=== PATIENT | female | born 1975 | race Caucasian/White ===

== ENCOUNTER 2017-08-13 16:27 | Emergency (ER) | payer MEDICAID ==
[~2017-08-13] VITALS: Ht 144.8 cm; Wt 111.1 kg
[2017-08-13] MEDS ORDERED: PANTOPRAZOLE 40 MG/10 ML VIAL IV STA (16:53)
[2017-08-13] MEDS ORDERED: SODIUM CHLORIDE 0.9% 500 ML IVB ONE (16:53)
[2017-08-13] MEDS ORDERED: ONDANSETRON HCL 4 MG/2 ML VIAL IV ONE (17:00)
[2017-08-13] MEDS ORDERED: HYDROmorphone HCL 2 MG/ML VL IV ONE (17:00)
[2017-08-13 17:21] LABS: Basophils # (auto) 0.1 uL; Basophils % (auto) 1.4 % (0.0-2.0); Eosinophils # (auto) 0.1 uL; Eosinophils % (auto) 1.2 % (0.0-7.0); Hematocrit 40.2 % (36.0-46.0); Hemoglobin 13.4 g/dL (12.2-16.2); Lymphocytes # (auto) 2.9 uL; Lymphocytes % (auto) 32.3 % (10.0-50.0); Mean Corpuscular Hemoglobin 29.7 pg (28.0-32.0); Mean Corpuscular Hgb Conc. 33.3 g/dL (32.0-36.0); Mean Corpuscular Volume 89.3 fL (80.0-100.0); Mean Platelet Volume 7.9 fL (6.9-10.8); Monocytes # (auto) 0.5 uL; Monocytes % (auto) 5.2 % (0.0-12.0); Neutrophils # (auto) 5.4 uL; Neutrophils % (auto) 59.9 % (37.0-80.0); Nucleated Red Blood Cells % 0.1 %; Platelet Count (auto) 242 10^3/uL (140-450); Red Cell Distribution Width 13.8 % (11.8-14.3); White Blood Cell 9.1 10^3/uL (4.4-10.8)
[2017-08-13 17:32] LABS: Urine Bilirubin Negative (Negative); Urine Blood Negative /uL (Negative); Urine Color Yellow (Yellow); Urine Glucose Normal (Normal); Urine Ketone Negative (Negative); Urine Nitrite Negative (Negative); Urine RBC <1 /hpf (0 - 4); Urine Squamous Epithelial Cell MOD /hpf (<5); Urine Urobilinogen Normal (Negative)
[2017-08-13 17:41] LABS: Albumin 3.5 g/dL (3.4-5.0); BUN/Creatinine Ratio 13.5; Calcium 10.7 mg/dL (8.5-10.1); Potassium 4.3 mmol/L (3.5-5.1)
[2017-08-13 17:43] LABS: Bilirubin, Total 0.4 mg/dL (0.2-1.0); Total Protein 7.6 g/dL (6.4-8.2)
[2017-08-13 17:50] VITALS: BP 102/71
== END 2017-08-13 19:18 | disposition home or self-care (01) ==
LOC: ER 16:36
DX: K29.70 Gastritis, unspecified, without bleeding (principal); J44.9 Chronic obstructive pulmonary disease, unspecified; E11.9 Type 2 diabetes mellitus without complications; K21.9 Gastro-esophageal reflux disease without esophagitis; E78.5 Hyperlipidemia, unspecified; I10 Essential (primary) hypertension; G89.29 Other chronic pain; M54.5 Low back pain; Z90.710 Acquired absence of both cervix and uterus; Z90.89 Acquired absence of other organs; F12.10 Cannabis abuse, uncomplicated; Z87.891 Personal history of nicotine dependence
CPT/HCPCS: 36415; 76705; 80053; 81001; 82150; 83690; 85025; 94761; 96361; 96374; 96375; 99285; C9113; J1170; J2405; J7040

== ENCOUNTER 2018-06-02 06:56 | Day surgery (SDC) | payer MEDICAID ==
[2018-06-01 13:53] LABS: Urine WBC None Seen /hpf (0 - 5)
[2018-06-01 14:01] LABS: Urine Bacteria FEW /hpf (None Seen); Urine Blood Negative /uL (Negative); Urine Specific Gravity 1.011 (1.001-1.035)
[2018-06-01 14:08] LABS: Basophils # (auto) 0.1 uL; Eosinophils # (auto) 0.1 uL; Eosinophils % (auto) 1.6 % (0.0-7.0); Hematocrit 43.9 % (36.0-46.0); Hemoglobin 14.7 g/dL (12.2-16.2); Lymphocytes # (auto) 2.8 uL; Lymphocytes % (auto) 36.3 % (10.0-50.0); Mean Corpuscular Hemoglobin 29.7 pg (28.0-32.0); Mean Corpuscular Hgb Conc. 33.6 g/dL (32.0-36.0); Mean Corpuscular Volume 88.3 fL (80.0-100.0); Monocytes # (auto) 0.4 uL; Monocytes % (auto) 4.9 % (0.0-12.0); Neutrophils # (auto) 4.3 uL; Neutrophils % (auto) 56.2 % (37.0-80.0); Nucleated Red Blood Cells % 0.1 %; Platelet Count (auto) 237 10^3/uL (140-450); Red Blood Cells 4.97 10^6/uL (4.0-5.20); Red Cell Distribution Width 13.7 % (11.8-14.3); White Blood Cell 7.6 10^3/uL (4.4-10.8)
[2018-06-01 14:15] LABS: INR 0.93 (0.9-1.15); Partial Thromboplastin Time 25.9 sec (23.78-33.04)
[2018-06-01 14:19] LABS: Albumin 3.8 g/dL (3.4-5.0); BUN/Creatinine Ratio 14.4; Bilirubin, Total 0.6 mg/dL (0.2-1.0); Calcium 11.4 mg/dL (8.5-10.1); Potassium 4.5 mmol/L (3.5-5.1); Total Protein 7.9 g/dL (6.4-8.2)
[~2018-06-02] VITALS: Ht 144.8 cm; Wt 116.1 kg
[~2018-06-02 06:56] MED LIST: ALBUAER3 IN; ARIP15TA6 PO; CHOL500023 PO; LOSA-49 PO; LOVA40TA72 PO; METF-372 PO; METO25TA62 PO; PANT40TA2 PO; ZOLP10TA PO
[2018-06-02] MEDS ORDERED: ceFAZolin 1GM/50ML 50 ML IV ONE (08:46)
[2018-06-02] MEDS ORDERED: MIDAZOLAM HCL 1MG/1ML-2 ML VIAL ONE (10:27)
[2018-06-02] MEDS ORDERED: fentaNYL CITRATE 100 MCG/2 ML VL ONE (10:27)
[2018-06-02] MEDS ORDERED: DEXAMETHASONE SOD PHOS 10MG/1ML VIAL INJ ONE (10:31)
[2018-06-02] MEDS ORDERED: HYDROmorphone HCL 2 MG/ML VL IV PRN (10:45)
[2018-06-02] MEDS ORDERED: KETOROLAC TROMETH 30 MG/ML 1ML VIAL IV ONE (10:45)
[2018-06-02] MEDS ORDERED: MORPHINE SULFATE 4 MG/ML SYR/VIAL IV PRN (10:45)
[2018-06-02] MEDS ORDERED: LABETALOL HCL 5 MG/ML 4ML SYRINGE IV PRN (10:45)
[2018-06-02] MEDS ORDERED: ONDANSETRON HCL 4 MG/2 ML VIAL IV ONE (10:45)
[2018-06-02] MEDS ORDERED: ePHEDrine SULFATE 50 MG/ML AMP IV PRN (10:45)
[2018-06-02] MEDS ORDERED: MIDAZOLAM HCL 1MG/1ML-2 ML VIAL IV PRN (10:45)
[2018-06-02] MEDS ORDERED: PROPOFOL 10 MG/ML 20 ML IV ONE (11:11)
[2018-06-02 11:22] VITALS: BP 132/83
[2018-06-02] MEDS ORDERED: MORPHINE SULFATE 4 MG/ML SYR/VIAL IV ONE (12:00)
== END 2018-06-02 11:30 | disposition home or self-care (01) ==
LOC: SUR 06:56
PROVIDERS: ATTEND Podiatrist Foot & Ankle Surgery
DX: G57.81 Other specified mononeuropathies of right lower limb (principal); I10 Essential (primary) hypertension; J45.909 Unspecified asthma, uncomplicated; E11.9 Type 2 diabetes mellitus without complications; E66.01 Morbid (severe) obesity due to excess calories; K21.9 Gastro-esophageal reflux disease without esophagitis; G47.30 Sleep apnea, unspecified; Z90.5 Acquired absence of kidney; Z90.710 Acquired absence of both cervix and uterus; Z98.890 Other specified postprocedural states; Z68.33 Body mass index [BMI] 33.0-33.9, adult
CPT/HCPCS: 64704; J3010; J7030; 36415; 80053; 81001; 82962; 84702; 85025; 85610; 85730; J0690; J1100; J2250; J2704

== ENCOUNTER 2018-12-19 15:50 | Emergency (ER) | payer MEDICAID ==
[~2018-12-19] VITALS: Ht 144.8 cm; Wt 114.8 kg
[2018-12-19 17:08] LABS: Urine Bacteria NONE SEEN /hpf (None Seen); Urine Blood Negative /uL (Negative); Urine Specific Gravity 1.009 (1.001-1.035); Urine WBC 2 /hpf (0 - 5)
[2018-12-19 17:12] LABS: Albumin 3.5 g/dL (3.4-5.0); BUN/Creatinine Ratio 11.2; Calcium 11.4 mg/dL (8.5-10.1); Potassium 4.2 mmol/L (3.5-5.1)
[2018-12-19 17:14] LABS: Bilirubin, Total 0.6 mg/dL (0.2-1.0); Total Protein 7.3 g/dL (6.4-8.2)
[2018-12-19 17:41] LABS: Hematocrit 37.1 % (36.0-46.0); Hemoglobin 12.4 g/dL (12.2-16.2); Mean Corpuscular Hemoglobin 29.7 pg (28.0-32.0); Mean Corpuscular Hgb Conc. 33.4 g/dL (32.0-36.0); Mean Corpuscular Volume 88.8 fL (80.0-100.0); Platelet Count (auto) 193 10^3/uL (140-450); Red Blood Cells 4.18 10^6/uL (4.0-5.20); Red Cell Distribution Width 15.6 % (11.8-14.3); White Blood Cell 6.4 10^3/uL (4.4-10.8)
[2018-12-19 17:44] LABS: Band Neutrophils % (manual) 0; Basophils % (manual) 0 (0.0-2.0); Metamyelocytes % 0; Myelocytes % 0; Promyelocytes % 0
[2018-12-19 18:58] LABS: Blast Cells 4; Eosinophils % (manual) 1 (0-7); Lymphocytes % (manual) 50 (10.0-50.0); Monocytes % (manual) 7 (0-12); Reactive Lymphocytes 3
[2018-12-19] MEDS ORDERED: KETOROLAC TROMETH 60MG/2ML VIAL IM ONE ×2 (20:18→21:00)
[2018-12-19 22:00] VITALS: BP 116/85
== END 2018-12-19 22:45 | disposition home or self-care (01) ==
LOC: ER 15:50
DX: N20.0 Calculus of kidney (principal); K76.0 Fatty (change of) liver, not elsewhere classified; E11.9 Type 2 diabetes mellitus without complications; I10 Essential (primary) hypertension; E78.5 Hyperlipidemia, unspecified; Z90.89 Acquired absence of other organs; Z90.710 Acquired absence of both cervix and uterus; Z79.899 Other long term (current) drug therapy
CPT/HCPCS: 36415; 74176; 80053; 81001; 82150; 83690; 85007; 85027; 96372; 99284; J1885

== ENCOUNTER 2019-11-29 18:54 | Emergency (ER) | payer MEDICAID ==
[~2019-11-29] VITALS: Ht 144.8 cm; Wt 113.4 kg
[~2019-11-29 18:54] MED LIST changes: +LOSA-39 PO; -LOSA-49 PO; -METO25TA62 PO; +METO25TA93 PO
[2019-11-29 20:06] VITALS: BP 154/69
[2019-11-29 20:13] LABS: Basophils # (auto) 0.1 10 ^3/uL (0-0.2); Basophils % (auto) 0.9 % (0.0-2.0); Eosinophils # (auto) 0.2 10 ^3/uL (0-0.8); Eosinophils % (auto) 2.1 % (0.0-7.0); Hematocrit 40.4 % (36.0-46.0); Hemoglobin 13.7 g/dL (12.2-16.2); Mean Corpuscular Hemoglobin 30.6 pg (28.0-32.0); Mean Corpuscular Hgb Conc. 33.9 g/dL (32.0-36.0); Mean Corpuscular Volume 90.3 fL (80.0-100.0); Monocytes # (auto) 0.5 10 ^3/uL (0-1.3); Platelet Count (auto) 202 10^3/uL (140-450); Red Blood Cells 4.47 10^6/uL (4.0-5.20); Red Cell Distribution Width 13.8 % (11.8-14.3); White Blood Cell 7.7 10^3/uL (4.4-10.8)
[2019-11-29 20:30] LABS: Alanine Aminotransferase 32 U/L (13-56); Albumin 3.5 g/dL (3.4-5.0); Anion Gap 2 (5-15); Aspartate Aminotransferase 21 U/L (15-37); BUN/Creatinine Ratio 17.3; Blood Urea Nitrogen 14 mg/dL (7-18); Calcium 12.1 mg/dL (8.5-10.1); Carbon Dioxide 25 mmol/L (21-32); Chloride 110 mmol/L (98-107); GFR African American 98 mL/min; GFR Non-African American 81 mL/min; Glucose 130 mg/dL (74-106); Magnesium 1.2 mg/dL (1.6-2.6); Potassium 4.5 mmol/L (3.5-5.1); Sodium 137 mmol/L (136-145)
[2019-11-29] MEDS ORDERED: traMADol HCL 50 MG TAB PO ONE (20:30)
[2019-11-29 20:35] LABS: Alkaline Phosphatase 105 U/L (45-117); Bilirubin, Total 0.4 mg/dL (0.2-1.0); Total Protein 7.2 g/dL (6.4-8.2)
== END 2019-11-29 21:13 | disposition home or self-care (01) ==
LOC: ER 18:54
DX: M25.511 Pain in right shoulder (principal); J44.9 Chronic obstructive pulmonary disease, unspecified; E11.9 Type 2 diabetes mellitus without complications; E78.5 Hyperlipidemia, unspecified; I10 Essential (primary) hypertension; Z79.899 Other long term (current) drug therapy; Z90.710 Acquired absence of both cervix and uterus
CPT/HCPCS: 36415; 71045; 73030; 80053; 82962; 83735; 84484; 85025; 93005

== ENCOUNTER 2021-07-12 15:53 | Inpatient (IN) | payer MEDICAID ==
[~2021-07-12] VITALS: Ht 144.8 cm; Wt 114.0 kg
[2021-07-12] MEDS ORDERED: cefTRIAXone 1GM/50ML D5W 50 ML IV ONE ×2 (17:30→21:15)
[2021-07-12] MEDS ORDERED: ONDANSETRON HCL 4 MG/2 ML VIAL IV ONE (17:30)
[2021-07-12] MEDS ORDERED: TAMSULOSIN HYDROCHLORIDE 0.4 MG CAP PO ONE (17:30)
[2021-07-12] MEDS ORDERED: MORPHINE SULFATE 4 MG/ML SYR/VIAL IV ONE (17:30)
[2021-07-12 18:31] LABS: Basophils # (auto) 0.1 10 ^3/uL (0-0.2); Eosinophils # (auto) 0.2 10 ^3/uL (0-0.8); Eosinophils % (auto) 2.9 % (0.0-7.0); Hematocrit 36.9 % (36.0-46.0); Hemoglobin 12.3 g/dL (12.2-16.2); Lymphocytes # (auto) 2.2 10 ^3/uL (0.4-5.4); Lymphocytes % (auto) 33.8 % (10.0-50.0); Mean Corpuscular Hgb Conc. 33.4 g/dL (32.0-36.0); Mean Corpuscular Volume 89.9 fL (80.0-100.0); Monocytes # (auto) 0.2 10 ^3/uL (0-1.3); Monocytes % (auto) 3.9 % (0.0-12.0); Neutrophils # (auto) 3.7 10 ^3/uL (1.6-8.6); Neutrophils % (auto) 58.4 % (37.0-80.0); Nucleated Red Blood Cells % 0.3 %; Red Cell Distribution Width 13.7 % (11.8-14.3); White Blood Cell 6.4 10^3/uL (4.4-10.8)
[2021-07-12 18:39] LABS: Albumin 3.4 g/dL (3.4-5.0); Anion Gap 2 (5-15); Blood Urea Nitrogen 18 mg/dL (7-18); Calcium 11.7 mg/dL (8.5-10.1); Carbon Dioxide 25 mmol/L (21-32); Chloride 110 mmol/L (98-107); Glucose 249 mg/dL (74-106); Potassium 5.5 mmol/L (3.5-5.1); Sodium 137 mmol/L (136-145)
[2021-07-12 18:48] LABS: Alanine Aminotransferase 40 U/L (13-56); Alkaline Phosphatase 105 U/L (45-117); Aspartate Aminotransferase 32 U/L (15-37); BUN/Creatinine Ratio 14.2; Bilirubin, Total 0.4 mg/dL (0.2-1.0); GFR African American 58 mL/min; GFR Non-African American 48 mL/min; Total Protein 7.3 g/dL (6.4-8.2)
[2021-07-12 19:43] LABS: Urine Bacteria NONE SEEN /hpf (None Seen); Urine Blood Negative /uL (Negative); Urine Specific Gravity 1.011 (1.001-1.035); Urine WBC 1 /hpf (0 - 5)
[2021-07-12] MEDS ORDERED: SODIUM CHLORIDE 0.9% 1,000 ML IV ONE ×2 (20:15)
[2021-07-12] MEDS ORDERED: CALCIUM GLUC 1,000mg/50ml-NS 50 ML IV ONE (20:15)
[2021-07-12] MEDS ORDERED: SODIUM ZIRCONIUM CYCL 10 GM PAK PO ONE (20:15)
[2021-07-12] MEDS ORDERED: MORPHINE SULFATE INJECTION 2 MG/ML SYRG IV PRN (20:45)
[2021-07-12] MEDS ORDERED: ACETAMINOPHEN 325 MG TAB PO PRN (20:45)
[2021-07-12] MEDS ORDERED: NITROGLYCERIN 0.4 MG SL TAB SL PRN (20:45)
[2021-07-12] MEDS ORDERED: DEXTROSE (50%) 50ML SYRG IV PRN (20:45)
[2021-07-12] MEDS ORDERED: ONDANSETRON HCL 4 MG/2 ML VIAL IV PRN (20:45)
[2021-07-12 23:56] LABS: BUN/Creatinine Ratio 13.2; Calcium 12.3 mg/dL (8.5-10.1); Potassium 5.3 mmol/L (3.5-5.1)
[2021-07-13 05:00] VITALS: BP 156/118
[2021-07-13] MEDS: HYDROcodone-ACET 5/325MG TAB PO PRN ×2 (05:20→16:41)
[2021-07-13 05:42] VITALS: BP 156/118
[2021-07-13] MEDS: SODIUM CHLORIDE 0.9% 1,000 ML IV SCH ×3 (06:13→13:25)
[2021-07-13] MEDS: ACCU-CHEK COMFORT CURVE STRIP VI SCH ×4 (06:13→16:32)
[2021-07-13] MEDS: InsuLIN REG 1unit/0.01ml Soln (100units/ml) SC SCH ×4 (06:20→16:40)
[2021-07-13] MEDS: MORPHINE SULFATE 4 MG/ML SYR/VIAL IV PRN ×2 (06:56→11:04)
[2021-07-13 09:00] VITALS: BP 102/52
[2021-07-13] MEDS ORDERED: cefTRIAXone 1GM/50ML D5W 50 ML IV SCH (09:00)
[2021-07-13 12:00] LABS: Basophils # (auto) 0 10 ^3/uL (0-0.2); Basophils % (auto) 0.7 % (0.0-2.0); Eosinophils # (auto) 0.1 10 ^3/uL (0-0.8); Eosinophils % (auto) 2.8 % (0.0-7.0); Hematocrit 34.4 % (36.0-46.0); Hemoglobin 11.6 g/dL (12.2-16.2); Lymphocytes % (auto) 37.1 % (10.0-50.0); Mean Corpuscular Hemoglobin 30.9 pg (28.0-32.0); Mean Corpuscular Hgb Conc. 33.8 g/dL (32.0-36.0); Mean Corpuscular Volume 91.6 fL (80.0-100.0); Monocytes # (auto) 0.3 10 ^3/uL (0-1.3); Monocytes % (auto) 5.4 % (0.0-12.0); Neutrophils # (auto) 2.9 10 ^3/uL (1.6-8.6); Nucleated Red Blood Cells % 0.3 %; Red Blood Cells 3.76 10^6/uL (4.0-5.20); Red Cell Distribution Width 13.8 % (11.8-14.3); White Blood Cell 5.3 10^3/uL (4.4-10.8)
[2021-07-13 12:02] LABS: Potassium 5.4 mmol/L (3.5-5.1)
[2021-07-13 12:10] LABS: Albumin 3.2 g/dL (3.4-5.0); BUN/Creatinine Ratio 16.7; Bilirubin, Total 0.4 mg/dL (0.2-1.0); Calcium 12.1 mg/dL (8.5-10.1)
[2021-07-13 13:00] VITALS: BP 115/70
[2021-07-13] MEDS ORDERED: SODIUM ZIRCONIUM CYCL 10 GM PAK PO ONE (16:00)
== END 2021-07-13 19:21 | disposition home health service (06) | DRG 465 ==
LOC: EDBD 15:53 → ER 15:53 → OVERFLOW 20:42 → EAST 07-13 04:33
PROVIDERS: ADMIT Internal Medicine; ATTEND Internal Medicine
DX: N13.2 Hydronephrosis with renal and ureteral calculous obstruction (principal); Z68.43 Body mass index [BMI] 50.0-59.9, adult; E11.22 Type 2 diabetes mellitus with diabetic chronic kidney disease; E78.5 Hyperlipidemia, unspecified; E87.5 Hyperkalemia; Z20.822 Contact with and (suspected) exposure to COVID-19; I12.9 Hypertensive chronic kidney disease with stage 1 through stage 4 chronic kidney disease, or unspecified chronic kidney disease; F31.9 Bipolar disorder, unspecified; N18.30 Chronic kidney disease, stage 3 unspecified; G47.00 Insomnia, unspecified; E66.01 Morbid (severe) obesity due to excess calories; J44.9 Chronic obstructive pulmonary disease, unspecified; Z79.84 Long term (current) use of oral hypoglycemic drugs; Z88.8 Allergy status to other drugs, medicaments and biological substances; Z80.1 Family history of malignant neoplasm of trachea, bronchus and lung; Z82.49 Family history of ischemic heart disease and other diseases of the circulatory system; Z90.5 Acquired absence of kidney; Z90.710 Acquired absence of both cervix and uterus
CPT/HCPCS: 36415; 71045; 74176; 80048; 80053; 81001; 82962; 84484; 85025; 87081; 87426; 93005; 96365; 96372; 96375; G0378; J0696; J1815

== ENCOUNTER 2021-08-05 14:07 | Emergency (ER) | payer MEDICAID ==
[~2021-08-05] VITALS: Ht 144.8 cm; Wt 116.1 kg
[~2021-08-05 14:07] MED LIST changes: -LOSA-39 PO
[2021-08-05] MEDS ORDERED: KETOROLAC TROMETH 30 MG/ML 1ML VIAL IV ONE (14:15)
[2021-08-05] MEDS ORDERED: SODIUM CHLORIDE 0.9% 1,000 ML IVB ONE (14:15)
[2021-08-05] MEDS ORDERED: MORPHINE SULFATE 4 MG/ML SYR/VIAL IV ONE (14:15)
[2021-08-05] MEDS ORDERED: ONDANSETRON HCL 4 MG/2 ML VIAL IV ONE (14:15)
[2021-08-05 14:54] LABS: Basophils # (auto) 0 10 ^3/uL (0-0.2); Basophils % (auto) 0.7 % (0.0-2.0); Eosinophils # (auto) 0.2 10 ^3/uL (0-0.8); Eosinophils % (auto) 2.5 % (0.0-7.0); Hematocrit 39.1 % (36.0-46.0); Hemoglobin 13.2 g/dL (12.2-16.2); Lymphocytes # (auto) 1.9 10 ^3/uL (0.4-5.4); Mean Corpuscular Hemoglobin 30.4 pg (28.0-32.0); Mean Corpuscular Hgb Conc. 33.8 g/dL (32.0-36.0); Monocytes # (auto) 0.3 10 ^3/uL (0-1.3); Monocytes % (auto) 5.3 % (0.0-12.0); Neutrophils # (auto) 3.9 10 ^3/uL (1.6-8.6); Neutrophils % (auto) 61.5 % (37.0-80.0); Nucleated Red Blood Cells % 0.1 %; Red Blood Cells 4.35 10^6/uL (4.0-5.20); Red Cell Distribution Width 14.1 % (11.8-14.3); White Blood Cell 6.3 10^3/uL (4.4-10.8)
[2021-08-05 15:09] LABS: Albumin 3.3 g/dL (3.4-5.0); Calcium 12.7 mg/dL (8.5-10.1); Potassium 5.3 mmol/L (3.5-5.1)
[2021-08-05 15:12] LABS: BUN/Creatinine Ratio 19.5
[2021-08-05 15:14] LABS: Bilirubin, Total 0.6 mg/dL (0.2-1.0); Total Protein 7.3 g/dL (6.4-8.2)
[2021-08-05] MEDS ORDERED: SODIUM BICARBONATE 8.4 % INJ 50ML VIAL IV ONE (17:00)
[2021-08-05] MEDS ORDERED: CALCIUM GLUC 1,000mg/50ml-NS 50 ML IV ONE (17:00)
[2021-08-05 17:12] LABS: Urine Bacteria FEW /hpf (None Seen); Urine Blood Negative /uL (Negative); Urine Specific Gravity 1.016 (1.001-1.035); Urine WBC 2 /hpf (0 - 5)
[2021-08-05 20:45] VITALS: BP 142/89
== END 2021-08-06 14:09 | disposition home or self-care (01) ==
LOC: EDBD 14:07 → ER 14:07
DX: R10.9 Unspecified abdominal pain (principal); E87.5 Hyperkalemia; J44.9 Chronic obstructive pulmonary disease, unspecified; E11.9 Type 2 diabetes mellitus without complications; E78.5 Hyperlipidemia, unspecified; I10 Essential (primary) hypertension; Z90.710 Acquired absence of both cervix and uterus; Z87.442 Personal history of urinary calculi
CPT/HCPCS: 36415; 74176; 80053; 81001; 83690; 85025; 93005; 96365; 96375; 99285; J0610; J1885; J2270; J2405; J7030

== ENCOUNTER 2021-08-09 14:08 | Emergency (ER) | payer MEDICAID ==
[~2021-08-09] VITALS: Ht 144.8 cm; Wt 116.1 kg
[2021-08-09 15:09] LABS: Urine Bacteria FEW /hpf (None Seen); Urine Blood Negative /uL (Negative); Urine Specific Gravity 1.016 (1.001-1.035); Urine WBC 1 /hpf (0 - 5)
[2021-08-09 15:35] LABS: Basophils # (auto) 0.1 10 ^3/uL (0-0.2); Eosinophils # (auto) 0.1 10 ^3/uL (0-0.8); Eosinophils % (auto) 2.1 % (0.0-7.0); Hematocrit 37.2 % (36.0-46.0); Hemoglobin 12.4 g/dL (12.2-16.2); Lymphocytes # (auto) 2.1 10 ^3/uL (0.4-5.4); Lymphocytes % (auto) 33.2 % (10.0-50.0); Mean Corpuscular Hemoglobin 30.1 pg (28.0-32.0); Mean Corpuscular Hgb Conc. 33.4 g/dL (32.0-36.0); Mean Corpuscular Volume 90.1 fL (80.0-100.0); Monocytes # (auto) 0.3 10 ^3/uL (0-1.3); Monocytes % (auto) 5.4 % (0.0-12.0); Neutrophils # (auto) 3.7 10 ^3/uL (1.6-8.6); Neutrophils % (auto) 58.3 % (37.0-80.0); Nucleated Red Blood Cells % 0.1 %; Red Blood Cells 4.13 10^6/uL (4.0-5.20); Red Cell Distribution Width 13.8 % (11.8-14.3); White Blood Cell 6.3 10^3/uL (4.4-10.8)
[2021-08-09 15:54] LABS: Albumin 3.6 g/dL (3.4-5.0); Calcium 12.3 mg/dL (8.5-10.1)
[2021-08-09 15:58] LABS: BUN/Creatinine Ratio 17.7; Bilirubin, Total 0.6 mg/dL (0.2-1.0)
[2021-08-09 16:20] LABS: Potassium 5.7 mmol/L (3.5-5.1)
[2021-08-09] MEDS ORDERED: SODIUM ZIRCONIUM CYCL 10 GM PAK PO ONE (16:45)
[2021-08-09] MEDS ORDERED: SODIUM BICARBONATE 8.4% INJ 50ML SYRINGE IV ONE (16:45)
[2021-08-09] MEDS ORDERED: DEXTROSE (50%) 50ML SYRG IV ONE (16:45)
[2021-08-09] MEDS ORDERED: ALBUTEROL SULF 2.5 MG/0.5ML(0.5%) NEB SOLN NEB ONE (16:45)
[2021-08-09] MEDS ORDERED: InsuLIN REG 1unit/0.01ml Soln (100units/ml) IV ONE (16:45)
[2021-08-09] MEDS ORDERED: FUROSEMIDE 20 MG/2 ML VIAL IV ONE (16:45)
[2021-08-09] MEDS ORDERED: CALCIUM GLUC 1,000mg/50ml-NS 50 ML IV ONE (16:45)
[2021-08-09] MEDS ORDERED: ONDANSETRON HCL 4 MG/2 ML VIAL IV ONE (20:30)
[2021-08-09] MEDS ORDERED: fentaNYL CITRATE 100 MCG/2 ML VL IV ONE (20:30)
[2021-08-09 21:15] VITALS: BP 127/74
[2021-08-09 22:23] LABS: BUN/Creatinine Ratio 17.1; Calcium 12.5 mg/dL (8.5-10.1); Potassium 4.7 mmol/L (3.5-5.1)
== END 2021-08-09 23:45 | disposition still patient (30) ==
LOC: ER 14:08
DX: N20.0 Calculus of kidney (principal); E87.5 Hyperkalemia; J44.9 Chronic obstructive pulmonary disease, unspecified; E11.9 Type 2 diabetes mellitus without complications; E78.5 Hyperlipidemia, unspecified; I10 Essential (primary) hypertension; Z90.710 Acquired absence of both cervix and uterus; Z90.89 Acquired absence of other organs; Z87.891 Personal history of nicotine dependence; Z79.899 Other long term (current) drug therapy; Z91.048 Other nonmedicinal substance allergy status; Z20.822 Contact with and (suspected) exposure to COVID-19
CPT/HCPCS: 36415; 74176; 80048; 80053; 81001; 84132; 85025; 87426; 93005; 94640; 96365; 96375; 99285; J1815; J1940; J2405; J3010; J7042

== ENCOUNTER 2021-09-23 17:29 | Inpatient (IN) | payer MEDICAID ==
[~2021-09-23] VITALS: Ht 154.9 cm; Wt 117.0 kg
[2021-09-23 20:08] LABS: Basophils # (auto) 0.1 10 ^3/uL (0-0.2); Basophils % (auto) 0.8 % (0.0-2.0); Eosinophils # (auto) 0.1 10 ^3/uL (0-0.8); Eosinophils % (auto) 0.9 % (0.0-7.0); Hematocrit 39.8 % (36.0-46.0); Hemoglobin 13.6 g/dL (12.2-16.2); Lymphocytes # (auto) 1.9 10 ^3/uL (0.4-5.4); Mean Corpuscular Hemoglobin 29.8 pg (28.0-32.0); Mean Corpuscular Hgb Conc. 34.3 g/dL (32.0-36.0); Mean Corpuscular Volume 86.9 fL (80.0-100.0); Monocytes # (auto) 0.4 10 ^3/uL (0-1.3); Monocytes % (auto) 4.4 % (0.0-12.0); Neutrophils # (auto) 6.2 10 ^3/uL (1.6-8.6); Neutrophils % (auto) 71.9 % (37.0-80.0); Red Blood Cells 4.58 10^6/uL (4.0-5.20); Red Cell Distribution Width 13.1 % (11.8-14.3); White Blood Cell 8.6 10^3/uL (4.4-10.8)
[2021-09-23 20:38] LABS: Albumin 3.8 g/dL (3.4-5.0); Potassium 4.7 mmol/L (3.5-5.1)
[2021-09-23 20:44] LABS: BUN/Creatinine Ratio 17.9; Bilirubin, Total 0.6 mg/dL (0.2-1.0); Total Protein 8.2 g/dL (6.4-8.2)
[2021-09-23 20:49] LABS: Calcium 13.4 mg/dL (8.5-10.1)
[2021-09-23] MEDS ORDERED: IPRATROPIUM BROM 0.5 MG/2.5ML INH SOL NEB ONE (21:15)
[2021-09-23] MEDS ORDERED: ALBUTEROL SULF 2.5 MG/0.5ML(0.5%) NEB SOLN NEB ONE (21:15)
[2021-09-23] MEDS ORDERED: DexAMETHasone SOD PHOS 10MG/1ML VIAL INJ IV ONE (21:15)
[2021-09-23] MEDS ORDERED: SODIUM CHLORIDE 0.9% 1,000 ML IV ONE (23:00)
[2021-09-24] MEDS ORDERED: KETOROLAC TROMETH 30 MG/ML 1ML VIAL IV ONE (00:15)
[2021-09-24] MEDS ORDERED: MORPHINE SULFATE INJECTION 2 MG/ML SYRG IV PRN (01:00)
[2021-09-24] MEDS ORDERED: NITROGLYCERIN 0.4 MG SL TAB SL PRN (01:00)
[2021-09-24] MEDS ORDERED: ONDANSETRON HCL 4 MG/2 ML VIAL IV PRN (01:00)
[2021-09-24] MEDS ORDERED: DOCUSATE SOD 100 MG CAP PO PRN (01:00)
[2021-09-24] MEDS ORDERED: DEXTROSE (50%) 50ML SYRG IV PRN (01:15)
[2021-09-24] MEDS ORDERED: SODIUM CHLORIDE 0.9% 1,000 ML IV SCH (01:15)
[2021-09-24] MEDS: ALBUTEROL SULF 2.5 MG/0.5ML(0.5%) NEB SOLN NEB SCH ×6 (02:00→23:12)
[2021-09-24] MEDS ORDERED: methylPREDNISolone SOD SUCC 125 MG/2 ML VL IV SCH (06:00)
[2021-09-24] MEDS: HEPARIN SODIUM (PORCINE) 5000 UNITS/ML 1ML VIAL SC SCH ×3 (06:30→21:19)
[2021-09-24 07:04] LABS: Basophils # (auto) 0 10 ^3/uL (0-0.2); Basophils % (auto) 0.8 % (0.0-2.0); Eosinophils # (auto) 0 10 ^3/uL (0-0.8); Eosinophils % (auto) 0.2 % (0.0-7.0); Hemoglobin 12.4 g/dL (12.2-16.2); Lymphocytes # (auto) 0.7 10 ^3/uL (0.4-5.4); Lymphocytes % (auto) 12.4 % (10.0-50.0); Mean Corpuscular Hgb Conc. 33.6 g/dL (32.0-36.0); Mean Corpuscular Volume 89.2 fL (80.0-100.0); Monocytes # (auto) 0.1 10 ^3/uL (0-1.3); Monocytes % (auto) 2.1 % (0.0-12.0); Neutrophils # (auto) 5.1 10 ^3/uL (1.6-8.6); Neutrophils % (auto) 84.5 % (37.0-80.0); Nucleated Red Blood Cells % 0.2 %; Red Blood Cells 4.15 10^6/uL (4.0-5.20); Red Cell Distribution Width 12.9 % (11.8-14.3)
[2021-09-24 07:21] LABS: BUN/Creatinine Ratio 17.9; Calcium 12.3 mg/dL (8.5-10.1); Potassium 5.5 mmol/L (3.5-5.1)
[2021-09-24] MEDS: InsuLIN REG 1unit/0.01ml Soln (100units/ml) SC SCH ×4 (08:02→21:42)
[2021-09-24] MEDS: ACCU-CHEK COMFORT CURVE STRIP VI SCH ×4 (08:03→21:20)
[2021-09-24] MEDS ORDERED: ENOXAPARIN SOD 40 MG/0.4 ML SYRINGE SC SCH (10:00)
[2021-09-24] MEDS ORDERED: levoFLOXacin 500MG 100 ML IV SCH (10:00)
[2021-09-24] MEDS: ASCORBIC ACID 500 MG TAB PO SCH ×2 (10:22→21:19)
[2021-09-24] MEDS: ZINC SULFATE 220mg CAP or TAB PO SCH (10:23)
[2021-09-24] MEDS: SODIUM BICARBONATE 50ML VIAL 50 ML in SOD CHL 0.45% 1,000 ML IV SCH ×2 (11:16→17:25)
[2021-09-24 11:47] LABS: Protein, Urine 184.1 mg/dL (0.0-11.9)
[2021-09-24] MEDS ORDERED: HYDR50CA2 PO (19:48)
[2021-09-24] MEDS ORDERED: AZIT250T8 PO (19:48)
[2021-09-24] MEDS ORDERED: CHOL20007 OR (19:48)
[2021-09-24] MEDS: methylPREDNISolone SOD SUCC 40 MG/ML VL IV SCH (21:19)
[2021-09-24 22:00] VITALS: BP 166/96
[2021-09-24] MEDS ORDERED: INSULIN LANTUS (GLARGINE) 1 /0.01ml (100units/ml) SC SCH (22:00)
[2021-09-25] MEDS ORDERED: ZOLPIDEM TARTRATE 5 MG TAB PO PRN (01:45)
[2021-09-25] MEDS: ALBUTEROL SULF 2.5 MG/0.5ML(0.5%) NEB SOLN NEB SCH ×6 (02:35→22:00)
[2021-09-25 05:00] VITALS: BP 166/102
[2021-09-25] MEDS: HEPARIN SODIUM (PORCINE) 5000 UNITS/ML 1ML VIAL SC SCH ×3 (05:58→21:54)
[2021-09-25] MEDS: SODIUM BICARBONATE 50ML VIAL 50 ML in SOD CHL 0.45% 1,000 ML IV SCH ×4 (06:00→21:15)
[2021-09-25] MEDS: ACCU-CHEK COMFORT CURVE STRIP VI SCH ×4 (06:10→22:00)
[2021-09-25] MEDS: InsuLIN REG 1unit/0.01ml Soln (100units/ml) SC SCH ×5 (06:12→22:12)
[2021-09-25] MEDS: ACETAMINOPHEN 325 MG TAB PO PRN ×2 (06:18→17:27)
[2021-09-25 06:20] LABS: Potassium 4.9 mmol/L (3.5-5.1)
[2021-09-25 06:23] LABS: BUN/Creatinine Ratio 24.4
[2021-09-25 06:29] LABS: Calcium 13.1 mg/dL (8.5-10.1)
[2021-09-25 08:43] LABS: Urine Bacteria NONE SEEN /hpf (None Seen); Urine Blood Negative /uL (Negative); Urine Specific Gravity 1.019 (1.001-1.035); Urine WBC <1 /hpf (0 - 5)
[2021-09-25 09:00] VITALS: BP 147/94
[2021-09-25] MEDS: ZINC SULFATE 220mg CAP or TAB PO SCH (10:13)
[2021-09-25] MEDS: methylPREDNISolone SOD SUCC 40 MG/ML VL IV SCH ×2 (10:13→21:47)
[2021-09-25] MEDS: ASCORBIC ACID 500 MG TAB PO SCH ×2 (10:13→21:47)
[2021-09-25 12:12] VITALS: BP 152/103
[2021-09-25 16:53] VITALS: BP 165/97
[2021-09-25] MEDS ORDERED: INSU100I4 SC (19:03)
[2021-09-25] MEDS ORDERED: INSU1INJ19 SC (19:03)
[2021-09-25] MEDS ORDERED: INSU-1224 XX (19:03)
[2021-09-25] MEDS ORDERED: BLOOKIT79 XX (19:03)
[2021-09-25 22:00] VITALS: BP 163/93
[2021-09-25] MEDS ORDERED: METOPROLOL SUCCINATE XL 50 MG TAB PO SCH ×2 (22:00→22:45)
[2021-09-25] MEDS ORDERED: INSULIN LANTUS (GLARGINE) 1 /0.01ml (100units/ml) SC SCH (22:00)
== END 2021-09-25 22:50 | disposition home or self-care (01) | DRG 140 ==
LOC: EDBD 17:29 → ER 17:29 → TELE 09-24 00:48 → TELE-CENTR 09-24 18:42
PROVIDERS: ADMIT Hospitalist; ATTEND Hospitalist
DX: J44.1 Chronic obstructive pulmonary disease with (acute) exacerbation (principal); J96.21 Acute and chronic respiratory failure with hypoxia; N17.0 Acute kidney failure with tubular necrosis; E66.01 Morbid (severe) obesity due to excess calories; N18.9 Chronic kidney disease, unspecified; E11.22 Type 2 diabetes mellitus with diabetic chronic kidney disease; E11.65 Type 2 diabetes mellitus with hyperglycemia; E21.0 Primary hyperparathyroidism; E78.00 Pure hypercholesterolemia, unspecified; Z20.822 Contact with and (suspected) exposure to COVID-19; I12.9 Hypertensive chronic kidney disease with stage 1 through stage 4 chronic kidney disease, or unspecified chronic kidney disease; E78.5 Hyperlipidemia, unspecified; K21.9 Gastro-esophageal reflux disease without esophagitis; Z79.84 Long term (current) use of oral hypoglycemic drugs; Z80.1 Family history of malignant neoplasm of trachea, bronchus and lung; Z82.49 Family history of ischemic heart disease and other diseases of the circulatory system; Z87.442 Personal history of urinary calculi; Z87.891 Personal history of nicotine dependence; Z90.710 Acquired absence of both cervix and uterus; Z99.81 Dependence on supplemental oxygen; Z68.42 Body mass index [BMI] 45.0-49.9, adult
CPT/HCPCS: 36415; 71045; 76775; 80048; 80053; 81001; 82306; 82570; 82962; 83036; 83880; 83935; 83970; 84100; 84156; 84300; 84484; 85025; 87426; 93005; 94640; 94644; 96361; 96374; 96375; 97163; G0378; J1100; J1815; J1885

== ENCOUNTER 2021-12-31 00:55 | Inpatient (IN) | payer MEDICAID ==
[~2021-12-31] VITALS: Ht 144.8 cm; Wt 116.1 kg
[~2021-12-31 00:55] MED LIST changes: +BLOOKIT79 XX; +CHOL20007 OR; +HYDR50CA2 PO; +INSU-1224 XX; +INSU100I4 SC; +INSU1INJ19 SC
[2021-12-31 01:47] LABS: Albumin 3.5 g/dL (3.4-5.0); Calcium 10.6 mg/dL (8.5-10.1)
[2021-12-31 01:50] LABS: BUN/Creatinine Ratio 13.5; Bilirubin, Total 0.5 mg/dL (0.2-1.0); Total Protein 7.3 g/dL (6.4-8.2)
[2021-12-31 01:54] LABS: Basophils # (auto) 0.1 10 ^3/uL (0-0.2); Basophils % (auto) 1.3 % (0.0-2.0); Eosinophils # (auto) 0.1 10 ^3/uL (0-0.8); Eosinophils % (auto) 1.9 % (0.0-7.0); Hematocrit 38.9 % (36.0-46.0); Hemoglobin 13.2 g/dL (12.2-16.2); Lymphocytes # (auto) 2.9 10 ^3/uL (0.4-5.4); Lymphocytes % (auto) 45.8 % (10.0-50.0); Mean Corpuscular Volume 85.3 fL (80.0-100.0); Monocytes # (auto) 0.3 10 ^3/uL (0-1.3); Neutrophils # (auto) 2.9 10 ^3/uL (1.6-8.6); Nucleated Red Blood Cells % 0.4 %; Red Blood Cells 4.56 10^6/uL (4.0-5.20); Red Cell Distribution Width 13.9 % (11.8-14.3); White Blood Cell 6.3 10^3/uL (4.4-10.8)
[2021-12-31 05:28] LABS: Urine Bacteria FEW /hpf (None Seen); Urine Blood Negative /uL (Negative); Urine Specific Gravity 1.013 (1.001-1.035); Urine WBC 5 /hpf (0 - 5)
[2021-12-31] MEDS ORDERED: SODIUM CHLORIDE 0.9% 1,000 ML IV ONE (07:30)
[2021-12-31] MEDS ORDERED: metroNIDAZOLE 500MG/100ML 100 ML IV ONE (07:30)
[2021-12-31] MEDS ORDERED: cefTRIAXone 1GM/50ML D5W 50 ML IV ONE (07:30)
[2021-12-31] MEDS ORDERED: ONDANSETRON HCL 4 MG/2 ML VIAL IV ONE (08:45)
[2021-12-31] MEDS ORDERED: SODIUM CHLORIDE 0.9% 2,000 ML IV ONE (09:45)
[2021-12-31] MEDS ORDERED: MORPHINE SULFATE INJECTION 2 MG/ML SYRG IV PRN (09:45)
[2021-12-31] MEDS ORDERED: levoFLOXacin 500MG 100 ML IV ONE (09:45)
[2021-12-31] MEDS ORDERED: SODIUM CHLORIDE 0.9% 1,000 ML IV SCH (09:45)
[2021-12-31] MEDS ORDERED: DEXTROSE (50%) 50ML SYRG IV PRN (09:45)
[2021-12-31] MEDS ORDERED: ONDANSETRON HCL 4 MG/2 ML VIAL IV PRN (09:45)
[2021-12-31] MEDS: InsuLIN REG 1unit/0.01ml Soln (100units/ml) SC SCH ×3 (12:53→21:32)
[2021-12-31] MEDS: ACCU-CHEK COMFORT CURVE STRIP VI SCH ×3 (12:55→21:31)
[2021-12-31 13:01] VITALS: BP 99/60
[2021-12-31] MEDS: PANTOPRAZOLE 40 MG/10 ML VIAL INJ IV SCH (13:48)
[2021-12-31] MEDS: SODIUM CHLORIDE 0.9% 1,000 ML IV SCH ×2 (13:48→20:50)
[2021-12-31 16:53] VITALS: BP 149/95
[2021-12-31 20:00] VITALS: BP 138/85
[2021-12-31 21:44] VITALS: BP 138/85
[2022-01-01 05:00] VITALS: BP 124/68
[2022-01-01] MEDS: ACCU-CHEK COMFORT CURVE STRIP VI SCH ×3 (06:03→17:00)
[2022-01-01] MEDS: InsuLIN REG 1unit/0.01ml Soln (100units/ml) SC SCH ×3 (06:04→17:22)
[2022-01-01] MEDS: SODIUM CHLORIDE 0.9% 1,000 ML IV SCH ×2 (06:38→13:30)
[2022-01-01 06:47] LABS: Basophils # (auto) 0 10 ^3/uL (0-0.2); Basophils % (auto) 0.9 % (0.0-2.0); Eosinophils # (auto) 0.1 10 ^3/uL (0-0.8); Eosinophils % (auto) 2.4 % (0.0-7.0); Hematocrit 34.8 % (36.0-46.0); Hemoglobin 11.9 g/dL (12.2-16.2); Lymphocytes # (auto) 1.4 10 ^3/uL (0.4-5.4); Lymphocytes % (auto) 39.8 % (10.0-50.0); Mean Corpuscular Hemoglobin 29.4 pg (28.0-32.0); Mean Corpuscular Hgb Conc. 34.1 g/dL (32.0-36.0); Mean Corpuscular Volume 86.1 fL (80.0-100.0); Monocytes # (auto) 0.2 10 ^3/uL (0-1.3); Neutrophils # (auto) 1.8 10 ^3/uL (1.6-8.6); Neutrophils % (auto) 51.9 % (37.0-80.0); Nucleated Red Blood Cells % 0.1 %; Red Blood Cells 4.05 10^6/uL (4.0-5.20); Red Cell Distribution Width 13.9 % (11.8-14.3); White Blood Cell 3.5 10^3/uL (4.4-10.8)
[2022-01-01 07:08] LABS: Calcium 9.3 mg/dL (8.5-10.1); Potassium 5.4 mmol/L (3.5-5.1)
[2022-01-01] MEDS ORDERED: levoFLOXacin 250MG 50 ML IV SCH (10:00)
[2022-01-01] MEDS: PANTOPRAZOLE 40 MG/10 ML VIAL INJ IV SCH (10:05)
[2022-01-01 12:47] VITALS: BP 150/92
[2022-01-01] MEDS ORDERED: diphenhdrAMINE HCL 25 MG CAP PO PRN (15:00)
[2022-01-01] MEDS ORDERED: ALPRAZolam 0.5 MG TAB PO PRN (15:00)
[2022-01-01 16:39] VITALS: BP 110/79
[2022-01-01 20:33] VITALS: BP 110/79
== END 2022-01-01 21:50 | disposition home or self-care (01) | DRG 282 ==
LOC: ER 00:55 → EDBD 00:55 → TELE 09:32 → TELE-CENTR 12:00
PROVIDERS: ADMIT Internal Medicine; ATTEND Internal Medicine
DX: K85.20 Alcohol induced acute pancreatitis without necrosis or infection (principal); N17.9 Acute kidney failure, unspecified; Z20.822 Contact with and (suspected) exposure to COVID-19; Z68.43 Body mass index [BMI] 50.0-59.9, adult; E11.65 Type 2 diabetes mellitus with hyperglycemia; E66.9 Obesity, unspecified; E78.5 Hyperlipidemia, unspecified; F31.9 Bipolar disorder, unspecified; I10 Essential (primary) hypertension; E83.52 Hypercalcemia; K21.9 Gastro-esophageal reflux disease without esophagitis; I49.8 Other specified cardiac arrhythmias; J44.9 Chronic obstructive pulmonary disease, unspecified; Z87.442 Personal history of urinary calculi; Z90.710 Acquired absence of both cervix and uterus; Z88.8 Allergy status to other drugs, medicaments and biological substances; Z80.1 Family history of malignant neoplasm of trachea, bronchus and lung
CPT/HCPCS: 36415; 71045; 74176; 80048; 80053; 81001; 82962; 83605; 83690; 84484; 85025; 87040; 87086; 93005; 93306; 96365; 96367; 96368; 96375; C9113; G0378; J0696; J1815; J1956; J2405; J3490

== ENCOUNTER → 2023-04-08 | Outpatient (CLI) | payer MEDICAID | END | disposition home or self-care (01) | LOC: Rad HDHVI 12:56 | PROVIDERS: ATTEND Internal Medicine Cardiovascular Disease | DX: I11.0 Hypertensive heart disease with heart failure (principal) | CPT/HCPCS: 93306 ==

== ENCOUNTER → 2023-04-22 | Outpatient (CLI) | payer MEDICAID ==
[~2023-04-22] VITALS: Ht 144.8 cm; Wt 117.0 kg
[~2023-04-22] MED LIST changes: +ADENOSINE 90 MG/30 ML INJ IV ONE; +ADENOSINE 98 MG in GIVE UN-DILUTED 0 ML IV ONE
== END | disposition home or self-care (01) ==
LOC: Rad HDHVI 09:21
PROVIDERS: ATTEND Internal Medicine Cardiovascular Disease
DX: I11.0 Hypertensive heart disease with heart failure (principal); I50.33 Acute on chronic diastolic (congestive) heart failure; E11.9 Type 2 diabetes mellitus without complications; R60.1 Generalized edema; R06.02 Shortness of breath; E78.5 Hyperlipidemia, unspecified; Z82.49 Family history of ischemic heart disease and other diseases of the circulatory system
CPT/HCPCS: 78452; 93005; 96374; 96375; A9500; J0153

== ENCOUNTER 2023-06-05 16:42 | Emergency (ER) | payer MEDICAID ==
[~2023-06-05] VITALS: Ht 144.8 cm; Wt 119.0 kg
[~2023-06-05 16:42] MED LIST changes: -ADENOSINE 90 MG/30 ML INJ IV ONE; -ADENOSINE 98 MG in GIVE UN-DILUTED 0 ML IV ONE
[2023-06-05 17:54] LABS: Urine Bacteria NONE SEEN /hpf (None Seen); Urine Blood Negative /uL (Negative); Urine Clarity HAZY (Clear); Urine Color Colorless (Yellow); Urine Protein, UAD 3+ (Negative); Urine Specific Gravity 1.015 (1.001-1.035); Urine Urobilinogen Normal (Negative); Urine WBC 3 /hpf (0 - 5); Urine pH 6.5 (5.0-8.0)
[2023-06-05 18:50] VITALS: BP 154/79; PULSE 72; RESP 20; TEMP 98.3; O2SAT 96
[2023-06-05] MEDS ORDERED: KETOROLAC TROMETH 30 MG/ML 1ML VIAL IM ONE (19:15)
== END 2023-06-05 19:20 | disposition home or self-care (01) ==
LOC: ER 16:42
DX: M25.552 Pain in left hip (principal); I11.0 Hypertensive heart disease with heart failure; I50.9 Heart failure, unspecified; J44.9 Chronic obstructive pulmonary disease, unspecified; E11.9 Type 2 diabetes mellitus without complications; E78.5 Hyperlipidemia, unspecified; Z90.710 Acquired absence of both cervix and uterus; Z87.891 Personal history of nicotine dependence; Z88.6 Allergy status to analgesic agent
CPT/HCPCS: 73502; 81001; 96372; 99284; J1885

== ENCOUNTER 2023-06-14 06:06 | Emergency (ER) | payer MEDICAID ==
[~2023-06-14] VITALS: Ht 144.8 cm; Wt 121.5 kg
[2023-06-14] MEDS ORDERED: SODIUM CHLORIDE 0.9% 1,000 ML IV ONE (07:00)
[2023-06-14] MEDS ORDERED: InsuLIN REG 1unit/0.01ml Soln (100units/ml) IV ONE (07:00)
[2023-06-14 08:29] LABS: Basophils # (auto) 0.1 10 ^3/uL (0-0.2); Eosinophils # (auto) 0.1 10 ^3/uL (0-0.8); Eosinophils % (auto) 2.1 % (0.0-7.0); Hematocrit 36.2 % (36.0-46.0); Hemoglobin 12.2 g/dL (12.2-16.2); Lymphocytes # (auto) 2.6 10 ^3/uL (0.4-5.4); Lymphocytes % (auto) 44.4 % (10.0-50.0); Mean Corpuscular Hgb Conc. 33.8 g/dL (32.0-36.0); Mean Corpuscular Volume 85.9 fL (80.0-100.0); Monocytes # (auto) 0.4 10 ^3/uL (0-1.3); Monocytes % (auto) 6.9 % (0.0-12.0); Neutrophils # (auto) 2.7 10 ^3/uL (1.6-8.6); Neutrophils % (auto) 45.6 % (37.0-80.0); Nucleated Red Blood Cells % 0.1 %; Red Blood Cells 4.22 10^6/uL (4.0-5.20); Red Cell Distribution Width 14.9 % (11.8-14.3)
[2023-06-14 08:33] VITALS: BP 105/72; PULSE 69; RESP 18; TEMP 97.8; O2SAT 98
[2023-06-14 08:46] LABS: Alanine Aminotransferase 18 U/L (7-40); Albumin 3.8 g/dL (3.2-4.8); Alkaline Phosphatase 110 U/L (46-116); Aspartate Aminotransferase 10 U/L (13-40); BUN/Creatinine Ratio 16.3 (10.0-20.0); Bilirubin, Total 0.3 mg/dL (0.2-1.0); Blood Urea Nitrogen 22 mg/dL (9-23); Calcium 9.3 mg/dL (8.5-10.1); Glucose 181 mg/dL (74-106); Total Protein 6.5 g/dL (5.7-8.2)
[2023-06-14 08:55] LABS: Chloride 105 mmol/L (98-107); Potassium 4.2 mmol/L (3.5-5.1); Sodium 137 mmol/L (136-145)
[2023-06-14 08:56] LABS: Anion Gap 5 (5-15); Carbon Dioxide 27 mmol/L (20-30)
[2023-06-14 09:20] LABS: Urine Bacteria NONE SEEN /hpf (None Seen); Urine Blood Negative /uL (Negative); Urine Clarity Clear (Clear); Urine Color Colorless (Yellow); Urine Mucus FEW (None Seen); Urine Protein, UAD 1+ (Negative); Urine Specific Gravity 1.004 (1.001-1.035); Urine Urobilinogen Normal (Negative); Urine WBC <1 /hpf (0 - 5)
== END 2023-06-14 10:07 | disposition home or self-care (01) ==
LOC: ER 06:06 → EDBD 06:06 → ER 10:05
DX: E11.65 Type 2 diabetes mellitus with hyperglycemia (principal); I11.0 Hypertensive heart disease with heart failure; I50.9 Heart failure, unspecified; J44.9 Chronic obstructive pulmonary disease, unspecified; E78.5 Hyperlipidemia, unspecified; Z90.710 Acquired absence of both cervix and uterus; Z87.891 Personal history of nicotine dependence; Z88.6 Allergy status to analgesic agent
CPT/HCPCS: 36415; 80053; 81001; 85025; 96361; 96374; 99283; J1815; J7030

== ENCOUNTER 2024-08-12 21:52 | Emergency (ER) | payer MEDICAID ==
[~2024-08-12] VITALS: Ht 162.6 cm; Wt 113.6 kg
[2024-08-12 21:57] VITALS: BP 145/86; PULSE 88; RESP 12; O2SAT 96
== END 2024-08-12 22:52 | disposition left against medical advice (07) ==
LOC: EDSEX 21:52 → EDBD 21:52 → ER 21:55
DX: M25.561 Pain in right knee (principal); Z53.21 Procedure and treatment not carried out due to patient leaving prior to being seen by health care provider

== ENCOUNTER 2024-11-15 12:52 | Inpatient (IN) | payer MEDICAID ==
[~2024-11-15] VITALS: Ht 144.8 cm; Wt 123.4 kg
--- NOTE | 2024-11-15 13:24 | ED.PDOC ---
SOB-HPI HPI Comments 49 year old female brought in by EMS presents to the ED with a chief complaint of shortness of breath onset 1 week. Patient states she in on home O2 as needed, usually uses it at night but for the past week has been using it all day, has also used inhaler with no improvement of symptoms. Patient went to see pain management doctor today, O2 sat 85% and EMS was called. Patient was given breathing treatment in route, states symptoms have improved. PMHx COPD, CHF, HTN, HLD, DM. Denies dizziness, headache, nausea, vomiting, diarrhea, abdominal pain, blurry vision. No other symptoms or modifying factors present at this time. Chief Complaint: Shortness of Breath Time Seen by MD: 13:18 Primary Care Provider: Sukhdev DAVIS Reviewed notes: Medications, Allergies Information Source: Patient, Emergency Med Personnel Mode of Arrival: EMS Severity: Moderate Timing: Weeks Duration: Since onset Context: At Rest PE Risk Factors: None History of: COPD, CHF Prehospital treatment: Breathing Tx Modifying Factors: Nothing Associated Signs and Symptoms: None Radiation: No Radiation Past Medical History PAST MEDICAL HISTORY: CHF, COPD, DM, High Lipids, HTN Surgical History: , Hysterectomy, Tonsillectomy SE[employer]OV[employer] TRIMMER History: No Pertinent SE[employer] C[employer] TRIMMER History Family History Family History: Reviewed,noncontributory to illness, Family hx of heart candelario Social History Smoker: Non-Smoker, Quit Greater Than 1 Year Alcohol: Denies ETOH Use Drugs: Denies Drug Use Lives In: Home Constitutional: denies: chills, diaphoresis, fatigue, fever, malaise, sweats, weakness, others EENTM: denies: blurred vision, double vision, ear bleeding, ear discharge, ear drainage, ear pain, ear ringing, eye pain, eye redness, hearing loss, mouth pain, mouth swelling, nasal discharge, nose bleeding, nose congestion, nose pain, photophobia, tearing, throat pain, throat swelling, voice changes, others Respiratory: reports: shortness of breath; denies: cough, hemoptysis, orthopnea, SOB at rest, SOB with excertion, stridor, wheezing, others Cardiovascular: denies: chest pain, dizzy spells, diaphoresis, Dyspnea on exertion, edema, irregular heart beat, left arm pain, lightheadedness, palpitations, PND, syncope, others Gastrointestinal: denies: abdomen distended, abdominal pain, blood streaked bowels, constipated, diarrhea, dysphagia, difficulty swallowing, hematemesis, melena, nausea, poor appetite, poor fluid intake, rectal bleeding, rectal pain, vomiting, others Genitourinary: denies: abnormal vagina bleeding, burning, dyspareunia, dysuria, flank pain, frequency, hematuria, incontinence, pain, , vagina discharge, urgency, others Neurological: denies: dizziness, fainting, headache, left sided numbness, left sided weakness, numbness, paresthesia, pre-existing deficit, right sided numbness, right sided weakness, seizure, speech problems, tingling, tremors, weakness, others Musculoskeletal: denies: back pain, gout, joint pain, joint swelling, muscle pain, muscle stiffness, neck pain, others Integumetry: denies: bruises, change in color, change in hair/nails, dryness, laceration, lesions, lumps, rash, wounds, others Allergic/Immunocompromised: denies: Difficulty Healing, Frequent Infections, Hives, Itching, others Hematologic/Lymphatic: denies: anemia, blood clots, easy bleeding, easy bruising, swollen glands, others Endocrine: denies: excessive hunger, excessive sweating, excessive thirst, excessive urination, flushing, intolerance to cold, intolerance to heat, unexplained weight gain, unexplained weight loss, others Psychiatric: denies: anxiety, bipolar disorder, depression, hopeless, panic disorder, schizophrenia, sleepless, suicidal, others All Other Systems: Reviewed and Negative Physical Exam General Appearance: Moderate Distress, Obese (morbid obese) HEENT: Normal ENT Inspection, Pharynx Normal, TMs Normal Neck: Full Range of Motion, Non-Tender, Normal, Normal Inspection Respiratory: Chest Non-Tender, Lungs Clear, Wheezing Cardiovascular: No Edema, No JVD, No Murmur, No Gallop, Normal Peripheral Pulses, Regular Rate/Rhythm Breast Exam: Deferred Gastrointestinal: No Organomegaly, Non Tender, No Pulsatile Mass, Normal Bowel Sounds, Soft Genitalia: Deferred Pelvic: Deferred Rectal: Deferred Extremities: No calf tenderness, Normal capillary refill, Normal inspection, Normal range of motion, Non-tender, No pedal edema Musculoskeletal : Apperance: Normal 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 Was a procedure done?: No Differential Dx Differential Diagnosis: CHF, COPD, Pneumonia, URI X-Ray, Labs, Meds, VS Vital Signs Date Time Temp Pulse Resp B/P (MAP) Pulse Ox O2 Delivery O2 Flow Rate FiO2 11/15/24 13:15 98.7 100 20 165/77 (106) 94 11/15/24 13:09 100 Lab Test 11/15/24 16:56 Range/Units White Blood Count 5.9 4.4-10.8 10^3/uL Red Blood Count 4.25 4.0-5.20 10^6/uL Hemoglobin 11.6 L 12.2-16.2 g/dL Hematocrit 35.7 L 36.0-46.0 % Mean Corpuscular Volume 84.1 80.0-100.0 fL Mean Corpuscular Hemoglobin 27.4 L 28.0-32.0 pg Mean Corpuscular Hemoglobin Concent 32.5 32.0-36.0 g/dL Red Cell Distribution Width 15.5 H 11.8-14.3 % Platelet Count 227 140-450 10^3/uL Mean Platelet Volume 6.3 L 6.9-10.8 fL Neutrophils (%) (Auto) 78.8 37.0-80.0 % Lymphocytes (%) (Auto) 12.9 10.0-50.0 % Monocytes (%) (Auto) 4.9 0.0-12.0 % Eosinophils (%) (Auto) 2.0 0.0-7.0 % Basophils (%) (Auto) 1.4 0.0-2.0 % Neutrophils # (Auto) 4.7 1.6-8.6 10 ^3/uL Lymphocytes # (Auto) 0.8 0.4-5.4 10 ^3/uL Monocytes # (Auto) 0.3 0-1.3 10 ^3/uL Eosinophils # (Auto) 0.1 0-0.8 10 ^3/uL Basophils # (Auto) 0.1 0-0.2 10 ^3/uL Nucleated Red Blood Cells 0.2 % Sodium Level Pending Potassium Level Pending Chloride Level Pending Carbon Dioxide Level Pending Anion Gap Pending Blood Urea Nitrogen Pending Creatinine Pending Glomerular Filtration Rate Calc Pending BUN/Creatinine Ratio Pending Serum Glucose Pending Calcium Level Pending Troponin I High Sensitivity Pending B-Type Natriuretic Peptide Pending Current Medications Medications (Trade) Dose Ordered Sig/Luke Route Start Time Stop Time Status Last Admin Albuterol (Ventolin Medneb) 5 mg ONCE ONCE NEB 11/15/24 13:30 11/15/24 13:31 DC 11/15/24 13:47 Ipratropium [place] (Atrovent Medneb) 0.5 mg ONCE ONCE NEB 11/15/24 13:30 11/15/24 13:31 DC 11/15/24 13:47 Methylprednisolone Sodium Succinate (Solu Medrol) 62.5 mg ONCE ONCE IV 11/15/24 13:30 11/15/24 13:31 DC 11/15/24 15:52 Azithromycin (Zithromax Tablet) 500 mg ONCE ONCE PO 11/15/24 13:30 11/15/24 13:31 DC 11/15/24 15:52 [place] [id number] Ph: [phone] DIAGNOSTIC IMAGING Diagnostic Imaging Report : [id number] Signed PATIENT: GREGORY LANIER ACCT: [id number] UNIT: [id number] : 1975 LOC: ER ROOM / BED: / AGE / SEX: 49 / F ADM STATUS: REG ER SERVICE 1319 ORDERING PHYSICIAN: FRANKLIN ESPINOZA MD PROCEDURE(s): CXRP - CHEST PORTABLE REASON: sob ORDER NUMBER(s): [id number], ACCESSION NUMBER(s): [id number] CHEST RADIOGRAPH Indication: sob Technique: Single frontal view of the chest was obtained Comparison: CHEST PORTABLE on DOS: 12/31/21, CXRP on DOS: 12/31/21, CHEST PORTABLE on DOS: 09/23/21 FINDINGS: Lines and Tubes: None Lungs: No focal consolidation. Pleura: No effusion. No pneumothorax. Cardiomediastinal contours: Cardiomeagly with CHF Bones: No acute osseous abnormality. IMPRESSION: Cardiomeagly with CHF ATED BY: LUIS ALBERTO THOMPSON MD DICTATED DATE/TIME: 11/15/241419 SIGNED BY: LUIS ALBERTO THOMPSON MD SIGNED DATE/TIME: 11/15/241419 CC: Time of 1ST Reevaluation: 13:48 Reevaluation 1ST: Unchanged Patient Education/Counseling: Diagnosis, Treatment, Prognosis Family Education/Counseling: No Family Present Additional Information The following tests were ordered, and results were reviewed by me: BNP, BMP, CBC, TROP -x3, XY CHEST, EKG Additional Information was gathered from interviewing the following independent historians: EMS I reviewed and agreed with the following test results read by other providers: XY CHEST I discussed treatment and results with medical personnel and: patient Departure 1 Departure Time of Disposition: 17:31 (Patient presented with acute shortness of breath concerning for acute on chronic COPD Exacerbation, Pneumonia, ACS, CHF, Pneum othorax. Less likely PE, Dissection. Data: 1. I ordered and reviewed the result of at least 3 labs including a CBC, BMP, and Troponin. 2. I independently interpreted the following tests: Chest X-ray shows vascular congestion .Risk:This patient has a high risk of morbidity due to further diagnostic testing or treatment and may suffer from respiratory or cardiac etiology . Workup reveals a likely COPD Exacerbation and patient should be admitted for further workup. and possible expert consultation.) Impression: Primary Impression: Acute and chronic respiratory failure Additional Impressions: Acute on chronic heart failure with reduced ejection fraction (HFrEF, <= 40%) and combined systolic and diastolic dysfunction Shortness of breath Disposition: 09 ADMITTED INPATIENT Admit to: Med Surg Condition: Serious Critical Care Note Critical Care Time?: Yes Critical care comment: Shortness of breath Authorized and Performed by: Franklin Espinoza MD Total critical care time: Approximately 36 minutes Due to a high probability of clinically significant, life threatening d eterioration, the patient required my highest level of preparedness to intervene emergently and I personally spent this critical care time directly and personally managing the patient. This critical care time included obtaining a history; examining the patient; pulse oximetry; ordering and review of studies; arranging urgent treatment with development of a management plan; evaluation of patient's response to treatment; frequent reassessment; and, discussions with other providers. This critical care time was performed to assess and manage the high probability of imminent, life-threatening deterioration that could result in multi-organ failure. It was exclusive of separately billable procedures and treating other patients and teaching time. Please see my other sections and the rest of the note for further information on patient assessment and treatment. Stability Stability form required: No Heart Score Heart Score: Heart Score Response (Comments) Value History Slightly Suspicious 0 EKG Repolarization Disturb 1 Age 45-64 1 Risk Factors >3 or Hx ASHD 2 Troponin 1-2 x's Normal limit 1 Total 5 I personally scribed for FRANKLIN ESPINOZA MD ([email or web address]) on 11/15/24 at 13:24. Electronically submitted by Rand Thomas ([email or web address]). I personally scribed for FRANKLIN ESPINOZA MD ([email or web address]) on 11/15/24 at 14:20. Electronically submitted by Rand Thomas ([email or web address]). I personally scribed for FRANKLIN ESPINOZA MD ([email or web address]) on 11/15/24 at 14:42. Electronically submitted by Rand Thomas ([email or web address]). FRANKLIN ESPINOZA MD Nov 15, 2024 13:24
[2024-11-15] MEDS: ALBUTEROL SULF 2.5 MG/0.5ML(0.5%) NEB SOLN NEB ONE (13:47)
[2024-11-15] MEDS: IPRATROPIUM BROM 0.5 MG/2.5ML INH SOL NEB ONE (13:47)
--- NOTE | 2024-11-15 14:23 | DVH ---
CHEST RADIOGRAPH Indication: sob Technique: Single frontal view of the chest was obtained Comparison: CHEST PORTABLE on DOS: 12/31/21, CXRP on DOS: 12/31/21, CHEST PORTABLE on DOS: 09/23/21 FINDINGS: Lines and Tubes: None Lungs: No focal consolidation. Pleura: No effusion. No pneumothorax. Cardiomediastinal contours: Cardiomeagly with CHF Bones: No acute osseous abnormality. IMPRESSION: Cardiomeagly with CHF
[2024-11-15] MEDS: methylPREDNISolone SOD SUCC 125 MG/2 ML VL IV ONE (15:52)
[2024-11-15] MEDS: AZITHROMYCIN 250 MG TAB PO ONE (15:52)
[2024-11-15 17:26] LABS: Basophils # (auto) 0.1 10 ^3/uL (0-0.2); Basophils % (auto) 1.4 % (0.0-2.0); Eosinophils # (auto) 0.1 10 ^3/uL (0-0.8); Hematocrit 35.7 % (36.0-46.0); Hemoglobin 11.6 g/dL (12.2-16.2); Lymphocytes # (auto) 0.8 10 ^3/uL (0.4-5.4); Lymphocytes % (auto) 12.9 % (10.0-50.0); Mean Corpuscular Hemoglobin 27.4 pg (28.0-32.0); Mean Corpuscular Hgb Conc. 32.5 g/dL (32.0-36.0); Mean Corpuscular Volume 84.1 fL (80.0-100.0); Monocytes # (auto) 0.3 10 ^3/uL (0-1.3); Monocytes % (auto) 4.9 % (0.0-12.0); Neutrophils # (auto) 4.7 10 ^3/uL (1.6-8.6); Neutrophils % (auto) 78.8 % (37.0-80.0); Nucleated Red Blood Cells % 0.2 %; Platelet Count (auto) 227 10^3/uL (140-450); Red Blood Cells 4.25 10^6/uL (4.0-5.20); Red Cell Distribution Width 15.5 % (11.8-14.3); White Blood Cell 5.9 10^3/uL (4.4-10.8)
[2024-11-15 17:36] LABS: Anion Gap 8 (5-15); Calcium 9.7 mg/dL (8.7-10.4); Carbon Dioxide 25 mmol/L (20-31)
[2024-11-15 17:41] LABS: BUN/Creatinine Ratio 8.7 (10.0-20.0); Blood Urea Nitrogen 18 mg/dL (9-23)
[2024-11-15 17:44] LABS: Chloride 93 mmol/L (98-107); Glucose 124 mg/dL (74-106); Potassium 5.2 mmol/L (3.5-5.1); Sodium 126 mmol/L (136-145)
--- NOTE | 2024-11-15 17:45 | ECG ---
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
[2024-11-15] MEDS ORDERED: ONDANSETRON HCL 4 MG/2 ML VIAL IV PRN (19:30)
[2024-11-15] MEDS ORDERED: ALBUTEROL SULF 2.5 MG/0.5ML(0.5%) NEB SOLN NEB PRN (19:30)
[2024-11-15] MEDS ORDERED: DEXTROSE (50%) 50ML SYRG IV PRN (19:30)
[2024-11-15 19:50] VITALS: BP 138/89; PULSE 99; RESP 18; TEMP 98.3; O2SAT 96
[2024-11-15 21:19] VITALS: RESP 16
[2024-11-15] MEDS: SODIUM ZIRCONIUM CYCL 10 GM PAK PO ONE (21:30)
[2024-11-15] MEDS: FUROSEMIDE 40 MG/4 ML VIAL IV ONE (21:30)
[2024-11-15 22:12] VITALS: PULSE 105; RESP 20
[2024-11-15 22:15] VITALS: BP 189/118; PULSE 107; RESP 20; TEMP 97.8; O2SAT 96
--- NOTE | 2024-11-15 22:23 | DVHHP2 ---
History of Present Illness Reason for Visit: Shortness of breath History of Present Illness 49-year-old female presents for evaluation of shortness for breath. She reports a one-week history of worsening shortness for breath with associated chest pressure and bilateral lower extremity edema. Patient denies abdominal pain, nausea or vomiting. No cough or fever. No other acute complaints reported. Past Medical History Diabetes mellitus, dyslipidemia, hypertension, COPD and CHF Past Surgical History Hysterectomy, tonsillectomy and Family History Heart disease Smoke: No ALCOHOL: none Drugs: None Lives: with Family Review of Systems Review of Systems Review of systems are currently negative otherwise addressed in HPI. Allergies: Coded Allergies: Acetaminophen (Verified Allergy, Unknown, 12/31/21) Hydrocodone (Verified Allergy, Unknown, 12/31/21) Uncoded Allergies: ADHESIVE TAPE (Allergy, Severe, 12/19/18) Medications Current Medications Medications Dose Ordered Sig/Luke Route Start Time Stop Time Status Last Admin Dose Admin Albuterol 2.5 mg Q6HPRN PRN NEB 11/15/24 19:30 Atorvastatin Calcium 40 mg HS PO 11/15/24 22:00 Metoprolol Succinate 25 mg DAILY PO 11/16/24 10:00 Apixaban 5 mg BID PO 11/15/24 22:00 Diagnostic Test (Pha) 1 strip ACHS 11/15/24 22:00 Insulin Human Regular ACHS SC 11/15/24 22:00 Dextrose 50 ml UD PRN IV 11/15/24 19:30 Ondansetron HCl 4 mg Q4HP PRN IV 11/15/24 19:30 Exam Vital Signs Vital Signs Date Time Temp Pulse Resp B/P (MAP) Pulse Ox O2 Delivery O2 Flow Rate FiO2 11/15/24 21:30 175/100 11/15/24 21:19 16 Nasal Cannula* 2 28 11/15/24 19:50 96 11/15/24 19:50 98.3 99 98.3 Exam Gen: 49-year-old female in mild distress, morbidly obese Skin: Warm, dry, normal color and texture, no rash. HEENT: Normocephalic atraumatic, mucous membranes moist and pink. Neck: Cervical and supraclavicular nodes normal without enlargement, trachea is midline, thyroid gland is normal without masses. Pulmonary: Clear to auscultation and percussion bilaterally. Cardiac: Regular rate and rhythm. No murmur Abdomen: Soft, nontender, nondistended, bowel sounds present all 4 quadrants, no guarding, no rigidity, no organomegaly. Extremities: No cyanosis, clubbing, bilateral lower extremity edema plus two Neuro: Cranial nerves II through XII grossly intact, normal affect and speech, no focal motor deficits. Labs/Xrays ORDERING PHYSICIAN: FRANKLIN ESPINOZA MD PROCEDURE(s): CXRP - CHEST PORTABLE REASON: sob ORDER NUMBER(s): [id number], ACCESSION NUMBER(s): [id number] CHEST RADIOGRAPH Indication: sob Technique: Single frontal view of the chest was obtained Comparison: CHEST PORTABLE on DOS: 12/31/21, CXRP on DOS: 12/31/21, CHEST PORTABLE on DOS: 09/23/21 FINDINGS: Lines and Tubes: None Lungs: No focal consolidation. Pleura: No effusion. No pneumothorax. Cardiomediastinal contours: Cardiomeagly with CHF Bones: No acute osseous abnormality. IMPRESSION: Cardiomeagly with CHF Labs Test 11/15/24 19:42 11/15/24 16:56 Range/Units Troponin I High Sensitivity 9 </=34 ng/L White Blood Count 5.9 4.4-10.8 10^3/uL Red Blood Count 4.25 4.0-5.20 10^6/uL Hemoglobin 11.6 L 12.2-16.2 g/dL Hematocrit 35.7 L 36.0-46.0 % Mean Corpuscular Volume 84.1 80.0-100.0 fL Mean Corpuscular Hemoglobin 27.4 L 28.0-32.0 pg Mean Corpuscular Hemoglobin Concent 32.5 32.0-36.0 g/dL Red Cell Distribution Width 15.5 H 11.8-14.3 % Platelet Count 227 140-450 10^3/uL Mean Platelet Volume 6.3 L 6.9-10.8 fL Neutrophils (%) (Auto) 78.8 37.0-80.0 % Lymphocytes (%) (Auto) 12.9 10.0-50.0 % Monocytes (%) (Auto) 4.9 0.0-12.0 % Eosinophils (%) (Auto) 2.0 0.0-7.0 % Basophils (%) (Auto) 1.4 0.0-2.0 % Neutrophils # (Auto) 4.7 1.6-8.6 10 ^3/uL Lymphocytes # (Auto) 0.8 0.4-5.4 10 ^3/uL Monocytes # (Auto) 0.3 0-1.3 10 ^3/uL Eosinophils # (Auto) 0.1 0-0.8 10 ^3/uL Basophils # (Auto) 0.1 0-0.2 10 ^3/uL Nucleated Red Blood Cells 0.2 % Sodium Level 126 L 136-145 mmol/L Potassium Level 5.2 H 3.5-5.1 mmol/L Chloride Level 93 L 98-107 mmol/L Carbon Dioxide Level 25 20-31 mmol/L Anion Gap 8 5-15 Blood Urea Nitrogen 18 9-23 mg/dL Creatinine 2.06 H 0.550-1.02 mg/dL Glomerular Filtration Rate Calc 29 >90 mL/min BUN/Creatinine Ratio 8.7 L 10.0-20.0 Serum Glucose 124 H 74-106 mg/dL Calcium Level 9.7 8.7-10.4 mg/dL B-Type Natriuretic Peptide 13.25 0-100 pg/mL Assessment/Plan Assessment/Plan Assessment Acute on chronic congestive heart failure Acute on chronic renal failure Diabetes mellitus Hypertension COPD Secondary coagulopathy Morbid obesity Plan Admit the patient to Med [facility] to the hospitalist Nephrology consultation IV Lasix Resume home medications Continue treatment per orders. Plan discussed with: Patient My Orders Orders - WAGNER DAVIS AGACNP Procedure Category Date Status Time Albuterol Medneb PHA 11/15/24 In Process (Ventolin Medneb) 19:30 Atorvastatin (Lipitor) PHA 11/15/24 In Process 22:00 Metoprolol Xl PHA 11/16/24 In Process Succinate (Toprol Xl) 10:00 Apixaban (Eliquis) PHA 11/15/24 In Process 22:00 *[facility] CONS 11/15/24 Transmitted -[place] 19:20 Basic Metabolic Panel LAB 11/16/24 Verified 04:00 Glucose Blood PHA 11/15/24 In Process (Accu-Chek Comfort 22:00 Insulin R (Human) PHA 2/25/25 In Process (Insulin R) 22:00 Dextrose 50% Syringe PHA 11/15/24 In Process 19:30 Admit ADMIT 11/15/24 Transmitted 19:20 Ondansetron Hcl PHA 11/15/24 In Process (Zofran) 19:30 Complete Blood Count LAB 11/16/24 Verified 04:00 Cardiac DIET 11/16/24 Transmitted Diet-2gna,Lofat,Lochol Breakfast Echo 2d Mode Cardiac US 11/15/24 Logged DOP 19:20 Condition: Stable MARIUM 11/15/24 In Process 19:20 Bedrest With Bathroom MARIUM 11/15/24 In Process Privileg 19:20 Date of Service: Nov 15, 2024 Billing Provider: WAGNER DAVIS Common Visit Codes: [id number] INP/OBS CARE (HIGH) WAGNER DAVIS Nov 15, 2024 22:23
[2024-11-15] MEDS: APIXABAN 5 MG TAB PO SCH (23:28)
[2024-11-15] MEDS: ATORVASTATIN 20 MG TAB PO SCH (23:28)
[2024-11-15] MEDS: ACCU-CHEK COMFORT CURVE STRIP VI SCH (23:38)
[2024-11-15] MEDS: LABETALOL HCL 20 MG/4 ML VL IV ONE (23:38)
[2024-11-16] VITALS (14 sets, daily range): BP systolic 121–162; BP diastolic 70–98; PULSE 77–95; RESP 18–20; TEMP 97.6–98.1; O2SAT 92–99
[2024-11-16] MEDS: ALBUTEROL SULF 2.5 MG/0.5ML(0.5%) NEB SOLN NEB PRN
[2024-11-16] MEDS: OXYCODONE W/ ACETAMINOPHEN 5/325MG TABLET PO PRN (00:01)
[2024-11-16] MEDS: InsuLIN REG 1unit/0.01ml Soln (100units/ml) SC SCH (00:16)
[2024-11-16 07:54] LABS: Anion Gap 8 (5-15); Calcium 9.5 mg/dL (8.7-10.4); Carbon Dioxide 26 mmol/L (20-31)
[2024-11-16 08:00] LABS: Blood Urea Nitrogen 20 mg/dL (9-23)
[2024-11-16 08:03] LABS: Basophils # (auto) 0 10 ^3/uL (0-0.2); Eosinophils # (auto) 0 10 ^3/uL (0-0.8); Lymphocytes # (auto) 0.4 10 ^3/uL (0.4-5.4); Monocytes # (auto) 0.2 10 ^3/uL (0-1.3)
[2024-11-16 08:05] LABS: Basophils % (auto) 0.5 % (0.0-2.0); Eosinophils % (auto) 0.2 % (0.0-7.0); Hematocrit 33.6 % (36.0-46.0); Hemoglobin 10.7 g/dL (12.2-16.2); Mean Corpuscular Hemoglobin 26.6 pg (28.0-32.0); Mean Corpuscular Hgb Conc. 31.9 g/dL (32.0-36.0); Mean Corpuscular Volume 83.4 fL (80.0-100.0); Monocytes % (auto) 3.7 % (0.0-12.0); Neutrophils # (auto) 4.3 10 ^3/uL (1.6-8.6); Neutrophils % (auto) 86.6 % (37.0-80.0); Nucleated Red Blood Cells % 0.4 %; Platelet Count (auto) 214 10^3/uL (140-450); Red Blood Cells 4.03 10^6/uL (4.0-5.20); Red Cell Distribution Width 15.5 % (11.8-14.3); White Blood Cell 4.9 10^3/uL (4.4-10.8)
[2024-11-16 08:06] LABS: Glucose 144 mg/dL (74-106)
[2024-11-16 08:07] LABS: BUN/Creatinine Ratio 10.4 (10.0-20.0); Chloride 94 mmol/L (98-107); Sodium 128 mmol/L (136-145)
[2024-11-16] MEDS: METOPROLOL SUCCINATE XL 50 MG TAB PO SCH (09:39)
--- NOTE | 2024-11-16 14:00 | DVHINCON2 ---
Date of service: Nov 16, 2024 Reason for Consultation Acute kidney injury History of Present Illness 49-year-old morbidly obese female past medical history of right solitary kidney status post left total nephrectomy, hypertension, diabetes, morbid obesity, history of DVT on anticoagulation. Patient's sees Dr. Brennan in renal clinic for chronic kidney disease stage 3. Patient presents to the hospital complaining of progressive shortness of breath and leg swelling. Nephrology consulted to elevated creatinine level. Patient reports that she was been on Lasix 20 mg p.o.. She has not been following any salt or water restrictions. In the office she was noted to have uncontrolled blood pressure. Losartan was recently started for blood pressure control Past Medical History As above Past Surgical History Nephrectomy Allergies: Coded Allergies: Acetaminophen (Verified Allergy, Unknown, 12/31/21) Hydrocodone (Verified Allergy, Unknown, 12/31/21) Uncoded Allergies: ADHESIVE TAPE (Allergy, Severe, 12/19/18) Home Meds Active Scripts Blood Glucose Monitoring Suppl (Blood Glucose System Gaurav) System Kit, PKG XX 5XD, #1 Administer a 30-day supply of lancets, alcohol prep pads and test strips and glucometer per insurance coverage. Prov:AKASH EVANS MD 09/25/21 Insulin Pen Needle (Bd Pen Needle/Leta 2Nd Ge 32G X 4 mm) 1 Mis Mis, MIS XX 5XD, #150 Prov:AKASH EVANS MD 09/25/21 Insulin Lispro (Humalog Kwikpen) 100 Unit/Ml Inj, 1 DOSE SC UD, #5 SYR Administer up to 40 units of insulin per provided sliding scale divided 3 times daily before meals and at bedtime. Prov:AKASH EVANS MD 09/25/21 Insulin Glargine (Basaglar Kwikpen) 100 Unit/Ml Inj, 20 UNIT SC DAILY@DINNER, #5 SYRN Prov:AKASH EVANS MD 09/25/21 Reported Medications Hydroxyzine Pamoate (Hydroxyzine Pamoate) 50 Mg Cap, 25 MG PO, CAP 09/24/21 Cholecalciferol (VITAMIN D3) 2,000 Unit Tab, 5000 UNIT OR, TAB 09/24/21 Albuterol Sulfate (VENTOLIN MDI) 90 Mcg Ih, 90 MCG IN Q6HP PRN for SHORTNESS OF BREATH for 30 Days, MCG 06/01/18 Metformin Hydrochloride (Metformin Hcl) 1,000 Mg Tab, 1 TAB PO HS, #60 TAB 5 Refills 06/01/18 Metoprolol Succinate (Metoprolol Succinate Er) 25 Mg Tab, 25 MG PO DAILY for 30 Days, MG 06/01/18 Cholecalciferol (VITAMIN D3) 5,000 Unit Tab, 5000 UNIT PO HS, TAB 06/01/18 Pantoprazole Sodium Sesquihydr (Protonix) 40 Mg Tab, 40 MG PO HS, #30 TAB 06/01/18 Lovastatin (Lovastatin) 40 Mg Tab, 40 MG PO HS, TAB 06/01/18 Aripiprazole (Abilify) 15 Mg Tab, 15 MG PO HS, TAB 06/01/18 Zolpidem Tartrate (Ambien) 10 Mg Tab, 1 TAB PO QPM, #30 TAB 5 Refills 06/01/18 Current Medications Current Medications Medications (Trade) Dose Ordered Sig/Luke Route PRN Reason Start Time Stop Time Status Last Admin Albuterol (Ventolin Medneb) 2.5 mg Q6HPRN PRN NEB SHORTNESS OF BREATH 11/15/24 19:30 11/16/24 10:09 Albuterol (Ventolin Medneb) 2.5 mg Q6HPRN PRN NEB SHORTNESS OF BREATH 11/15/24 19:30 11/15/24 19:36 DC Atorvastatin Calcium (Lipitor) 40 mg HS PO 11/15/24 22:00 11/15/24 23:28 Metoprolol Succinate (Toprol Xl) 25 mg DAILY PO 11/16/24 10:00 11/16/24 09:39 Apixaban (Eliquis) 5 mg BID PO 11/15/24 22:00 11/16/24 09:39 Diagnostic Test (Pha) (Accu-Chek Comfort Curve T) 1 strip ACHS 11/15/24 22:00 11/16/24 13:06 Insulin Human Regular (InsuLIN R) ACHS SC 11/15/24 22:00 11/16/24 06:53 Dextrose 50 ml UD PRN IV Blood Sugar LESS THAN 60 11/15/24 19:30 Ondansetron HCl (Zofran) 4 mg Q4HP PRN IV NAUSEA / VOMITING 11/15/24 19:30 Oxycodone/ Acetaminophen (Percocet 5/ 325MG Tablet) 1 tab Q6HP PRN PO MILD PAIN (1-3 PAIN SCALE) 11/15/24 23:15 11/16/24 09:40 Furosemide (Lasix Injection) 40 mg BIDD IV 11/16/24 18:00 UNV Family History: Depression G8 MOTHER FH: heart attack G8 FATHER FH: lung cancer G8 MOTHER Heart cancer G8 MOTHER No Family History of: Hypercholesterolemia Review of Systems Leg swelling H&P Exam Vital Signs/I&O Vital Sign Date Time Temp Pulse Resp B/P (MAP) Pulse Ox O2 Delivery O2 Flow Rate FiO2 11/16/24 13:00 97.8 90 18 150/86 (107) 95 97.8 11/16/24 10:09 Nasal Cannula* 2 28 Intake and Output 11/15/24 11/16/24 19:00 07:00 Intake Total 1200 ml Balance 1200 ml Intake Oral 1200 ml # Voids 2 Physical Exam Morbidly obese white female Nonacute distress Abdomen is soft Bilateral two to 3+ pitting edema Regular rate and rhythm Lungs clear to auscultation Labs/Diagnostic Data Labs/Diagnostic Data Laboratory Tests Test 11/16/24 12:09 11/16/24 06:45 11/16/24 05:41 11/15/24 23:27 Range/Units POC Glucose 119 H 152 H 241 H 70-106 mg/dl White Blood Count 4.9 4.4-10.8 10^3/uL Red Blood Count 4.03 4.0-5.20 10^6/uL Hemoglobin 10.7 L 12.2-16.2 g/dL Hematocrit 33.6 L 36.0-46.0 % Mean Corpuscular Volume 83.4 80.0-100.0 fL Mean Corpuscular Hemoglobin 26.6 L 28.0-32.0 pg Mean Corpuscular Hemoglobin Concent 31.9 L 32.0-36.0 g/dL Red Cell Distribution Width 15.5 H 11.8-14.3 % Platelet Count 214 140-450 10^3/uL Mean Platelet Volume 6.8 L 6.9-10.8 fL Neutrophils (%) (Auto) 86.6 H 37.0-80.0 % Lymphocytes (%) (Auto) 9.0 L 10.0-50.0 % Monocytes (%) (Auto) 3.7 0.0-12.0 % Eosinophils (%) (Auto) 0.2 0.0-7.0 % Basophils (%) (Auto) 0.5 0.0-2.0 % Neutrophils # (Auto) 4.3 1.6-8.6 10 ^3/uL Lymphocytes # (Auto) 0.4 0.4-5.4 10 ^3/uL Monocytes # (Auto) 0.2 0-1.3 10 ^3/uL Eosinophils # (Auto) 0 0-0.8 10 ^3/uL Basophils # (Auto) 0 0-0.2 10 ^3/uL Nucleated Red Blood Cells 0.4 % Sodium Level 128 L 136-145 mmol/L Potassium Level 5.0 3.5-5.1 mmol/L Chloride Level 94 L 98-107 mmol/L Carbon Dioxide Level 26 20-31 mmol/L Anion Gap 8 5-15 Blood Urea Nitrogen 20 9-23 mg/dL Creatinine 1.92 H 0.550-1.02 mg/dL Glomerular Filtration Rate Calc 31 >90 mL/min BUN/Creatinine Ratio 10.4 10.0-20.0 Serum Glucose 144 H 74-106 mg/dL Calcium Level 9.5 8.7-10.4 mg/dL Test 11/15/24 19:42 11/15/24 17:43 11/15/24 16:56 Range/Units Troponin I High Sensitivity 9 9 9 </=34 ng/L White Blood Count 5.9 4.4-10.8 10^3/uL Red Blood Count 4.25 4.0-5.20 10^6/uL Hemoglobin 11.6 L 12.2-16.2 g/dL Hematocrit 35.7 L 36.0-46.0 % Mean Corpuscular Volume 84.1 80.0-100.0 fL Mean Corpuscular Hemoglobin 27.4 L 28.0-32.0 pg Mean Corpuscular Hemoglobin Concent 32.5 32.0-36.0 g/dL Red Cell Distribution Width 15.5 H 11.8-14.3 % Platelet Count 227 140-450 10^3/uL Mean Platelet Volume 6.3 L 6.9-10.8 fL Neutrophils (%) (Auto) 78.8 37.0-80.0 % Lymphocytes (%) (Auto) 12.9 10.0-50.0 % Monocytes (%) (Auto) 4.9 0.0-12.0 % Eosinophils (%) (Auto) 2.0 0.0-7.0 % Basophils (%) (Auto) 1.4 0.0-2.0 % Neutrophils # (Auto) 4.7 1.6-8.6 10 ^3/uL Lymphocytes # (Auto) 0.8 0.4-5.4 10 ^3/uL Monocytes # (Auto) 0.3 0-1.3 10 ^3/uL Eosinophils # (Auto) 0.1 0-0.8 10 ^3/uL Basophils # (Auto) 0.1 0-0.2 10 ^3/uL Nucleated Red Blood Cells 0.2 % Sodium Level 126 L 136-145 mmol/L Potassium Level 5.2 H 3.5-5.1 mmol/L Chloride Level 93 L 98-107 mmol/L Carbon Dioxide Level 25 20-31 mmol/L Anion Gap 8 5-15 Blood Urea Nitrogen 18 9-23 mg/dL Creatinine 2.06 H 0.550-1.02 mg/dL Glomerular Filtration Rate Calc 29 >90 mL/min BUN/Creatinine Ratio 8.7 L 10.0-20.0 Serum Glucose 124 H 74-106 mg/dL Calcium Level 9.7 8.7-10.4 mg/dL B-Type Natriuretic Peptide 13.25 0-100 pg/mL Assessment Acute kidney injury likely in the setting of fluid overload Solitary right kidney Chronic kidney disease stage 3 a ( Dr. Brennan) Hypertension poorly controlled Hypervolemia in the setting of medical noncompliance Diabetes History DVT Start fluid restriction patient 1 L per day. Start twice daily diuretic dosing. I have explained to patient that likely she will require 40 mg p.o. b.i.d. once discharged in the interim we will do IV in the hospital to remove fluid Patient requires daily input and output recording to achieve minimum 1-2 L negative fluid balance over the next 24 hours Losartan will be on hold for today but resumed tomorrow renal function is stable Resume home medications Cardiac diabetic diet is recommended Obtain ultrasound to ensure no evidence of obstruction of solitary kidney. Plan discussed with: Patient JIGNA JANG MD Nov 16, 2024 14:00
--- NOTE | 2024-11-16 14:57 | DVH ---
INDICATION: solitary right kidney r/o obstruction TECHNIQUE: Multiple real-time sonographic images of the kidneys and bladder were obtained. COMPARISON: KIDNEY on DOS: 09/24/21 FINDINGS: The right kidney measures 11 cm in length, which is normal in size. There is normal echogenicity of t he right kidney. No hydronephrosis. Left kidney removed. 2cm right renal cyst. No large intraluminal masses are seen in the bladder. IMPRESSION: 1. Normal sonographic appearance of the kidneys. No hydronephrosis.
[2024-11-16] MEDS: FUROSEMIDE 40 MG/4 ML VIAL IV SCH (18:11)
--- NOTE | 2024-11-16 18:29 | DVHPN2 ---
Subjective in bed resting Changes from previous H/P or p: No Changes Objective Vitals Vital Signs Date Time Temp Pulse Resp B/P (MAP) Pulse Ox O2 Delivery O2 Flow Rate FiO2 11/16/24 18:11 125/71 11/16/24 17:00 97.7 86 18 98 97.7 11/16/24 10:09 Nasal Cannula* 2 28 Intake/Output Intake and Output 11/16/24 07:00 Intake Total 1200 ml Balance 1200 ml Intake Oral 1200 ml # Voids 2 General Appearance: Oriented X3 Lungs: Clear to auscultation Cardiovascular: Regular rate, Normal S1, Normal S2 Medications Current Medications Medications Dose Ordered Sig/Luke Route Start Time Stop Time Status Last Admin Dose Admin Albuterol 2.5 mg Q6HPRN PRN NEB 11/15/24 19:30 11/16/24 10:09 2.5 MG Atorvastatin Calcium 40 mg HS PO 11/15/24 22:00 11/15/24 23:28 40 MG Metoprolol Succinate 25 mg DAILY PO 11/16/24 10:00 11/16/24 09:39 25 MG Apixaban 5 mg BID PO 11/15/24 22:00 11/16/24 09:39 5 MG Diagnostic Test (Pha) 1 strip ACHS 11/15/24 22:00 11/16/24 17:10 1 STRIP Insulin Human Regular ACHS SC 11/15/24 22:00 11/16/24 06:53 2 UNITS Dextrose 50 ml UD PRN IV 11/15/24 19:30 Ondansetron HCl 4 mg Q4HP PRN IV 11/15/24 19:30 Oxycodone/ Acetaminophen 1 tab Q6HP PRN PO 11/15/24 23:15 11/16/24 17:09 1 TAB Furosemide 40 mg BIDD IV 11/16/24 18:00 11/16/24 18:11 40 MG Laboratory Results Laboratory Tests 11/16/24 05:41 Chemistry Test 11/16/24 05:41 Calcium Level 9.5 mg/dL (8.7-10.4) Assessment/Plan Assessment/Plan Acute on chronic congestive heart failure Acute on chronic renal failure Diabetes mellitus Hypertension COPD Secondary coagulopathy Morbid obesity Consult nephrology IV lasix BID Monitor kidney function Plan discussed with: Patient My Orders Orders - RESHMA GARCIA MD Procedure Category Date Status Time Cleanse Wound With MARIUM 2/26/25 In Process Mild Soap A 11:43 Date of Service: Nov 16, 2024 Billing Provider: RESHMA GARCIA MD Common Visit Codes: [id number] INP/OBS CARE(HIGH) RESHMA GARCIA MD Nov 16, 2024 18:29
[2024-11-17] VITALS (12 sets, daily range): BP systolic 123–154; BP diastolic 63–87; PULSE 66–81; RESP 12–20; TEMP 97.2–97.7; O2SAT 92–96
[2024-11-17 06:39] LABS: Anion Gap 7 (5-15); Carbon Dioxide 29 mmol/L (20-31); Potassium 4.7 mmol/L (3.5-5.1)
[2024-11-17 06:40] LABS: Calcium 9.6 mg/dL (8.7-10.4)
[2024-11-17 06:42] LABS: Chloride 95 mmol/L (98-107); Sodium 131 mmol/L (136-145)
[2024-11-17 06:45] LABS: BUN/Creatinine Ratio 14.3 (10.0-20.0); Blood Urea Nitrogen 30 mg/dL (9-23); Glucose 108 mg/dL (74-106)
[2024-11-17 08:16] LABS: Urine Bacteria None Seen /hpf (None Seen)
[2024-11-17 08:39] LABS: Urine Blood Negative /uL (Negative); Urine Clarity Clear (Clear); Urine Color Colorless (Yellow); Urine Protein, UAD Negative (Negative); Urine Specific Gravity 1.005 (1.001-1.035); Urine Squamous Epithelial Cell FEW /hpf (<5); Urine Urobilinogen Normal (Negative); Urine WBC < 1 /HPF (0-5); Urine pH 5.5 (5.0-9.0)
[2024-11-17 08:47] LABS: Protein, Urine 12.3 mg/dL (1-14)
[2024-11-17 08:50] LABS: Creatinine, Urine 17.58 mg/dL (30.0-125.0); Urine Protein/Creatinine Ratio 0.7
--- NOTE | 2024-11-17 09:10 | CONS ---
Pharmacy Clinical Information: From Heart Failure Fallout Report on CQM Application, Alicia Suggs is a 49 year old female with PMH of DM, HTN, COPD, HF, CKD stage 3, hx of DVT on anticoag, and right solitary kidney s/p left total nephrectomy. Her home medications for heart failure include metoprolol tartrate, and losartan. Her inpatient medications include metoprolol succinate, and furosemide. MRA not recommended since eGFR < [address] Andres note, resume losartan tomorrow If appropriate, consider addition of SGLT2i once patient's renal function stabilizes MARI CORCORAN PHARMACIST Nov 17, 2024 09:10
[2024-11-17 11:08] LABS: Hepatitis B Surface Antigen Negative (Negative)
[2024-11-17 11:10] LABS: Hepatitis C Antibody Negative (Negative)
--- NOTE | 2024-11-17 13:47 | DVHPN2 ---
Progress Note Date Seen: Nov 17, 2024 Medical Necessity Reason Pt with a Central, PICC or Fol: No Subjective Patient reports: Feels better Objective vital signs Vital Sign Date Time Temp Pulse Resp B/P (MAP) Pulse Ox O2 Delivery O2 Flow Rate FiO2 11/17/24 10:00 94 Nasal Cannula* 2 28 11/17/24 09:00 97.7 73 19 154/81 (105) 97.7 Total Intake and Output 11/16/24 11/16/24 11/17/24 15:00 23:00 07:00 Intake Total 460 ml 1620 ml 0 ml Output Total 600 ml 900 ml Balance 460 ml 1020 ml -900 ml medications Current Medications Medications Dose Ordered Sig/Luke Route Start Time Stop Time Status Last Admin Dose Admin Albuterol 2.5 mg Q6HPRN PRN NEB 11/15/24 19:30 11/17/24 07:58 2.5 MG Atorvastatin Calcium 40 mg HS PO 11/15/24 22:00 11/16/24 22:23 40 MG Metoprolol Succinate 25 mg DAILY PO 11/16/24 10:00 11/16/24 09:39 25 MG Apixaban 5 mg BID PO 11/15/24 22:00 11/17/24 11:08 5 MG Diagnostic Test (Pha) 1 strip ACHS 11/15/24 22:00 11/17/24 11:50 1 STRIP Insulin Human Regular ACHS SC 11/15/24 22:00 11/16/24 22:40 2 UNITS Dextrose 50 ml UD PRN IV 11/15/24 19:30 Ondansetron HCl 4 mg Q4HP PRN IV 11/15/24 19:30 Oxycodone/ Acetaminophen 1 tab Q6HP PRN PO 11/15/24 23:15 11/17/24 12:56 1 TAB Furosemide 40 mg BIDD IV 11/16/24 18:00 11/17/24 06:43 40 MG Examination: GENERAL:Abnormal, CVS:Normal, ABDOMEN:Normal, SKIN:Abnormal laboratory and microbiology Laboratory Tests 11/17/24 05:38 11/16/24 05:41 Test 11/17/24 05:38 Range/Units Serum Glucose 108 H 74-106 mg/dL Problem List/Assessment/Plan Problem List/Assessment/Plan Acute kidney injury likely in the setting of fluid overload Solitary right kidney Chronic kidney disease stage 3 a ( Dr. Brennan) Hypertension poorly controlled Hypervolemia in the setting of medical noncompliance Diabetes History DVT fluid restriction patient 1 L per day. lasix IV BID unclear b/c output wasnt strict but appears was in positive fluid balance last 24hrs. rec extra dose lasix today Patient requires daily input and output recording to achieve minimum 1-2 L negative fluid balance over the next 24 hours Losartan will be on hold for today but resume when renal function is stable Cardiac diabetic diet is recommended ultrasound shows no evidence of obstruction of solitary kidney. echo report still pending Plan discussed with: Patient My Orders My Orders Orders - JIGNA JANG MD Procedure Category Date Status Time Maintain Fluid MARIUM 11/16/24 In Process Restrictions 13:50 Furosemide Injection PHA 11/16/24 In Process (Lasix Injection) 18:00 Kidney US 11/16/24 Resulted 13:53 Communication Order ORDERS 11/17/24 Transmitted 07:41 JIGNA JANG MD Nov 17, 2024 13:47
[2024-11-17] MEDS: metOLazone 5 MG TAB PO ONE (15:32)
--- NOTE | 2024-11-17 17:15 | DVHPN2 ---
Subjective in bed resting Changes from previous H/P or p: No Changes Objective Vitals Vital Signs Date Time Temp Pulse Resp B/P (MAP) Pulse Ox O2 Delivery O2 Flow Rate FiO2 11/17/24 16:56 97.5 81 20 132/87 (102) 95 97.5 11/17/24 10:00 Nasal Cannula* 2 28 Intake/Output Intake and Output 11/17/24 07:00 Intake Total 2080 ml Output Total 1500 ml Balance 580 ml Intake Oral 2080 ml Output Urine Total 1500 ml # Voids 3 # Bowel Movements 1 General Appearance: Oriented X3 Lungs: Clear to auscultation Cardiovascular: Regular rate, Normal S1, Normal S2 Medications Current Medications Medications Dose Ordered Sig/Luke Route Start Time Stop Time Status Last Admin Dose Admin Albuterol 2.5 mg Q6HPRN PRN NEB 11/15/24 19:30 11/17/24 07:58 2.5 MG Atorvastatin Calcium 40 mg HS PO 11/15/24 22:00 11/16/24 22:23 40 MG Metoprolol Succinate 25 mg DAILY PO 11/16/24 10:00 11/17/24 15:31 25 MG Apixaban 5 mg BID PO 11/15/24 22:00 11/17/24 11:08 5 MG Diagnostic Test (Pha) 1 strip ACHS 11/15/24 22:00 11/17/24 11:50 1 STRIP Insulin Human Regular ACHS SC 11/15/24 22:00 11/16/24 22:40 2 UNITS Dextrose 50 ml UD PRN IV 11/15/24 19:30 Ondansetron HCl 4 mg Q4HP PRN IV 11/15/24 19:30 Oxycodone/ Acetaminophen 1 tab Q6HP PRN PO 11/15/24 23:15 11/17/24 12:56 1 TAB Furosemide 40 mg BIDD IV 11/16/24 18:00 11/17/24 06:43 40 MG Laboratory Results Laboratory Tests 11/16/24 05:41 11/17/24 05:38 Chemistry Test 11/17/24 05:38 Calcium Level 9.6 mg/dL (8.7-10.4) HgA1c, TSH Test 11/17/24 05:38 Hemoglobin A1c 6.5 % A1C (<5.7) H Urinalysis Test 11/17/24 08:00 Urine Color Colorless (Yellow) Urine Clarity Clear (Clear) Urine pH 5.5 (5.0-9.0) Urine Specific [place] 1.005 (1.001-1.035) Urine Protein Negative (Negative) Urine Ketones Negative (Negative) Urine Blood Negative /uL (Negative) Urine Nitrite Negative (Negative) Urine Bilirubin Negative (Negative) Urine Urobilinogen Normal mg/dL (Negative) Urine Leukocyte Esterase Negative /uL (Negative) Urine RBC <1 /hpf (0 - 4) Urine Microscopic WBC < 1 /HPF (0-5) Urine Squamous Epithelial Cells Few /hpf (<5) Urine Bacteria None seen /hpf (None Seen) Urine Creatinine 17.58 mg/dL (30.0-125.0) L Urine Protein/Creatinine Ratio 0.70 Urine Sodium 100 mmol/L (40-220) Urine Glucose Normal mg/dL (Normal) Urine Total Protein 12.3 mg/dL (1-14) Assessment/Plan Assessment/Plan Acute on chronic congestive heart failure Acute on chronic renal failure Diabetes mellitus Hypertension COPD Secondary coagulopathy Morbid obesity Consult nephrology IV lasix BID with metolazone Monitor kidney function Plan discussed with: Patient Date of Service: Nov 17, 2024 Billing Provider: FLY GRAFF Common Visit Codes: [id number] INP/OBS CARE(HIGH) RESHMA GARCIA MD Nov 17, 2024 17:15
--- NOTE | 2024-11-17 19:56 | DVHSR ---
APPROVED REPORT EXAM: Two-dimensional and M-mode echocardiogram with Doppler and color Doppler. Blood Pressure: 126/82 mmHg INDICATION EF RISK FACTORS Height: 59, Weight: 277 DIMENSIONS LVDd4.9 (3.8-5.7cm)LA (2D)5.0 (1.9-4.0cm)Aortic Root3.5 (2.0-3.7cm) LVDs3.5 (2.5-4.0cm)LA (MM) (1.9-4.0cm)Aortic Cusp Exc (1.5-2.0cm) EF (%) 55.0 (55-70%)Rt. Atrium4.4 (1.9-4.0cm)Asc. Aorta cm IVSd1.1 (0.7-1.1cm)RV (D) (1.8-2.4cm) PWd1.2 (0.7-1.1cm) Mitral Valve MitralMitral Stenosis E wave1.51m/sMV Mean GR.mmHg A wave1.16m/sMV Peak GR.93mmHg E/A ratio1.32D MVAcm2 DECEL [id number] 1/2 [place] Aortic Valve Aortic ValveAortic Stenosis V11.22m/Santos Mean GR.14mmHg V22.54m/Santos Peak GR.26mmHg LVOT Diameter2.2 (1.8-2.4cm)Doppler AVA1.82cm2 Pulmonic Valve V21.61m/s Tricuspid Valve TR Velocity3.22m/s [id number] Other Information Technically limited study due to body habitus. Conclusion Technically good study. Sinus rhythm. Concentric LVH with biatrial enlargement. RV enlargement with hypertrophy Mild mitral annular calcification. Mild aortic root dilatation. Left ventricular function is preserved at 60% with normal RV function. Moderate tricuspid regurgitation with pulmonary hypertension. Right ventricular pressures near 60 mm Hg. No pericardial effusion masses or vegetations.
[2024-11-17] MEDS ORDERED: TIZA4TAB9 PO (22:39)
[2024-11-18] VITALS (12 sets, daily range): BP systolic 121–188; BP diastolic 61–95; PULSE 64–105; RESP 16–20; TEMP 97.4–98.5; O2SAT 90–98
[2024-11-18 05:52] LABS: Anion Gap 6 (5-15); Potassium 4.9 mmol/L (3.5-5.1)
[2024-11-18 05:58] LABS: BUN/Creatinine Ratio 17.2 (10.0-20.0)
[2024-11-18 06:29] LABS: Blood Urea Nitrogen 37 mg/dL (9-23); Calcium 10.9 mg/dL (8.7-10.4); Carbon Dioxide 33 mmol/L (20-31); Chloride 92 mmol/L (98-107); Glucose 124 mg/dL (74-106); Sodium 131 mmol/L (136-145)
[2024-11-18] MEDS ORDERED: metOLazone 5 MG TAB PO SCH (08:00)
--- NOTE | 2024-11-18 13:19 | DVHPN2 ---
Reviewed: Care Plan, H&P, Labs, Medications, Previous Orders, Radiology Changes from previous H/P or p: No Changes Objective Vitals Vital Signs Date Time Temp Pulse Resp B/P (MAP) Pulse Ox O2 Delivery O2 Flow Rate FiO2 11/18/24 13:00 97.5 64 16 168/89 (115) 94 97.5 11/18/24 10:00 Nasal Cannula* 2 28 Intake/Output Intake and Output 11/18/24 07:00 Intake Total 1000 ml Output Total 3450 ml Balance -2450 ml Intake Oral 1000 ml Output Urine Total 3450 ml # Bowel Movements 2 General Appearance: Oriented X3 Lungs: Clear to auscultation Cardiovascular: Regular rate, Normal S1, Normal S2 Medications Current Medications Medications Dose Ordered Sig/Luke Route Start Time Stop Time Status Last Admin Dose Admin Albuterol 2.5 mg Q6HPRN PRN NEB 11/15/24 19:30 11/17/24 07:58 2.5 MG Atorvastatin Calcium 40 mg HS PO 11/15/24 22:00 11/17/24 21:07 40 MG Metoprolol Succinate 25 mg DAILY PO 11/16/24 10:00 11/18/24 09:45 25 MG Apixaban 5 mg BID PO 11/15/24 22:00 11/18/24 09:45 5 MG Diagnostic Test (Pha) 1 strip ACHS 11/15/24 22:00 11/18/24 11:32 1 STRIP Insulin Human Regular ACHS SC 11/15/24 22:00 11/16/24 22:40 2 UNITS Dextrose 50 ml UD PRN IV 11/15/24 19:30 Ondansetron HCl 4 mg Q4HP PRN IV 11/15/24 19:30 Oxycodone/ Acetaminophen 1 tab Q6HP PRN PO 11/15/24 23:15 11/18/24 09:52 1 TAB Furosemide 40 mg BIDD IV 11/16/24 18:00 11/17/24 18:17 40 MG Patient Own Medication 1 Q8HP PRN PO 11/18/24 13:00 Laboratory Results Laboratory Tests 11/16/24 05:41 11/18/24 05:08 Chemistry Test 11/18/24 05:08 Calcium Level 10.9 mg/dL (8.7-10.4) H Urinalysis Test 11/17/24 08:00 Urine Color Colorless (Yellow) Urine Clarity Clear (Clear) Urine pH 5.5 (5.0-9.0) Urine Specific [place] 1.005 (1.001-1.035) Urine Protein Negative (Negative) Urine Ketones Negative (Negative) Urine Blood Negative /uL (Negative) Urine Nitrite Negative (Negative) Urine Bilirubin Negative (Negative) Urine Urobilinogen Normal mg/dL (Negative) Urine Leukocyte Esterase Negative /uL (Negative) Urine RBC <1 /hpf (0 - 4) Urine Microscopic WBC < 1 /HPF (0-5) Urine Squamous Epithelial Cells Few /hpf (<5) Urine Bacteria None seen /hpf (None Seen) Urine Creatinine 17.58 mg/dL (30.0-125.0) L Urine Protein/Creatinine Ratio 0.70 Urine Sodium 100 mmol/L (40-220) Urine Glucose Normal mg/dL (Normal) Urine Total Protein 12.3 mg/dL (1-14) Labs and/or images reviewed: Labs reviewed by me, Image(s) reviewed by me Assessment/Plan Assessment/Plan Covering for Dr. Allen Acute kidney injury likely in the setting of fluid overload Solitary right kidney Chronic kidney disease stage 3 a ( Dr. Brennan) Hypertension poorly controlled Acute on chronic congestive heart failure Hypervolemia in the setting of medical noncompliance Diabetes History DVT COPD Morbid obesity Plan discussed with: Patient Date of Service: Nov 18, 2024 Billing Provider: KEYON MARTINEZ MD Common Visit Codes: [id number] INP/OBS CARE(HIGH) KEYON MARTINEZ MD Nov 18, 2024 13:19
[2024-11-18] MEDS ORDERED: FENO54TA4 PO (15:50)
[2024-11-18] MEDS ORDERED: AMIT150T4 PO (15:50)
[2024-11-18] MEDS ORDERED: APIX5TAB PO (15:50)
[2024-11-18] MEDS ORDERED: BUPR8SUB18 SL (15:50)
[2024-11-18] MEDS ORDERED: LAMO25TA2 PO (15:50)
[2024-11-18] MEDS ORDERED: FURO20TA3 PO (15:50)
[2024-11-18] MEDS ORDERED: FLUO40CA2 PO (15:50)
[2024-11-18] MEDS ORDERED: NITR100C6 PO (15:50)
[2024-11-18] MEDS ORDERED: METO25TA5 PO (15:50)
[2024-11-18] MEDS ORDERED: DEUT12TA PO (15:50)
[2024-11-18] MEDS ORDERED: BREX1TAB6 PO (15:58)
[2024-11-18] MEDS ORDERED: LOSA-533 PO (15:58)
[2024-11-18] MEDS ORDERED: HYDR50TA69 PO (15:58)
[2024-11-18] MEDS ORDERED: PANT40TA57 PO (15:58)
[2024-11-18] MEDS ORDERED: DOCU-94 PO (15:58)
[2024-11-18] MEDS ORDERED: DEUT6TAB PO (15:58)
[2024-11-18] MEDS ORDERED: DIPH-751 PO (15:58)
[2024-11-18] MEDS ORDERED: MELO15TA29 PO (15:58)
[2024-11-18] MEDS ORDERED: MECL12.586 PO (16:01)
[2024-11-18] MEDS ORDERED: TIZA4CAP PO (16:01)
--- NOTE | 2024-11-18 16:02 | DVHPN2 ---
Progress Note Date Seen: Nov 18, 2024 Medical Necessity Reason Pt with a Central, PICC or Fol: No Subjective Patient reports: Feels better Objective vital signs Vital Sign Date Time Temp Pulse Resp B/P (MAP) Pulse Ox O2 Delivery O2 Flow Rate FiO2 11/18/24 13:00 97.5 64 16 168/89 (115) 94 97.5 11/18/24 10:00 Nasal Cannula* 2 28 Total Intake and Output 11/17/24 11/17/24 11/18/24 15:00 23:00 07:00 Intake Total 700 ml 300 ml Output Total 2250 ml 1200 ml Balance -1550 ml -900 ml medications Current Medications Medications Dose Ordered Sig/Luke Route Start Time Stop Time Status Last Admin Dose Admin Albuterol 2.5 mg Q6HPRN PRN NEB 11/15/24 19:30 11/17/24 07:58 2.5 MG Atorvastatin Calcium 40 mg HS PO 11/15/24 22:00 11/17/24 21:07 40 MG Metoprolol Succinate 25 mg DAILY PO 11/16/24 10:00 11/18/24 09:45 25 MG Apixaban 5 mg BID PO 11/15/24 22:00 11/18/24 09:45 5 MG Diagnostic Test (Pha) 1 strip ACHS 11/15/24 22:00 11/18/24 11:32 1 STRIP Insulin Human Regular ACHS SC 11/15/24 22:00 11/16/24 22:40 2 UNITS Dextrose 50 ml UD PRN IV 11/15/24 19:30 Ondansetron HCl 4 mg Q4HP PRN IV 11/15/24 19:30 Oxycodone/ Acetaminophen 1 tab Q6HP PRN PO 11/15/24 23:15 11/18/24 09:52 1 TAB Furosemide 40 mg BIDD PO 11/18/24 18:00 Fluoxetine HCl 80 mg DAILY PO 11/19/24 10:00 Lamotrigine 25 mg DAILY PO 11/19/24 10:00 Patient Own Medication 1 DAILY PO 11/18/24 16:00 UNV Patient Own Medication 1 TID PO 11/18/24 22:00 UNV Patient Own Medication 1 TID PO 11/18/24 22:00 UNV Examination: GENERAL:Abnormal, CVS:Normal, SKIN:Abnormal laboratory and microbiology Laboratory Tests 11/18/24 05:08 11/16/24 05:41 Test 11/18/24 05:08 Range/Units Serum Glucose 124 H 74-106 mg/dL Problem List/Assessment/Plan Problem List/Assessment/Plan Acute kidney injury likely in the setting of fluid overload Solitary right kidney Chronic kidney disease stage 3 a ( Dr. Brennan) Hypertension poorly controlled Hypervolemia in the setting of medical noncompliance -> echo shows LVH and pulmonary hypertension Diabetes History DVT Patient refused IV now on p.o. Lasix Urine output improved significantly with higher dose yesterday We will give metolazone p.o. with Lasix 40 p.o. today. Anticipated discharge tomorrow on 40 mg p.o. twice a day lasix Losartan will be on hold for today but resume when renal function is stable patient Cardiac diabetic diet is recommended ultrasound shows no evidence of obstruction of solitary kidney. Plan discussed with: Patient Dietary Evaluation Review Comments: CCHO-60, Renal with protein 50g restriction, Expected Outcomes/Goals: gradual wt loss, contolled blood sugar for improved healing. JIGNA JANG MD Nov 18, 2024 16:02
[2024-11-18] MEDS: lamoTRIgine 25 MG TAB PO ONE (16:16)
[2024-11-18] MEDS: FLUoxetine HCL 20 MG CAP PO ONE (16:17)
[2024-11-18] MEDS: metOLazone 5 MG TAB PO ONE (16:17)
[2024-11-18] MEDS: FUROSEMIDE 40 MG TAB PO SCH (18:35)
[2024-11-18] MEDS: BUPRENORPHINE 8 MG SCH (18:37)
[2024-11-19 01:10] VITALS: BP 121/61; PULSE 67; RESP 19; TEMP 97.5; O2SAT 98
[2024-11-19 05:22] VITALS: BP 111/63; PULSE 70; RESP 17; TEMP 98.5; O2SAT 93
--- NOTE | 2024-11-19 07:53 | DVHPN2 ---
Reviewed: Care Plan, H&P, Labs, Medications, Previous Orders, Radiology Changes from previous H/P or p: No Changes Objective Vitals Vital Signs Date Time Temp Pulse Resp B/P (MAP) Pulse Ox O2 Delivery O2 Flow Rate FiO2 11/19/24 06:15 111/63 11/19/24 05:22 98.5 70 17 93 98.5 11/18/24 20:00 Nasal Cannula* 2 28 Intake/Output Intake and Output 11/19/24 07:00 Intake Total 1400 ml Output Total 4450 ml Balance -3050 ml Intake Oral 1400 ml Output Urine Total 4450 ml # Bowel Movements 2 General Appearance: Oriented X3 Lungs: Clear to auscultation Cardiovascular: Regular rate, Normal S1, Normal S2 Medications Current Medications Medications Dose Ordered Sig/Luke Route Start Time Stop Time Status Last Admin Dose Admin Albuterol 2.5 mg Q6HPRN PRN NEB 11/15/24 19:30 11/17/24 07:58 2.5 MG Atorvastatin Calcium 40 mg HS PO 11/15/24 22:00 11/18/24 21:40 40 MG Metoprolol Succinate 25 mg DAILY PO 11/16/24 10:00 11/18/24 09:45 25 MG Apixaban 5 mg BID PO 11/15/24 22:00 11/18/24 21:40 5 MG Diagnostic Test (Pha) 1 strip ACHS 11/15/24 22:00 11/19/24 06:16 1 STRIP Insulin Human Regular ACHS SC 11/15/24 22:00 11/16/24 22:40 2 UNITS Dextrose 50 ml UD PRN IV 11/15/24 19:30 Ondansetron HCl 4 mg Q4HP PRN IV 11/15/24 19:30 Oxycodone/ Acetaminophen 1 tab Q6HP PRN PO 11/15/24 23:15 11/19/24 06:22 1 TAB Furosemide 40 mg BIDD PO 11/18/24 18:00 11/19/24 06:15 40 MG Fluoxetine HCl 80 mg DAILY PO 11/19/24 10:00 Lamotrigine 25 mg DAILY PO 11/19/24 10:00 Patient Own Medication 1 QID SL 11/18/24 18:00 11/19/24 06:16 1 Patient Own Medication 1 TID PO 11/18/24 22:00 11/18/24 19:31 1 Patient Own Medication 1 TID PO 11/18/24 22:00 11/18/24 19:31 1 Laboratory Results Laboratory Tests 11/16/24 05:41 11/18/24 05:08 Urinalysis Test 11/17/24 08:00 Urine Color Colorless (Yellow) Urine Clarity Clear (Clear) Urine pH 5.5 (5.0-9.0) Urine Specific [place] 1.005 (1.001-1.035) Urine Protein Negative (Negative) Urine Ketones Negative (Negative) Urine Blood Negative /uL (Negative) Urine Nitrite Negative (Negative) Urine Bilirubin Negative (Negative) Urine Urobilinogen Normal mg/dL (Negative) Urine Leukocyte Esterase Negative /uL (Negative) Urine RBC <1 /hpf (0 - 4) Urine Microscopic WBC < 1 /HPF (0-5) Urine Squamous Epithelial Cells Few /hpf (<5) Urine Bacteria None seen /hpf (None Seen) Urine Creatinine 17.58 mg/dL (30.0-125.0) L Urine Protein/Creatinine Ratio 0.70 Urine Sodium 100 mmol/L (40-220) Urine Glucose Normal mg/dL (Normal) Urine Total Protein 12.3 mg/dL (1-14) Labs and/or images reviewed: Labs reviewed by me, Image(s) reviewed by me Assessment/Plan Assessment/Plan Covering for Dr. Allen Acute kidney injury likely in the setting of fluid overload, now improved Solitary right kidney Chronic kidney disease stage 3 a ( Dr. Brennan) Hypertension poorly controlled Acute on chronic congestive heart failure Hypervolemia in the setting of medical noncompliance Diabetes History DVT COPD Morbid obesity Patient is requesting to be discharged home today Plan discussed with: Patient My Orders Orders - KEYON MARTINEZ MD Procedure Category Date Status Time Furosemide Tablet PHA 11/18/24 In Process (Lasix Tablet) 18:00 Fluoxetine Capsule PHA 11/19/24 In Process (Prozac Capsule) 10:00 Lamotrigine Tablet PHA 11/19/24 In Process (Lamictal Tablet) 10:00 Patients Own PHA 11/18/24 In Process Medication 18:00 Patients Own PHA 11/18/24 In Process Medication 22:00 Patients Own PHA 11/18/24 In Process Medication 22:00 Basic Metabolic Panel LAB 11/19/24 Logged 07:50 Date of Service: Nov 19, 2024 Billing Provider: KEYON MARTINEZ MD Common Visit Codes: [id number] INP/OBS CARE(HIGH) KEYON MARTINEZ MD Nov 19, 2024 07:53
[2024-11-19 08:00] VITALS: RESP 17; O2SAT 93
[2024-11-19 09:00] VITALS: BP 122/76; PULSE 69; RESP 14; TEMP 97.7; O2SAT 93
[2024-11-19 09:29] LABS: Potassium 4.1 mmol/L (3.5-5.1)
[2024-11-19 09:31] LABS: Anion Gap 8 (5-15); Calcium 10.1 mg/dL (8.7-10.4)
[2024-11-19 09:36] LABS: BUN/Creatinine Ratio 17.4 (10.0-20.0)
[2024-11-19 09:45] LABS: Blood Urea Nitrogen 38 mg/dL (9-23); Carbon Dioxide 34 mmol/L (20-31); Chloride 92 mmol/L (98-107); Glucose 208 mg/dL (74-106); Sodium 134 mmol/L (136-145)
[2024-11-19] MEDS ORDERED: FURO1TAB31 PO (09:45)
[2024-11-19] MEDS ORDERED: PERCOT PO (09:45)
--- NOTE | 2024-11-19 09:47 | DVHPN2 ---
Reviewed: Care Plan, H&P, Labs, Medications, Previous Orders, Radiology Changes from previous H/P or p: No Changes Objective Vitals Vital Signs Date Time Temp Pulse Resp B/P (MAP) Pulse Ox O2 Delivery O2 Flow Rate FiO2 11/19/24 06:15 111/63 11/19/24 05:22 98.5 70 17 93 98.5 11/18/24 20:00 Nasal Cannula* 2 28 Intake/Output Intake and Output 11/19/24 07:00 Intake Total 1400 ml Output Total 4450 ml Balance -3050 ml Intake Oral 1400 ml Output Urine Total 4450 ml # Bowel Movements 2 General Appearance: Oriented X3 Lungs: Clear to auscultation Cardiovascular: Regular rate, Normal S1, Normal S2 Medications Current Medications Medications Dose Ordered Sig/Luke Route Start Time Stop Time Status Last Admin Dose Admin Albuterol 2.5 mg Q6HPRN PRN NEB 11/15/24 19:30 11/17/24 07:58 2.5 MG Atorvastatin Calcium 40 mg HS PO 11/15/24 22:00 11/18/24 21:40 40 MG Metoprolol Succinate 25 mg DAILY PO 11/16/24 10:00 11/18/24 09:45 25 MG Apixaban 5 mg BID PO 11/15/24 22:00 11/18/24 21:40 5 MG Diagnostic Test (Pha) 1 strip ACHS 11/15/24 22:00 11/19/24 06:16 1 STRIP Insulin Human Regular ACHS SC 11/15/24 22:00 11/16/24 22:40 2 UNITS Dextrose 50 ml UD PRN IV 11/15/24 19:30 Ondansetron HCl 4 mg Q4HP PRN IV 11/15/24 19:30 Oxycodone/ Acetaminophen 1 tab Q6HP PRN PO 11/15/24 23:15 11/19/24 06:22 1 TAB Furosemide 40 mg BIDD PO 11/18/24 18:00 11/19/24 06:15 40 MG Fluoxetine HCl 80 mg DAILY PO 11/19/24 10:00 Lamotrigine 25 mg DAILY PO 11/19/24 10:00 Patient Own Medication 1 QID SL 11/18/24 18:00 11/19/24 06:16 1 Patient Own Medication 1 TID PO 11/18/24 22:00 11/18/24 19:31 1 Patient Own Medication 1 TID PO 11/18/24 22:00 11/18/24 19:31 1 Laboratory Results Laboratory Tests 11/16/24 05:41 Chemistry Test 11/19/24 08:58 Calcium Level Pending Urinalysis Test 11/17/24 08:00 Urine Color Colorless (Yellow) Urine Clarity Clear (Clear) Urine pH 5.5 (5.0-9.0) Urine Specific [place] 1.005 (1.001-1.035) Urine Protein Negative (Negative) Urine Ketones Negative (Negative) Urine Blood Negative /uL (Negative) Urine Nitrite Negative (Negative) Urine Bilirubin Negative (Negative) Urine Urobilinogen Normal mg/dL (Negative) Urine Leukocyte Esterase Negative /uL (Negative) Urine RBC <1 /hpf (0 - 4) Urine Microscopic WBC < 1 /HPF (0-5) Urine Squamous Epithelial Cells Few /hpf (<5) Urine Bacteria None seen /hpf (None Seen) Urine Creatinine 17.58 mg/dL (30.0-125.0) L Urine Protein/Creatinine Ratio 0.70 Urine Sodium 100 mmol/L (40-220) Urine Glucose Normal mg/dL (Normal) Urine Total Protein 12.3 mg/dL (1-14) Labs and/or images reviewed: Labs reviewed by me, Image(s) reviewed by me Assessment/Plan Assessment/Plan Covering for Dr. Allen Acute kidney injury likely in the setting of fluid overload, now improved Solitary right kidney Chronic kidney disease stage 3 a ( Dr. Brennan) Dr Andres recommended Lasix 40 mg p.o. b.i.d. Hypertension poorly controlled Acute on chronic congestive heart failure Hypervolemia in the setting of medical noncompliance Diabetes History DVT COPD Morbid obesity Patient is requesting to be discharged home today Plan discussed with: Patient My Orders Orders - KEYON MARTINEZ MD Procedure Category Date Status Time Furosemide Tablet PHA 11/18/24 In Process (Lasix Tablet) 18:00 Fluoxetine Capsule PHA 11/19/24 In Process (Prozac Capsule) 10:00 Lamotrigine Tablet PHA 11/19/24 In Process (Lamictal Tablet) 10:00 Patients Own PHA 11/18/24 In Process Medication 18:00 Patients Own PHA 11/18/24 In Process Medication 22:00 Patients Own PHA 11/18/24 In Process Medication 22:00 Basic Metabolic Panel LAB 11/19/24 In Process 07:50 Date of Service: Nov 19, 2024 Billing Provider: KEYON MARTINEZ MD Common Visit Codes: [id number] INP/OBS CARE(HIGH) KEYON MARTINEZ MD Nov 19, 2024 09:47
[2024-11-19] MEDS: lamoTRIgine 25 MG TAB PO SCH (09:50)
--- NOTE | 2024-11-19 09:51 | DVHDS2 ---
Discharge Summary Date of Admission Nov 15, 2024 at 19:20 Date of Discharge: Nov 19, 2024 Admitting Diagnosis Generalized weakness and shortness of breath Wounds: None Labs/Diagnostic Data: Laboratory Results Test 11/19/24 08:58 11/19/24 06:04 11/17/24 08:00 11/17/24 05:38 Sodium Level 134 mmol/L (136-145) Potassium Level 4.1 mmol/L (3.5-5.1) Chloride Level 92 mmol/L (98-107) Carbon Dioxide Level 34 mmol/L (20-31) Anion Gap 8 (5-15) Blood Urea Nitrogen 38 mg/dL (9-23) Creatinine 2.19 mg/dL (0.550-1.02) Glomerular Filtration Rate Calc 27 mL/min (>90) BUN/Creatinine Ratio 17.4 (10.0-20.0) Serum Glucose 208 mg/dL (74-106) Calcium Level 10.1 mg/dL (8.7-10.4) POC Glucose 119 mg/dl (70-106) Urine Color Colorless (Yellow) Urine Clarity Clear (Clear) Urine pH 5.5 (5.0-9.0) Urine Specific [place] 1.005 (1.001-1.035) Urine Protein Negative (Negative) Urine Ketones Negative (Negative) Urine Blood Negative /uL (Negative) Urine Nitrite Negative (Negative) Urine Bilirubin Negative (Negative) Urine Urobilinogen Normal mg/dL (Negative) Urine Leukocyte Esterase Negative /uL (Negative) Urine RBC <1 /hpf (0 - 4) Urine Microscopic WBC < 1 /HPF (0-5) Urine Squamous Epithelial Cells Few /hpf (<5) Urine Bacteria None seen /hpf (None Seen) Urine Creatinine 17.58 mg/dL (30.0-125.0) Urine Protein/Creatinine Ratio 0.70 Urine Sodium 100 mmol/L (40-220) Urine Glucose Normal mg/dL (Normal) Urine Total Protein 12.3 mg/dL (1-14) Hemoglobin A1c 6.5 % A1C (<5.7) Test 11/16/24 05:41 11/15/24 19:42 11/15/24 16:56 White Blood Count 4.9 10^3/uL (4.4-10.8) Red Blood Count 4.03 10^6/uL (4.0-5.20) Hemoglobin 10.7 g/dL (12.2-16.2) Hematocrit 33.6 % (36.0-46.0) Mean Corpuscular Volume 83.4 fL (80.0-100.0) Mean Corpuscular Hemoglobin 26.6 pg (28.0-32.0) Mean Corpuscular Hemoglobin Concent 31.9 g/dL (32.0-36.0) Red Cell Distribution Width 15.5 % (11.8-14.3) Platelet Count 214 10^3/uL (140-450) Mean Platelet Volume 6.8 fL (6.9-10.8) Neutrophils (%) (Auto) 86.6 % (37.0-80.0) Lymphocytes (%) (Auto) 9.0 % (10.0-50.0) Monocytes (%) (Auto) 3.7 % (0.0-12.0) Eosinophils (%) (Auto) 0.2 % (0.0-7.0) Basophils (%) (Auto) 0.5 % (0.0-2.0) Neutrophils # (Auto) 4.3 10 ^3/uL (1.6-8.6) Lymphocytes # (Auto) 0.4 10 ^3/uL (0.4-5.4) Monocytes # (Auto) 0.2 10 ^3/uL (0-1.3) Eosinophils # (Auto) 0 10 ^3/uL (0-0.8) Basophils # (Auto) 0 10 ^3/uL (0-0.2) Nucleated Red Blood Cells 0.4 % Hepatitis B Surface Antigen Negative (Negative) Hepatitis C Antibody Negative (Negative) Troponin I High Sensitivity 9 ng/L (</=34) B-Type Natriuretic Peptide 13.25 pg/mL (0-100) Other Laboratory Tests 11/19/24 08:58 11/16/24 05:41 Brief Hx & Hospital Course: 5-year-old female with a history of hypertension congestive heart failure diabetes COPD morbidly obese history of DVT came in complaining of shortness of breaths and generalized weakness found to have fluid overload and CKD three seen by Dr. Leon ideally placed on Lasix patient has improved and patient wants to go home . being discharged home on Lasix 40 mg p.o. b.i.d. she we will follow up with the primary Dr and beef skinner. Patient requesting to be discharged home today Consults/Reason for consult Nephrology Dr Andres Operations or Procedures None Condition at Discharge: Fair Final Diagnosis/Problems List Acute kidney injury likely in the setting of fluid overload, now improved Solitary right kidney Chronic kidney disease stage 3 a ( Dr. Brennan) Dr Andres recommended Lasix 40 mg p.o. b.i.d. Hypertension poorly controlled Acute on chronic congestive heart failure Hypervolemia in the setting of medical noncompliance Diabetes History DVT COPD Morbid obesity Discharge Disposition: Home Discharge Instruct/Medications Diet: Renal Activity: Light activity Follow Up/Referral: Follow up with your Primary Dr. In one week Resume all previous home medications Follow up with the Nephrology Dr. Andres in one week Medications: Lasix Percocet Transmitted to A pharmacy 35 (Time taken for discharge summary 35 minutes) Discharge Statement: "Patient was advised to return to the ER or call 911 if any headaches, dizziness, shortness of breath, chest pain, abdominal pain, bleeding, fevers, or worsening of medical condition. Patient was counseled about treatment plan, medications, possible side effects, patientverbalized understanding. All questions were answered to the best of my ability. This discharge took greater then 30 minutes in planning, reviewing documentation, counseling the patient, and discussing with other team members." ASSESSMENT ASSESSMENT Hospital Course Improved Assessment Acute kidney injury likely in the setting of fluid overload, now improved Solitary right kidney Chronic kidney disease stage 3 a ( Dr. Brennan) Dr Andres recommended Lasix 40 mg p.o. b.i.d. Hypertension poorly controlled Acute on chronic congestive heart failure Hypervolemia in the setting of medical noncompliance Diabetes History DVT COPD Morbid obesity Date of Service: Nov 19, 2024 Billing Provider: KEYON MARTINEZ MD Common Visit Codes: [id number] DISCH DAY >30min KEYON MARTINEZ MD Nov 19, 2024 09:51
[2024-11-19] MEDS: FLUoxetine HCL 20 MG CAP PO SCH (09:52)
[2024-11-19 10:05] VITALS: O2SAT 93
[2024-11-19 10:21] VITALS: BP 122/76; PULSE 69; RESP 14; TEMP 97.7; O2SAT 93
== END 2024-11-19 11:55 | disposition home or self-care (01) | DRG 133 ==
LOC: EDBD 12:52 → ER 12:52 → EDUNIT# 12:52 → OVERFLOW 19:20 → EAST 19:24
PROVIDERS: ADMIT Family Medicine; ATTEND Family Medicine
DX: J96.20 Acute and chronic respiratory failure, unspecified whether with hypoxia or hypercapnia (principal); I50.33 Acute on chronic diastolic (congestive) heart failure; N17.9 Acute kidney failure, unspecified; D68.9 Coagulation defect, unspecified; Z68.43 Body mass index [BMI] 50.0-59.9, adult; I13.0 Hypertensive heart and chronic kidney disease with heart failure and stage 1 through stage 4 chronic kidney disease, or unspecified chronic kidney disease; E11.22 Type 2 diabetes mellitus with diabetic chronic kidney disease; E66.01 Morbid (severe) obesity due to excess calories; J44.9 Chronic obstructive pulmonary disease, unspecified; N18.31 Chronic kidney disease, stage 3a; E78.5 Hyperlipidemia, unspecified; Z88.6 Allergy status to analgesic agent; Z79.01 Long term (current) use of anticoagulants; Z91.199 Patient's noncompliance with other medical treatment and regimen due to unspecified reason; Z91.048 Other nonmedicinal substance allergy status; Z90.710 Acquired absence of both cervix and uterus; Z90.5 Acquired absence of kidney; Z88.5 Allergy status to narcotic agent; Z79.899 Other long term (current) drug therapy; Z86.718 Personal history of other venous thrombosis and embolism; Z82.49 Family history of ischemic heart disease and other diseases of the circulatory system; Z81.8 Family history of other mental and behavioral disorders; Z80.1 Family history of malignant neoplasm of trachea, bronchus and lung
CPT/HCPCS: 36415; 71045; 76775; 80048; 81001; 82570; 82962; 83036; 83880; 84156; 84300; 84484; 85025; 86803; 87340; 93005; 93306; 94640; 96374; 99291; G0378; J1815

== ENCOUNTER 2025-01-03 13:38 | Inpatient (IN) | payer MEDICAID ==
[~2025-01-03] VITALS: Ht 167.6 cm; Wt 115.8 kg
[~2025-01-03 13:38] MED LIST changes: -ALBUAER3 IN; +AMIT150T4 PO; +APIX5TAB PO; -ARIP15TA6 PO; +BREX1TAB6 PO; +BUPR8SUB18 SL; -CHOL20007 OR; -CHOL500023 PO; +DEUT12TA PO; +DEUT6TAB PO; +DIPH-751 PO; +DOCU-94 PO; +FENO54TA4 PO; +FLUO40CA2 PO; +FURO1TAB31 PO; +FURO20TA3 PO; -HYDR50CA2 PO; +HYDR50TA69 PO; +LAMO25TA2 PO; +LOSA-533 PO; -LOVA40TA72 PO; +MECL12.586 PO; +MELO15TA29 PO; -METF-372 PO; +METO25TA5 PO; -METO25TA93 PO; +NITR100C6 PO; -PANT40TA2 PO; +PANT40TA57 PO; +PERCOT PO; +TIZA4TAB9 PO
[2025-01-03 14:00] LABS: Basophils # (auto) 0 10 ^3/uL (0-0.2); Eosinophils # (auto) 0.1 10 ^3/uL (0-0.8); Lymphocytes # (auto) 1.3 10 ^3/uL (0.4-5.4); Monocytes # (auto) 0.3 10 ^3/uL (0-1.3); Neutrophils # (auto) 3.1 10 ^3/uL (1.6-8.6); White Blood Cell 4.8 10^3/uL (4.4-10.8)
[2025-01-03 14:01] LABS: Basophils % (auto) 0.2 % (0.0-2.0); Eosinophils % (auto) 2.3 % (0.0-7.0); Hematocrit 36.9 % (36.0-46.0); Lymphocytes % (auto) 26.6 % (10.0-50.0); Mean Corpuscular Hemoglobin 26.7 pg (28.0-32.0); Mean Corpuscular Hgb Conc. 32.6 g/dL (32.0-36.0); Mean Corpuscular Volume 82.1 fL (80.0-100.0); Monocytes % (auto) 5.8 % (0.0-12.0); Neutrophils % (auto) 65.1 % (37.0-80.0); Nucleated Red Blood Cells % 0.2 %; Platelet Count (auto) 218 10^3/uL (140-450); Red Blood Cells 4.49 10^6/uL (4.0-5.20); Red Cell Distribution Width 15.6 % (11.8-14.3)
[2025-01-03 14:08] LABS: Anion Gap 7 (5-15); Carbon Dioxide 28 mmol/L (20-31)
[2025-01-03 14:09] LABS: Calcium 9.7 mg/dL (8.7-10.4)
[2025-01-03 14:17] LABS: Blood Urea Nitrogen 48 mg/dL (9-23); Chloride 91 mmol/L (98-107); Glucose 197 mg/dL (74-106); Potassium 5.1 mmol/L (3.5-5.1); Sodium 126 mmol/L (136-145)
--- NOTE | 2025-01-03 14:31 | ED.PDOC ---
History of Present Illness HPI Comments 49 y/o morbidly obese F, with a history of CHF, COPD, DVT, DM, HLD, HTN, thyroid disease, and polysubstance abuse, is BIBA for abnormal lab findings, today. Patient reports on receiving a call and being advised to go the the ED after most recent lab blood work showed her sodium and kidney function levels being low. She only reports c/o back pain at this time. She denies any weakness, fever, chills, abdominal pain, nausea, vomiting, shortness of breath, urinary symptoms, or other associated symptoms or modifiers at this time. Chief Complaint: Abnormal LAB's Time Seen by MD: 13:40 Primary Care Provider: Sukhdev DAVIS Reviewed Notes: Nurses Notes, Historic Sites Supervisor Notes, Medications, Allergies Allergies: Coded Allergies: Acetaminophen (Verified Allergy, Unknown, 12/31/21) Hydrocodone (Verified Allergy, Unknown, 12/31/21) Uncoded Allergies: ADHESIVE TAPE (Allergy, Severe, 12/19/18) Home Meds Active Scripts Oxycodone W/ Acetaminophen (Percocet 5/325MG) 1 Tab Tb, 1 TAB PO QID PRN, #30 TAB Prov:KEYON MARTINEZ MD 11/19/24 Furosemide (Lasix) 40 Mg Tab, 40 MG PO BID, #60 TAB Prov:KEYON MARTINEZ MD 11/19/24 Blood Glucose Monitoring Suppl (Blood Glucose System Gaurav) System Kit, PKG XX 5XD, #1 Administer a 30-day supply of lancets, alcohol prep pads and test strips and glucometer per insurance coverage. Prov:AKASH EVANS MD 09/25/21 Insulin Pen Needle (Bd Pen Needle/Leta 2Nd Ge 32G X 4 mm) 1 Mis Mis, MIS XX 5XD, #150 Prov:AKASH EVANS MD 09/25/21 Insulin Lispro (Humalog Kwikpen) 100 Unit/Ml Inj, 1 DOSE SC UD, #5 SYR Administer up to 40 units of insulin per provided sliding scale divided 3 times daily before meals and at bedtime. Prov:AKASH EVANS MD 09/25/21 Insulin Glargine (Basaglar Kwikpen) 100 Unit/Ml Inj, 20 UNIT SC DAILY@DINNER, #5 SYRN Prov:AKASH EVANS MD 09/25/21 Reported Medications Tizanidine Hydrochloride (Zanaflex) 4 Mg Tab, 2 MG PO TID, TAB 11/18/24 Meclizine Hcl (Meclizine Hcl) 12.5 Mg Tab, 25 MG PO TID, TAB 11/18/24 Diphenhydramine Hcl (Banophen) 25 Mg Cap, 25 MG PO Q6HP, CAP 11/18/24 Meloxicam (Meloxicam) 15 Mg Tab, 1 TAB PO DAILY, #30 TAB 2 Refills 11/18/24 Brexpiprazole (Rexulti) 4 Mg Tab, 4 MG PO HS, TAB 11/18/24 Pantoprazole Sodium Sesquihydr (Pantoprazole Sodium Dr) 40 Mg Tab, 20 MG PO BID, TAB 11/18/24 Deutetrabenazine (Austedo) 6 Mg Tab, 6 MG PO QPM, TAB 11/18/24 Hydroxyzine Hcl (Hydroxyzine Hcl) 50 Mg Tab, 50 MG PO HS, TAB 11/18/24 Docusate Sodium (Colace) 100 Mg Cap, 250 MG PO BID, CAP 11/18/24 Losartan Potassium (Losartan Potassium) 25 Mg Tab, 1 TAB PO DAILY, #90 TAB 1 Refill 11/18/24 Buprenorphine Hcl (Buprenorphine Hcl) 8 Mg Sub, 8 MG SL QID, INJ 11/18/24 Nitrofurantoin Monohyd Macro (Nitrofurantoin Monohydrat) 100 Mg Cap, 100 MG PO DAILY for 5 Days, CAP 11/18/24 Amitriptyline Hcl (Amitriptyline Hcl) 150 Mg Tab, 150 MG PO HS, TAB 11/18/24 Metoprolol Tartrate (Metoprolol Tartrate) 25 Mg Tab, 1 TAB PO DAILY, #180 TAB 1 Refill 11/18/24 Fenofibrate (Fenofibrate) 54 Mg Tab, 1 TAB PO DAILY, #30 TAB 5 Refills 11/18/24 Apixaban Base (ELIQUIS) 5 Mg Tab, 5 MG PO BID, TAB 11/18/24 Furosemide (Furosemide) 20 Mg Tab, 1 TAB PO DAILY, #90 TAB 1 Refill 11/18/24 Lamotrigine (Lamictal) 25 Mg Tab, 1 TAB PO DAILY, #60 TAB 1 Refill 11/18/24 Deutetrabenazine (Austedo) 12 Mg Tab, 12 MG PO DAILY, TAB 11/18/24 Fluoxetine HCl (Fluoxetine Hydrochloride) 40 Mg Cap, 80 MG PO DAILY, CAP 11/18/24 Tizanidine Hydrochloride (Zanaflex) 4 Mg Tab, 1 TAB PO TID, #90 TAB 11/17/24 Zolpidem Tartrate (Ambien) 10 Mg Tab, 1 TAB PO QPM, #30 TAB 5 Refills 06/01/18 Information Source: Patient, Emergency Med Personnel Mode of Arrival: EMS Severity: Moderate Timing: Hours Duration: Since onset Prehospital treatment: None Past Medical History PAST MEDICAL HISTORY: CHF, COPD, DM, High Lipids, HTN, Thyroid Past Medical History (Other): DVT morbid obesity Surgical History: , Hysterectomy, Tonsillectomy Surgical History (Other): left-nephrectomy PROCESS SAFETY SPECIALIST History: No Pertinent PROCESS SAFETY SPECIALIST History Family History Family History: Reviewed,noncontributory to illness, Family hx of heart candelario Social History Smoker: Non-Smoker, Quit Greater Than 1 Year (10 years ago ) Alcohol: Denies ETOH Use Drugs: Marijuana Lives In: Home Constitutional: denies: chills, diaphoresis, fatigue, fever, malaise, sweats, weakness, others EENTM: denies: blurred vision, double vision, ear bleeding, ear discharge, ear drainage, ear pain, ear ringing, eye pain, eye redness, hearing loss, mouth pain, mouth swelling, nasal discharge, nose bleeding, nose congestion, nose pain, photophobia, tearing, throat pain, throat swelling, voice changes, others Respiratory: denies: cough, hemoptysis, orthopnea, SOB at rest, shortness of breath, SOB with excertion, stridor, wheezing, others Cardiovascular: denies: chest pain, dizzy spells, diaphoresis, Dyspnea on exertion, edema, irregular heart beat, left arm pain, lightheadedness, palpit ations, PND, syncope, others Gastrointestinal: denies: abdomen distended, abdominal pain, blood streaked b owels, constipated, diarrhea, dysphagia, difficulty swallowing, hematemesis, melena, nausea, poor appetite, poor fluid intake, rectal bleeding, rectal pain, vomiting, others Genitourinary: denies: abnormal vagina bleeding, burning, dyspareunia, dysuria, flank pain, frequency, hematuria, incontinence, pain, , vagina discharge, urgency, others Neurological: denies: dizziness, fainting, headache, left sided numbness, left sided weakness, numbness, paresthesia, pre-existing deficit, right sided numbness, right sided weakness, seizure, speech problems, tingling, tremors, weakness, others Musculoskeletal: reports: back pain; denies: gout, joint pain, joint swelling, muscle pain, muscle stiffness, neck pain, others Integumetry: denies: bruises, change in color, change in hair/nails, dryness, laceration, lesions, lumps, rash, wounds, others Allergic/Immunocompromised: denies: Difficulty Healing, Frequent Infections, Hives, Itching, others Hematologic/Lymphatic: denies: anemia, blood clots, easy bleeding, easy bruising, swollen glands, others Endocrine: denies: excessive hunger, excessive sweating, excessive thirst, excessive urination, flushing, intolerance to cold, intolerance to heat, unexplained weight gain, unexplained weight loss, others Psychiatric: denies: anxiety, bipolar disorder, depression, hopeless, panic disorder, schizophrenia, sleepless, suicidal, others All Other Systems: Reviewed and Negative Physical Exam General Appearance: Moderate Distress HEENT: Pale Conjuntivae (L), Pale Conjuntivae (R), Pharynx Normal, TMs Normal Neck: Full Range of Motion, Non-Tender, Normal, Normal Inspection Respiratory: Chest Non-Tender, Lungs Clear, No Accessory Muscle Use, No Respiratory Distress, Normal Breath Sounds Cardiovascular: No Edema, No JVD, No Murmur, No Gallop, Normal Peripheral Pulses, Regular Rate/Rhythm Breast Exam: Deferred Gastrointestinal: No Organomegaly, Non Tender, No Pulsatile Mass, Normal Bowel Sounds, Soft Genitalia: Deferred Pelvic: Deferred Rectal: Deferred Extremities: No calf tenderness, Normal capillary refill, Normal inspection, Normal range of motion, Non-tender, No pedal edema Musculoskeletal : Apperance: Normal Neurologic: Alert, supervisor pipe manufacture II-XII nml as Tested, Motor Weakness, Normal Affect, Normal Mood, No Sensory Deficits Cerebellar Function: Normal Reflexes: Normal Skin: Dry, Pallor, Warm Lymphatic: No Adenopathy Was a procedure done? Was a procedure done?: No Differential Dx Considerations may include: hyponatremia, electrolyte imbalance, DURGA, chronic back pain, musculoskeletal pain, DDD, among others X-Ray, Labs, Meds, VS Vital Signs Date Time Temp Pulse Resp B/P (MAP) Pulse Ox O2 Delivery O2 Flow Rate FiO2 01/03/25 13:45 98.6 82 16 162/88 (112) 94 98.6 Lab Test 01/03/25 13:51 Range/Units White Blood Count 4.8 4.4-10.8 10^3/uL Red Blood Count 4.49 4.0-5.20 10^6/uL Hemoglobin 12.0 L 12.2-16.2 g/dL Hematocrit 36.9 36.0-46.0 % Mean Corpuscular Volume 82.1 80.0-100.0 fL Mean Corpuscular Hemoglobin 26.7 L 28.0-32.0 pg Mean Corpuscular Hemoglobin Concent 32.6 32.0-36.0 g/dL Red Cell Distribution Width 15.6 H 11.8-14.3 % Platelet Count 218 140-450 10^3/uL Mean Platelet Volume 6.7 L 6.9-10.8 fL Neutrophils (%) (Auto) 65.1 37.0-80.0 % Lymphocytes (%) (Auto) 26.6 10.0-50.0 % Monocytes (%) (Auto) 5.8 0.0-12.0 % Eosinophils (%) (Auto) 2.3 0.0-7.0 % Basophils (%) (Auto) 0.2 0.0-2.0 % Neutrophils # (Auto) 3.1 1.6-8.6 10 ^3/uL Lymphocytes # (Auto) 1.3 0.4-5.4 10 ^3/uL Monocytes # (Auto) 0.3 0-1.3 10 ^3/uL Eosinophils # (Auto) 0.1 0-0.8 10 ^3/uL Basophils # (Auto) 0 0-0.2 10 ^3/uL Nucleated Red Blood Cells 0.2 % Sodium Level 126 L 136-145 mmol/L Potassium Level 5.1 3.5-5.1 mmol/L Chloride Level 91 L 98-107 mmol/L Carbon Dioxide Level 28 20-31 mmol/L Anion Gap 7 5-15 Blood Urea Nitrogen 48 H 9-23 mg/dL Creatinine 2.53 H 0.550-1.02 mg/dL Glomerular Filtration Rate Calc 22 >90 mL/min BUN/Creatinine Ratio 19.0 10.0-20.0 Serum Glucose 197 H 74-106 mg/dL Calcium Level 9.7 8.7-10.4 mg/dL The CBC is within normal limits The chemistry panel shows hyponatremia at 126 The BUN and creatinine are elevated consistent with some renal failure At this time, the patient was being admitted to the hospitalist The patient understands and agrees with the management IV Hep-Lock has been established. The patient was being given normal saline as a bolus. Time of 1ST Reevaluation: 14:10 Reevaluation 1ST: Unchanged Patient Education/Counseling: Diagnosis, Treatment, Prognosis Family Education/Counseling: No Family Present Departure 1 Departure Time of Disposition: 14:36 Impression: Primary Impression: Hyponatremia Additional Impressions: Acute renal disease Generalized weakness Disposition: ADMITTED INPATIENT Admit to: Tele Condition: Fair Critical Care Note Critical Care Time?: No Stability Stability form required: Yes Unstable for transfer: Telemetry monitoring (Telemetry monitoring required), ED Physician Assesment (Clinical assesment) Heart Score Heart Score: Heart Score Response (Comments) Value History N/A 0 EKG N/A 0 Age N/A 0 Risk Factors N/A 0 Troponin N/A 0 Total 0 I personally scribed for ADRIANNE LYLES MD ([email or web address]) on 01/03/25 at 14:31. Electronically submitted by Heladio Polanco ([email or web address]). ADRIANNE LYLES MD Jan 03, 2025 14:31
[2025-01-03] MEDS ORDERED: DEXTROSE (50%) 50ML SYRG IV PRN (19:00)
[2025-01-03] MEDS ORDERED: ONDANSETRON HCL 4 MG/2 ML VIAL IV PRN (19:00)
[2025-01-03 20:30] VITALS: PULSE 64; RESP 16; O2SAT 92
[2025-01-03] MEDS: amLODIPine BESYLATE 5 MG TAB PO ONE (20:35)
--- NOTE | 2025-01-03 21:06 | DVHHP2 ---
History of Present Illness Reason for Visit: Abnormal lab results. History of Present Illness 49-year-old female presents for evaluation of abnormal lab results. Patient received the call from her primary care provider to present to the emergency department due to worsening kidney function with low sodium level. Patient denies dizziness, nausea or vomiting. No headache. No abdominal pain or flank pain. No other acute complaints. Past Medical History COPD, CHF, diabetes mellitus, dyslipidemia,, thyroid, diabetes Past Surgical History Hysterectomy, tonsillectomy, , left nephrectomy Family History Heart disease Smoke: Quit ALCOHOL: none Drugs: Marijuana Lives: with Family Review of Systems Review of Systems Review of systems are currently negative otherwise dressing HPI. Allergies: Coded Allergies: Acetaminophen (Verified Allergy, Unknown, 12/31/21) Hydrocodone (Verified Allergy, Unknown, 12/31/21) Uncoded Allergies: ADHESIVE TAPE (Allergy, Severe, 12/19/18) Medications Current Medications Medications Dose Ordered Sig/Luke Route Start Time Stop Time Status Last Admin Dose Admin Apixaban 5 mg BID PO 01/03/25 22:00 Furosemide 20 mg BIDD PO 01/04/25 06:00 Lamotrigine 25 mg DAILY PO 01/04/25 10:00 Amlodipine Besylate 5 mg DAILY PO 01/04/25 10:00 Metoprolol Succinate 25 mg DAILY PO 01/04/25 10:00 Ondansetron HCl 4 mg Q4HP PRN IV 01/03/25 19:00 Diagnostic Test (Pha) 1 strip ACHS 01/03/25 22:00 Insulin Human Regular ACHS SC 01/03/25 22:00 Dextrose 50 ml UD PRN IV 01/03/25 19:00 Exam Vital Signs Vital Signs Date Time Temp Pulse Resp B/P (MAP) Pulse Ox O2 Delivery O2 Flow Rate FiO2 01/03/25 20:35 155/99 01/03/25 20:30 64 16 92 Room Air* 0 21 01/03/25 20:30 98.0 98.0 Exam Gen: 49-year-old female mild distress. Skin: Warm, dry, normal color and texture, no rash. HEENT: Normocephalic atraumatic, mucous membranes moist and pink. Neck: Cervical and supraclavicular nodes normal without enlargement, trachea is midline, thyroid gland is normal without masses. Pulmonary: Clear to auscultation and percussion bilaterally. Cardiac: Regular rate and rhythm. No murmur Abdomen: Soft, nontender, nondistended, bowel sounds present all 4 quadrants, no guarding, no rigidity, no organomegaly. Extremities: No cyanosis, clubbing, no edema Neuro: Cranial nerves II through XII grossly intact, normal affect and speech, no focal motor deficits. Labs/Xrays ORDERING PHYSICIAN: JIGNA JANG MD PROCEDURE(s): KIDUS - KIDNEY REASON: solitary right kidney r/o obstruction ORDER NUMBER(s): [id number], ACCESSION NUMBER(s): [id number] INDICATION: solitary right kidney r/o obstruction TECHNIQUE: Multiple real-time sonographic images of the kidneys and bladder were obtained. COMPARISON: KIDNEY on DOS: 09/24/21 FINDINGS: The right kidney measures 11 cm in length, which is normal in size. There is normal echogenicity of the right kidney. No hydronephrosis. Left kidney removed. 2cm right renal cyst. No large intraluminal masses are seen in the bladder. IMPRESSION: 1. Normal sonographic appearance of the kidneys. No hydronephrosis. Labs Test 01/03/25 13:51 Range/Units White Blood Count 4.8 4.4-10.8 10^3/uL Red Blood Count 4.49 4.0-5.20 10^6/uL Hemoglobin 12.0 L 12.2-16.2 g/dL Hematocrit 36.9 36.0-46.0 % Mean Corpuscular Volume 82.1 80.0-100.0 fL Mean Corpuscular Hemoglobin 26.7 L 28.0-32.0 pg Mean Corpuscular Hemoglobin Concent 32.6 32.0-36.0 g/dL Red Cell Distribution Width 15.6 H 11.8-14.3 % Platelet Count 218 140-450 10^3/uL Mean Platelet Volume 6.7 L 6.9-10.8 fL Neutrophils (%) (Auto) 65.1 37.0-80.0 % Lymphocytes (%) (Auto) 26.6 10.0-50.0 % Monocytes (%) (Auto) 5.8 0.0-12.0 % Eosinophils (%) (Auto) 2.3 0.0-7.0 % Basophils (%) (Auto) 0.2 0.0-2.0 % Neutrophils # (Auto) 3.1 1.6-8.6 10 ^3/uL Lymphocytes # (Auto) 1.3 0.4-5.4 10 ^3/uL Monocytes # (Auto) 0.3 0-1.3 10 ^3/uL Eosinophils # (Auto) 0.1 0-0.8 10 ^3/uL Basophils # (Auto) 0 0-0.2 10 ^3/uL Nucleated Red Blood Cells 0.2 % Sodium Level 126 L 136-145 mmol/L Potassium Level 5.1 3.5-5.1 mmol/L Chloride Level 91 L 98-107 mmol/L Carbon Dioxide Level 28 20-31 mmol/L Anion Gap 7 5-15 Blood Urea Nitrogen 48 H 9-23 mg/dL Creatinine 2.53 H 0.550-1.02 mg/dL Glomerular Filtration Rate Calc 22 >90 mL/min BUN/Creatinine Ratio 19.0 10.0-20.0 Serum Glucose 197 H 74-106 mg/dL Calcium Level 9.7 8.7-10.4 mg/dL Assessment/Plan Assessment/Plan Assessment Acute on chronic renal failure Hyponatremia Diabetes mellitus Accelerated hypertension Plan Admit the patient to [facility] to the hospitalist Nephrology consultation Resume home medications Continue treatment per orders. Plan discussed with: Patient My Orders Orders - WAGNER DAVIS AGACNP Procedure Category Date Status Time Apixaban (Eliquis) PHA 01/03/25 In Process 22:00 Furosemide Tablet PHA 01/04/25 In Process (Lasix Tablet) 06:00 Lamotrigine Tablet PHA 01/04/25 In Process (Lamictal Tablet) 10:00 Amlodipine Tablet PHA 01/04/25 In Process (Norvasc Tablet) 10:00 Metoprolol Xl PHA 01/04/25 In Process Succinate (Toprol Xl) 10:00 *Dr. Brennan [facility] CONS 01/03/25 Transmitted -[place] 18:48 Basic Metabolic Panel LAB 01/04/25 Verified 04:00 Admit ADMIT 01/03/25 Transmitted 18:48 Renal DIET 01/04/25 Transmitted Standard(2gna,3gk,Lopho) Breakfast Ondansetron Hcl PHA 01/03/25 In Process (Zofran) 19:00 Condition: Stable MARIUM 01/03/25 In Process 18:48 Bedrest With Bathroom MARIUM 01/03/25 In Process Privileg 18:48 Glucose Blood PHA 01/03/25 In Process (Accu-Chek Comfort 22:00 Insulin R (Human) PHA 01/03/25 In Process (Insulin R) 22:00 Dextrose 50% Syringe PHA 01/03/25 In Process 19:00 Date of Service: Jan 03, 2025 Billing Provider: WAGNER DAVIS Common Visit Codes: [id number] INP/OBS CARE (HIGH) WAGNER DAVIS Jan 03, 2025 21:06
[2025-01-03 21:10] VITALS: BP 142/76; PULSE 76; RESP 17; TEMP 97.5; O2SAT 96
[2025-01-03] MEDS ORDERED: SODIUM CHLORIDE 0.9% 500 ML IV ONE (21:15)
[2025-01-03 21:22] VITALS: PULSE 78; RESP 18; O2SAT 95
[2025-01-03 21:31] VITALS: BP 143/76; PULSE 75; RESP 18; TEMP 97.5; O2SAT 96
[2025-01-03] MEDS ORDERED: BUPR8SUB SL (21:59)
[2025-01-03] MEDS ORDERED: PREG50CA80 PO (22:01)
[2025-01-03] MEDS ORDERED: FLUT110A8 INH (22:01)
[2025-01-03] MEDS ORDERED: GLIP10TA9 PO (22:01)
[2025-01-03] MEDS ORDERED: APIX2.5T PO (22:01)
[2025-01-03] MEDS ORDERED: FLUO40CA PO (22:01)
[2025-01-03] MEDS: InsuLIN REG 1unit/0.01ml Soln (100units/ml) SC SCH (22:21)
[2025-01-03] MEDS: APIXABAN 5 MG TAB PO SCH (22:23)
[2025-01-03] MEDS: ACCU-CHEK COMFORT CURVE STRIP VI SCH (22:23)
[2025-01-04] VITALS (8 sets, daily range): BP systolic 91–153; BP diastolic 51–90; PULSE 65–69; RESP 17–19; TEMP 97.3–98.4; O2SAT 91–96
[2025-01-04] MEDS: FUROSEMIDE 20 MG TAB PO SCH (05:39)
[2025-01-04 05:59] LABS: Potassium 4.9 mmol/L (3.5-5.1)
[2025-01-04 06:01] LABS: Anion Gap 6 (5-15); Calcium 10.1 mg/dL (8.7-10.4)
[2025-01-04 06:06] LABS: BUN/Creatinine Ratio 20.2 (10.0-20.0)
[2025-01-04 06:14] LABS: Blood Urea Nitrogen 50 mg/dL (9-23); Carbon Dioxide 31 mmol/L (20-31); Chloride 94 mmol/L (98-107); Glucose 126 mg/dL (74-106); Sodium 131 mmol/L (136-145)
[2025-01-04 10:28] LABS: Magnesium 1.9 mg/dL (1.6-2.6)
[2025-01-04 10:30] LABS: Phosphorus 4.5 mg/dL (2.4-5.1)
[2025-01-04] MEDS: lamoTRIgine 25 MG TAB PO SCH (10:49)
[2025-01-04] MEDS: amLODIPine BESYLATE 5 MG TAB PO SCH (10:53)
[2025-01-04] MEDS: METOPROLOL SUCCINATE XL 50 MG TAB PO SCH (10:54)
--- NOTE | 2025-01-04 13:20 | DVHPN2 ---
Reviewed: Care Plan, H&P, Medications, Previous Orders Changes from previous H/P or p: No Changes General: Per HPI Objective Vitals Vital Signs Date Time Temp Pulse Resp B/P (MAP) Pulse Ox O2 Delivery O2 Flow Rate FiO2 01/04/25 13:00 97.8 68 18 126/66 (86) 93 97.8 01/03/25 21:22 Room Air* 0 21 Intake/Output Intake and Output 01/04/25 07:00 Intake Total 100 ml Balance 100 ml Intake Oral 100 ml General Appearance: Alert, Oriented X3, Cooperative HEENT: Atraumatic Lungs: Clear to auscultation Cardiovascular: Regular rate, Normal S1, Normal S2 Abdomen: Normal bowel sounds, Soft Medications Current Medications Medications Dose Ordered Sig/Luke Route Start Time Stop Time Status Last Admin Dose Admin Apixaban 5 mg BID PO 01/03/25 22:00 01/04/25 10:48 5 MG Furosemide 20 mg BIDD PO 01/04/25 06:00 01/04/25 05:39 20 MG Lamotrigine 25 mg DAILY PO 01/04/25 10:00 01/04/25 10:49 25 MG Amlodipine Besylate 5 mg DAILY PO 01/04/25 10:00 01/04/25 10:53 5 MG Metoprolol Succinate 25 mg DAILY PO 01/04/25 10:00 01/04/25 10:54 25 MG Ondansetron HCl 4 mg Q4HP PRN IV 01/03/25 19:00 Diagnostic Test (Pha) 1 strip ACHS 01/03/25 22:00 01/04/25 11:30 1 STRIP Insulin Human Regular ACHS SC 01/03/25 22:00 01/04/25 11:45 4 UNITS Dextrose 50 ml UD PRN IV 01/03/25 19:00 Laboratory Results Laboratory Tests 01/03/25 13:51 01/04/25 05:23 Chemistry Test 01/03/25 13:51 01/04/25 05:23 Calcium Level 9.7 mg/dL (8.7-10.4) 10.1 mg/dL (8.7-10.4) Magnesium Level 1.9 mg/dL (1.6-2.6) Phosphorus Level 4.5 mg/dL (2.4-5.1) Labs and/or images reviewed: Labs reviewed by me, Image(s) reviewed by me Assessment/Plan Assessment/Plan Acute on chronic renal failure Hyponatremia Diabetes mellitus Accelerated hypertension Nephrology to evaluate pt Resume home medications Continue treatment per orders. Plan discussed with: Patient Date of Service: Jan 04, 2025 Billing Provider: JAKE MARIE DO Common Visit Codes: [id number] INP/OBS CARE(HIGH) JAKE MARIE DO Jan 04, 2025 13:20
--- NOTE | 2025-01-04 14:13 | DVHCONRES ---
Date Seen: Jan 04, 2025 Resident Creating Document: BRYN HILLIARD RESIDENT Referring Physician LY Calle Reason for Consultation Renal failure History of Present Illness 49-year-old female patient with past medical history of type 2 diabetes chronic kidney disease likely stage III, hypertension, COPD, bipolar disorder, fibromyalgia and chronic pain currently managed with Percocet and morphine who was sent to the hospital after a primary care physician noted severe hyponatremia with a sodium of 126 on routine labs. A presentation the patient was asymptomatic denying headache nausea confusion, weakness or seizures. She was started on 0.9% normal saline and her sodium has improved to 131. Patient is volume depleted from chronic diuretic use or prerenal azotemia superimposed on chronic kidney disease. She uses furosemide 40 mg b.i.d. daily. She takes several medications some which are implicated in volume depletion such as fluoxetine and amitriptyline, hydroxyzine, furosemide, losartan, buprenorphine . Patient has 3+ bilateral lower extremity edema which raises the possibility of hypervolemic hyponatremia in the context of CKD and COPD associated pulmonary hypertension although clinically she appears euvolemic. Her recent echocardiogram on October 2024 showed normal ejection fraction 60% but an RVSP of 60 mmHg suggestive of pulmonary hypertension likely hypoxemic related due to COPD. She has no current complaints and is clinically stable, but the etiology of her hyponatremia appears multifactorial. Family History: Depression G8 MOTHER FH: heart attack G8 FATHER FH: lung cancer G8 MOTHER Heart cancer G8 MOTHER No Family History of: Hypercholesterolemia Social History Smoking history (quit 10 years ago) Smokes marijuana 3 times a week Methamphetamine use (quit 23 years ago) Denies using alcohol. Allergies: Coded Allergies: Acetaminophen (Verified Allergy, Unknown, 12/31/21) Hydrocodone (Verified Allergy, Unknown, 12/31/21) Uncoded Allergies: ADHESIVE TAPE (Allergy, Severe, 12/19/18) Home Meds Active Scripts Oxycodone W/ Acetaminophen (Percocet 5/325MG) 1 Tab Tb, 1 TAB PO QID PRN, #30 TAB Prov:KEYON MARTINEZ MD 11/19/24 Furosemide (Lasix) 40 Mg Tab, 40 MG PO BID, #60 TAB Prov:KEYON MARTINEZ MD 11/19/24 Blood Glucose Monitoring Suppl (Blood Glucose System Gaurav) System Kit, PKG XX 5XD, #1 Administer a 30-day supply of lancets, alcohol prep pads and test strips and glucometer per insurance coverage. Prov:AKASH EVANS MD 09/25/21 Insulin Pen Needle (Bd Pen Needle/Leta 2Nd Ge 32G X 4 mm) 1 Mis Mis, MIS XX 5XD, #150 Prov:AKASH EVANS MD 09/25/21 Insulin Lispro (Humalog Kwikpen) 100 Unit/Ml Inj, 1 DOSE SC UD, #5 SYR Administer up to 40 units of insulin per provided sliding scale divided 3 times daily before meals and at bedtime. Prov:AKASH EVANS MD 09/25/21 Insulin Glargine (Basaglar Kwikpen) 100 Unit/Ml Inj, 20 UNIT SC DAILY@DINNER, #5 SYRN Prov:AKASH EVANS MD 09/25/21 Reported Medications Pregabalin (Pregabalin) 50 Mg Cap, 1 CAP PO TID 01/03/25 Fluoxetine Hcl (Fluoxetine Hcl) 40 Mg Cap, PO 01/03/25 Fluticasone Propionate (Fluticasone Propionate Hf) 110 Mcg/Act Aer, INH 01/03/25 Glipizide (Glipizide) 10 Mg Tab, 1 TAB PO DAILY 01/03/25 Apixaban Base (ELIQUIS) 2.5 Mg Tab, 1 TAB PO BID 01/03/25 Buprenorphine HCl (Buprenorphine Hydrochlori) 8 Mg Sub, 2 SL 01/03/25 Tizanidine Hydrochloride (Zanaflex) 4 Mg Tab, 2 MG PO TID, TAB 11/18/24 Meclizine Hcl (Meclizine Hcl) 12.5 Mg Tab, 25 MG PO TID, TAB 11/18/24 Diphenhydramine Hcl (Banophen) 25 Mg Cap, 25 MG PO Q6HP, CAP 11/18/24 Meloxicam (Meloxicam) 15 Mg Tab, 1 TAB PO DAILY, #30 TAB 2 Refills 11/18/24 Brexpiprazole (Rexulti) 4 Mg Tab, 4 MG PO HS, TAB 11/18/24 Pantoprazole Sodium Sesquihydr (Pantoprazole Sodium Dr) 40 Mg Tab, 20 MG PO BID, TAB 11/18/24 Deutetrabenazine (Austedo) 6 Mg Tab, 6 MG PO QPM, TAB 11/18/24 Hydroxyzine Hcl (Hydroxyzine Hcl) 50 Mg Tab, 50 MG PO HS, TAB 11/18/24 Docusate Sodium (Colace) 100 Mg Cap, 250 MG PO BID, CAP 11/18/24 Losartan Potassium (Losartan Potassium) 25 Mg Tab, 1 TAB PO DAILY, #90 TAB 1 Refill 11/18/24 Buprenorphine Hcl (Buprenorphine Hcl) 8 Mg Sub, 8 MG SL QID, INJ 11/18/24 Nitrofurantoin Monohyd Macro (Nitrofurantoin Monohydrat) 100 Mg Cap, 100 MG PO DAILY for 5 Days, CAP 11/18/24 Amitriptyline Hcl (Amitriptyline Hcl) 150 Mg Tab, 150 MG PO HS, TAB 11/18/24 Metoprolol Tartrate (Metoprolol Tartrate) 25 Mg Tab, 1 TAB PO DAILY, #180 TAB 1 Refill 11/18/24 Fenofibrate (Fenofibrate) 54 Mg Tab, 1 TAB PO DAILY, #30 TAB 5 Refills 11/18/24 Apixaban Base (ELIQUIS) 5 Mg Tab, 5 MG PO BID, TAB 11/18/24 Furosemide (Furosemide) 20 Mg Tab, 1 TAB PO DAILY, #90 TAB 1 Refill 11/18/24 Lamotrigine (Lamictal) 25 Mg Tab, 1 TAB PO DAILY, #60 TAB 1 Refill 11/18/24 Deutetrabenazine (Austedo) 12 Mg Tab, 12 MG PO DAILY, TAB 11/18/24 Fluoxetine HCl (Fluoxetine Hydrochloride) 40 Mg Cap, 80 MG PO DAILY, CAP 11/18/24 Tizanidine Hydrochloride (Zanaflex) 4 Mg Tab, 1 TAB PO TID, #90 TAB 11/17/24 Zolpidem Tartrate (Ambien) 10 Mg Tab, 1 TAB PO QPM, #30 TAB 5 Refills 06/01/18 Current Medications Current Medications Medications (Trade) Dose Ordered Sig/Luke Route PRN Reason Start Time Stop Time Status Last Admin Apixaban (Eliquis) 5 mg BID PO 01/03/25 22:00 01/04/25 10:48 Furosemide (Lasix Tablet) 20 mg BIDD PO 01/04/25 06:00 01/04/25 05:39 Lamotrigine (LaMICtal TABLET) 25 mg DAILY PO 01/04/25 10:00 01/04/25 10:49 Amlodipine Besylate (Norvasc Tablet) 5 mg DAILY PO 01/04/25 10:00 01/04/25 10:53 Metoprolol Succinate (Toprol Xl) 25 mg DAILY PO 01/04/25 10:00 01/04/25 10:54 Ondansetron HCl (Zofran) 4 mg Q4HP PRN IV NAUSEA / VOMITING 01/03/25 19:00 Diagnostic Test (Pha) (Accu-Chek Comfort Curve T) 1 strip ACHS 01/03/25 22:00 01/04/25 11:30 Insulin Human Regular (InsuLIN R) ACHS SC 01/03/25 22:00 01/04/25 11:45 Dextrose 50 ml UD PRN IV Blood Sugar LESS THAN 60 01/03/25 19:00 Insulin Glargine (Lantus) 10 units DAILY@1000 SC 01/05/25 10:00 UNV Ergocalciferol (Vitamin D 50,000 Unit) 50,000 unit Q7D PO 01/04/25 14:00 UNV Review of Systems Constitutional: No: Fever, Chills, Sweats, Weakness, Malaise, Other Eyes: No: Pain, Vision change, Conjunctivae inflammation, Eyelid inflammation, Other, Redness ENT: No: Ear pain, Ear discharge, Nose pain, Nose discharge, Nose congestion, Mouth pain, Mouth swelling, Throat pain, Throat swelling, Other Respiratory: No Wheezing, Hemoptysis, Pleuritic Pain, Sputum, Wheezing, Other Cardiovascular: No: Chest Pain, Palpitations, Orthopnea, Paroxysmal Noc. Dyspnea, Edema, Lt Headedness, Other Gastrointestinal: No: Nausea, Vomiting, Abdominal Pain, Diarrhea, Constipation, Melena, Hematochezia, Other Musculoskeletal: No: other, neck pain, shoulder pain, arm pain, back pain, hand pain, leg pain, foot pain Neurological:; No: Weakness, Numbness, Incoordination, Change in speech, Confusion, Seizures Vital Signs Vital Signs Date Time Temp Pulse Resp B/P (MAP) Pulse Ox O2 Delivery O2 Flow Rate FiO2 01/04/25 13:00 97.8 68 18 126/66 (86) 93 97.8 01/04/25 08:00 Room Air* 0 21 Physical Exam Examination General Appearance: Alert, Oriented X3, Cooperative, No acute distress HEENT: EOMI Respiratory: Clear to auscultation, Normal air movement Cardiovascular: Regular rate, Normal S1, Normal S2 Abdominal: Normal bowel sounds Extremities: Lower extremity edema 3+ , No cyanosis, Normal pulses, No tenderness/swelling Skin: No rashes, No breakdown Neuro: Normal gait, Normal speech, Strength at 5/5 X4 ext, Normal tone, Sensation intact, Cranial nerves 3-12 NL, Reflexes 2+ Psych/Mental Status: Mental status NL, Mood NL Labs/Diagnostic Data Labs Test 01/04/25 11:27 01/04/25 05:23 01/03/25 13:51 Range/Units POC Glucose 227 H 70-106 mg/dl Sodium Level 131 #L 136-145 mmol/L Potassium Level 4.9 3.5-5.1 mmol/L Chloride Level 94 L 98-107 mmol/L Carbon Dioxide Level 31 20-31 mmol/L Anion Gap 6 5-15 Blood Urea Nitrogen 50 H 9-23 mg/dL Creatinine 2.47 H 0.550-1.02 mg/dL Glomerular Filtration Rate Calc 23 >90 mL/min BUN/Creatinine Ratio 20.2 H 10.0-20.0 Serum Glucose 126 H 74-106 mg/dL Calcium Level 10.1 8.7-10.4 mg/dL Phosphorus Level 4.5 2.4-5.1 mg/dL Magnesium Level 1.9 1.6-2.6 mg/dL Vitamin D 25-Hydroxy 27.7 L 30.0-100 ng/mL Parathyroid Hormone (Intact) 96.7 H 18.4-80.1 pg/mL White Blood Count 4.8 4.4-10.8 10^3/uL Red Blood Count 4.49 4.0-5.20 10^6/uL Hemoglobin 12.0 L 12.2-16.2 g/dL Hematocrit 36.9 36.0-46.0 % Mean Corpuscular Volume 82.1 80.0-100.0 fL Mean Corpuscular Hemoglobin 26.7 L 28.0-32.0 pg Mean Corpuscular Hemoglobin Concent 32.6 32.0-36.0 g/dL Red Cell Distribution Width 15.6 H 11.8-14.3 % Platelet Count 218 140-450 10^3/uL Mean Platelet Volume 6.7 L 6.9-10.8 fL Neutrophils (%) (Auto) 65.1 37.0-80.0 % Lymphocytes (%) (Auto) 26.6 10.0-50.0 % Monocytes (%) (Auto) 5.8 0.0-12.0 % Eosinophils (%) (Auto) 2.3 0.0-7.0 % Basophils (%) (Auto) 0.2 0.0-2.0 % Neutrophils # (Auto) 3.1 1.6-8.6 10 ^3/uL Lymphocytes # (Auto) 1.3 0.4-5.4 10 ^3/uL Monocytes # (Auto) 0.3 0-1.3 10 ^3/uL Eosinophils # (Auto) 0.1 0-0.8 10 ^3/uL Basophils # (Auto) 0 0-0.2 10 ^3/uL Nucleated Red Blood Cells 0.2 % Assessment Acute kidney injury on chronic kidney disease Chronic kidney disease stage 3b/4 Dr. tarango Hypervolemic hyponatremia likely secondary due to pulmonary her presentation secondary to COPD Hyponatremia due to excessive free water intake Secondary hyperparathyroidism Low vitamin-D Polypharmacy Pulmonary hypertension (RVSP 60 on recent echo ) hypervolemia Plan: Admit to med surge Continues slow sodium correction target 4-6 mEq per day increased avoid over- correction Monitor serum sodium Review osmolality and urine sodium Vitamin-D replacement Hold/adjust nephrotoxic or SIADH inducing agents. Maintain fluid restriction Continue furosemide 40 mg b.i.d. IV Plan discussed with: Patient ADDENDUM ADDENDUM ADDENDUM Hypervolemic hyponatremia in the setting of fluid overload and excessive free water intake. Patient is currently drinking approximately 4 L or more of water per day BRYN HILLIARD RESIDENT Jan 04, 2025 14:13 JIGNA JANG MD Jan 05, 2025 13:24
--- NOTE | 2025-01-04 15:42 | DVH ---
INDICATION: chf TECHNIQUE: Frontal view of the chest. COMPARISON: XY CHEST PORTABLE on DOS: 11/15/24, CHEST PORTABLE on DOS: 12/31/21, CXRP on DOS: 12/31/21, CHEST PORTABLE on DOS: 09/23/21 FINDINGS: . The heart and mediastinal contours are grossly unremarkable. There is no evidence of pleural dise ase. The lungs are clear. The bony structures of the chest are intact without fracture. IMPRESSION: 1. No evidence of acute disease.
[2025-01-04] MEDS: ERGOCALCIFEROL 50,000 UNIT(1.25MG) CAP PO SCH (17:54)
[2025-01-04] MEDS: FUROSEMIDE 40 MG/4 ML VIAL IV SCH (18:36)
[2025-01-05] MEDS: traMADol HCL 50 MG TAB PO ONE
[2025-01-05 00:12] LABS: Urine Bacteria None Seen /hpf (None Seen)
[2025-01-05 01:00] VITALS: BP 113/69; PULSE 65; RESP 17; TEMP 97.4; O2SAT 92
[2025-01-05 01:10] LABS: Urine Blood Negative /uL (Negative); Urine Clarity Clear (Clear); Urine Color Colorless (Yellow); Urine Protein, UAD Negative (Negative); Urine Specific Gravity 1.006 (1.001-1.035); Urine Squamous Epithelial Cell FEW /hpf (<5); Urine Urobilinogen Normal (Negative); Urine WBC < 1 /HPF (0-5)
[2025-01-05 01:57] LABS: Protein, Urine 9.7 mg/dL (1-14)
[2025-01-05 02:00] LABS: Creatinine, Urine 22.54 mg/dL (30.0-125.0); Urine Protein/Creatinine Ratio 0.43
[2025-01-05 02:01] LABS: Cannabinoid Screen, Urine Pos (NEGATIVE)
[2025-01-05 02:05] LABS: Amphetamine Screen, Urine Neg (NEGATIVE); Barbiturate Scree,Urine Neg (NEGATIVE); Benzodiazephine Screen, Urine Neg (NEGATIVE); Cocaine Screen, Urine Neg (NEGATIVE); Opiate Scree,Urine Neg (NEGATIVE); Phencyclidine Screen, Urine Neg (NEGATIVE)
[2025-01-05 05:00] VITALS: BP 128/79; PULSE 69; RESP 17; TEMP 97.5; O2SAT 92
[2025-01-05 08:00] VITALS: RESP 16; O2SAT 96
[2025-01-05 08:47] VITALS: BP 136/81; PULSE 65; RESP 18; TEMP 98.2; O2SAT 91
[2025-01-05 09:26] LABS: Potassium 4.9 mmol/L (3.5-5.1)
[2025-01-05 09:27] LABS: Anion Gap 7 (5-15)
[2025-01-05 09:33] LABS: BUN/Creatinine Ratio 20.8 (10.0-20.0)
[2025-01-05 09:38] LABS: Blood Urea Nitrogen 49 mg/dL (9-23); Calcium 10.6 mg/dL (8.7-10.4); Carbon Dioxide 31 mmol/L (20-31); Chloride 93 mmol/L (98-107); Glucose 201 mg/dL (74-106); Sodium 131 mmol/L (136-145)
[2025-01-05] MEDS: INSULIN LANTUS (GLARGINE) 1 /0.01ml (100units/ml) SC SCH (10:30)
[2025-01-05 12:51] VITALS: BP 108/56; PULSE 66; RESP 15; TEMP 98.3; O2SAT 90
--- NOTE | 2025-01-05 13:27 | DVHPN2 ---
Progress Note Date Seen: Jan 05, 2025 Medical Necessity Reason Pt with a Central, PICC or Fol: No Subjective Patient reports: Feels better (swelling has improved) Objective vital signs Vital Sign Date Time Temp Pulse Resp B/P (MAP) Pulse Ox O2 Delivery O2 Flow Rate FiO2 01/05/25 12:51 98.3 66 15 108/56 (73) 90 98.3 01/05/25 08:00 Room Air* 0 N/A Nasal Cannula* Total Intake and Output 01/04/25 01/04/25 01/05/25 15:00 23:00 07:00 Intake Total 1500 ml 800 ml Balance 1500 ml 800 ml medications Current Medications Medications Dose Ordered Sig/Luke Route Start Time Stop Time Status Last Admin Dose Admin Apixaban 5 mg BID PO 01/03/25 22:00 01/05/25 09:16 5 MG Lamotrigine 25 mg DAILY PO 01/04/25 10:00 01/05/25 09:17 25 MG Amlodipine Besylate 5 mg DAILY PO 01/04/25 10:00 01/05/25 09:17 5 MG Metoprolol Succinate 25 mg DAILY PO 01/04/25 10:00 01/05/25 09:17 25 MG Ondansetron HCl 4 mg Q4HP PRN IV 01/03/25 19:00 Diagnostic Test (Pha) 1 strip ACHS 01/03/25 22:00 01/05/25 11:50 1 STRIP Insulin Human Regular ACHS SC 01/03/25 22:00 01/05/25 05:29 2 UNITS Dextrose 50 ml UD PRN IV 01/03/25 19:00 Insulin Glargine 10 units DAILY@1000 SC 01/05/25 10:00 01/05/25 10:30 10 UNITS Ergocalciferol 50,000 unit Q7D PO 01/04/25 14:00 01/04/25 17:54 50,000 UNIT Furosemide 40 mg BIDD IV 01/04/25 18:00 01/05/25 05:40 40 MG Examination: GENERAL:Abnormal (morbid obese), CVS:Normal, ABDOMEN:Normal, SKIN:Abnormal (2+ edema), NEURO:Normal laboratory and microbiology Laboratory Tests 01/05/25 08:48 01/03/25 13:51 Test 01/05/25 08:48 Range/Units Serum Glucose 201 H 74-106 mg/dL Problem List/Assessment/Plan Problem List/Assessment/Plan Acute kidney injury likely in the setting of fluid overload Solitary right kidney Chronic kidney disease stage 3/4 ( Dr. Brennan) Hypertension poorly controlled hyponatremia due to fluid overload Hypervolemia in the setting of medical noncompliance -> echo shows LVH and pulmonary hypertension Diabetes History DVT We discussed a fluid restriction of approximately 32-40 oz per day this is a significant reduction from her previous approximation of around 128 oz of water per day Recommend Lasix 40 mg p.o. b.i.d. to continue in the outpatient low sodium diet Serum sodium today is 131 from a nephrology standpoint patient can return to renal clinic No emergent indication for hemodialysis at this time but patient will require continued chronic kidney disease education Plan discussed with: Patient My Orders My Orders Orders - JIGNA JAGN MD Procedure Category Date Status Time Maintain Fluid MARIUM 01/04/25 In Process Restrictions 15:32 Furosemide Injection PHA 01/04/25 In Process (Lasix Injection) 18:00 JIGNA JANG MD Jan 05, 2025 13:27
[2025-01-05] MEDS ORDERED: AML5T PO (15:05)
--- NOTE | 2025-01-05 15:06 | DVHDS2 ---
Discharge Summary Date of Admission Jan 03, 2025 at 18:48 Date of Discharge: Jan 05, 2025 Labs/Diagnostic Data: Laboratory Results Test 01/05/25 11:47 01/05/25 08:48 01/04/25 23:00 01/04/25 15:36 POC Glucose 121 mg/dl (70-106) Sodium Level 131 mmol/L (136-145) Potassium Level 4.9 mmol/L (3.5-5.1) Chloride Level 93 mmol/L (98-107) Carbon Dioxide Level 31 mmol/L (20-31) Anion Gap 7 (5-15) Blood Urea Nitrogen 49 mg/dL (9-23) Creatinine 2.36 mg/dL (0.550-1.02) Glomerular Filtration Rate Calc 24 mL/min (>90) BUN/Creatinine Ratio 20.8 (10.0-20.0) Serum Glucose 201 mg/dL (74-106) Calcium Level 10.6 mg/dL (8.7-10.4) Urine Color Colorless (Yellow) Urine Clarity Clear (Clear) Urine pH 6.0 (5.0-9.0) Urine Specific [place] 1.006 (1.001-1.035) Urine Protein Negative (Negative) Urine Ketones Negative (Negative) Urine Blood Negative /uL (Negative) Urine Nitrite Negative (Negative) Urine Bilirubin Negative (Negative) Urine Urobilinogen Normal mg/dL (Negative) Urine Leukocyte Esterase Negative /uL (Negative) Urine RBC <1 /hpf (0 - 4) Urine Microscopic WBC < 1 /HPF (0-5) Urine Squamous Epithelial Cells Few /hpf (<5) Urine Bacteria None seen /hpf (None Seen) Urine Osmolality 231 mOsm/kg Urine Creatinine 22.54 mg/dL (30.0-125.0) Urine Protein/Creatinine Ratio 0.43 Urine Sodium 74 mmol/L (40-220) Urine Glucose Normal mg/dL (Normal) Urine Total Protein 9.7 mg/dL (1-14) Urine Opiates Screen Neg (NEGATIVE) Urine Fentanyl Screen Neg (NEGATIVE) Urine Barbiturates Screen Neg (NEGATIVE) Urine Phencyclidine Screen Neg (NEGATIVE) Urine Amphetamines Screen Neg (NEGATIVE) Urine Benzodiazepines Screen Neg (NEGATIVE) Urine Cocaine Screen Neg (NEGATIVE) Urine Cannabinoids Screen Pos (NEGATIVE) B-Type Natriuretic Peptide 53.76 pg/mL (0-100) Test 01/04/25 05:23 01/03/25 13:51 Phosphorus Level 4.5 mg/dL (2.4-5.1) Magnesium Level 1.9 mg/dL (1.6-2.6) Vitamin D 25-Hydroxy 27.7 ng/mL (30.0-100) Parathyroid Hormone (Intact) 96.7 pg/mL (18.4-80.1) White Blood Count 4.8 10^3/uL (4.4-10.8) Red Blood Count 4.49 10^6/uL (4.0-5.20) Hemoglobin 12.0 g/dL (12.2-16.2) Hematocrit 36.9 % (36.0-46.0) Mean Corpuscular Volume 82.1 fL (80.0-100.0) Mean Corpuscular Hemoglobin 26.7 pg (28.0-32.0) Mean Corpuscular Hemoglobin Concent 32.6 g/dL (32.0-36.0) Red Cell Distribution Width 15.6 % (11.8-14.3) Platelet Count 218 10^3/uL (140-450) Mean Platelet Volume 6.7 fL (6.9-10.8) Neutrophils (%) (Auto) 65.1 % (37.0-80.0) Lymphocytes (%) (Auto) 26.6 % (10.0-50.0) Monocytes (%) (Auto) 5.8 % (0.0-12.0) Eosinophils (%) (Auto) 2.3 % (0.0-7.0) Basophils (%) (Auto) 0.2 % (0.0-2.0) Neutrophils # (Auto) 3.1 10 ^3/uL (1.6-8.6) Lymphocytes # (Auto) 1.3 10 ^3/uL (0.4-5.4) Monocytes # (Auto) 0.3 10 ^3/uL (0-1.3) Eosinophils # (Auto) 0.1 10 ^3/uL (0-0.8) Basophils # (Auto) 0 10 ^3/uL (0-0.2) Nucleated Red Blood Cells 0.2 % Other Laboratory Tests 01/05/25 08:48 01/03/25 13:51 Brief Hx & Hospital Course: Acute on chronic renal failure Hyponatremia Diabetes mellitus Accelerated hypertension improved discharged to home Condition at Discharge: Fair Final Diagnosis/Problems List see above Discharge Disposition: Home Discharge Instruct/Medications Diet: Cardiac 2g Na,low cholest Activity: No Restrictions, As Tolerated Discharge Statement: "Patient was advised to return to the ER or call 911 if any headaches, dizziness, shortness of breath, chest pain, abdominal pain, bleeding, fevers, or worsening of medical condition. Patient was counseled about treatment plan, medications, possible side effects, patientverbalized understanding. All questions were answered to the best of my ability. This discharge took greater then 30 minutes in planning, reviewing documentation, counseling the patient, and discussing with other team members." ASSESSMENT ASSESSMENT Assessment Date of Service: Jan 05, 2025 Billing Provider: JAKE MARIE DO Common Visit Codes: 96899-XHP/OBS DISCH DAY >30min JAKE MARIE DO Jan 05, 2025 15:06
[2025-01-05 15:22] VITALS: BP 136/81; PULSE 65; TEMP 36.8
== END 2025-01-05 16:00 | disposition home or self-care (01) | DRG 426 ==
LOC: EDBD 13:38 → ER 13:38 → OVERFLOW 18:48 → EAST 21:15
PROVIDERS: ADMIT Internal Medicine; ATTEND Internal Medicine
DX: E87.1 Hypo-osmolality and hyponatremia (principal); N17.9 Acute kidney failure, unspecified; I13.0 Hypertensive heart and chronic kidney disease with heart failure and stage 1 through stage 4 chronic kidney disease, or unspecified chronic kidney disease; E11.22 Type 2 diabetes mellitus with diabetic chronic kidney disease; I50.9 Heart failure, unspecified; E87.70 Fluid overload, unspecified; E55.9 Vitamin D deficiency, unspecified; E21.1 Secondary hyperparathyroidism, not elsewhere classified; N18.32 Chronic kidney disease, stage 3b; E66.01 Morbid (severe) obesity due to excess calories; E78.5 Hyperlipidemia, unspecified; Z88.5 Allergy status to narcotic agent; J44.9 Chronic obstructive pulmonary disease, unspecified; Z88.6 Allergy status to analgesic agent; Z91.048 Other nonmedicinal substance allergy status; Z90.710 Acquired absence of both cervix and uterus; Z90.5 Acquired absence of kidney; Z79.4 Long term (current) use of insulin; Z79.84 Long term (current) use of oral hypoglycemic drugs; Z79.899 Other long term (current) drug therapy; Z88.8 Allergy status to other drugs, medicaments and biological substances; Z91.199 Patient's noncompliance with other medical treatment and regimen due to unspecified reason
CPT/HCPCS: 36415; 71045; 80048; 80307; 81001; 82306; 82570; 82962; 83735; 83880; 83935; 83970; 84100; 84156; 84300; 85025; G0378; J1815

== ENCOUNTER 2025-02-14 19:36 | Emergency (ER) | payer MEDICAID ==
[~2025-02-14] VITALS: Ht 165.1 cm; Wt 113.4 kg
[~2025-02-14 19:36] MED LIST changes: +AML5T PO; +APIX2.5T PO; +BUPR8SUB SL; +FLUO40CA PO; +FLUT110A8 INH; +GLIP10TA9 PO; +PREG50CA80 PO
[2025-02-14 19:47] VITALS: BP 174/108
[2025-02-14 20:16] VITALS: RESP 18; TEMP 98.6; O2SAT 93
[2025-02-14 20:43] VITALS: PULSE 97
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
[2025-02-14] MEDS: traMADol HCL 50 MG TAB PO ONE (20:44)
--- NOTE | 2025-02-14 20:55 | ECG ---
[facility] Test Date: 2025-02-14 Test Time: 20:11:05 Pat Name: GREGORY LANIER Department: ED Room: Gender: F Heel Molder: [place] : 1975 Requested By: ROBERT ORTEGA Order Number: [id number] Reading MD: Measurements Intervals [place] Rate: 97 P: 49 AR: 210 QRS: -27 QRSD: 102 T: 51 QT: 372 QTc: 473 Interpretive Statements Sinus rhythm Prolonged AR interval Probable left atrial enlargement Borderline left axis deviation Abnormal R-wave progression, late transition Please click the below link to view image of tracing.
--- NOTE | 2025-02-14 21:13 | DVH ---
Procedure: CT CHEST WITHOUT CONTRAST Reason for study/Clinical History: left sided rib cage pain post fall Comparison Study: None Exam Date: 02/14/2025 08:16 PM TECHNIQUE: Multidetector CT of the chest was performed from the lung apices to the upper abdomen with out the use of intravenous contract. Axial, coronal and sagittal multiplanar reformats were performed . Radiation Dose Information: CT Dose: CTDI volume is 27.81 mGy. Dose-length product is 1062.15 mGy*cm The dose indicators for CT are the volume Computed Tomography (CT) Dose Index (CTDIvol) and the Dose Length Product (DLP), and are measured in units of mGy and mGy-cm, respectively. These indicators are not patient dose, but values generated from the CT scanner acquisition factors. The report includes radiation exposure data for exposures received during this examination. FINDINGS: Lower neck: Unremarkable. Lungs: No pulmonary consolidation, pleural effusion or pneumothorax. Pleura: No pleural effusion or pneumothorax. Heart/Vascular Structures: Normal heart size. No pericardial effusion. Unremarkable thoracic aorta. Mediastinum / Lymph Nodes: Unremarkable. No lymphadenopathy. Musculoskeletal: Evidence of old / healing fractures of right anterior 5th to 7th ribs. No definite a cute fracture identified. Soft tissues: Unremarkable. IMPRESSION: No acute abnormality identified. Radiation optimization: All CT scans at this facility use at least one of these dose optimization nga hniques: automated exposure control mA and/or kV adjustment per patient size (includes targeted exam s where dose is matched to clinical indication) or iterative reconstruction.
== END 2025-02-14 21:47 | disposition home or self-care (01) ==
LOC: ER 19:36 → EDBD 19:36 → ER 21:47
DX: S20.212A Contusion of left front wall of thorax, initial encounter (principal); I11.0 Hypertensive heart disease with heart failure; I50.9 Heart failure, unspecified; J44.9 Chronic obstructive pulmonary disease, unspecified; E11.9 Type 2 diabetes mellitus without complications; Z90.710 Acquired absence of both cervix and uterus; Z79.899 Other long term (current) drug therapy; Z88.5 Allergy status to narcotic agent; W22.03XA Walked into furniture, initial encounter; Y93.89 Activity, other specified; Y92.89 Other specified places as the place of occurrence of the external cause; Y99.8 Other external cause status
CPT/HCPCS: 36415; 71250; 84484; 93005

== ENCOUNTER 2025-02-19 03:06 | Emergency (ER) | payer MEDICAID ==
[~2025-02-19] VITALS: Ht 152.4 cm; Wt 136.0 kg
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
--- NOTE | 2025-02-19 04:09 | DVH ---
Examination: CXR2 Clinical Indication: ;left rib pain s/p fall Comparison: None. Technique: Two views of the chest were obtained. Findings: Patient is in slight rotation in the frontal radiograph. Overlapping of chin over bilateral lung apices in the frontal radiograph. Streaky radiopacities in both lower lungs, likely atelectatic areas and / or scarring. No pleural effusion on either side in current study. There is no pneumothorax. The cardiomediastinal silhouette is within normal limits. No acute osseous abnormality is seen. Impression: 1. Atelectatic areas and / or scarring in both lower lungs. 2. Advised clinical correlation and further evaluation with CT chest without contrast if clinically indicated. Electronically Signed 02/19/2025 04:07 Raoul Groves
[2025-02-19 04:45] VITALS: BP 145/72; PULSE 72; RESP 22; TEMP 98; O2SAT 96
[2025-02-19] MEDS: KETOROLAC TROMETH 30 MG/ML 1ML VIAL IV ONE (04:52)
== END 2025-02-19 05:01 | disposition home or self-care (01) ==
LOC: ER 03:06 → EDBD 03:06 → ER 05:01
DX: S20.212A Contusion of left front wall of thorax, initial encounter (principal); I11.0 Hypertensive heart disease with heart failure; I50.9 Heart failure, unspecified; E11.9 Type 2 diabetes mellitus without complications; J44.9 Chronic obstructive pulmonary disease, unspecified; Z90.710 Acquired absence of both cervix and uterus; Z79.899 Other long term (current) drug therapy; Z88.5 Allergy status to narcotic agent; W19.XXXA Unspecified fall, initial encounter; Y93.89 Activity, other specified; Y92.89 Other specified places as the place of occurrence of the external cause; Y99.8 Other external cause status
CPT/HCPCS: 71046; 96374; 99283; J1885

== ENCOUNTER 2025-03-08 11:57 | Inpatient (IN) | payer MEDICAID ==
[~2025-03-08] VITALS: Ht 144.8 cm; Wt 119.8 kg
--- NOTE | 2025-03-08 12:37 | ED.PDOC ---
Musculoskeletal HPI Comments 49 y.o female with PMHx of COPD, CHF, HTN, HLD, and thyroid disease, presents to the ED for a chief complaint of lower extremity swelling associated with redness and SOB that started 5 days ago. Patient reports SPO2 reads 88% at night time, states she wears home oxygen due to COPD hx but has no relief. Patient denies any recent punctured wounds, injuries, numbness, tingling sensation, chest pain, fever, or chills. Chief Complaint: Extremity Swelling Time Seen by MD: 12:30 Primary Care Provider: DR DAVIS Reviewed Notes: Nurses Notes, Medications, Allergies Allergies: Coded Allergies: Acetaminophen (Verified Allergy, Unknown, 12/31/21) Hydrocodone (Verified Allergy, Unknown, 12/31/21) Uncoded Allergies: ADHESIVE TAPE (Allergy, Severe, 12/19/18) Home Meds Active Scripts Amlodipine Besylate (NORVASC TABLET) 5 Mg Tb, 5 MG PO DAILY for 30 Days, #30 TAB 3 Refills Prov:JAKE MARIE DO 01/05/25 Oxycodone W/ Acetaminophen (Percocet 5/325MG) 1 Tab Tb, 1 TAB PO QID PRN, #30 TAB Prov:KEYON MARTINEZ MD 11/19/24 Furosemide (Lasix) 40 Mg Tab, 40 MG PO BID, #60 TAB Prov:KEYON MARTINEZ MD 11/19/24 Blood Glucose Monitoring Suppl (Blood Glucose System Gaurav) System Kit, PKG XX 5XD, #1 Administer a 30-day supply of lancets, alcohol prep pads and test strips and glucometer per insurance coverage. Prov:AKASH EVANS MD 09/25/21 Insulin Pen Needle (Bd Pen Needle/Leta 2Nd Ge 32G X 4 mm) 1 Mis Mis, MIS XX 5XD, #150 Prov:AKASH EVANS MD 09/25/21 Insulin Lispro (Humalog Kwikpen) 100 Unit/Ml Inj, 1 DOSE SC UD, #5 SYR Administer up to 40 units of insulin per provided sliding scale divided 3 times daily before meals and at bedtime. Prov:AKASH EVANS MD 09/25/21 Insulin Glargine (Basaglar Kwikpen) 100 Unit/Ml Inj, 20 UNIT SC DAILY@DINNER, #5 SYRN Prov:AKASH EVANS MD 09/25/21 Reported Medications Pregabalin (Pregabalin) 50 Mg Cap, 1 CAP PO TID 01/03/25 Fluoxetine Hcl (Fluoxetine Hcl) 40 Mg Cap, PO 01/03/25 Fluticasone Propionate (Fluticasone Propionate Hf) 110 Mcg/Act Aer, INH 01/03/25 Glipizide (Glipizide) 10 Mg Tab, 1 TAB PO DAILY 01/03/25 Apixaban Base (ELIQUIS) 2.5 Mg Tab, 1 TAB PO BID 01/03/25 Buprenorphine HCl (Buprenorphine Hydrochlori) 8 Mg Sub, 2 SL 01/03/25 Tizanidine Hydrochloride (Zanaflex) 4 Mg Tab, 2 MG PO TID, TAB 11/18/24 Meclizine Hcl (Meclizine Hcl) 12.5 Mg Tab, 25 MG PO TID, TAB 11/18/24 Diphenhydramine Hcl (Banophen) 25 Mg Cap, 25 MG PO Q6HP, CAP 11/18/24 Meloxicam (Meloxicam) 15 Mg Tab, 1 TAB PO DAILY, #30 TAB 2 Refills 11/18/24 Brexpiprazole (Rexulti) 4 Mg Tab, 4 MG PO HS, TAB 11/18/24 Pantoprazole Sodium Sesquihydr (Pantoprazole Sodium Dr) 40 Mg Tab, 20 MG PO BID, TAB 11/18/24 Deutetrabenazine (Austedo) 6 Mg Tab, 6 MG PO QPM, TAB 11/18/24 Hydroxyzine Hcl (Hydroxyzine Hcl) 50 Mg Tab, 50 MG PO HS, TAB 11/18/24 Docusate Sodium (Colace) 100 Mg Cap, 250 MG PO BID, CAP 11/18/24 Losartan Potassium (Losartan Potassium) 25 Mg Tab, 1 TAB PO DAILY, #90 TAB 1 Refill 11/18/24 Buprenorphine Hcl (Buprenorphine Hcl) 8 Mg Sub, 8 MG SL QID, INJ 11/18/24 Nitrofurantoin Monohyd Macro (Nitrofurantoin Monohydrat) 100 Mg Cap, 100 MG PO DAILY for 5 Days, CAP 11/18/24 Amitriptyline Hcl (Amitriptyline Hcl) 150 Mg Tab, 150 MG PO HS, TAB 11/18/24 Metoprolol Tartrate (Metoprolol Tartrate) 25 Mg Tab, 1 TAB PO DAILY, #180 TAB 1 Refill 11/18/24 Fenofibrate (Fenofibrate) 54 Mg Tab, 1 TAB PO DAILY, #30 TAB 5 Refills 11/18/24 Apixaban Base (ELIQUIS) 5 Mg Tab, 5 MG PO BID, TAB 11/18/24 Furosemide (Furosemide) 20 Mg Tab, 1 TAB PO DAILY, #90 TAB 1 Refill 11/18/24 Lamotrigine (Lamictal) 25 Mg Tab, 1 TAB PO DAILY, #60 TAB 1 Refill 11/18/24 Deutetrabenazine (Austedo) 12 Mg Tab, 12 MG PO DAILY, TAB 11/18/24 Fluoxetine HCl (Fluoxetine Hydrochloride) 40 Mg Cap, 80 MG PO DAILY, CAP 11/18/24 Tizanidine Hydrochloride (Zanaflex) 4 Mg Tab, 1 TAB PO TID, #90 TAB 11/17/24 Zolpidem Tartrate (Ambien) 10 Mg Tab, 1 TAB PO QPM, #30 TAB 5 Refills 06/01/18 Information Source: Patient Mode of Arrival: Ambulatory Location: Bilateral Extremity Location: Leg Severity: Moderate Bear Weight: Fully Pain: Moderate Mechanism: None Circumstances: Spontaneous Onset of Symptoms: Spontaneous Symptoms: Swelling, Erythema DVT Risk Factors: NONE Associated signs and symptoms: Swelling Past Medical History PAST MEDICAL HISTORY: CHF, COPD, DM, High Lipids, HTN, Thyroid Surgical History: , Hysterectomy, Tonsillectomy SURVEYING OR SPATIAL SCIENCE TECHNICIAN History: No Pertinent SURVEYING OR SPATIAL SCIENCE TECHNICIAN History Family History Family History: Unknown, Family hx of heart candelario Social History Smoker: Non-Smoker, Quit Greater Than 1 Year Alcohol: Denies ETOH Use Drugs: Marijuana Lives In: Home Constitutional: denies: chills, diaphoresis, fatigue, fever, malaise, sweats, weakness, others EENTM: denies: blurred vision, double vision, ear bleeding, ear discharge, ear drainage, ear pain, ear ringing, eye pain, eye redness, hearing loss, mouth pain, mouth swelling, nasal discharge, nose bleeding, nose congestion, nose pain, photophobia, tearing, throat pain, throat swelling, voice changes, others Respiratory: reports: cough, SOB at rest; denies: hemoptysis, orthopnea, shortness of breath, SOB with excertion, stridor, wheezing, others Cardiovascular: denies: chest pain, dizzy spells, diaphoresis, Dyspnea on exertion, edema, irregular heart beat, left arm pain, lightheadedness, palpitations, PND, syncope, others Gastrointestinal: denies: abdomen distended, abdominal pain, blood streaked bowels, constipated, diarrhea, dysphagia, difficulty swallowing, hematemesis, melena, nausea, poor appetite, poor fluid intake, rectal bleeding, rectal pain, vomiting, others Genitourinary: denies: abnormal vagina bleeding, burning, dyspareunia, dysuria, flank pain, frequency, hematuria, incontinence, pain, , vagina dis charge, urgency, others Neurological: denies: dizziness, fainting, headache, left sided numbness, left sided weakness, numbness, paresthesia, pre-existing deficit, right sided numbness, right sided weakness, seizure, speech problems, tingling, tremors, weakness, others Musculoskeletal: reports: others (lower extremity swelling with redness ); denies: back pain, gout, joint pain, joint swelling, muscle pain, muscle stiffness, neck pain Integumetry: reports: others (lower extremity redness ); denies: bruises, change in color, change in hair/nails, dryness, laceration, lesions, lumps, rash, wounds Allergic/Immunocompromised: denies: Difficulty Healing, Frequent Infections, Hives, Itching, others Hematologic/Lymphatic: denies: anemia, blood clots, easy bleeding, easy bruising, swollen glands, others Endocrine: denies: excessive hunger, excessive sweating, excessive thirst, excessive urination, flushing, intolerance to cold, intolerance to heat, unexplained weight gain, unexplained weight loss, others Psychiatric: denies: anxiety, bipolar disorder, depression, hopeless, panic disorder, schizophrenia, sleepless, suicidal, others All Other Systems: Reviewed and Negative Physical Exam General Appearance: No Apparent Distress, Normal HEENT: Normal ENT Inspection, Pharynx Normal, TMs Normal Neck: Full Range of Motion, Non-Tender, Normal, Normal Inspection Respiratory: Chest Non-Tender, Lungs Clear, No Accessory Muscle Use, No Respiratory Distress, Normal Breath Sounds Cardiovascular: No Edema, No JVD, No Murmur, No Gallop, Normal Peripheral Pulses, Regular Rate/Rhythm Breast Exam: Deferred Gastrointestinal: No Organomegaly, Non Tender, No Pulsatile Mass, Normal Bowel Sounds, Soft Genitalia: Deferred Pelvic: Deferred Rectal: Deferred Extremities: No calf tenderness, Swelling (lower extremity edema ) Musculoskeletal : Apperance: Normal Neurologic: Alert, plane tableman II-XII nml as Tested, No Motor Deficits, Normal Affect, Normal Mood, No Sensory Deficits Cerebellar Function: Normal Reflexes: Normal Skin: Dry, Normal Color, Warm Lymphatic: No Adenopathy Was a procedure done? Was a procedure done?: No Differential Diagnosis EXT Differential Diagnosis: Cellulitis, CHF, Deep Vein Thrombosis, Gout, Contusion, Strain X-Ray, Labs, Meds, VS Vital Signs Date Time Temp Pulse Resp B/P (MAP) Pulse Ox O2 Delivery O2 Flow Rate FiO2 03/08/25 13:38 61 20 94 Nasal Cannula 2.0 03/08/25 13:38 98.4 61 20 117/57 (77) 94 98.4 03/08/25 13:11 20 99 Nasal Cannula* 2 28 03/08/25 12:17 60 03/08/25 12:11 98.7 70 20 150/120 (130) 88 98.7 Lab Test 03/08/25 13:00 Range/Units White Blood Count 6.1 4.4-10.8 10^3/uL Red Blood Count 4.44 4.0-5.20 10^6/uL Hemoglobin 12.4 12.2-16.2 g/dL Hematocrit 36.6 36.0-46.0 % Mean Corpuscular Volume 82.5 80.0-100.0 fL Mean Corpuscular Hemoglobin 27.8 L 28.0-32.0 pg Mean Corpuscular Hemoglobin Concent 33.7 32.0-36.0 g/dL Red Cell Distribution Width 15.3 H 11.8-14.3 % Platelet Count 213 140-450 10^3/uL Mean Platelet Volume 7.1 6.9-10.8 fL Neutrophils (%) (Auto) 63.8 37.0-80.0 % Lymphocytes (%) (Auto) 26.2 10.0-50.0 % Monocytes (%) (Auto) 6.0 0.0-12.0 % Eosinophils (%) (Auto) 3.0 0.0-7.0 % Basophils (%) (Auto) 1.0 0.0-2.0 % Neutrophils # (Auto) 3.9 1.6-8.6 10 ^3/uL Lymphocytes # (Auto) 1.6 0.4-5.4 10 ^3/uL Monocytes # (Auto) 0.4 0-1.3 10 ^3/uL Eosinophils # (Auto) 0.2 0-0.8 10 ^3/uL Basophils # (Auto) 0.1 0-0.2 10 ^3/uL Nucleated Red Blood Cells 0.1 % Sodium Level 134 L 136-145 mmol/L Potassium Level 4.9 3.5-5.1 mmol/L Chloride Level 100 98-107 mmol/L Carbon Dioxide Level 27 20-31 mmol/L Anion Gap 7 5-15 Blood Urea Nitrogen 55 H 9-23 mg/dL Creatinine 2.07 H 0.550-1.02 mg/dL Glomerular Filtration Rate Calc 28 >90 mL/min BUN/Creatinine Ratio 26.6 H 10.0-20.0 Serum Glucose 204 H 74-106 mg/dL Calcium Level 9.8 8.7-10.4 mg/dL Troponin I High Sensitivity 3 L </=34 ng/L B-Type Natriuretic Peptide 76.83 0-100 pg/mL Current Medications Medications (Trade) Dose Ordered Sig/Luke Route Start Time Stop Time Status Last Admin Albuterol (Ventolin Medneb) 5 mg ONCE ONCE NEB 03/08/25 12:30 03/08/25 12:31 DC 03/08/25 13:11 Ipratropium [place] (Atrovent Medneb) 0.5 mg ONCE ONCE NEB 03/08/25 12:30 03/08/25 12:31 DC 03/08/25 13:10 Time of 1ST Reevaluation: 14:00 Reevaluation 1ST: Unchanged Patient Education/Counseling: Diagnosis, Treatment, Prognosis Family Education/Counseling: No Family Present Departure 1 Departure Time of Disposition: 13:58 (Patient presented with shortness of breath that was concerning for possible STEMI, ACS, PE, Pneumonia, Muscle Strain, COPD, Dissection, Acute on Chronic systolic and Diastolic dysfunction. Data: 1. I ordered and reviewed the result of at least 3 labs including a CBC, BMP, and Troponin. 2. I independently interpreted the following tests: EKG which shows sinus arrhthmia and Chest X-ray which shows cardiomegaly.Risk:This patient has a high risk of morbidity due to further diagnostic testing or treatment and may suffer from an acute cardiac or respiratory disorder but is most consitent with an acute chf exacerbation. Patient should be admitted for further workup and possible expert consultation. ) Impression: Primary Impression: Acute on chronic heart failure with reduced ejection fraction (HFrEF, <= 40%) and combined systolic and diastolic dysfunction Additional Impression: Acute and chronic respiratory failure Disposition: ADMITTED INPATIENT Admit to: Med Surg Condition: Guarded Critical Care Note Critical Care Time?: Yes Critical care comment: Shortness of breath Authorized and Performed by: Franklin Butterfield MD Total critical care time: Approximately 39 minutes Due to a high probability of clinically significant, life threatening deterioration, the patient required my highest level of preparedness to intervene emergently and I personally spent this critical care time directly and personally managing the patient. This critical care time included obtaining a history; examining the patient; pulse oximetry; ordering and review of studies; arranging urgent treatment with development of a management plan; evaluation of patient's response to treatment; frequent reassessment; and, discussions with other providers. This critical care time was performed to assess and manage the high probability of imminent, life-threatening deterioration that could result in multi-organ failure. It was exclusive of separately billable procedures and treating other patients and teaching time. Please see my other sections and the rest of the note for further information on patient assessment and treatment. Stability Stability form required: No Heart Score Heart Score: Heart Score Response (Comments) Value History N/A 0 EKG N/A 0 Age N/A 0 Risk Factors N/A 0 Troponin N/A 0 Total 0 I personally scribed for FRANKLIN BUTTERFIELD MD ([email or web address]) on 03/08/25 at 12:37. Electronically submitted by Erin Yang ([facility]). FRANKLIN BUTTERFIELD MD Mar 08, 2025 12:37
--- NOTE | 2025-03-08 12:55 | DVH ---
AP portable chest CLINICAL INDICATION: sob Comparison: 02/19/2025 FINDINGS: Heart size is enlarged. Aorta tortuous. There areas of atelectasis in the right lower lung zone. Left lung is clear. IMPRESSION: 1. Atelectasis right lower lobe possibly the residua of prior infiltrate.
[2025-03-08 13:08] LABS: Basophils # (auto) 0.1 10 ^3/uL (0-0.2); Eosinophils # (auto) 0.2 10 ^3/uL (0-0.8); Hematocrit 36.6 % (36.0-46.0); Hemoglobin 12.4 g/dL (12.2-16.2); Lymphocytes # (auto) 1.6 10 ^3/uL (0.4-5.4); Lymphocytes % (auto) 26.2 % (10.0-50.0); Mean Corpuscular Hemoglobin 27.8 pg (28.0-32.0); Mean Corpuscular Hgb Conc. 33.7 g/dL (32.0-36.0); Mean Corpuscular Volume 82.5 fL (80.0-100.0); Monocytes # (auto) 0.4 10 ^3/uL (0-1.3); Neutrophils # (auto) 3.9 10 ^3/uL (1.6-8.6); Neutrophils % (auto) 63.8 % (37.0-80.0); Nucleated Red Blood Cells % 0.1 %; Platelet Count (auto) 213 10^3/uL (140-450); Red Blood Cells 4.44 10^6/uL (4.0-5.20); Red Cell Distribution Width 15.3 % (11.8-14.3); White Blood Cell 6.1 10^3/uL (4.4-10.8)
[2025-03-08] MEDS: IPRATROPIUM BROM 0.5 MG/2.5ML INH SOL NEB ONE (13:10)
[2025-03-08] MEDS: ALBUTEROL SULF 2.5 MG/0.5ML(0.5%) NEB SOLN NEB ONE (13:11)
[2025-03-08 13:18] LABS: Chloride 100 mmol/L (98-107); Potassium 4.9 mmol/L (3.5-5.1)
[2025-03-08 13:19] LABS: Anion Gap 7 (5-15); Carbon Dioxide 27 mmol/L (20-31)
[2025-03-08 13:20] LABS: Calcium 9.8 mg/dL (8.7-10.4)
[2025-03-08 13:21] LABS: Sodium 134 mmol/L (136-145)
[2025-03-08 13:25] LABS: BUN/Creatinine Ratio 26.6 (10.0-20.0); Blood Urea Nitrogen 55 mg/dL (9-23); Glucose 204 mg/dL (74-106)
[2025-03-08] MEDS: FUROSEMIDE 40 MG/4 ML VIAL IV ONE (15:54)
[2025-03-08] MEDS ORDERED: ONDANSETRON HCL 4 MG/2 ML VIAL IV PRN (18:15)
[2025-03-08] MEDS ORDERED: ACETAMINOPHEN 325 MG TAB PO PRN (18:15)
[2025-03-08] MEDS ORDERED: DOCUSATE SOD 100 MG CAP PO PRN (18:15)
[2025-03-08] MEDS ORDERED: ALBUTEROL SULF 2.5 MG/0.5ML(0.5%) NEB SOLN NEB ONE (18:15)
[2025-03-08] MEDS ORDERED: DEXTROSE (50%) 50ML SYRG IV PRN (18:15)
--- NOTE | 2025-03-08 18:17 | DVHHP2 ---
Admitting Diagnosis: Lower extremity edema History of Present Illness 49 y.o female with PMHx of COPD, CHF, HTN, HLD, and thyroid disease, presents to the ED for a chief complaint of lower extremity swelling associated with redness and SOB that started 5 days ago. Patient reports SPO2 reads 88% at night time, states she wears home oxygen due to COPD hx but has no relief. Patient denies any recent punctured wounds, injuries, numbness, tingling sensation, chest pain, fever, or chills. 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 Family History Family History: Unknown, Family hx of heart candealrio Social History Smoker: Non-Smoker, Quit Greater Than 1 Year Alcohol: Denies ETOH Use Drugs: Marijuana Lives In: Home Patient Family History: Depression G8 MOTHER FH: heart attack G8 FATHER FH: lung cancer G8 MOTHER Heart cancer G8 MOTHER No Family History of: Hypercholesterolemia Allergies: Coded Allergies: Acetaminophen (Verified Allergy, Unknown, 12/31/21) Hydrocodone (Verified Allergy, Unknown, 12/31/21) Uncoded Allergies: ADHESIVE TAPE (Allergy, Severe, 12/19/18) Home Meds Active Scripts Amlodipine Besylate (NORVASC TABLET) 5 Mg Tb, 5 MG PO DAILY for 30 Days, #30 TAB 3 Refills Prov:JAKE MARIE DO 01/05/25 Oxycodone W/ Acetaminophen (Percocet 5/325MG) 1 Tab Tb, 1 TAB PO QID PRN, #30 TAB Prov:KEYON MARTINEZ MD 11/19/24 Furosemide (Lasix) 40 Mg Tab, 40 MG PO BID, #60 TAB Prov:KEYON MARTINEZ MD 11/19/24 Blood Glucose Monitoring Suppl (Blood Glucose System Gaurav) System Kit, PKG XX 5XD, #1 Administer a 30-day supply of lancets, alcohol prep pads and test strips and glucometer per insurance coverage. Prov:AKASH EVANS MD 09/25/21 Insulin Pen Needle (Bd Pen Needle/Leta 2Nd Ge 32G X 4 mm) 1 Mis Mis, MIS XX 5XD, #150 Prov:AKASH EVANS MD 09/25/21 Insulin Lispro (Humalog Kwikpen) 100 Unit/Ml Inj, 1 DOSE SC UD, #5 SYR Administer up to 40 units of insulin per provided sliding scale divided 3 times daily before meals and at bedtime. Prov:AKASH EVANS MD 09/25/21 Insulin Glargine (Basaglar Kwikpen) 100 Unit/Ml Inj, 20 UNIT SC DAILY@DINNER, #5 SYRN Prov:AKASH EVANS MD 09/25/21 Reported Medications Pregabalin (Pregabalin) 50 Mg Cap, 1 CAP PO TID 01/03/25 Fluoxetine Hcl (Fluoxetine Hcl) 40 Mg Cap, PO 01/03/25 Fluticasone Propionate (Fluticasone Propionate Hf) 110 Mcg/Act Aer, INH 01/03/25 Glipizide (Glipizide) 10 Mg Tab, 1 TAB PO DAILY 01/03/25 Apixaban Base (ELIQUIS) 2.5 Mg Tab, 1 TAB PO BID 01/03/25 Buprenorphine HCl (Buprenorphine Hydrochlori) 8 Mg Sub, 2 SL 01/03/25 Tizanidine Hydrochloride (Zanaflex) 4 Mg Tab, 2 MG PO TID, TAB 11/18/24 Meclizine Hcl (Meclizine Hcl) 12.5 Mg Tab, 25 MG PO TID, TAB 11/18/24 Diphenhydramine Hcl (Banophen) 25 Mg Cap, 25 MG PO Q6HP, CAP 11/18/24 Meloxicam (Meloxicam) 15 Mg Tab, 1 TAB PO DAILY, #30 TAB 2 Refills 11/18/24 Brexpiprazole (Rexulti) 4 Mg Tab, 4 MG PO HS, TAB 11/18/24 Pantoprazole Sodium Sesquihydr (Pantoprazole Sodium Dr) 40 Mg Tab, 20 MG PO BID, TAB 11/18/24 Deutetrabenazine (Austedo) 6 Mg Tab, 6 MG PO QPM, TAB 11/18/24 Hydroxyzine Hcl (Hydroxyzine Hcl) 50 Mg Tab, 50 MG PO HS, TAB 11/18/24 Docusate Sodium (Colace) 100 Mg Cap, 250 MG PO BID, CAP 11/18/24 Losartan Potassium (Losartan Potassium) 25 Mg Tab, 1 TAB PO DAILY, #90 TAB 1 Refill 11/18/24 Buprenorphine Hcl (Buprenorphine Hcl) 8 Mg Sub, 8 MG SL QID, INJ 11/18/24 Nitrofurantoin Monohyd Macro (Nitrofurantoin Monohydrat) 100 Mg Cap, 100 MG PO DAILY for 5 Days, CAP 11/18/24 Amitriptyline Hcl (Amitriptyline Hcl) 150 Mg Tab, 150 MG PO HS, TAB 11/18/24 Metoprolol Tartrate (Metoprolol Tartrate) 25 Mg Tab, 1 TAB PO DAILY, #180 TAB 1 Refill 11/18/24 Fenofibrate (Fenofibrate) 54 Mg Tab, 1 TAB PO DAILY, #30 TAB 5 Refills 11/18/24 Apixaban Base (ELIQUIS) 5 Mg Tab, 5 MG PO BID, TAB 11/18/24 Furosemide (Furosemide) 20 Mg Tab, 1 TAB PO DAILY, #90 TAB 1 Refill 11/18/24 Lamotrigine (Lamictal) 25 Mg Tab, 1 TAB PO DAILY, #60 TAB 1 Refill 11/18/24 Deutetrabenazine (Austedo) 12 Mg Tab, 12 MG PO DAILY, TAB 11/18/24 Fluoxetine HCl (Fluoxetine Hydrochloride) 40 Mg Cap, 80 MG PO DAILY, CAP 11/18/24 Tizanidine Hydrochloride (Zanaflex) 4 Mg Tab, 1 TAB PO TID, #90 TAB 11/17/24 Zolpidem Tartrate (Ambien) 10 Mg Tab, 1 TAB PO QPM, #30 TAB 5 Refills 06/01/18 Vital Signs Vital Signs Date Time Temp Pulse Resp B/P (MAP) Pulse Ox O2 Delivery O2 Flow Rate FiO2 03/08/25 15:54 129/79 03/08/25 15:30 98.6 63 20 92 98.6 03/08/25 15:20 Nasal Cannula* 2 28 Physical Exam 49 year old woman, morbidly obese, sitting on chair on nasal cannula 2 L. No apparent distress HEENT-atraumatic, normocephalic Heart-regular rate and rhythm lungs decreased breath sounds bilaterally Abdomen soft nontender nondistended Musculoskeletal-plus two pitting edema no cyanosis Neuro-AO x3, no focal deficits Results Labs Test 03/08/25 13:58 03/08/25 13:00 Range/Units Troponin I High Sensitivity 4 </=34 ng/L White Blood Count 6.1 4.4-10.8 10^3/uL Red Blood Count 4.44 4.0-5.20 10^6/uL Hemoglobin 12.4 12.2-16.2 g/dL Hematocrit 36.6 36.0-46.0 % Mean Corpuscular Volume 82.5 80.0-100.0 fL Mean Corpuscular Hemoglobin 27.8 L 28.0-32.0 pg Mean Corpuscular Hemoglobin Concent 33.7 32.0-36.0 g/dL Red Cell Distribution Width 15.3 H 11.8-14.3 % Platelet Count 213 140-450 10^3/uL Mean Platelet Volume 7.1 6.9-10.8 fL Neutrophils (%) (Auto) 63.8 37.0-80.0 % Lymphocytes (%) (Auto) 26.2 10.0-50.0 % Monocytes (%) (Auto) 6.0 0.0-12.0 % Eosinophils (%) (Auto) 3.0 0.0-7.0 % Basophils (%) (Auto) 1.0 0.0-2.0 % Neutrophils # (Auto) 3.9 1.6-8.6 10 ^3/uL Lymphocytes # (Auto) 1.6 0.4-5.4 10 ^3/uL Monocytes # (Auto) 0.4 0-1.3 10 ^3/uL Eosinophils # (Auto) 0.2 0-0.8 10 ^3/uL Basophils # (Auto) 0.1 0-0.2 10 ^3/uL Nucleated Red Blood Cells 0.1 % Sodium Level 134 L 136-145 mmol/L Potassium Level 4.9 3.5-5.1 mmol/L Chloride Level 100 98-107 mmol/L Carbon Dioxide Level 27 20-31 mmol/L Anion Gap 7 5-15 Blood Urea Nitrogen 55 H 9-23 mg/dL Creatinine 2.07 H 0.550-1.02 mg/dL Glomerular Filtration Rate Calc 28 >90 mL/min BUN/Creatinine Ratio 26.6 H 10.0-20.0 Serum Glucose 204 H 74-106 mg/dL Calcium Level 9.8 8.7-10.4 mg/dL B-Type Natriuretic Peptide 76.83 0-100 pg/mL Primary Diagnosis Bilateral lower extremity edema likely due to acute kidney injuries on CKD rule out heart failure Plan Bilateral DVT study . History of DVT on Eliquis Continue on home oxygen for COPD IV Lasix b.i.d. Daily weights Strict in and out Check echo of the heart to assess for heart failure Ultrasound kidney to assess for DURGA on CKD Dr. Brennan consult for DURGA on CKD Lower back pain constant, resume home meds [place] 10 mg. PRN Resume home meds Insulin sliding scale moderate Lantus 20 units q.h.s. Full code Eliquis for DVT prophylaxis Renal diet No GI prophylaxis needed Plan discussed with: Patient Problems List: (1) Acute renal disease Status: Acute (2) COPD exacerbation Status: Acute Date of Service: Mar 08, 2025 Billing Provider: JAX TRENT MD Common Visit Codes: [id number] INP/OBS CARE (HIGH) JAX TRENT MD Mar 08, 2025 18:17
--- NOTE | 2025-03-08 19:07 | DVH ---
RENAL ULTRASOUND REASON FOR EXAM: DURGA on CKD. History of left nephrectomy. COMPARISON: US KIDNEY on DOS: 11/16/24, KIDNEY on DOS: 09/24/21 TECHNIQUE: Real-time sector scans in multiple planes were obtained over the kidneys, ureters and philipp dder. FINDINGS: The right kidney measures 10.8 cm. The left kidney has been removed. Right kidney echogen icity is not increased. No solid mass is identified. There is a 0.5 cm shadowing echogenic calculus i n the superior pole of the right kidney. There is a 1.5 x 1.3 x 1.3 cm anechoic simple cyst at the rogel perior pole of the right kidney. A few additional tiny anechoic cortical cysts are noted in the right kidney. There is no hydronephrosis. The urinary bladder is within normal limits. IMPRESSION: No abnormality identified in the left nephrectomy bed. Nonobstructive 0.5 cm right renal calculus. No hydronephrosis. Few simple right renal cysts, the largest measuring 1.5 cm at the superior pole.
[2025-03-08 19:19] VITALS: BP 129/79; PULSE 63; RESP 20; TEMP 98.6; O2SAT 92
[2025-03-08 21:00] VITALS: BP 134/68; PULSE 73; RESP 16; TEMP 98.1; O2SAT 93
[2025-03-08] MEDS: HYDROcodone-ACET 5/325MG TAB PO PRN (21:21)
[2025-03-08] MEDS: FUROSEMIDE 40 MG/4 ML VIAL IV SCH (21:21)
[2025-03-08] MEDS: INSULIN LANTUS (GLARGINE) 1 /0.01ml (100units/ml) SC SCH (22:00)
[2025-03-08] MEDS: ACCU-CHEK COMFORT CURVE STRIP VI SCH (22:00)
[2025-03-08] MEDS: InsuLIN REG 1unit/0.01ml Soln (100units/ml) SC SCH (22:00)
--- NOTE | 2025-03-08 22:10 | DVH ---
Bilateral lower extremity venous duplex Clinical History: Bilateral lower extremity edema with a history of DVT Comparison: None Technique: Duplex Doppler evaluation of the deep venous systems of both lower extremities from the common femora l veins to the popliteal veins including color Doppler and spectral/pulsed waveform analysis was perf ormed. Findings: RIGHT SIDE: The common femoral vein demonstrates appropriate compressibility and waveform variability. There is compressibility/patency of the great saphenous vein at the proximal thigh. The femoral vein demonstrates appropriate compressibility and waveform variability. The deep femoral vein demonstrates appropriate compressibility and waveform variability. The popliteal vein demonstrates appropriate compressibility and waveform variability. There is normal compressibility at the tibioperoneal trunk. LEFT SIDE: The common femoral vein demonstrates appropriate compressibility and waveform variability. There is compressibility/patency of the great saphenous vein at the proximal thigh. The femoral vein demonstrates appropriate compressibility and waveform variability. The deep femoral vein demonstrates appropriate compressibility and waveform variability. The popliteal vein demonstrates appropriate compressibility and waveform variability. There is normal compressibility at the tibioperoneal trunk. Impression: 1. No right or left femoropopliteal venous thrombosis. HS:Y
[2025-03-08] MEDS: PREGABALIN 25 MG CAP PO SCH (22:29)
[2025-03-08] MEDS: APIXABAN 5 MG TAB PO SCH (22:29)
[2025-03-08] MEDS: SODIUM CHLOR 0.9% PF (SALINE LOCK) 10ML VIAL/SYR IV SCH (22:29)
[2025-03-08 23:10] VITALS: BP 134/68; PULSE 73; RESP 16; TEMP 98.1; O2SAT 93
[2025-03-09] VITALS (8 sets, daily range): BP systolic 111–138; BP diastolic 65–82; PULSE 54–74; RESP 17–20; TEMP 96.8–98.1; O2SAT 88–97
[2025-03-09] MEDS: InsuLIN REG 1unit/0.01ml Soln (100units/ml) SC SCH (06:32)
[2025-03-09 06:39] LABS: Basophils # (auto) 0.1 10 ^3/uL (0-0.2); Basophils % (auto) 1.2 % (0.0-2.0); Eosinophils # (auto) 0.2 10 ^3/uL (0-0.8); Eosinophils % (auto) 3.6 % (0.0-7.0); Lymphocytes # (auto) 1.4 10 ^3/uL (0.4-5.4); Lymphocytes % (auto) 33.1 % (10.0-50.0); Mean Corpuscular Hemoglobin 28.1 pg (28.0-32.0); Mean Corpuscular Hgb Conc. 34.2 g/dL (32.0-36.0); Mean Corpuscular Volume 82.2 fL (80.0-100.0); Monocytes # (auto) 0.3 10 ^3/uL (0-1.3); Monocytes % (auto) 6.8 % (0.0-12.0); Neutrophils # (auto) 2.3 10 ^3/uL (1.6-8.6); Neutrophils % (auto) 55.3 % (37.0-80.0); Nucleated Red Blood Cells % 0.2 %; Platelet Count (auto) 203 10^3/uL (140-450); Red Blood Cells 4.26 10^6/uL (4.0-5.20); Red Cell Distribution Width 15.5 % (11.8-14.3); White Blood Cell 4.2 10^3/uL (4.4-10.8)
[2025-03-09 06:42] LABS: Alanine Aminotransferase 14 U/L (7-40); Alkaline Phosphatase 95 U/L (46-116); Anion Gap 8 (5-15); Aspartate Aminotransferase 13 U/L (<34); Chloride 100 mmol/L (98-107); Potassium 4.1 mmol/L (3.5-5.1); Sodium 139 mmol/L (136-145); Total Protein 6.4 g/dL (5.7-8.2)
[2025-03-09 06:43] LABS: Bilirubin, Total 0.4 mg/dL (0.2-1.0); Blood Urea Nitrogen 54 mg/dL (9-23); Carbon Dioxide 31 mmol/L (20-31); Glucose 161 mg/dL (74-106)
--- NOTE | 2025-03-09 09:36 | DVHINCON2 ---
Date of service: Mar 09, 2025 Referring Physician Reason for Consultation blanca History of Present Illness 49 y.o female with PMHx of COPD, CHF, HTN, HLD, and thyroid disease, presents to the ED for a chief complaint of lower extremity swelling associated with redness and SOB that started 5 days ago Past Medical History As above Allergies: Coded Allergies: Acetaminophen (Verified Adverse Reaction, Unknown, LITTLE ITCHY, DOES TAKE IT, 03/08/25) Hydrocodone (Verified Adverse Reaction, Unknown, LITTLE ITCHY, DOES TAKE IT, 03/08/25) Uncoded Allergies: ADHESIVE TAPE (Allergy, Severe, 12/19/18) Home Meds Active Scripts Amlodipine Besylate (NORVASC TABLET) 5 Mg Tb, 5 MG PO DAILY for 30 Days, #30 TAB 3 Refills Prov:JAKE MARIE DO 01/05/25 Oxycodone W/ Acetaminophen (Percocet 5/325MG) 1 Tab Tb, 1 TAB PO QID PRN, #30 TAB Prov:KEYON MARTINEZ MD 11/19/24 Furosemide (Lasix) 40 Mg Tab, 40 MG PO BID, #60 TAB Prov:KEYON MARTINEZ MD 11/19/24 Blood Glucose Monitoring Suppl (Blood Glucose System Gaurav) System Kit, PKG XX 5X D, #1 Administer a 30-day supply of lancets, alcohol prep pads and test strips and glucometer per insurance coverage. Prov:AKASH EVANS MD 09/25/21 Insulin Pen Needle (Bd Pen Needle/Leta 2Nd Ge 32G X 4 mm) 1 Mis Mis, MIS XX 5XD, #150 Prov:AKASH EVANS MD 09/25/21 Insulin Lispro (Humalog Kwikpen) 100 Unit/Ml Inj, 1 DOSE SC UD, #5 SYR Administer up to 40 units of insulin per provided sliding scale divided 3 times daily before meals and at bedtime. Prov:AKASH EVANS MD 09/25/21 Insulin Glargine (Basaglar Kwikpen) 100 Unit/Ml Inj, 20 UNIT SC DAILY@DINNER, #5 SYRN Prov:AKASH EVANS MD 09/25/21 Reported Medications Pregabalin (Pregabalin) 50 Mg Cap, 1 CAP PO TID 01/03/25 Fluoxetine Hcl (Fluoxetine Hcl) 40 Mg Cap, PO 01/03/25 Fluticasone Propionate (Fluticasone Propionate Hf) 110 Mcg/Act Aer, INH 01/03/25 Glipizide (Glipizide) 10 Mg Tab, 1 TAB PO DAILY 01/03/25 Apixaban Base (ELIQUIS) 2.5 Mg Tab, 1 TAB PO BID 01/03/25 Buprenorphine HCl (Buprenorphine Hydrochlori) 8 Mg Sub, 2 SL 01/03/25 Tizanidine Hydrochloride (Zanaflex) 4 Mg Tab, 2 MG PO TID, TAB 11/18/24 Meclizine Hcl (Meclizine Hcl) 12.5 Mg Tab, 25 MG PO TID, TAB 11/18/24 Diphenhydramine Hcl (Banophen) 25 Mg Cap, 25 MG PO Q6HP, CAP 11/18/24 Meloxicam (Meloxicam) 15 Mg Tab, 1 TAB PO DAILY, #30 TAB 2 Refills 11/18/24 Brexpiprazole (Rexulti) 4 Mg Tab, 4 MG PO HS, TAB 11/18/24 Pantoprazole Sodium Sesquihydr (Pantoprazole Sodium Dr) 40 Mg Tab, 20 MG PO BID, TAB 11/18/24 Deutetrabenazine (Austedo) 6 Mg Tab, 6 MG PO QPM, TAB 11/18/24 Hydroxyzine Hcl (Hydroxyzine Hcl) 50 Mg Tab, 50 MG PO HS, TAB 11/18/24 Docusate Sodium (Colace) 100 Mg Cap, 250 MG PO BID, CAP 11/18/24 Losartan Potassium (Losartan Potassium) 25 Mg Tab, 1 TAB PO DAILY, #90 TAB 1 Refill 11/18/24 Buprenorphine Hcl (Buprenorphine Hcl) 8 Mg Sub, 8 MG SL QID, INJ 11/18/24 Nitrofurantoin Monohyd Macro (Nitrofurantoin Monohydrat) 100 Mg Cap, 100 MG PO DAILY for 5 Days, CAP 11/18/24 Amitriptyline Hcl (Amitriptyline Hcl) 150 Mg Tab, 150 MG PO HS, TAB 11/18/24 Metoprolol Tartrate (Metoprolol Tartrate) 25 Mg Tab, 1 TAB PO DAILY, #180 TAB 1 Refill 11/18/24 Fenofibrate (Fenofibrate) 54 Mg Tab, 1 TAB PO DAILY, #30 TAB 5 Refills 11/18/24 Apixaban Base (ELIQUIS) 5 Mg Tab, 5 MG PO BID, TAB 11/18/24 Furosemide (Furosemide) 20 Mg Tab, 1 TAB PO DAILY, #90 TAB 1 Refill 11/18/24 Lamotrigine (Lamictal) 25 Mg Tab, 1 TAB PO DAILY, #60 TAB 1 Refill 11/18/24 Deutetrabenazine (Austedo) 12 Mg Tab, 12 MG PO DAILY, TAB 11/18/24 Fluoxetine HCl (Fluoxetine Hydrochloride) 40 Mg Cap, 80 MG PO DAILY, CAP 11/18/24 Tizanidine Hydrochloride (Zanaflex) 4 Mg Tab, 1 TAB PO TID, #90 TAB 11/17/24 Zolpidem Tartrate (Ambien) 10 Mg Tab, 1 TAB PO QPM, #30 TAB 5 Refills 06/01/18 Current Medications Current Medications Medications (Trade) Dose Ordered Sig/Luke Route PRN Reason Start Time Stop Time Status Last Admin Furosemide (Lasix Injection) 40 mg BIDD IV 03/08/25 20:00 03/09/25 09:50 DC 03/09/25 06:06 Amlodipine Besylate (Norvasc Tablet) 5 mg DAILY PO 03/09/25 10:00 03/09/25 09:43 Apixaban (Eliquis) 5 mg BID PO 03/08/25 22:00 03/09/25 09:43 Losartan Potassium (Cozaar Tablet) 25 mg DAILY PO 03/09/25 10:00 03/09/25 09:44 Metoprolol Tartrate (Lopressor Tablet) 25 mg DAILY PO 03/09/25 10:00 03/09/25 09:44 Patient Own Medication 150 mg HS PO 03/08/25 22:00 Patient Own Medication 4 mg HS PO 03/08/25 22:00 Patient Own Medication 8 mg QID SL 03/08/25 22:00 Patient Own Medication 12 mg DAILY PO 03/09/25 10:00 Fluoxetine HCl (PROzac CAPSULE) 80 mg DAILY PO 03/09/25 10:00 03/09/25 09:43 Pregabalin (Lyrica Capsule) 50 mg TID PO 03/08/25 22:00 03/09/25 14:08 Sodium Chloride (Saline Lock Ns) 10 ml Q8HR IV 03/08/25 22:00 03/09/25 14:08 Diagnostic Test (Pha) (Accu-Chek Comfort Curve T) 1 strip ACHS 03/08/25 22:00 03/09/25 16:49 Insulin Human Regular (InsuLIN R) HS SC 03/08/25 22:00 03/08/25 22:00 Insulin Human Regular (InsuLIN R) AC SC 03/09/25 07:00 03/09/25 17:00 Insulin Glargine (Lantus) 20 units HS SC 03/08/25 22:00 03/08/25 22:00 Albuterol (Ventolin Medneb) 2.5 mg Q6HPRN PRN NEB SHORTNESS OF BREATH 03/08/25 19:00 Bumetanide (Bumex Injection) 2 mg BIDD IV 03/09/25 18:00 03/09/25 17:16 Ceftriaxone Sodium 50 ml @ 100 mls/hr DAILY@09 IV 03/10/25 09:00 Family History: Depression G8 MOTHER FH: heart attack G8 FATHER FH: lung cancer G8 MOTHER Heart cancer G8 MOTHER No Family History of: Hypercholesterolemia Review of Systems HEENT-denies headache, denies vision changes, no hearing issue, denies neck complaints, denies throat issues Respiratory system-denies cough, positive shortness of breath Cardiovascular system-denies chest pain, denies palpitations Abdomen-denies abdominal pain, denies nausea, denies vomiting, denies constipation or diarrhea Musculoskeletal-positive swelling in the legs, denies pain in the extremities Genitourinary-denies urinary symptoms like dysuria, stream issues Neuro-denies dizziness, denies seizures Psychiatric-denies psychiatric history H&P Exam Vital Signs/I&O Vital Sign Date Time Temp Pulse Resp B/P (MAP) Pulse Ox O2 Delivery O2 Flow Rate FiO2 03/09/25 17:16 113/73 03/09/25 17:00 97.9 62 17 90 97.9 03/09/25 10:17 Nasal Cannula 2.0 03/09/25 10:17 28 Intake and Output 03/08/25 03/09/25 19:00 07:00 Intake Total 450 ml Output Total 1600 ml Balance -1150 ml Intake Oral 100 ml Other 350 ml Output Urine Total 1600 ml # Voids 2 Physical Exam General-not in any distress HEENT-normocephalic, no icterus, no pallor, neck supple Respiratory-fair air entry bilateral, no rhonchi, no wheeze [id number] heard, no murmurs appreciated Abdominal-soft, nontender, nondistended Musculoskeletal-++ pedal edema, no calf tenderness Genitourinary-deferred Neuro-awake alert oriented x3, Psychiatric-not agitated, cooperative, Labs/Diagnostic Data Labs/Diagnostic Data Laboratory Tests Test 03/09/25 16:41 03/09/25 11:26 03/09/25 05:41 03/09/25 05:26 Range/Units POC Glucose 207 H 248 H 183 H 70-106 mg/dl White Blood Count 4.2 #L 4.4-10.8 10^3/uL Red Blood Count 4.26 4.0-5.20 10^6/uL Hemoglobin 12.0 L 12.2-16.2 g/dL Hematocrit 35.0 L 36.0-46.0 % Mean Corpuscular Volume 82.2 80.0-100.0 fL Mean Corpuscular Hemoglobin 28.1 28.0-32.0 pg Mean Corpuscular Hemoglobin Concent 34.2 32.0-36.0 g/dL Red Cell Distribution Width 15.5 H 11.8-14.3 % Platelet Count 203 140-450 10^3/uL Mean Platelet Volume 7.4 6.9-10.8 fL Neutrophils (%) (Auto) 55.3 37.0-80.0 % Lymphocytes (%) (Auto) 33.1 10.0-50.0 % Monocytes (%) (Auto) 6.8 0.0-12.0 % Eosinophils (%) (Auto) 3.6 0.0-7.0 % Basophils (%) (Auto) 1.2 0.0-2.0 % Neutrophils # (Auto) 2.3 1.6-8.6 10 ^3/uL Lymphocytes # (Auto) 1.4 0.4-5.4 10 ^3/uL Monocytes # (Auto) 0.3 0-1.3 10 ^3/uL Eosinophils # (Auto) 0.2 0-0.8 10 ^3/uL Basophils # (Auto) 0.1 0-0.2 10 ^3/uL Nucleated Red Blood Cells 0.2 % Sodium Level 139 # 136-145 mmol/L Potassium Level 4.1 3.5-5.1 mmol/L Chloride Level 100 98-107 mmol/L Carbon Dioxide Level 31 20-31 mmol/L Anion Gap 8 5-15 Blood Urea Nitrogen 54 H 9-23 mg/dL Creatinine 2.08 H 0.550-1.02 mg/dL Glomerular Filtration Rate Calc 28 >90 mL/min BUN/Creatinine Ratio 26.0 H 10.0-20.0 Serum Glucose 161 H 74-106 mg/dL Calcium Level 10.0 8.7-10.4 mg/dL Total Bilirubin 0.4 0.2-1.0 mg/dL Aspartate Amino Transferase (AST) 13 <34 U/L Alanine Aminotransferase (ALT) 14 7-40 U/L Alkaline Phosphatase 95 46-116 U/L Total Protein 6.4 5.7-8.2 g/dL Albumin 4.0 3.2-4.8 g/dL Test 03/08/25 22:31 03/08/25 13:58 03/08/25 13:00 Range/Units POC Glucose 279 H 70-106 mg/dl Troponin I High Sensitivity 4 3 L </=34 ng/L White Blood Count 6.1 4.4-10.8 10^3/uL Red Blood Count 4.44 4.0-5.20 10^6/uL Hemoglobin 12.4 12.2-16.2 g/dL Hematocrit 36.6 36.0-46.0 % Mean Corpuscular Volume 82.5 80.0-100.0 fL Mean Corpuscular Hemoglobin 27.8 L 28.0-32.0 pg Mean Corpuscular Hemoglobin Concent 33.7 32.0-36.0 g/dL Red Cell Distribution Width 15.3 H 11.8-14.3 % Platelet Count 213 140-450 10^3/uL Mean Platelet Volume 7.1 6.9-10.8 fL Neutrophils (%) (Auto) 63.8 37.0-80.0 % Lymphocytes (%) (Auto) 26.2 10.0-50.0 % Monocytes (%) (Auto) 6.0 0.0-12.0 % Eosinophils (%) (Auto) 3.0 0.0-7.0 % Basophils (%) (Auto) 1.0 0.0-2.0 % Neutrophils # (Auto) 3.9 1.6-8.6 10 ^3/uL Lymphocytes # (Auto) 1.6 0.4-5.4 10 ^3/uL Monocytes # (Auto) 0.4 0-1.3 10 ^3/uL Eosinophils # (Auto) 0.2 0-0.8 10 ^3/uL Basophils # (Auto) 0.1 0-0.2 10 ^3/uL Nucleated Red Blood Cells 0.1 % Sodium Level 134 L 136-145 mmol/L Potassium Level 4.9 3.5-5.1 mmol/L Chloride Level 100 98-107 mmol/L Carbon Dioxide Level 27 20-31 mmol/L Anion Gap 7 5-15 Blood Urea Nitrogen 55 H 9-23 mg/dL Creatinine 2.07 H 0.550-1.02 mg/dL Glomerular Filtration Rate Calc 28 >90 mL/min BUN/Creatinine Ratio 26.6 H 10.0-20.0 Serum Glucose 204 H 74-106 mg/dL Calcium Level 9.8 8.7-10.4 mg/dL B-Type Natriuretic Peptide 76.83 0-100 pg/mL Assessment Chronic kidney disease 4--follows Dr. Brennan Acute on chronic diastolic heart failure Morbid obesity Hypertension Recommendations Bumex 2 mg IV b.i.d. Fluid restriction Blood pressure control we will follow closely Plan discussed with: Patient RANDY STATON MD Mar 09, 2025 09:36
[2025-03-09] MEDS: amLODIPine BESYLATE 5 MG TAB PO SCH (09:43)
[2025-03-09] MEDS: FLUoxetine HCL 20 MG CAP PO SCH (09:43)
[2025-03-09] MEDS: LOSARTAN POTASSIUM 25 MG TAB PO SCH (09:44)
[2025-03-09] MEDS: METOPROLOL TARTRATE 25 MG TAB PO SCH (09:44)
[2025-03-09] MEDS: BUMETANIDE 2.5mg/10ml (0.25 mg/ml) INJ IV ONE (10:41)
--- NOTE | 2025-03-09 13:13 | DVHPN2 ---
Reviewed: Care Plan, H&P, Labs, Medications, Previous Orders, Radiology Changes from previous H/P or p: No Changes Objective Vitals Vital Signs Date Time Temp Pulse Resp B/P (MAP) Pulse Ox O2 Delivery O2 Flow Rate FiO2 03/09/25 12:43 97.9 54 17 111/68 (82) 90 97.9 03/09/25 10:17 Nasal Cannula 2.0 03/09/25 10:17 28 Intake/Output Intake and Output 03/09/25 07:00 Intake Total 450 ml Output Total 1600 ml Balance -1150 ml Intake Oral 100 ml Other 350 ml Output Urine Total 1600 ml # Voids 2 Medications Current Medications Medications Dose Ordered Sig/Luke Route Start Time Stop Time Status Last Admin Dose Admin Amlodipine Besylate 5 mg DAILY PO 03/09/25 10:00 03/09/25 09:43 5 MG Apixaban 5 mg BID PO 03/08/25 22:00 03/09/25 09:43 5 MG Losartan Potassium 25 mg DAILY PO 03/09/25 10:00 03/09/25 09:44 25 MG Metoprolol Tartrate 25 mg DAILY PO 03/09/25 10:00 03/09/25 09:44 25 MG Patient Own Medication 150 mg HS PO 03/08/25 22:00 Patient Own Medication 4 mg HS PO 03/08/25 22:00 Patient Own Medication 8 mg QID SL 03/08/25 22:00 Patient Own Medication 12 mg DAILY PO 03/09/25 10:00 Fluoxetine HCl 80 mg DAILY PO 03/09/25 10:00 03/09/25 09:43 80 MG Pregabalin 50 mg TID PO 03/08/25 22:00 03/09/25 06:07 50 MG Ipratropium [place] 0.5 mg Q6H PRN NEB 03/08/25 18:15 Sodium Chloride 10 ml Q8HR IV 03/08/25 22:00 03/09/25 06:06 10 ML Docusate Sodium 100 mg BIDPRN PRN PO 03/08/25 18:15 Acetaminophen 650 mg Q6HP PRN PO 03/08/25 18:15 Acetaminophen/ Hydrocodone Bitart 2 tab Q4HP PRN PO 03/08/25 18:15 03/09/25 12:59 2 TAB Ondansetron HCl 4 mg Q4HP PRN IV 03/08/25 18:15 Diagnostic Test (Pha) 1 strip ACHS 03/08/25 22:00 03/09/25 11:28 1 STRIP Insulin Human Regular HS SC 03/08/25 22:00 03/08/25 22:00 6 UNITS Insulin Human Regular AC SC 03/09/25 07:00 03/09/25 11:33 6 UNITS Dextrose 50 ml UD PRN IV 03/08/25 18:15 Insulin Glargine 20 units HS SC 03/08/25 22:00 03/08/25 22:00 20 UNITS Albuterol 2.5 mg Q6HPRN PRN NEB 03/08/25 19:00 Bumetanide 2 mg BIDD IV 03/09/25 18:00 Laboratory Results Laboratory Tests 03/09/25 05:26 Chemistry Test 03/09/25 05:26 Albumin 4.0 g/dL (3.2-4.8) Calcium Level 10.0 mg/dL (8.7-10.4) Total Protein 6.4 g/dL (5.7-8.2) LFT Test 03/09/25 05:26 Alanine Aminotransferase (ALT) 14 U/L (7-40) Alkaline Phosphatase 95 U/L (46-116) Aspartate Amino Transferase (AST) 13 U/L (<34) Total Bilirubin 0.4 mg/dL (0.2-1.0) Assessment/Plan Assessment/Plan Bilateral lower extremity edema CHF exacerbation: Consult for Cardiology COPD Home oxygen use Diabetes Hypertension Hypercholesterolemia Hypothyroidism DVT ruled out pneumonia DURGA on CKD: Nephrology consult Possible right lower lobe pneumonia: Rocephin Time spent 70 minutes Advanced care planning time 20 minutes Patient is full Plan discussed with: Patient Date of Service: Mar 09, 2025 Billing Provider: KEYON MARTINEZ MD Common Visit Codes: [id number] CARE 30-74 MIN KEYON MARTINEZ MD Mar 09, 2025 13:13
[2025-03-09] MEDS: cefTRIAXone 1GM/50ML D5W 50 ML IV ONE (14:07)
--- NOTE | 2025-03-09 14:17 | ECG ---
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
--- NOTE | 2025-03-09 16:31 | DVHINCON2 ---
Date Seen: Mar 09, 2025 Referring Physician MD Art Reason for Consultation CHF exacerbation History of Present Illness This is a 49-year-old female patient who presents to the emergency room with chief complaint of bilateral lower extremity edema, dyspnea on exertion, and nocturnal orthopnea for six days. The patient decided to come to the emergency room for further evaluation. Cardiology has been consulted at this time for CHF exacerbation. Initial twelve lead electrocardiogram reveals normal sinus rhythm with baseline wander and diffuse nonspecific ST segment changes (poor quality EKG). Troponin levels have been negative. Patient denies any chest pain or pal pitations at time of assessment. Significant past medical history includes hypertension, dyslipidemia, history of right lower extremity DVT, COPD, asthma, chronic kidney disease, type 2 diabetes mellitus, tobacco use and morbid obesity. She reports that she has a upcoming appointment to establish care with eeler next month. Past Medical History Past medical history reviewed. No other significant than mentioned above. Past Surgical History Left nephrectomy Partial hysterectomy Family History: Depression G8 MOTHER FH: heart attack G8 FATHER FH: lung cancer G8 MOTHER Heart cancer G8 MOTHER No Family History of: Hypercholesterolemia Family History Family history reviewed. Social History Patient has a 29 pack-year history, quit smoking approximately 11 years ago Patient admits to occasional marijuana use Patient denies any alcohol use Allergies: Coded Allergies: Acetaminophen (Verified Adverse Reaction, Unknown, LITTLE ITCHY, DOES TAKE IT, 03/08/25) Hydrocodone (Verified Adverse Reaction, Unknown, LITTLE ITCHY, DOES TAKE IT, 03/08/25) Uncoded Allergies: ADHESIVE TAPE (Allergy, Severe, 12/19/18) Home Meds Active Scripts Amlodipine Besylate (NORVASC TABLET) 5 Mg Tb, 5 MG PO DAILY for 30 Days, #30 TAB 3 Refills Prov:JAKE MARIE DO 01/05/25 Oxycodone W/ Acetaminophen (Percocet 5/325MG) 1 Tab Tb, 1 TAB PO QID PRN, #30 TA B Prov:KEYON MARTINEZ MD 11/19/24 Furosemide (Lasix) 40 Mg Tab, 40 MG PO BID, #60 TAB Prov:KEYON MARTINEZ MD 11/19/24 Blood Glucose Monitoring Suppl (Blood Glucose System Gaurav) System Kit, PKG XX 5XD, #1 Administer a 30-day supply of lancets, alcohol prep pads and test strips and glucometer per insurance coverage. Prov:AKASH EVANS MD 09/25/21 Insulin Pen Needle (Bd Pen Needle/Leta 2Nd Ge 32G X 4 mm) 1 Mis Mis, MIS XX 5XD, #150 Prov:AKASH EVANS MD 09/25/21 Insulin Lispro (Humalog Kwikpen) 100 Unit/Ml Inj, 1 DOSE SC UD, #5 SYR Administer up to 40 units of insulin per provided sliding scale divided 3 times daily before meals and at bedtime. Prov:AKASH EVANS MD 09/25/21 Insulin Glargine (Basaglar Kwikpen) 100 Unit/Ml Inj, 20 UNIT SC DAILY@DINNER, #5 SYRN Prov:AKASH EVANS MD 09/25/21 Reported Medications Pregabalin (Pregabalin) 50 Mg Cap, 1 CAP PO TID 01/03/25 Fluoxetine Hcl (Fluoxetine Hcl) 40 Mg Cap, PO 01/03/25 Fluticasone Propionate (Fluticasone Propionate Hf) 110 Mcg/Act Aer, INH 01/03/25 Glipizide (Glipizide) 10 Mg Tab, 1 TAB PO DAILY 01/03/25 Apixaban Base (ELIQUIS) 2.5 Mg Tab, 1 TAB PO BID 01/03/25 Buprenorphine HCl (Buprenorphine Hydrochlori) 8 Mg Sub, 2 SL 01/03/25 Tizanidine Hydrochloride (Zanaflex) 4 Mg Tab, 2 MG PO TID, TAB 11/18/24 Meclizine Hcl (Meclizine Hcl) 12.5 Mg Tab, 25 MG PO TID, TAB 11/18/24 Diphenhydramine Hcl (Banophen) 25 Mg Cap, 25 MG PO Q6HP, CAP 11/18/24 Meloxicam (Meloxicam) 15 Mg Tab, 1 TAB PO DAILY, #30 TAB 2 Refills 11/18/24 Brexpiprazole (Rexulti) 4 Mg Tab, 4 MG PO HS, TAB 11/18/24 Pantoprazole Sodium Sesquihydr (Pantoprazole Sodium Dr) 40 Mg Tab, 20 MG PO BID, TAB 11/18/24 Deutetrabenazine (Austedo) 6 Mg Tab, 6 MG PO QPM, TAB 11/18/24 Hydroxyzine Hcl (Hydroxyzine Hcl) 50 Mg Tab, 50 MG PO HS, TAB 11/18/24 Docusate Sodium (Colace) 100 Mg Cap, 250 MG PO BID, CAP 11/18/24 Losartan Potassium (Losartan Potassium) 25 Mg Tab, 1 TAB PO DAILY, #90 TAB 1 Refill 11/18/24 Buprenorphine Hcl (Buprenorphine Hcl) 8 Mg Sub, 8 MG SL QID, INJ 11/18/24 Nitrofurantoin Monohyd Macro (Nitrofurantoin Monohydrat) 100 Mg Cap, 100 MG PO DAILY for 5 Days, CAP 11/18/24 Amitriptyline Hcl (Amitriptyline Hcl) 150 Mg Tab, 150 MG PO HS, TAB 11/18/24 Metoprolol Tartrate (Metoprolol Tartrate) 25 Mg Tab, 1 TAB PO DAILY, #180 TAB 1 Refill 11/18/24 Fenofibrate (Fenofibrate) 54 Mg Tab, 1 TAB PO DAILY, #30 TAB 5 Refills 11/18/24 Apixaban Base (ELIQUIS) 5 Mg Tab, 5 MG PO BID, TAB 11/18/24 Furosemide (Furosemide) 20 Mg Tab, 1 TAB PO DAILY, #90 TAB 1 Refill 11/18/24 Lamotrigine (Lamictal) 25 Mg Tab, 1 TAB PO DAILY, #60 TAB 1 Refill 11/18/24 Deutetrabenazine (Austedo) 12 Mg Tab, 12 MG PO DAILY, TAB 11/18/24 Fluoxetine HCl (Fluoxetine Hydrochloride) 40 Mg Cap, 80 MG PO DAILY, CAP 11/18/24 Tizanidine Hydrochloride (Zanaflex) 4 Mg Tab, 1 TAB PO TID, #90 TAB 11/17/24 Zolpidem Tartrate (Ambien) 10 Mg Tab, 1 TAB PO QPM, #30 TAB 5 Refills 06/01/18 Home Meds Home medications reviewed. Current Medications Current Medications Medications (Trade) Dose Ordered Sig/Luke Route PRN Reason Start Time Stop Time Status Last Admin Furosemide (Lasix Injection) 40 mg BIDD IV 03/08/25 20:00 03/09/25 09:50 DC 03/09/25 06:06 Amlodipine Besylate (Norvasc Tablet) 5 mg DAILY PO 03/09/25 10:00 03/09/25 09:43 Apixaban (Eliquis) 5 mg BID PO 03/08/25 22:00 03/09/25 09:43 Losartan Potassium (Cozaar Tablet) 25 mg DAILY PO 03/09/25 10:00 03/09/25 09:44 Metoprolol Tartrate (Lopressor Tablet) 25 mg DAILY PO 03/09/25 10:00 03/09/25 09:44 Patient Own Medication 150 mg HS PO 03/08/25 22:00 Patient Own Medication 4 mg HS PO 03/08/25 22:00 Patient Own Medication 8 mg QID SL 03/08/25 22:00 Patient Own Medication 12 mg DAILY PO 03/09/25 10:00 Fluoxetine HCl (PROzac CAPSULE) 80 mg DAILY PO 03/09/25 10:00 03/09/25 09:43 Pregabalin (Lyrica Capsule) 50 mg TID PO 03/08/25 22:00 03/09/25 14:08 Ipratropium [place] (Atrovent Medneb) 0.5 mg Q6H PRN NEB SHORTNESS OF BREATH 03/08/25 18:15 Sodium Chloride (Saline Lock Ns) 10 ml Q8HR IV 03/08/25 22:00 03/09/25 14:08 Docusate Sodium (Colace Capsule) 100 mg BIDPRN PRN PO FOR CONSTIPATION 03/08/25 18:15 Acetaminophen (Tylenol Tablet) 650 mg Q6HP PRN PO PAIN SCALE 1-3 OR TEMP>100.4 03/08/25 18:15 Acetaminophen/ Hydrocodone Bitart (Alverda 5/325MG Tab) 2 tab Q4HP PRN PO MODERATE PAIN (4-6 PAIN SCALE) 03/08/25 18:15 03/09/25 12:59 Ondansetron HCl (Zofran) 4 mg Q4HP PRN IV NAUSEA / VOMITING 03/08/25 18:15 Diagnostic Test (Pha) (Accu-Chek Comfort Curve T) 1 strip ACHS 03/08/25 22:00 03/09/25 11:28 Insulin Human Regular (InsuLIN R) HS SC 03/08/25 22:00 03/08/25 22:00 Insulin Human Regular (InsuLIN R) AC SC 03/09/25 07:00 03/09/25 11:33 Dextrose 50 ml UD PRN IV Blood Sugar LESS THAN 60 03/08/25 18:15 Insulin Glargine (Lantus) 20 units HS SC 03/08/25 22:00 03/08/25 22:00 Albuterol (Ventolin Medneb) 2.5 mg Q6HPRN PRN NEB SHORTNESS OF BREATH 03/08/25 19:00 Bumetanide (Bumex Injection) 2 mg BIDD IV 03/09/25 18:00 Ceftriaxone Sodium 50 ml @ 100 mls/hr DAILY@09 IV 03/10/25 09:00 Review of Systems Constitutional: No symptom reported Ears, Nose, & Throat: No symptom reported Eyes: No symptom reported Neurological: No symptoms reported Pulmonary/Respiratory: Shortness of breath Cardiovascular: Bilateral lower extremity edema Gastrointestinal: No symptom reported Genitourinary: No symptom reported Musculoskeletal: No symptom reported Skin: No symptom reported Psychiatric: No symptom reported Endocrine: No symptom reported Hematologic/Lymphatic: No symptom reported Vital Signs Vital Signs Date Time Temp Pulse Resp B/P (MAP) Pulse Ox O2 Delivery O2 Flow Rate FiO2 03/09/25 12:43 97.9 54 17 111/68 (82) 90 97.9 03/09/25 10:17 Nasal Cannula 2.0 03/09/25 10:17 28 Physical Exam General Appearance: Cooperative. Morbidly obese Pulmonary/Respiratory: Diminished bilateral lower lobes Cardiovascular/Chest: Regular rate and rhythm. Peripheral Pulses: 2+ Radial (R). 2+ Radial (L). 2+ Pedal (R). 2+ Pedal (L) Abdominal Exam: Normal bowel sounds. Ankle Exam: 4+ pitting edema Lower extremities: 4+ pitting edema Neuro/Mental Status: A/OX4, coherent. Thoughts/Psych: Normal thought pattern. Appropriate mood and affect. Good judgm ent and insight. Appearance: No acute distress. Skin Exam: Normal inspection. Normal color. Warm and dry. Labs/Diagnostic Data Labs Test 03/09/25 11:26 03/09/25 05:26 03/08/25 13:58 03/08/25 13:00 Range/Units POC Glucose 248 H 70-106 mg/dl White Blood Count 4.2 #L 4.4-10.8 10^3/uL Red Blood Count 4.26 4.0-5.20 10^6/uL Hemoglobin 12.0 L 12.2-16.2 g/dL Hematocrit 35.0 L 36.0-46.0 % Mean Corpuscular Volume 82.2 80.0-100.0 fL Mean Corpuscular Hemoglobin 28.1 28.0-32.0 pg Mean Corpuscular Hemoglobin Concent 34.2 32.0-36.0 g/dL Red Cell Distribution Width 15.5 H 11.8-14.3 % Platelet Count 203 140-450 10^3/uL Mean Platelet Volume 7.4 6.9-10.8 fL Neutrophils (%) (Auto) 55.3 37.0-80.0 % Lymphocytes (%) (Auto) 33.1 10.0-50.0 % Monocytes (%) (Auto) 6.8 0.0-12.0 % Eosinophils (%) (Auto) 3.6 0.0-7.0 % Basophils (%) (Auto) 1.2 0.0-2.0 % Neutrophils # (Auto) 2.3 1.6-8.6 10 ^3/uL Lymphocytes # (Auto) 1.4 0.4-5.4 10 ^3/uL Monocytes # (Auto) 0.3 0-1.3 10 ^3/uL Eosinophils # (Auto) 0.2 0-0.8 10 ^3/uL Basophils # (Auto) 0.1 0-0.2 10 ^3/uL Nucleated Red Blood Cells 0.2 % Sodium Level 139 # 136-145 mmol/L Potassium Level 4.1 3.5-5.1 mmol/L Chloride Level 100 98-107 mmol/L Carbon Dioxide Level 31 20-31 mmol/L Anion Gap 8 5-15 Blood Urea Nitrogen 54 H 9-23 mg/dL Creatinine 2.08 H 0.550-1.02 mg/dL Glomerular Filtration Rate Calc 28 >90 mL/min BUN/Creatinine Ratio 26.0 H 10.0-20.0 Serum Glucose 161 H 74-106 mg/dL Calcium Level 10.0 8.7-10.4 mg/dL Total Bilirubin 0.4 0.2-1.0 mg/dL Aspartate Amino Transferase (AST) 13 <34 U/L Alanine Aminotransferase (ALT) 14 7-40 U/L Alkaline Phosphatase 95 46-116 U/L Total Protein 6.4 5.7-8.2 g/dL Albumin 4.0 3.2-4.8 g/dL Troponin I High Sensitivity 4 </=34 ng/L B-Type Natriuretic Peptide 76.83 0-100 pg/mL Assessment Chronic compensated HFpEF, NYHA class III Hypertension Dyslipidemia History of right lower extremity DVT Pneumonia COPD Asthma Chronic kidney disease Type 2 diabetes mellitus Morbidly obese History of tobacco use Plan/Recommendation We will continue with the following plan/recommendations (Dr. Cota): Case discussed with . Transthoracic echocardiogram reveals EF 55-60% with moderate diastolic dysfunction. [place] heart failure diagnostic criteria: Positive. Chest x-ray does not reveal any pulmonary vascular congestion. BNP level 78.83pg/mL. Patient does have bilateral lower extremity edema. Patient currently receiving diuretics per Nephrology given chronic kidney disease. Maintain strict intake and output, daily weights, and fluid restriction. Shortness of breath likely in keeping with pneumonia and COPD. Upgraded to telemetry for close cardiac surveillance. There is no further inpatient cardiac workup indicated at this time. The patient states that she is scheduled to see eeler in the outpatient setting next month to establish cardiac care. Thank you for allowing us to care for this patient. Please call with any questions or concerns. Critical care time spent: 44 minutes This medical document was created using an electronic medical record system with voice recognition software and computerized dictation system. Although this document has been carefully reviewed, there might still be some phonetic and typographical errors. Occasional wrong-word or ``sound-alike substitutions may have occurred due to the inherent limitations of voice recognition software. These areas are purely typographical due to imperfections of the software programs and do not reflect any compromise in the patient's medical care. Please read the chart carefully and recognize, using context, where these substitutions have occurred. Plan discussed with: Patient NYHA Physical activity limitations: Class3(Marked) ordinary Date of Service: Mar 09, 2025 Billing Provider: TIARA CALHOUN Cardiology Common Codes: 71162-EYVQUGF INP/OBS CARE (High) Cardiology Consultation Codes: [id number] CONSULT <45MIN TIARA CALHOUN Mar 09, 2025 16:31
--- NOTE | 2025-03-09 16:49 | DVHSR ---
APPROVED REPORT EXAM: Two-dimensional and M-mode echocardiogram with Doppler, color Doppler and Bubble Study. Blood Pressure: 117/58 mmHg INDICATION Peripheral Edema RISK FACTORS Height: 4'9", Weight: 255 DIMENSIONS LVDd5.2 (3.8-5.7cm)LA (2D)3.8 (1.9-4.0cm)Aortic Root3.1 (2.0-3.7cm) LVDs2.6 (2.5-4.0cm)LA (MM) (1.9-4.0cm)Aortic Cusp Exc1.9 (1.5-2.0cm) EF (%) 81.0 (55-70%)Rt. Atrium3.4 (1.9-4.0cm)Asc. Aorta3.8 cm IVSd1.0 (0.7-1.1cm)RV (D)3.5 (1.8-2.4cm) PWd0.9 (0.7-1.1cm) Mitral Valve MitralMitral Stenosis E wave1.08m/sMV Mean GR.mmHg A wave1.14m/sMV Peak GR.mmHg E/A ratio0.92D MVAcm2 DECEL [id number] 1/2 Tim[place] Aortic Valve Aortic ValveAortic Stenosis V11.20m/Santos Mean GR.11mmHg V22.06m/Santos Peak GR.18mmHg LVOT Diameter2.3 (1.8-2.4cm)Doppler AVA2.42cm2 2D AVA2.79cm2 Pulmonic Valve V21.30m/s Other Information Quality : Technically LimitedRhythm : Technically limited study due to body habitus. Conclusion LVEF 55-60%, moderate LVH. Moderate diastolic dysfunction. RV normal size and function Mild aortic stenosis
[2025-03-09] MEDS: BUMETANIDE 2.5mg/10ml (0.25 mg/ml) INJ IV SCH (17:16)
[2025-03-10] VITALS (11 sets, daily range): BP systolic 102–140; BP diastolic 63–88; PULSE 18–72; RESP 17–18; TEMP 97.2–98.3; O2SAT 90–100
[2025-03-10] MEDS: ALBUTEROL SULF 2.5 MG/0.5ML(0.5%) NEB SOLN NEB PRN (07:06)
[2025-03-10] MEDS: IPRATROPIUM BROM 0.5 MG/2.5ML INH SOL NEB PRN (07:06)
[2025-03-10 07:20] LABS: Basophils # (auto) 0 10 ^3/uL (0-0.2); Basophils % (auto) 0.9 % (0.0-2.0); Eosinophils # (auto) 0.2 10 ^3/uL (0-0.8); Eosinophils % (auto) 3.7 % (0.0-7.0); Hematocrit 37.7 % (36.0-46.0); Hemoglobin 12.6 g/dL (12.2-16.2); Lymphocytes # (auto) 1.4 10 ^3/uL (0.4-5.4); Mean Corpuscular Hemoglobin 27.9 pg (28.0-32.0); Mean Corpuscular Hgb Conc. 33.4 g/dL (32.0-36.0); Mean Corpuscular Volume 83.6 fL (80.0-100.0); Monocytes # (auto) 0.3 10 ^3/uL (0-1.3); Monocytes % (auto) 6.7 % (0.0-12.0); Neutrophils # (auto) 2.2 10 ^3/uL (1.6-8.6); Neutrophils % (auto) 54.7 % (37.0-80.0); Nucleated Red Blood Cells % 0.1 %; Platelet Count (auto) 209 10^3/uL (140-450); Red Blood Cells 4.51 10^6/uL (4.0-5.20); Red Cell Distribution Width 15.4 % (11.8-14.3); White Blood Cell 4.1 10^3/uL (4.4-10.8)
[2025-03-10 07:35] LABS: Alanine Aminotransferase 13 U/L (7-40); Albumin 4.1 g/dL (3.2-4.8); Alkaline Phosphatase 94 U/L (46-116); Anion Gap 9 (5-15); Aspartate Aminotransferase 17 U/L (<34); BUN/Creatinine Ratio 32.1 (10.0-20.0); Bilirubin, Total 0.4 mg/dL (0.2-1.0); Calcium 9.6 mg/dL (8.7-10.4); Potassium 4.2 mmol/L (3.5-5.1); Sodium 137 mmol/L (136-145); Total Protein 6.6 g/dL (5.7-8.2)
[2025-03-10 07:36] LABS: Blood Urea Nitrogen 59 mg/dL (9-23); Carbon Dioxide 32 mmol/L (20-31); Chloride 96 mmol/L (98-107); Glucose 180 mg/dL (74-106)
--- NOTE | 2025-03-10 10:07 | DVHPN2 ---
Reviewed: Care Plan, H&P, Labs, Medications, Previous Orders, Radiology Changes from previous H/P or p: No Changes Objective Vitals Vital Signs Date Time Temp Pulse Resp B/P (MAP) Pulse Ox O2 Delivery O2 Flow Rate FiO2 03/10/25 08:05 Room Air* 0 21 03/10/25 07:14 63 18 100 03/10/25 06:24 123/78 03/10/25 05:00 98.3 98.3 Intake/Output Intake and Output 03/10/25 07:00 Intake Total 1175 ml Output Total 4100 ml Balance -2925 ml Intake Oral 1125 ml IV Total 50 ml Output Urine Total 4100 ml Medications Current Medications Medications Dose Ordered Sig/Luke Route Start Time Stop Time Status Last Admin Dose Admin Amlodipine Besylate 5 mg DAILY PO 03/09/25 10:00 03/09/25 09:43 5 MG Apixaban 5 mg BID PO 03/08/25 22:00 03/09/25 21:50 5 MG Losartan Potassium 25 mg DAILY PO 03/09/25 10:00 03/09/25 09:44 25 MG Metoprolol Tartrate 25 mg DAILY PO 03/09/25 10:00 03/09/25 09:44 25 MG Patient Own Medication 150 mg HS PO 03/08/25 22:00 Patient Own Medication 4 mg HS PO 03/08/25 22:00 Patient Own Medication 8 mg QID SL 03/08/25 22:00 Patient Own Medication 12 mg DAILY PO 03/09/25 10:00 Fluoxetine HCl 80 mg DAILY PO 03/09/25 10:00 03/09/25 09:43 80 MG Pregabalin 50 mg TID PO 03/08/25 22:00 03/10/25 06:22 50 MG Ipratropium [place] 0.5 mg Q6H PRN NEB 03/08/25 18:15 03/10/25 07:06 0.5 MG Sodium Chloride 10 ml Q8HR IV 03/08/25 22:00 03/10/25 06:23 10 ML Docusate Sodium 100 mg BIDPRN PRN PO 03/08/25 18:15 Acetaminophen 650 mg Q6HP PRN PO 03/08/25 18:15 Acetaminophen/ Hydrocodone Bitart 2 tab Q4HP PRN PO 03/08/25 18:15 03/10/25 06:22 2 TAB Ondansetron HCl 4 mg Q4HP PRN IV 03/08/25 18:15 Diagnostic Test (Pha) 1 strip ACHS 03/08/25 22:00 03/10/25 06:24 1 STRIP Insulin Human Regular HS SC 03/08/25 22:00 03/09/25 21:58 4 UNITS Insulin Human Regular AC SC 03/09/25 07:00 03/10/25 06:32 3 UNITS Dextrose 50 ml UD PRN IV 03/08/25 18:15 Insulin Glargine 20 units HS SC 03/08/25 22:00 03/09/25 21:59 20 UNITS Albuterol 2.5 mg Q6HPRN PRN NEB 03/08/25 19:00 03/10/25 07:06 2.5 MG Bumetanide 2 mg BIDD IV 03/09/25 18:00 03/10/25 06:24 2 MG Ceftriaxone Sodium 50 ml @ 100 mls/hr DAILY@09 IV 03/10/25 09:00 Laboratory Results Laboratory Tests 03/10/25 06:36 Chemistry Test 03/10/25 06:36 Albumin 4.1 g/dL (3.2-4.8) Calcium Level 9.6 mg/dL (8.7-10.4) Total Protein 6.6 g/dL (5.7-8.2) LFT Test 03/10/25 06:36 Alanine Aminotransferase (ALT) 13 U/L (7-40) Alkaline Phosphatase 94 U/L (46-116) Aspartate Amino Transferase (AST) 17 U/L (<34) Total Bilirubin 0.4 mg/dL (0.2-1.0) HgA1c, TSH Test 03/10/25 06:36 Thyroid Stimulating Hormone (TSH) 1.36 uIU/mL (0.55-4.78) Labs and/or images reviewed: Labs reviewed by me, Image(s) reviewed by me Assessment/Plan Assessment/Plan Bilateral lower extremity edema Bilateral Lower extremity cellulitis: Rocephin clindamycin Acute on chronic compensated CHF exacerbation BNP 73: Cardiology consult by Dr. Cota appreciated, echo 55 % ejection fraction Acute COPD exacerbation Home oxygen use Diabetes Hypertension Hypercholesterolemia Hypothyroidism DVT ruled out History of DVT right lower extremity DURGA on CKD: Nephrology consult appreciated Possible right lower lobe pneumonia: Rocephin DVT obesity Chronic current smoking counseling Time spent 70 minutes Patient is full code Plan discussed with: Patient My Orders Orders - KEYON MARTINEZ MD Procedure Category Date Status Time * Cardiology Consult CONS 03/09/25 Transmitted 13:13 Ceftriaxone 1gm/50ml PHA 03/10/25 In Process D5w (Rocephin) 09:00 Date of Service: Mar 10, 2025 Billing Provider: KEYON MARTINEZ MD Common Visit Codes: [id number]-[id number] CARE 30-74 MIN Secondary Visit Codes: [id number]-EVNAT CHNG SMOKING >10MIN KEYON MARTINEZ MD Mar 10, 2025 10:07
[2025-03-10] MEDS: cefTRIAXone 1GM/50ML D5W 50 ML IV SCH (10:14)
--- NOTE | 2025-03-10 11:16 | DVHPN2 ---
Progress Note Date Seen: Mar 10, 2025 Medical Necessity Reason Pt with a Central, PICC or Fol: No Subjective Patient reports: No new complaints Other Systems: Patient seen and examined by myself today in follow-up Objective vital signs Vital Sign Date Time Temp Pulse Resp B/P (MAP) Pulse Ox O2 Delivery O2 Flow Rate FiO2 03/10/25 10:17 63 123/78 03/10/25 09:00 98.0 93 98.0 03/10/25 08:05 Room Air* 0 21 03/10/25 07:14 18 Total Intake and Output 03/09/25 03/09/25 03/10/25 15:00 23:00 07:00 Intake Total 50 ml 800 ml 325 ml Output Total 2500 ml 1600 ml Balance 50 ml -1700 ml -1275 ml medications Current Medications Medications Dose Ordered Sig/Luke Route Start Time Stop Time Status Last Admin Dose Admin Amlodipine Besylate 5 mg DAILY PO 03/09/25 10:00 03/10/25 10:15 5 MG Apixaban 5 mg BID PO 03/08/25 22:00 03/10/25 10:16 5 MG Losartan Potassium 25 mg DAILY PO 03/09/25 10:00 03/10/25 10:16 25 MG Metoprolol Tartrate 25 mg DAILY PO 03/09/25 10:00 03/10/25 10:17 25 MG Patient Own Medication 150 mg HS PO 03/08/25 22:00 Patient Own Medication 4 mg HS PO 03/08/25 22:00 Patient Own Medication 8 mg QID SL 03/08/25 22:00 Patient Own Medication 12 mg DAILY PO 03/09/25 10:00 Fluoxetine HCl 80 mg DAILY PO 03/09/25 10:00 03/10/25 10:16 80 MG Pregabalin 50 mg TID PO 03/08/25 22:00 03/10/25 06:22 50 MG Ipratropium [place] 0.5 mg Q6H PRN NEB 03/08/25 18:15 03/10/25 07:06 0.5 MG Sodium Chloride 10 ml Q8HR IV 03/08/25 22:00 03/10/25 06:23 10 ML Docusate Sodium 100 mg BIDPRN PRN PO 03/08/25 18:15 Acetaminophen 650 mg Q6HP PRN PO 03/08/25 18:15 Acetaminophen/ Hydrocodone Bitart 2 tab Q4HP PRN PO 03/08/25 18:15 03/10/25 11:10 2 TAB Ondansetron HCl 4 mg Q4HP PRN IV 03/08/25 18:15 Diagnostic Test (Pha) 1 strip ACHS 03/08/25 22:00 03/10/25 06:24 1 STRIP Insulin Human Regular HS SC 03/08/25 22:00 03/09/25 21:58 4 UNITS Insulin Human Regular AC SC 03/09/25 07:00 03/10/25 06:32 3 UNITS Dextrose 50 ml UD PRN IV 03/08/25 18:15 Insulin Glargine 20 units HS SC 03/08/25 22:00 03/09/25 21:59 20 UNITS Albuterol 2.5 mg Q6HPRN PRN NEB 03/08/25 19:00 03/10/25 07:06 2.5 MG Bumetanide 2 mg BIDD IV 03/09/25 18:00 03/10/25 06:24 2 MG Ceftriaxone Sodium 50 ml @ 100 mls/hr DAILY@09 IV 03/10/25 09:00 03/10/25 10:14 100 MLS/HR Clindamycin Phosphate 50 ml @ 50 mls/hr Q8HR IV 03/10/25 14:00 laboratory and microbiology Laboratory Tests 03/10/25 06:36 Test 03/10/25 06:36 Range/Units Serum Glucose 180 H 74-106 mg/dL Problem List/Assessment/Plan Problem List/Assessment/Plan Acute kidney injury superimposed Chronic Kidney Disease stage 4 secondary hemodynamic mediated Chronic Kidney Disease stage [address] Brennan Acute on chronic diastolic heart failure Morbid obesity Diabetes mellitus type 2 Hypertension Recommendations Kidney function slightly improving Increased urine output Strict I&O's I agree with diuresis KCL replacement Renal diet We will continue to follow up Plan discussed with: Patient DOC ROYAL MD Mar 10, 2025 11:16
[2025-03-10] MEDS: CLINDAMYCIN 600MG IV 50 ML IV SCH (15:04)
[2025-03-11 01:00] VITALS: BP 101/71; PULSE 66; RESP 18; TEMP 97.2; O2SAT 96
[2025-03-11 05:00] VITALS: BP 108/68; PULSE 62; RESP 18; TEMP 97.3; O2SAT 93
[2025-03-11 06:13] LABS: Basophils # (auto) 0.1 10 ^3/uL (0-0.2); Eosinophils # (auto) 0.2 10 ^3/uL (0-0.8); Eosinophils % (auto) 3.9 % (0.0-7.0); Hematocrit 38.1 % (36.0-46.0); Lymphocytes % (auto) 37.7 % (10.0-50.0); Mean Corpuscular Hemoglobin 28.3 pg (28.0-32.0); Mean Corpuscular Hgb Conc. 34.1 g/dL (32.0-36.0); Monocytes # (auto) 0.3 10 ^3/uL (0-1.3); Monocytes % (auto) 5.9 % (0.0-12.0); Neutrophils # (auto) 2.8 10 ^3/uL (1.6-8.6); Neutrophils % (auto) 51.5 % (37.0-80.0); Nucleated Red Blood Cells % 0.4 %; Platelet Count (auto) 228 10^3/uL (140-450); Red Cell Distribution Width 15.5 % (11.8-14.3); White Blood Cell 5.3 10^3/uL (4.4-10.8)
[2025-03-11 06:22] LABS: Alanine Aminotransferase 16 U/L (7-40); Albumin 4.3 g/dL (3.2-4.8); Alkaline Phosphatase 99 U/L (46-116); Anion Gap 10 (5-15); Aspartate Aminotransferase 19 U/L (<34); BUN/Creatinine Ratio 29.5 (10.0-20.0); Calcium 10.2 mg/dL (8.7-10.4); Carbon Dioxide 30 mmol/L (20-31); Chloride 98 mmol/L (98-107); Potassium 4.6 mmol/L (3.5-5.1); Sodium 138 mmol/L (136-145)
[2025-03-11 06:23] LABS: Blood Urea Nitrogen 64 mg/dL (9-23); Glucose 147 mg/dL (74-106)
[2025-03-11 06:24] LABS: Bilirubin, Total 0.3 mg/dL (0.2-1.0)
[2025-03-11 07:37] VITALS: O2SAT 91
[2025-03-11 09:00] VITALS: BP 119/65; PULSE 57; RESP 18; TEMP 98.1; O2SAT 94
--- NOTE | 2025-03-11 10:27 | DVHPN2 ---
Progress Note Date Seen: Mar 11, 2025 Medical Necessity Reason Pt with a Central, PICC or Fol: No Subjective Patient reports: No new complaints Other Systems: Patient seen and examined by myself today in follow-up Objective vital signs Vital Sign Date Time Temp Pulse Resp B/P (MAP) Pulse Ox O2 Delivery O2 Flow Rate FiO2 03/11/25 10:01 119/65 03/11/25 10:00 57 03/11/25 09:00 98.1 18 94 98.1 03/11/25 07:45 Room Air* 0 21 Total Intake and Output 03/10/25 03/10/25 03/11/25 15:00 23:00 07:00 Intake Total 50 ml 2380 ml 650 ml Output Total 900 ml 1200 ml Balance 50 ml 1480 ml -550 ml medications Current Medications Medications Dose Ordered Sig/Luke Route Start Time Stop Time Status Last Admin Dose Admin Amlodipine Besylate 5 mg DAILY PO 03/09/25 10:00 03/11/25 10:01 5 MG Apixaban 5 mg BID PO 03/08/25 22:00 03/11/25 10:02 5 MG Losartan Potassium 25 mg DAILY PO 03/09/25 10:00 03/11/25 10:01 25 MG Metoprolol Tartrate 25 mg DAILY PO 03/09/25 10:00 03/11/25 10:00 25 MG Patient Own Medication 150 mg HS PO 03/08/25 22:00 Patient Own Medication 4 mg HS PO 03/08/25 22:00 Patient Own Medication 8 mg QID SL 03/08/25 22:00 Patient Own Medication 12 mg DAILY PO 03/09/25 10:00 Fluoxetine HCl 80 mg DAILY PO 03/09/25 10:00 03/11/25 10:00 80 MG Pregabalin 50 mg TID PO 03/08/25 22:00 03/11/25 05:45 50 MG Ipratropium [place] 0.5 mg Q6H PRN NEB 03/08/25 18:15 03/10/25 07:06 0.5 MG Sodium Chloride 10 ml Q8HR IV 03/08/25 22:00 03/11/25 05:46 10 ML Docusate Sodium 100 mg BIDPRN PRN PO 03/08/25 18:15 Acetaminophen 650 mg Q6HP PRN PO 03/08/25 18:15 Acetaminophen/ Hydrocodone Bitart 2 tab Q4HP PRN PO 03/08/25 18:15 03/11/25 10:01 2 TAB Ondansetron HCl 4 mg Q4HP PRN IV 03/08/25 18:15 Diagnostic Test (Pha) 1 strip ACHS 03/08/25 22:00 03/11/25 06:04 1 STRIP Insulin Human Regular HS SC 03/08/25 22:00 03/10/25 21:54 4 UNITS Insulin Human Regular AC SC 03/09/25 07:00 03/11/25 06:09 6 UNITS Dextrose 50 ml UD PRN IV 03/08/25 18:15 Insulin Glargine 20 units HS SC 03/08/25 22:00 03/10/25 21:55 20 UNITS Albuterol 2.5 mg Q6HPRN PRN NEB 03/08/25 19:00 03/10/25 07:06 2.5 MG Bumetanide 2 mg BIDD IV 03/09/25 18:00 03/11/25 05:46 2 MG Ceftriaxone Sodium 50 ml @ 100 mls/hr DAILY@09 IV 03/10/25 09:00 03/11/25 10:00 100 MLS/HR Clindamycin Phosphate 50 ml @ 50 mls/hr Q8HR IV 03/10/25 14:00 03/11/25 05:45 50 MLS/HR Examination: LUNGS:Normal, CVS:Normal, MSK:Normal laboratory and microbiology Laboratory Tests 03/11/25 05:02 Test 03/11/25 05:02 Range/Units Serum Glucose 147 H 74-106 mg/dL Problem List/Assessment/Plan Problem List/Assessment/Plan Acute kidney injury superimposed Chronic Kidney Disease stage 4 secondary hemodynamic mediated Chronic Kidney Disease stage [address] Brennan Acute on chronic diastolic heart failure Morbid obesity Diabetes mellitus type 2 Hypertension Recommendations Kidney function slightly improving Increased urine output Strict I&O's I agree with diuresis Check urinalysis urine lytes and protein excretion KCL replacement Renal diet We will continue to follow up Plan discussed with: Patient My Orders My Orders Orders - DOC ROYAL MD Procedure Category Date Status Time Urine Sodium LAB 03/10/25 Logged 11:14 Urinalysis LAB 03/10/25 Logged 11:14 Urine LAB 03/10/25 Logged Protein/Creatinine 11:14 DOC ROYAL MD Mar 11, 2025 10:27
[2025-03-11] MEDS ORDERED: CLIN1CAP70 PO (10:39)
[2025-03-11] MEDS ORDERED: LEVO500T91 PO (10:39)
--- NOTE | 2025-03-11 10:41 | DVHPN2 ---
Reviewed: Care Plan, H&P, Labs, Medications, Previous Orders, Radiology Changes from previous H/P or p: No Changes Objective Vitals Vital Signs Date Time Temp Pulse Resp B/P (MAP) Pulse Ox O2 Delivery O2 Flow Rate FiO2 03/11/25 10:01 119/65 03/11/25 10:00 57 03/11/25 09:00 98.1 18 94 98.1 03/11/25 07:45 Room Air* 0 21 Intake/Output Intake and Output 03/11/25 07:00 Intake Total 3080 ml Output Total 2100 ml Balance 980 ml Intake Oral 2880 ml IV Total 200 ml Output Urine Total 2100 ml # Bowel Movements 1 Medications Current Medications Medications Dose Ordered Sig/Luke Route Start Time Stop Time Status Last Admin Dose Admin Amlodipine Besylate 5 mg DAILY PO 03/09/25 10:00 03/11/25 10:01 5 MG Apixaban 5 mg BID PO 03/08/25 22:00 03/11/25 10:02 5 MG Losartan Potassium 25 mg DAILY PO 03/09/25 10:00 03/11/25 10:01 25 MG Metoprolol Tartrate 25 mg DAILY PO 03/09/25 10:00 03/11/25 10:00 25 MG Patient Own Medication 150 mg HS PO 03/08/25 22:00 Patient Own Medication 4 mg HS PO 03/08/25 22:00 Patient Own Medication 8 mg QID SL 03/08/25 22:00 Patient Own Medication 12 mg DAILY PO 03/09/25 10:00 Fluoxetine HCl 80 mg DAILY PO 03/09/25 10:00 03/11/25 10:00 80 MG Pregabalin 50 mg TID PO 03/08/25 22:00 03/11/25 05:45 50 MG Ipratropium [place] 0.5 mg Q6H PRN NEB 03/08/25 18:15 03/10/25 07:06 0.5 MG Sodium Chloride 10 ml Q8HR IV 03/08/25 22:00 03/11/25 05:46 10 ML Docusate Sodium 100 mg BIDPRN PRN PO 03/08/25 18:15 Acetaminophen 650 mg Q6HP PRN PO 03/08/25 18:15 Acetaminophen/ Hydrocodone Bitart 2 tab Q4HP PRN PO 03/08/25 18:15 03/11/25 10:01 2 TAB Ondansetron HCl 4 mg Q4HP PRN IV 03/08/25 18:15 Diagnostic Test (Pha) 1 strip ACHS 03/08/25 22:00 03/11/25 06:04 1 STRIP Insulin Human Regular HS SC 03/08/25 22:00 03/10/25 21:54 4 UNITS Insulin Human Regular AC SC 03/09/25 07:00 03/11/25 06:09 6 UNITS Dextrose 50 ml UD PRN IV 03/08/25 18:15 Insulin Glargine 20 units HS SC 03/08/25 22:00 03/10/25 21:55 20 UNITS Albuterol 2.5 mg Q6HPRN PRN NEB 03/08/25 19:00 03/10/25 07:06 2.5 MG Bumetanide 2 mg BIDD IV 03/09/25 18:00 03/11/25 05:46 2 MG Ceftriaxone Sodium 50 ml @ 100 mls/hr DAILY@09 IV 03/10/25 09:00 03/11/25 10:00 100 MLS/HR Clindamycin Phosphate 50 ml @ 50 mls/hr Q8HR IV 03/10/25 14:00 03/11/25 05:45 50 MLS/HR Laboratory Results Laboratory Tests 03/11/25 05:02 Chemistry Test 03/11/25 05:02 Albumin 4.3 g/dL (3.2-4.8) Calcium Level 10.2 mg/dL (8.7-10.4) Magnesium Level Pending Phosphorus Level Pending Total Protein 7.0 g/dL (5.7-8.2) LFT Test 03/11/25 05:02 Alanine Aminotransferase (ALT) 16 U/L (7-40) Alkaline Phosphatase 99 U/L (46-116) Aspartate Amino Transferase (AST) 19 U/L (<34) Total Bilirubin 0.3 mg/dL (0.2-1.0) Labs and/or images reviewed: Labs reviewed by me, Image(s) reviewed by me Assessment/Plan Assessment/Plan Bilateral lower extremity edema Bilateral Lower extremity cellulitis: Rocephin and clindamycin Acute on chronic compensated CHF exacerbation BNP 73: Cardiology consult by Dr. Cota appreciated, echo 55 % ejection fraction Acute COPD exacerbation Home oxygen use Diabetes Hypertension Hypercholesterolemia Hypothyroidism DVT ruled out History of DVT right lower extremity DURGA on CKD: Nephrology consult appreciated Possible right lower lobe pneumonia: Treated with Rocephin DVT obesity Chronic current smoking counseling Time spent 50 minutes Patient is full code Patient does not want group home facility placement for IV antibiotics for cellulitis and wants to go home CHRISTINA Beltran at bedside Plan discussed with: Patient My Orders Orders - KEYON MARTINEZ MD Procedure Category Date Status Time * Sales Department Clerk CONS 03/11/25 Transmitted Consult Parathyroid Hormone LAB 03/11/25 In Process Intact 10:38 Date of Service: Mar 11, 2025 Billing Provider: KEYON MARTINEZ MD Common Visit Codes: [id number] INP/OBS CARE(HIGH) KEYON MARTINEZ MD Mar 11, 2025 10:41
--- NOTE | 2025-03-11 10:45 | DVHDS2 ---
Discharge Summary Date of Admission Mar 08, 2025 at 18:09 Date of Discharge: Mar 11, 2025 Admitting Diagnosis Bilateral lower leg swelling and tenderness Wounds: Bilateral lower leg cellulitis Labs/Diagnostic Data: Laboratory Results Test 03/11/25 06:02 03/11/25 05:02 03/10/25 06:36 03/08/25 13:58 POC Glucose 205 mg/dl (70-106) White Blood Count 5.3 10^3/uL (4.4-10.8) Red Blood Count 4.60 10^6/uL (4.0-5.20) Hemoglobin 13.0 g/dL (12.2-16.2) Hematocrit 38.1 % (36.0-46.0) Mean Corpuscular Volume 83.0 fL (80.0-100.0) Mean Corpuscular Hemoglobin 28.3 pg (28.0-32.0) Mean Corpuscular Hemoglobin Concent 34.1 g/dL (32.0-36.0) Red Cell Distribution Width 15.5 % (11.8-14.3) Platelet Count 228 10^3/uL (140-450) Mean Platelet Volume 7.7 fL (6.9-10.8) Neutrophils (%) (Auto) 51.5 % (37.0-80.0) Lymphocytes (%) (Auto) 37.7 % (10.0-50.0) Monocytes (%) (Auto) 5.9 % (0.0-12.0) Eosinophils (%) (Auto) 3.9 % (0.0-7.0) Basophils (%) (Auto) 1.0 % (0.0-2.0) Neutrophils # (Auto) 2.8 10 ^3/uL (1.6-8.6) Lymphocytes # (Auto) 2.0 10 ^3/uL (0.4-5.4) Monocytes # (Auto) 0.3 10 ^3/uL (0-1.3) Eosinophils # (Auto) 0.2 10 ^3/uL (0-0.8) Basophils # (Auto) 0.1 10 ^3/uL (0-0.2) Nucleated Red Blood Cells 0.4 % Sodium Level 138 mmol/L (136-145) Potassium Level 4.6 mmol/L (3.5-5.1) Chloride Level 98 mmol/L (98-107) Carbon Dioxide Level 30 mmol/L (20-31) Anion Gap 10 (5-15) Blood Urea Nitrogen 64 mg/dL (9-23) Creatinine 2.17 mg/dL (0.550-1.02) Glomerular Filtration Rate Calc 27 mL/min (>90) BUN/Creatinine Ratio 29.5 (10.0-20.0) Serum Glucose 147 mg/dL (74-106) Calcium Level 10.2 mg/dL (8.7-10.4) Total Bilirubin 0.3 mg/dL (0.2-1.0) Aspartate Amino Transferase (AST) 19 U/L (<34) Alanine Aminotransferase (ALT) 16 U/L (7-40) Alkaline Phosphatase 99 U/L (46-116) Total Protein 7.0 g/dL (5.7-8.2) Albumin 4.3 g/dL (3.2-4.8) Thyroid Stimulating Hormone (TSH) 1.36 uIU/mL (0.55-4.78) Troponin I High Sensitivity 4 ng/L (</=34) Test 03/08/25 13:00 B-Type Natriuretic Peptide 76.83 pg/mL (0-100) Other Laboratory Tests 03/11/25 05:02 Brief Hx & Hospital Course: 79-year-old female with a history of COPD home oxygen use diabetes hypertension hypercholesterolemia hypothyroidism history of DVT NG tube in came in complaining of swelling and redness of the bilateral lower extremities. Found to have cellulitis treated with Rocephin and clindamycin BNP was 71 seen by agriscience instructor Dr. Cota for CHF exacerbation echo 55 percent ejection fraction. [facility]vised [facility] for IV antibiotics for six weeks for cellulitis patient refused and wants to go home. Discharged home on clindamycin and Levaquin. She will follow up with the primary Dr Barajas in one week Consults/Reason for consult Nephrology Operations or Procedures None Condition at Discharge: Fair Final Diagnosis/Problems List Bilateral lower extremity edema Bilateral Lower extremity cellulitis: Rocephin and clindamycin Acute on chronic compensated CHF exacerbation BNP 73: Cardiology consult by Dr. Cota appreciated, echo 55 % ejection fraction Acute COPD exacerbation Home oxygen use Diabetes Hypertension Hypercholesterolemia Hypothyroidism DVT ruled out History of DVT right lower extremity DURGA on CKD: Nephrology consult appreciated Possible right lower lobe pneumonia: Treated with Rocephin DVT obesity Chronic current smoking counseling Discharge Disposition: Home Discharge Instruct/Medications Diet: Cardiac 2g Na,low cholest Activity: Light activity Follow Up/Referral: Resume all Previous home medications Medications as prescribed Follow up with your primary Dr Barajas in one week Medications: Levaquin Clindamycin Transmitted to [facility] 35 (Time taken for discharge summary 35 minutes) Discharge Statement: "Patient was advised to return to the ER or call 911 if any headaches, dizziness, shortness of breath, chest pain, abdominal pain, bleeding, fevers, or worsening of medical condition. Patient was counseled about treatment plan, medications, possible side effects, patientverbalized understanding. All questions were answered to the best of my ability. This discharge took greater then 30 minutes in planning, reviewing documentation, counseling the patient, and discussing with other team members." ASSESSMENT ASSESSMENT Hospital Course Improved marginally Assessment Bilateral lower extremity edema Bilateral Lower extremity cellulitis: Rocephin and clindamycin Acute on chronic compensated CHF exacerbation BNP 73: Cardiology consult by Dr. Cota appreciated, echo 55 % ejection fraction Acute COPD exacerbation Home oxygen use Diabetes Hypertension Hypercholesterolemia Hypothyroidism DVT ruled out History of DVT right lower extremity DURGA on CKD: Nephrology consult appreciated Possible right lower lobe pneumonia: Treated with Rocephin DVT obesity Chronic current smoking counseling Date of Service: Mar 11, 2025 Billing Provider: KEYON MARTINEZ MD Common Visit Codes: [id number]/[id number] DISCH DAY >30min KEYON MARTINEZ MD Mar 11, 2025 10:45
[2025-03-11 10:53] LABS: Magnesium 1.8 mg/dL (1.6-2.6)
[2025-03-11 11:08] LABS: Phosphorus 5.7 mg/dL (2.4-5.1)
[2025-03-11 11:50] VITALS: BP 112/58; PULSE 56; TEMP 36.7
[2025-03-11 13:00] VITALS: BP 129/63; PULSE 63; RESP 18; TEMP 97.8; O2SAT 92
== END 2025-03-11 13:21 | disposition home or self-care (01) | DRG 194 ==
LOC: ER 11:57 → OVERFLOW 18:09 → WEST WING 20:47 → TELE-WESTW 03-09 16:51
PROVIDERS: ADMIT Family Medicine; ATTEND Family Medicine
DX: I13.0 Hypertensive heart and chronic kidney disease with heart failure and stage 1 through stage 4 chronic kidney disease, or unspecified chronic kidney disease (principal); J15.69 Pneumonia due to other Gram-negative bacteria; N17.9 Acute kidney failure, unspecified; Z68.43 Body mass index [BMI] 50.0-59.9, adult; J15.9 Unspecified bacterial pneumonia; J44.0 Chronic obstructive pulmonary disease with (acute) lower respiratory infection; L03.115 Cellulitis of right lower limb; E11.22 Type 2 diabetes mellitus with diabetic chronic kidney disease; J44.1 Chronic obstructive pulmonary disease with (acute) exacerbation; L03.116 Cellulitis of left lower limb; I50.43 Acute on chronic combined systolic (congestive) and diastolic (congestive) heart failure; E03.9 Hypothyroidism, unspecified; E78.00 Pure hypercholesterolemia, unspecified; E66.01 Morbid (severe) obesity due to excess calories; N18.9 Chronic kidney disease, unspecified; Z79.4 Long term (current) use of insulin; Z80.1 Family history of malignant neoplasm of trachea, bronchus and lung; Z81.8 Family history of other mental and behavioral disorders; Z82.49 Family history of ischemic heart disease and other diseases of the circulatory system; Z86.718 Personal history of other venous thrombosis and embolism; Z87.891 Personal history of nicotine dependence; Z88.5 Allergy status to narcotic agent; Z88.6 Allergy status to analgesic agent; Z90.5 Acquired absence of kidney; Z90.711 Acquired absence of uterus with remaining cervical stump; Z91.048 Other nonmedicinal substance allergy status; Z79.899 Other long term (current) drug therapy; F32.A Depression, unspecified
CPT/HCPCS: 36415; 71045; 76775; 80048; 80053; 82962; 83735; 83880; 83970; 84100; 84443; 84484; 85025; 93005; 93306; 93970; 94640; 96374; 97163; 99291; G0378; J1815; J3490

== ENCOUNTER 2025-03-27 02:07 | Emergency (ER) | payer MEDICAID ==
[~2025-03-27] VITALS: Ht 144.8 cm; Wt 151.0 kg
[~2025-03-27 02:07] MED LIST changes: +CLIN1CAP70 PO; +LEVO500T91 PO
--- NOTE | 2025-03-27 03:30 | DVH ---
Exam: CT CT AB PEL WO CON-NO ORAL OR IV History: RUQ Comparison Study: [facility] on DOS: 12/31/21, CT ABD PELVIS WO CONTRAST on DOS: 12/31/21, CT ABD PELVIS WO CONTRAST on DOS: 08/09/21 TECHNIQUE: Multidetector CT of the abdomen and pelvis was performed from lung bases to pubic symphysi s. Imaging was performed without IV contrast. Axial, coronal and sagittal multiplanar reformats were obtained from the axial data set by the technologist. Radiation optimization: All CT scans at this facility use at least one of these dose optimization nga hniques: automated exposure control mA and/or kV adjustment per patient size (includes targeted exam s where dose is matched to clinical indication) or iterative reconstruction. Radiation Dose Information: CT Dose: CTDI volume is 26.82 mGy. Dose-length product is 1474.85 mGy*cm FINDINGS: Imaged portions of the lung bases demonstrate subsegmental atelectasis. There are coronary artery ca lcifications. Small hiatal hernia. The liver, gallbladder, spleen, pancreas and adrenal glands appear unremarkable. The left kidney is s urgically absent. There is a hypertrophic right kidney with 1 cm upper pole cyst.. No hydronephrosis . Punctate renal calculi. No evidence of bowel obstruction or focal bowel wall thickening. Large amount of intracolonic stool. 8.2 cm ventral fat containing hernia. No free fluid, free air, or adenopathy. No suspicious osseous lesion. Severe degenerative disc disease at L5-S1. IMPRESSION: 1. No acute abdominal or pelvic finding. 2. Large amount of stool.
[2025-03-27 03:33] LABS: Base Excess -4.0 mmol/L (-2.0-3.0)
--- NOTE | 2025-03-27 03:40 | DVH ---
Exam: CT CT L HIP WITH OUT CONTRAST History: FALL Comparison Study: None TECHNIQUE: Noncontrast CT imaging of the left hip was performed. Axial, coronal and sagittal multipla tabitha reformats were obtained from the axial data set by the technologist. Radiation optimization: All CT scans at this facility use at least one of these dose optimization nga hniques: automated exposure control mA and/or kV adjustment per patient size (includes targeted exam s where dose is matched to clinical indication) or iterative reconstruction. FINDINGS: No acute fracture or dislocation of the left hip. Mild narrowing of the superior joint space. No additional notable findings. IMPRESSION: 1. No acute findings of the left hip. Mild degenerative changes.
[2025-03-27 03:54] LABS: Hematocrit 36.2 % (36.0-46.0); Hemoglobin 12.1 g/dL (12.2-16.2); Mean Corpuscular Hemoglobin 28.3 pg (28.0-32.0); Mean Corpuscular Volume 84.6 fL (80.0-100.0); Nucleated Red Blood Cells % 0.1 %
[2025-03-27 04:02] LABS: Alanine Aminotransferase 10 U/L (7-40); Albumin 4.3 g/dL (3.2-4.8); Alkaline Phosphatase 109 U/L (46-116); Anion Gap 9 (5-15); BUN/Creatinine Ratio 26.7 (10.0-20.0); Calcium 9.1 mg/dL (8.7-10.4); Carbon Dioxide 22 mmol/L (20-31); Chloride 100 mmol/L (98-107); Lipase 42 U/L (12-53); Magnesium 1.9 mg/dL (1.6-2.6); Potassium 4.5 mmol/L (3.5-5.1); Total Protein 6.9 g/dL (5.7-8.2)
[2025-03-27 04:03] LABS: Bilirubin, Total 0.3 mg/dL (0.2-1.0)
[2025-03-27 04:05] LABS: Blood Urea Nitrogen 51 mg/dL (9-23); Glucose 317 mg/dL (74-106); Sodium 131 mmol/L (136-145)
--- NOTE | 2025-03-27 04:39 | ED.PDOC ---
GI ASSESSMENT Chief Complaint: Abdominal Pain Time Seen by MD: 02:13 Primary Care Provider: DR DAVIS Allergies: Coded Allergies: Acetaminophen (Verified Adverse Reaction, Unknown, LITTLE ITCHY, DOES TAKE IT, 03/08/25) Hydrocodone (Verified Adverse Reaction, Unknown, LITTLE ITCHY, DOES TAKE IT, 03/08/25) Uncoded Allergies: ADHESIVE TAPE (Allergy, Severe, 12/19/18) Home Meds Active Scripts Levofloxacin Hemihydrate (LEVAQUIN 500 MG) 500 Mg Tab, 1 TAB PO DAILY, #20 TAB Prov:KEYON MARTINEZ MD 03/11/25 Clindamycin Hcl (Clindamycin Hcl) 300 Mg Cap, 1 CAP PO TID, #60 CAP Prov:KEYON MARTINEZ MD 03/11/25 Amlodipine Besylate (NORVASC TABLET) 5 Mg Tb, 5 MG PO DAILY for 30 Days, #30 TAB 3 Refills Prov:JAKE MARIE DO 01/05/25 Oxycodone W/ Acetaminophen (Percocet 5/325MG) 1 Tab Tb, 1 TAB PO QID PRN, #30 TAB Prov:KEYON MARTINEZ MD 11/19/24 Furosemide (Lasix) 40 Mg Tab, 40 MG PO BID, #60 TAB Prov:KEYON MARTINEZ MD 11/19/24 Blood Glucose Monitoring Suppl (Blood Glucose System Gaurav) System Kit, PKG XX 5XD, #1 Administer a 30-day supply of lancets, alcohol prep pads and test strips and glucometer per insurance coverage. Prov:AKASH EVANS MD 09/25/21 Insulin Pen Needle (Bd Pen Needle/Leta 2Nd Ge 32G X 4 mm) 1 Mis Mis, MIS XX 5XD, #150 Prov:AKASH EVANS MD 09/25/21 Insulin Lispro (Humalog Kwikpen) 100 Unit/Ml Inj, 1 DOSE SC UD, #5 SYR Administer up to 40 units of insulin per provided sliding scale divided 3 times daily before meals and at bedtime. Prov:AKASH EVANS MD 09/25/21 Insulin Glargine (Basaglar Kwikpen) 100 Unit/Ml Inj, 20 UNIT SC DAILY@DINNER, #5 SYRN Prov:AKASH EVANS MD 09/25/21 Reported Medications Pregabalin (Pregabalin) 50 Mg Cap, 1 CAP PO TID 01/03/25 Fluoxetine Hcl (Fluoxetine Hcl) 40 Mg Cap, PO 01/03/25 Fluticasone Propionate (Fluticasone Propionate Hf) 110 Mcg/Act Aer, INH 01/03/25 Glipizide (Glipizide) 10 Mg Tab, 1 TAB PO DAILY 01/03/25 Apixaban Base (ELIQUIS) 2.5 Mg Tab, 1 TAB PO BID 01/03/25 Buprenorphine HCl (Buprenorphine Hydrochlori) 8 Mg Sub, 2 SL 01/03/25 Tizanidine Hydrochloride (Zanaflex) 4 Mg Tab, 2 MG PO TID, TAB 11/18/24 Meclizine Hcl (Meclizine Hcl) 12.5 Mg Tab, 25 MG PO TID, TAB 11/18/24 Diphenhydramine Hcl (Banophen) 25 Mg Cap, 25 MG PO Q6HP, CAP 11/18/24 Meloxicam (Meloxicam) 15 Mg Tab, 1 TAB PO DAILY, #30 TAB 2 Refills 11/18/24 Brexpiprazole (Rexulti) 4 Mg Tab, 4 MG PO HS, TAB 11/18/24 Pantoprazole Sodium Sesquihydr (Pantoprazole Sodium Dr) 40 Mg Tab, 20 MG PO BID, TAB 11/18/24 Deutetrabenazine (Austedo) 6 Mg Tab, 6 MG PO QPM, TAB 11/18/24 Hydroxyzine Hcl (Hydroxyzine Hcl) 50 Mg Tab, 50 MG PO HS, TAB 11/18/24 Docusate Sodium (Colace) 100 Mg Cap, 250 MG PO BID, CAP 11/18/24 Losartan Potassium (Losartan Potassium) 25 Mg Tab, 1 TAB PO DAILY, #90 TAB 1 Refill 11/18/24 Buprenorphine Hcl (Buprenorphine Hcl) 8 Mg Sub, 8 MG SL QID, INJ 11/18/24 Nitrofurantoin Monohyd Macro (Nitrofurantoin Monohydrat) 100 Mg Cap, 100 MG PO DAILY for 5 Days, CAP 11/18/24 Amitriptyline Hcl (Amitriptyline Hcl) 150 Mg Tab, 150 MG PO HS, TAB 11/18/24 Metoprolol Tartrate (Metoprolol Tartrate) 25 Mg Tab, 1 TAB PO DAILY, #180 TAB 1 Refill 11/18/24 Fenofibrate (Fenofibrate) 54 Mg Tab, 1 TAB PO DAILY, #30 TAB 5 Refills 11/18/24 Apixaban Base (ELIQUIS) 5 Mg Tab, 5 MG PO BID, TAB 11/18/24 Furosemide (Furosemide) 20 Mg Tab, 1 TAB PO DAILY, #90 TAB 1 Refill 11/18/24 Lamotrigine (Lamictal) 25 Mg Tab, 1 TAB PO DAILY, #60 TAB 1 Refill 11/18/24 Deutetrabenazine (Austedo) 12 Mg Tab, 12 MG PO DAILY, TAB 11/18/24 Fluoxetine HCl (Fluoxetine Hydrochloride) 40 Mg Cap, 80 MG PO DAILY, CAP 11/18/24 Tizanidine Hydrochloride (Zanaflex) 4 Mg Tab, 1 TAB PO TID, #90 TAB 11/17/24 Zolpidem Tartrate (Ambien) 10 Mg Tab, 1 TAB PO QPM, #30 TAB 5 Refills 06/01/18 Mode of Arrival: Ambulatory Past Medical History PAST MEDICAL HISTORY: CHF, COPD, DM, High Lipids, HTN, Thyroid Surgical History: , Hysterectomy, Tonsillectomy TESTING AND REGULATING CHIEF History: No Pertinent TESTING AND REGULATING CHIEF History Family History Family History: Unknown, Family hx of heart candelario Social History Smoker: Non-Smoker, Quit Greater Than 1 Year Alcohol: Denies ETOH Use Drugs: Marijuana Lives In: Home X-Ray, Labs, Meds, VS Vital Signs Date Time Temp Pulse Resp B/P (MAP) Pulse Ox O2 Delivery O2 Flow Rate FiO2 03/27/25 05:02 99 18 95 Room Air* 0 21 03/27/25 04:56 97.8 99 18 147/82 (103) 95 97.8 03/27/25 04:55 96 03/27/25 03:23 101 03/27/25 03:10 98.6 106 18 151/101 (118) 93 98.6 03/27/25 02:21 96 Lab Test 03/27/25 03:21 03/27/25 03:03 Range/Units Blood Gas Specimen Type Arterial Blood Gas Sample Site Right radial Blood Gas Patient Temperature 37.0 Arterial Blood Date Drawn [id number] Arterial Blood pH 7.299 L 7.350-7.450 Arterial Blood Partial Pressure CO2 47.1 H 32.0-45.0 mmHg Arterial Blood Partial Pressure O2 61.0 L 83.0-108.0 mmHg Arterial Blood HCO3 22.6 21.0-28.0 mmol/L Arterial Blood Oxygen Saturation 89.7 L 94.0-98.0 % Arterial Blood Base Excess -4.0 L -2.0-3.0 mmol/L Arterial Blood Oxyhemoglobin 87.5 L 94.0-98.0 % Arterial Blood Carboxyhemoglobin 1.9 H 0.5-1.5 % Arterial Blood Methemoglobin 0.6 0.0-1.5 % Koko Test Modified Blood Gas Total Hemoglobin 13.00 12.0-16.0 g/dL Blood Gas Modality Room air FiO2 % 21.0 White Blood Count 6.9 4.4-10.8 10^3/uL Red Blood Count 4.28 4.0-5.20 10^6/uL Hemoglobin 12.1 L 12.2-16.2 g/dL Hematocrit 36.2 36.0-46.0 % Mean Corpuscular Volume 84.6 80.0-100.0 fL Mean Corpuscular Hemoglobin 28.3 28.0-32.0 pg Mean Corpuscular Hemoglobin Concent 33.5 32.0-36.0 g/dL Red Cell Distribution Width 15.2 H 11.8-14.3 % Platelet Count 190 140-450 10^3/uL Mean Platelet Volume 7.4 6.9-10.8 fL Neutrophils (%) (Auto) 67.7 37.0-80.0 % Lymphocytes (%) (Auto) 21.5 10.0-50.0 % Monocytes (%) (Auto) 8.8 0.0-12.0 % Eosinophils (%) (Auto) 1.4 0.0-7.0 % Basophils (%) (Auto) 0.6 0.0-2.0 % Neutrophils # (Auto) 4.7 1.6-8.6 10 ^3/uL Lymphocytes # (Auto) 1.5 0.4-5.4 10 ^3/uL Monocytes # (Auto) 0.6 0-1.3 10 ^3/uL Eosinophils # (Auto) 0.1 0-0.8 10 ^3/uL Basophils # (Auto) 0 0-0.2 10 ^3/uL Nucleated Red Blood Cells 0.1 % Sodium Level 131 L 136-145 mmol/L Potassium Level 4.5 3.5-5.1 mmol/L Chloride Level 100 98-107 mmol/L Carbon Dioxide Level 22 20-31 mmol/L Anion Gap 9 5-15 Blood Urea Nitrogen 51 H 9-23 mg/dL Creatinine 1.91 H 0.550-1.02 mg/dL Glomerular Filtration Rate Calc 31 >90 mL/min BUN/Creatinine Ratio 26.7 H 10.0-20.0 Serum Glucose 317 H 74-106 mg/dL Calcium Level 9.1 8.7-10.4 mg/dL Magnesium Level 1.9 1.6-2.6 mg/dL Total Bilirubin 0.3 0.2-1.0 mg/dL Aspartate Amino Transferase (AST) 19 13-40 U/L Alanine Aminotransferase (ALT) 10 7-40 U/L Alkaline Phosphatase 109 46-116 U/L Total Protein 6.9 5.7-8.2 g/dL Albumin 4.3 3.2-4.8 g/dL Lipase 42 12-53 U/L Beta-Hydroxybutyric Acid 0.094 < 0.4 mmol/L SEPSIS Sepsis Screen Date sepsis recognized/suspect: Mar 27, 2025 Time Sepsis recognized/suspect: 209 Recent Procedure: No On Antibiotic Therapy: No Respiratory Rate >20: No Heart Rate >90: No Temp<36 C (96.8 F) or >38.3 C: No SBP <90 or MAP <65 mmHG: No New Acute Mental Status Change: No Is the patient on CPAP, BIPAP,: No Physician Orders Urinalysis (03/27/25 02:45) Ct Ab Pel Wo Con-No Oral Or Iv (03/27/25 02:45) Ct L Hip With Out Contrast (03/27/25 02:59) Abg W/ Co-Ox (03/27/25 02:45) Vital Signs Date Time Temp Pulse Resp B/P (MAP) Pulse Ox O2 Delivery O2 Flow Rate FiO2 03/27/25 05:02 99 18 95 Room Air* 0 21 03/27/25 04:56 97.8 99 18 147/82 (103) 95 97.8 03/27/25 04:55 96 03/27/25 03:23 101 03/27/25 03:10 98.6 106 18 151/101 (118) 93 98.6 7/7/25 02:21 96 Laboratory Tests Test 03/27/25 03:03 White Blood Count 6.9 10^3/uL (4.4-10.8) Departure 1 Departure Time of Disposition: 04:36 Impression: Primary Impression: Acute abdominal pain Additional Impression: Left hip pain Disposition: HOME / SELF CARE / HOMELESS Condition: Stable Additional Instructions: ED DISCHARGE INSTRUCTIONS INSTRUCTIONS: PLEASE READ ALL INSTRUCTIONS PROVIDED IN THIS PACKET CAREFULLY. ALTHOUGH YOU HAVE BEEN DISCHARGED FROM THE EMERGENCY DEPARTMENT, THIS DOES NOT MEAN THAT YOU HAVE A "CLEAN BILL OF HEALTH". NO DEFINITIVE DIAGNOSIS FOR YOUR SYMPTOMS HAS BEEN MADE TODAY. IT IS POSSIBLE THAT YOU ARE IN THE PROCESS OF DEVELOPING A SERIOUS ILLNESS. THIS IS WHY YOU MUST RETURN TO THE ED WITHOUT FAIL IF ANY NEW OR WORSENING SYMPTOMS (ESPECIALLY IF YOUR SYMPTOMS INCLUDE CHEST PAIN, TROUBLE BREATHING, ABDOMINAL PAIN, FEVER, HEADACHE, CONFUSION, TROUBLE SEEING, OR TROUBLE WALKING) IT IS ALSO VERY IMPORTANT THAT YOU SEE A PRIMARY CARE DOCTOR WITHIN THE NEXT 3-5 DAYS TO FOLLOW UP. IF YOU ARE UNABLE TO GET AN APPOINTMENT, RETURN TO THE ED FOR RE-EVALUATION. ABDOMINAL PAIN: CARE INSTRUCTIONS OVERVIEW ABDOMINAL PAIN HAS MANY POSSIBLE CAUSES. SOME AREN'T SERIOUS AND GET BETTER ON THEIR OWN IN A FEW DAYS. OTHERS NEED MORE TESTING AND TREATMENT. IF YOUR PAIN CONTINUES OR GETS WORSE, YOU NEED TO BE RECHECKED AND MAY NEED MORE TESTS TO FIND OUT WHAT IS WRONG. YOU MAY NEED SURGERY TO CORRECT THE PROBLEM. DON'T IGNORE NEW SYMPTOMS, SUCH FEVER, NAUSEA AND VOMITING, URINATION PROBLEMS, PAIN THAT GETS WORSE, AND DIZZINESS. THESE MAY BE SIGNS OF A MORE SERIOUS PROBLEM. IF YOU ARE NOT GETTING BETTER, YOU MAY NEED MORE TESTS OR TREATMENT. THE DOCTOR HAS CHECKED YOU CAREFULLY, BUT PROBLEMS CAN DEVELOP LATER. IF YOU NOTICE ANY PROBLEMS OR NEW SYMPTOMS, GET MEDICAL TREATMENT RIGHT AWAY. FOLLOW-UP CARE IS A SUN PART OF YOUR TREATMENT AND SAFETY. BE SURE TO MAKE AND GO TO ALL APPOINTMENTS, AND CALL YOUR DOCTOR IF YOU ARE HAVING PROBLEMS. IT'S ALSO A GOOD IDEA TO KNOW YOUR TEST RESULTS AND KEEP A LIST OF THE MEDICINES YOU TAKE. HOW CAN YOU CARE FOR YOURSELF AT HOME? REST UNTIL YOU FEEL BETTER. TO PREVENT DEHYDRATION, DRINK PLENTY OF FLUIDS. CHOOSE WATER AND OTHER CLEAR LIQUIDS UNTIL YOU FEEL BETTER. IF YOU HAVE KIDNEY, HEART, OR LIVER DISEASE AND HAVE TO LIMIT FLUIDS, TALK WITH YOUR DOCTOR BEFORE YOU INCREASE THE AMOUNT OF FLUIDS YOU DRINK. WHEN YOU FEEL LIKE EATING, START WITH SMALL AMOUNTS. DO NOT HAVE ALCOHOL, CAFFEINE, OR SPICY, HOT, OR HIGH-FAT FOODS FOR A DAY OR TWO. AVOID ANTI-INFLAMMATORY MEDICINES SUCH ASPIRIN, IBUPROFEN (ADVIL, MOTRIN), AND NAPROXEN (ALEVE). THESE CAN CAUSE STOMACH UPSET. TALK TO YOUR DOCTOR IF YOU TAKE DAILY ASPIRIN FOR ANOTHER HEALTH PROBLEM. WHEN SHOULD YOU CALL FOR HELP? CALL 911 ANYTIME YOU THINK YOU MAY NEED EMERGENCY CARE. FOR EXAMPLE, CALL IF: YOU PASSED OUT (LOST CONSCIOUSNESS). YOU PASS [place]OON OR VERY BLOODY STOOLS. YOU VOMIT BLOOD OR WHAT LOOKS LIKE COFFEE GROUNDS. YOU HAVE SEVERE BELLY PAIN. CALL YOUR DOCTOR NOW OR SEEK IMMEDIATE MEDICAL CARE IF: YOUR PAIN GETS WORSE, ESPECIALLY IF IT BECOMES FOCUSED IN ONE AREA OF YOUR BELLY. YOU HAVE A NEW OR HIGHER FEVER. YOUR STOOLS ARE BLACK AND LOOK LIKE TAR, OR THEY HAVE STREAKS OF BLOOD. YOU HAVE UNEXPECTED VAGINAL BLEEDING. YOU HAVE SYMPTOMS OF A URINARY TRACT INFECTION. THESE MAY INCLUDE: PAIN WHEN YOU URINATE. URINATING MORE OFTEN THAN USUAL. BLOOD IN YOUR URINE. YOU ARE DIZZY OR LIGHTHEADED, OR YOU FEEL LIKE YOU MAY FAINT. WATCH CLOSELY FOR CHANGES IN YOUR HEALTH, AND BE SURE TO CONTACT YOUR DOCTOR IF: YOU ARE NOT GETTING BETTER EXPECTED. CREDITS FOR ABDOMINAL PAIN: CARE INSTRUCTIONS CURRENT OF: JULY 09, 2023 AUTHOR: L[employer] STAFF CLINICAL REVIEW BOARD ALL Poster[employer] EDUCATION IS REVIEWED BY A TEAM THAT INCLUDES PHYSICIANS, NURSES, ADVANCED PRACTITIONERS, REGISTERED DIETICIANS, AND OTHER HEALTHCARE PROFESSIONALS. Comments 49-YEAR-OLD FEMALE PRESENTED WITH ABDOMINAL PAIN. NO PERITONEAL SIGNS ON ABDOMINAL EXAM. NO EVIDENCE OF ACUTE ABDOMEN AT THIS TIME. PATIENT IS WELL APPEARING. LABS SHOW NO LEUKOCYTOSIS OR ELEVATION OF LFTS. IMAGING WAS NO ACUTE PROCESS. PATIENT IS AFEBRILE. PATIENT IS NOT HYPOTENSIVE. LOW SUSPICION FOR ACUTE HEPATOBILIARY DISEASE (INCLUDING ACUTE CHOLECYSTITIS, ACUTE PANCREATITIS, PUD (INCLUDING PERFORATION), ACUTE INFECTIOUS PROCESS (PNEUMONIA, HEPATITIS, PYELONEPHRITIS), ACUTE APPENDICITIS, VASCULAR CATASTROPHE, BOWEL OBSTRUCTIONS, VISCOUS PERFORATION. PRESENTATION NOT CONSISTENT WITH OTHER ACUTE, EMERGENT CAUSES OF ABDOMINAL PAIN AT THIS TIME. AC PRESLEY MD Mar 27, 2025 04:39
--- NOTE | 2025-03-27 04:55 | ED.PDOC ---
History of Present Illness HPI Comments 49-year-old female who is brought in by ambulance from private residence for complaint of nonradiating, upper abdominal pain, with associated nausea, vomiting, and diarrhea. Per EMS report, patient endorses on sudden unprovoked onset of symptoms, with no prior history, this evening, 2 hours prior to arrival. Pain is a 10/10 in severity, intermittent, worsens whenever sitting upright, and improves whenever lay flat. Significant history of CHF CKF, COPD, DM, DVT, HLD, HTN, hypothyroidism, C-sections, hysterectomy, and tobacco and marijuana use. She is on Lasix, currently. Vitals stable within normal limits, with the exception of patient being tachycardic, 93% on room air, and hyperg lycemic at an Accu-Chek value 343. Patient reports being compliant with her medications. She also complains of left hip pain that has been ongoing for 1 week after falling off her new mobility scooter 3 or 4 times, recently. Patient denies having any bloody vomitus or diarrhea, constipation, urinary symptoms, fever, chills, or further associated symptoms. Chief Complaint: Abdominal Pain Time Seen by MD: 02:40 Primary Care Provider: DR DAVIS Reviewed Notes: Nurses Notes, Pipe Fitter Gas Pipe Notes, Medications, Allergies Allergies: Coded Allergies: Acetaminophen (Verified Adverse Reaction, Unknown, LITTLE ITCHY, DOES TAKE IT, 03/08/25) Hydrocodone (Verified Adverse Reaction, Unknown, LITTLE ITCHY, DOES TAKE IT, 03/08/25) Uncoded Allergies: ADHESIVE TAPE (Allergy, Severe, 12/19/18) Home Meds Active Scripts Levofloxacin Hemihydrate (LEVAQUIN 500 MG) 500 Mg Tab, 1 TAB PO DAILY, #20 TAB Prov:KEYON MARTINEZ MD 03/11/25 Clindamycin Hcl (Clindamycin Hcl) 300 Mg Cap, 1 CAP PO TID, #60 CAP Prov:KEYON MARTINEZ MD 03/11/25 Amlodipine Besylate (NORVASC TABLET) 5 Mg Tb, 5 MG PO DAILY for 30 Days, #30 TAB 3 Refills Prov:JAKE MARIE DO 01/05/25 Oxycodone W/ Acetaminophen (Percocet 5/325MG) 1 Tab Tb, 1 TAB PO QID PRN, #30 TAB Prov:KEYON MARTINEZ MD 11/19/24 Furosemide (Lasix) 40 Mg Tab, 40 MG PO BID, #60 TAB Prov:KEYON MARTINEZ MD 11/19/24 Blood Glucose Monitoring Suppl (Blood Glucose System Gaurav) System Kit, PKG XX 5XD, #1 Administer a 30-day supply of lancets, alcohol prep pads and test strips and glucometer per insurance coverage. Prov:AKASH EVANS MD 09/25/21 Insulin Pen Needle (Bd Pen Needle/Leta 2Nd Ge 32G X 4 mm) 1 Mis Mis, MIS XX 5XD, #150 Prov:AKASH EVANS MD 09/25/21 Insulin Lispro (Humalog Kwikpen) 100 Unit/Ml Inj, 1 DOSE SC UD, #5 SYR Administer up to 40 units of insulin per provided sliding scale divided 3 times daily before meals and at bedtime. Prov:AKASH EVANS MD 09/25/21 Insulin Glargine (Basaglar Kwikpen) 100 Unit/Ml Inj, 20 UNIT SC DAILY@DINNER, #5 SYRN Prov:AKASH EVANS MD 09/25/21 Reported Medications Pregabalin (Pregabalin) 50 Mg Cap, 1 CAP PO TID 01/03/25 Fluoxetine Hcl (Fluoxetine Hcl) 40 Mg Cap, PO 01/03/25 Fluticasone Propionate (Fluticasone Propionate Hf) 110 Mcg/Act Aer, INH 01/03/25 Glipizide (Glipizide) 10 Mg Tab, 1 TAB PO DAILY 01/03/25 Apixaban Base (ELIQUIS) 2.5 Mg Tab, 1 TAB PO BID 01/03/25 Buprenorphine HCl (Buprenorphine Hydrochlori) 8 Mg Sub, 2 SL 01/03/25 Tizanidine Hydrochloride (Zanaflex) 4 Mg Tab, 2 MG PO TID, TAB 11/18/24 Meclizine Hcl (Meclizine Hcl) 12.5 Mg Tab, 25 MG PO TID, TAB 11/18/24 Diphenhydramine Hcl (Banophen) 25 Mg Cap, 25 MG PO Q6HP, CAP 11/18/24 Meloxicam (Meloxicam) 15 Mg Tab, 1 TAB PO DAILY, #30 TAB 2 Refills 11/18/24 Brexpiprazole (Rexulti) 4 Mg Tab, 4 MG PO HS, TAB 11/18/24 Pantoprazole Sodium Sesquihydr (Pantoprazole Sodium Dr) 40 Mg Tab, 20 MG PO BID, TAB 11/18/24 Deutetrabenazine (Austedo) 6 Mg Tab, 6 MG PO QPM, TAB 11/18/24 Hydroxyzine Hcl (Hydroxyzine Hcl) 50 Mg Tab, 50 MG PO HS, TAB 11/18/24 Docusate Sodium (Colace) 100 Mg Cap, 250 MG PO BID, CAP 11/18/24 Losartan Potassium (Losartan Potassium) 25 Mg Tab, 1 TAB PO DAILY, #90 TAB 1 Refill 11/18/24 Buprenorphine Hcl (Buprenorphine Hcl) 8 Mg Sub, 8 MG SL QID, INJ 11/18/24 Nitrofurantoin Monohyd Macro (Nitrofurantoin Monohydrat) 100 Mg Cap, 100 MG PO DAILY for 5 Days, CAP 11/18/24 Amitriptyline Hcl (Amitriptyline Hcl) 150 Mg Tab, 150 MG PO HS, TAB 11/18/24 Metoprolol Tartrate (Metoprolol Tartrate) 25 Mg Tab, 1 TAB PO DAILY, #180 TAB 1 Refill 11/18/24 Fenofibrate (Fenofibrate) 54 Mg Tab, 1 TAB PO DAILY, #30 TAB 5 Refills 11/18/24 Apixaban Base (ELIQUIS) 5 Mg Tab, 5 MG PO BID, TAB 11/18/24 Furosemide (Furosemide) 20 Mg Tab, 1 TAB PO DAILY, #90 TAB 1 Refill 11/18/24 Lamotrigine (Lamictal) 25 Mg Tab, 1 TAB PO DAILY, #60 TAB 1 Refill 11/18/24 Deutetrabenazine (Austedo) 12 Mg Tab, 12 MG PO DAILY, TAB 11/18/24 Fluoxetine HCl (Fluoxetine Hydrochloride) 40 Mg Cap, 80 MG PO DAILY, CAP 11/18/24 Tizanidine Hydrochloride (Zanaflex) 4 Mg Tab, 1 TAB PO TID, #90 TAB 11/17/24 Zolpidem Tartrate (Ambien) 10 Mg Tab, 1 TAB PO QPM, #30 TAB 5 Refills 06/01/18 Information Source: Patient, Emergency Med Personnel Mode of Arrival: EMS Severity: Moderate Timing: Hours Duration: Since onset Prehospital treatment: 12 Lead EKG, Accucheck, Websphere Administrator Review of Systems: REVIEW OF SYSTEMS: No fever, no chills, HEENT: No neck pain, no blurred vision Cardiac: No chest pain. No palpitations. Lungs: No shortness of breath, GI: Abdominal pain, nausea, vomiting, diarrhea Musculoskeletal: Left hip pain, no back pain Skin: No rash, no wound Neuro: No headache, no dizziness, no syncope Vital Signs Vital Signs Date Time Temp Pulse Resp B/P (MAP) Pulse Ox O2 Delivery O2 Flow Rate FiO2 03/27/25 05:02 99 18 95 Room Air* 0 21 03/27/25 04:56 97.8 147/82 (103) 97.8 Physical Exam General: Awake, alert and oriented. No acute distress. Skin: Skin in warm, dry and intact without rashes or lesions. HEENT: The head is normocephalic and atraumatic. Conjunctivae are clear without exudates or hemorrhage. Sclera is non-icteric. Neck: Normal range of motion. No JVD. Cardiac: Regular rate Respiratory: No signs of respiratory distress. No Stridor. Gastrointestinal: Right upper quadrant tenderness Extremities: Upper and lower extremities are atraumatic in appearance without deformity. Neurological: The patient is awake, alert and oriented to person, place, and time with normal speech. Speech is clear. There is no facial asymmetry. Psychiatric: Appropriate mood and affect. Good judgement and insight. Past Medical History PAST MEDICAL HISTORY: CHF, CKF, COPD, DM, High Lipids, HTN, Thyroid (Hypothyroidism) Past Medical History (Other): DURGA Morbid obesity DVT or her lower extremity Surgical History: , Hysterectomy, Tonsillectomy LEASING PROFESSIONAL History: No Pertinent LEASING PROFESSIONAL History Family History Family History: Unknown, Family hx of heart candelario Social History Smoker: Cigarettes Alcohol: Denies ETOH Use Drugs: Marijuana Lives In: Home Was a procedure done? Was a procedure done?: No EKG EKG : Pulse Rate (adult): 96 [place]: Normal Cardiac Rhythm: NSR Block: None Hypertrophy: None ST: Normal Comments QTC 408 Differential Dx Considerations may include: Differential diagnoses considered include: Abdominal aortic aneurysm, ME, esophageal rupture, intestinal obstruction, mesenteric ischemia, perforated viscus or solid organ rupture, CHF with hepatomegaly, pneumonia, abscess, appendicitis, biliary disease, diverticulitis, gastritis, gastroenteritis, hepatitis, hernia, inflammatory bowel disease, pancreatitis, peptic ulcer disease, urinary tract infection, ureteral colic, constipation, GERD, irritable syndrome, abdominal wall pain, nonspecific abdominal pain, herpes zoster, nephrolithiasis. X-Ray, Labs, Meds, VS Vital Signs Date Time Temp Pulse Resp B/P (MAP) Pulse Ox O2 Delivery O2 Flow Rate FiO2 03/27/25 05:02 99 18 95 Room Air* 0 21 03/27/25 04:56 97.8 99 18 147/82 (103) 95 97.8 03/27/25 04:55 96 03/27/25 03:23 101 03/27/25 03:10 98.6 106 18 151/101 (118) 93 98.6 03/27/25 02:21 96 Lab Test 03/27/25 03:21 03/27/25 03:03 Range/Units Blood Gas Specimen Type Arterial Blood Gas Sample Site Right radial Blood Gas Patient Temperature 37.0 Arterial Blood Date Drawn [id number] Arterial Blood pH 7.299 L 7.350-7.450 Arterial Blood Partial Pressure CO2 47.1 H 32.0-45.0 mmHg Arterial Blood Partial Pressure O2 61.0 L 83.0-108.0 mmHg Arterial Blood HCO3 22.6 21.0-28.0 mmol/L Arterial Blood Oxygen Saturation 89.7 L 94.0-98.0 % Arterial Blood Base Excess -4.0 L -2.0-3.0 mmol/L Arterial Blood Oxyhemoglobin 87.5 L 94.0-98.0 % Arterial Blood Carboxyhemoglobin 1.9 H 0.5-1.5 % Arterial Blood Methemoglobin 0.6 0.0-1.5 % Koko Test Modified Blood Gas Total Hemoglobin 13.00 12.0-16.0 g/dL Blood Gas Modality Room air FiO2 % 21.0 White Blood Count 6.9 4.4-10.8 10^3/uL Red Blood Count 4.28 4.0-5.20 10^6/uL Hemoglobin 12.1 L 12.2-16.2 g/dL Hematocrit 36.2 36.0-46.0 % Mean Corpuscular Volume 84.6 80.0-100.0 fL Mean Corpuscular Hemoglobin 28.3 28.0-32.0 pg Mean Corpuscular Hemoglobin Concent 33.5 32.0-36.0 g/dL Red Cell Distribution Width 15.2 H 11.8-14.3 % Platelet Count 190 140-450 10^3/uL Mean Platelet Volume 7.4 6.9-10.8 fL Neutrophils (%) (Auto) 67.7 37.0-80.0 % Lymphocytes (%) (Auto) 21.5 10.0-50.0 % Monocytes (%) (Auto) 8.8 0.0-12.0 % Eosinophils (%) (Auto) 1.4 0.0-7.0 % Basophils (%) (Auto) 0.6 0.0-2.0 % Neutrophils # (Auto) 4.7 1.6-8.6 10 ^3/uL Lymphocytes # (Auto) 1.5 0.4-5.4 10 ^3/uL Monocytes # (Auto) 0.6 0-1.3 10 ^3/uL Eosinophils # (Auto) 0.1 0-0.8 10 ^3/uL Basophils # (Auto) 0 0-0.2 10 ^3/uL Nucleated Red Blood Cells 0.1 % Sodium Level 131 L 136-145 mmol/L Potassium Level 4.5 3.5-5.1 mmol/L Chloride Level 100 98-107 mmol/L Carbon Dioxide Level 22 20-31 mmol/L Anion Gap 9 5-15 Blood Urea Nitrogen 51 H 9-23 mg/dL Creatinine 1.91 H 0.550-1.02 mg/dL Glomerular Filtration Rate Calc 31 >90 mL/min BUN/Creatinine Ratio 26.7 H 10.0-20.0 Serum Glucose 317 H 74-106 mg/dL Calcium Level 9.1 8.7-10.4 mg/dL Magnesium Level 1.9 1.6-2.6 mg/dL Total Bilirubin 0.3 0.2-1.0 mg/dL Aspartate Amino Transferase (AST) 19 13-40 U/L Alanine Aminotransferase (ALT) 10 7-40 U/L Alkaline Phosphatase 109 46-116 U/L Total Protein 6.9 5.7-8.2 g/dL Albumin 4.3 3.2-4.8 g/dL Lipase 42 12-53 U/L Beta-Hydroxybutyric Acid 0.094 < 0.4 mmol/L Time of 1ST Reevaluation: 18:35 Reevaluation 1ST: Unchanged Patient Education/Counseling: Treatment Family Education/Counseling: No Family Present SEPSIS Sepsis Screen Date sepsis recognized/suspect: Mar 27, 2025 Time Sepsis recognized/suspect: 209 Recent Procedure: No On Antibiotic Therapy: No Respiratory Rate >20: No Heart Rate >90: No Temp<36 C (96.8 F) or >38.3 C: No SBP <90 or MAP <65 mmHG: No New Acute Mental Status Change: No Is the patient on CPAP, BIPAP,: No Physician Orders Urinalysis (03/27/25 02:45) Ct Ab Pel Wo Con-No Oral Or Iv (03/27/25 02:45) Ct L Hip With Out Contrast (03/27/25 02:59) Abg W/ Co-Ox (03/27/25 02:45) Vital Signs Date Time Temp Pulse Resp B/P (MAP) Pulse Ox O2 Delivery O2 Flow Rate FiO2 03/27/25 05:02 99 18 95 Room Air* 0 21 03/27/25 04:56 97.8 99 18 147/82 (103) 95 97.8 03/27/25 04:55 96 03/27/25 03:23 101 03/27/25 03:10 98.6 106 18 151/101 (118) 93 98.6 03/27/25 02:21 96 Laboratory Tests Test 03/27/25 03:03 White Blood Count 6.9 10^3/uL (4.4-10.8) Departure 1 Departure Time of Disposition: 18:35 Impression: Primary Impression: Abdominal pain Disposition: HOME / SELF CARE / HOMELESS Condition: Stable Additional Instructions: ED DISCHARGE INSTRUCTIONS INSTRUCTIONS: PLEASE READ ALL INSTRUCTIONS PROVIDED IN THIS PACKET CAREFULLY. ALTHOUGH YOU HAVE BEEN DISCHARGED FROM THE EMERGENCY DEPARTMENT, THIS DOES NOT MEAN THAT YOU HAVE A "CLEAN BILL OF HEALTH". NO DEFINITIVE DIAGNOSIS FOR YOUR SYMPTOMS HAS BEEN MADE TODAY. IT IS POSSIBLE THAT YOU ARE IN THE PROCESS OF DEVELOPING A SERIOUS ILLNESS. THIS IS WHY YOU MUST RETURN TO THE ED WITHOUT FAIL IF ANY NEW OR WORSENING SYMPTOMS (ESPECIALLY IF YOUR SYMPTOMS INCLUDE CHEST PAIN, TROUBLE BREATHING, ABDOMINAL PAIN, FEVER, HEADACHE, CONFUSION, TROUBLE SEEING, OR TROUBLE WALKING) IT IS ALSO VERY IMPORTANT THAT YOU SEE A PRIMARY CARE DOCTOR WITHIN THE NEXT 3-5 DAYS TO FOLLOW UP. IF YOU ARE UNABLE TO GET AN APPOINTMENT, RETURN TO THE ED FOR RE-EVALUATION. ABDOMINAL PAIN: CARE INSTRUCTIONS OVERVIEW ABDOMINAL PAIN HAS MANY POSSIBLE CAUSES. SOME AREN'T SERIOUS AND GET BETTER ON THEIR OWN IN A FEW DAYS. OTHERS NEED MORE TESTING AND TREATMENT. IF YOUR PAIN CONTINUES OR GETS WORSE, YOU NEED TO BE RECHECKED AND MAY NEED MORE TESTS TO FIND OUT WHAT IS WRONG. YOU MAY NEED SURGERY TO CORRECT THE PROBLEM. DON'T IGNORE NEW SYMPTOMS, SUCH FEVER, NAUSEA AND VOMITING, URINATION PROBLEMS, PAIN THAT GETS WORSE, AND DIZZINESS. THESE MAY BE SIGNS OF A MORE SERIOUS PROBLEM. IF YOU ARE NOT GETTING BETTER, YOU MAY NEED MORE TESTS OR TREATMENT. THE DOCTOR HAS CHECKED YOU CAREFULLY, BUT PROBLEMS CAN DEVELOP LATER. IF YOU NOTICE ANY PROBLEMS OR NEW SYMPTOMS, GET MEDICAL TREATMENT RIGHT AWAY. FOLLOW-UP CARE IS A SUN PART OF YOUR TREATMENT AND SAFETY. BE SURE TO MAKE AND GO TO ALL APPOINTMENTS, AND CALL YOUR DOCTOR IF YOU ARE HAVING PROBLEMS. IT'S ALSO A GOOD IDEA TO KNOW YOUR TEST RESULTS AND KEEP A LIST OF THE MEDICINES YOU TAKE. HOW CAN YOU CARE FOR YOURSELF AT HOME? REST UNTIL YOU FEEL BETTER. TO PREVENT DEHYDRATION, DRINK PLENTY OF FLUIDS. CHOOSE WATER AND OTHER CLEAR LIQUIDS UNTIL YOU FEEL BETTER. IF YOU HAVE KIDNEY, HEART, OR LIVER DISEASE AND HAVE TO LIMIT FLUIDS, TALK WITH YOUR DOCTOR BEFORE YOU INCREASE THE AMOUNT OF FLUIDS YOU DRINK. WHEN YOU FEEL LIKE EATING, START WITH SMALL AMOUNTS. DO NOT HAVE ALCOHOL, CAFFEINE, OR SPICY, HOT, OR HIGH-FAT FOODS FOR A DAY OR TWO. AVOID ANTI-INFLAMMATORY MEDICINES SUCH ASPIRIN, IBUPROFEN (ADVIL, MOTRIN), AND NAPROXEN (ALEVE). THESE CAN CAUSE STOMACH UPSET. TALK TO YOUR DOCTOR IF YOU TAKE DAILY ASPIRIN FOR ANOTHER HEALTH PROBLEM. WHEN SHOULD YOU CALL FOR HELP? CALL 911 ANYTIME YOU THINK YOU MAY NEED EMERGENCY CARE. FOR EXAMPLE, CALL IF: YOU PASSED OUT (LOST CONSCIOUSNESS). YOU PASS [place] OR VERY BLOODY STOOLS. YOU VOMIT BLOOD OR WHAT LOOKS LIKE COFFEE GROUNDS. YOU HAVE SEVERE BELLY PAIN. CALL YOUR DOCTOR NOW OR SEEK IMMEDIATE MEDICAL CARE IF: YOUR PAIN GETS WORSE, ESPECIALLY IF IT BECOMES FOCUSED IN ONE AREA OF YOUR BELLY. YOU HAVE A NEW OR HIGHER FEVER. YOUR STOOLS ARE BLACK AND LOOK LIKE TAR, OR THEY HAVE STREAKS OF BLOOD. YOU HAVE UNEXPECTED VAGINAL BLEEDING. YOU HAVE SYMPTOMS OF A URINARY TRACT INFECTION. THESE MAY INCLUDE: PAIN WHEN YOU URINATE. URINATING MORE OFTEN THAN USUAL. BLOOD IN YOUR URINE. YOU ARE DIZZY OR LIGHTHEADED, OR YOU FEEL LIKE YOU MAY FAINT. WATCH CLOSELY FOR CHANGES IN YOUR HEALTH, AND BE SURE TO CONTACT YOUR DOCTOR IF: YOU ARE NOT GETTING BETTER EXPECTED. CREDITS FOR ABDOMINAL PAIN: CARE INSTRUCTIONS CURRENT OF: JULY 09, 2023 AUTHOR: LELA [employer], [facility] STAFF CLINICAL REVIEW BOARD ALL [employer] EDUCATION IS REVIEWED BY A TEAM THAT INCLUDES PHYSICIANS, NURSES, ADVANCED PRACTITIONERS, REGISTERED DIETICIANS, AND OTHER HEALTHCARE PROFESSIONALS. Comments 49-YEAR-OLD FEMALE PRESENTED WITH ABDOMINAL PAIN. NO PERITONEAL SIGNS ON ABDOMINAL EXAM. NO EVIDENCE OF ACUTE ABDOMEN AT THIS TIME. PATIENT IS WELL APPEARING. LABS SHOW NO LEUKOCYTOSIS OR ELEVATION OF LFTS. IMAGING WAS NO ACUTE PROCESS. PATIENT IS AFEBRILE. PATIENT IS NOT HYPOTENSIVE. LOW SUSPICION FOR ACUTE HEPATOBILIARY DISEASE (INCLUDING ACUTE CHOLECYSTITIS, ACUTE PANCREATITIS, PUD (INCLUDING PERFORATION), ACUTE INFECTIOUS PROCESS (PNEUMONIA, HEPATITIS, PYELONEPHRITIS), ACUTE APPENDICITIS, VASCULAR CATASTROPHE, BOWEL OBSTRUCTIONS, VISCOUS PERFORATION. PRESENTATION NOT CONSISTENT WITH OTHER ACUTE, EMERGENT CAUSES OF ABDOMINAL PAIN AT THIS TIME. Extensive evaluation was performed in attempt to identify or rule out: (See differential diagnosis section) The following tests were ordered, and results were reviewed by me and discussed with patient: (See diagnostic results section) The following test were independently interpreted by me: N/A I reviewed and agreed with the following test results read by other providers: Left hip x-ray, CT abdomen and pelvis and left hip without contrast I reviewed the following notes from the pt's past medical encounters: March 08, 2025 encounter for bilateral lower extremity edema Additional information was gathered from interviewing the following independent historians: EMS Discussion of management or test interpretation with external physician/other qualified health critical care transport nurse: N/A Decision regarding hospitalization or escalation of hospital level of care: Risks and benefits of admission for further treatment of patient's condition was considered however due to patient's stable condition patient will be discharged to follow up closely or return to care for worsening of condition or inability to follow up. Critical Care Note Critical Care Time?: No Stability Stability form required: No Heart Score Heart Score: Heart Score Response (Comments) Value History N/A 0 EKG N/A 0 Age N/A 0 Risk Factors N/A 0 Troponin N/A 0 Total 0 I personally scribed for AC PRESLEY MD ([email or web address]) on 03/27/25 at 04:55. Electronically submitted by Heladio Polanco ([email or web address]). AC PRESLEY MD Mar 27, 2025 04:55
[2025-03-27 04:56] VITALS: BP 147/82; TEMP 97.8
[2025-03-27 05:02] VITALS: PULSE 99; RESP 18; O2SAT 95
== END 2025-03-27 05:10 | disposition home or self-care (01) ==
LOC: ER 02:07 → EDBD 02:07 → ER 05:10
DX: R10.10 Upper abdominal pain, unspecified (principal); F17.210 Nicotine dependence, cigarettes, uncomplicated; F12.90 Cannabis use, unspecified, uncomplicated; I11.0 Hypertensive heart disease with heart failure; I50.9 Heart failure, unspecified; E03.9 Hypothyroidism, unspecified; E11.65 Type 2 diabetes mellitus with hyperglycemia; E66.01 Morbid (severe) obesity due to excess calories; E78.5 Hyperlipidemia, unspecified; J44.9 Chronic obstructive pulmonary disease, unspecified; Z98.890 Other specified postprocedural states; Z68.45 Body mass index [BMI] 70 or greater, adult; Z79.01 Long term (current) use of anticoagulants; Z79.84 Long term (current) use of oral hypoglycemic drugs; Z79.1 Long term (current) use of non-steroidal anti-inflammatories (NSAID); Z79.4 Long term (current) use of insulin; Z79.899 Other long term (current) drug therapy; Z88.5 Allergy status to narcotic agent; Z90.710 Acquired absence of both cervix and uterus; Z88.8 Allergy status to other drugs, medicaments and biological substances
CPT/HCPCS: 36415; 36600; 73700; 74176; 80053; 82010; 82805; 83690; 83735; 85025

== ENCOUNTER 2025-04-02 19:22 | Emergency (ER) | payer MEDICAID ==
[~2025-04-02] VITALS: Ht 144.8 cm; Wt 113.0 kg
--- NOTE | 2025-04-02 19:34 | ED.PDOC ---
History of Present Illness HPI Comments This is a 49-year-old female who comes in with chief complaint of status post fall approximately two weeks ago and injured her right shoulder. The patient states that she has been trying her Blackey without any relief. At this time she states that the pain is a 10/10. The patient was transported to our facility by paramedics. Upon arrival, the patient is still complaining of the right shoulder pain. Chief Complaint: Upper Extremity Time Seen by MD: 19:29 Primary Care Provider: DR DAVIS Reviewed Notes: Nurses Notes, Sanitation Laborer Notes, Medications, Allergies (Allergies listed above) Allergies: Coded Allergies: Acetaminophen (Verified Adverse Reaction, Unknown, LITTLE ITCHY, DOES TAKE IT, 03/08/25) Hydrocodone (Verified Adverse Reaction, Unknown, LITTLE ITCHY, DOES TAKE IT, 03/08/25) Uncoded Allergies: ADHESIVE TAPE (Allergy, Severe, 12/19/18) Home Meds Active Scripts Levofloxacin Hemihydrate (LEVAQUIN 500 MG) 500 Mg Tab, 1 TAB PO DAILY, #20 TAB Prov:KEYON MARTINEZ MD 03/11/25 Clindamycin Hcl (Clindamycin Hcl) 300 Mg Cap, 1 CAP PO TID, #60 CAP Prov:KEYON MARTINEZ MD 03/11/25 Amlodipine Besylate (NORVASC TABLET) 5 Mg Tb, 5 MG PO DAILY for 30 Days, #30 TAB 3 Refills Prov:JAKE MARIE DO 01/05/25 Oxycodone W/ Acetaminophen (Percocet 5/325MG) 1 Tab Tb, 1 TAB PO QID PRN, #30 TAB Prov:KEYON MARTINEZ MD 11/19/24 Furosemide (Lasix) 40 Mg Tab, 40 MG PO BID, #60 TAB Prov:KEYON MARTINEZ MD 11/19/24 Blood Glucose Monitoring Suppl (Blood Glucose System Gaurav) System Kit, PKG XX 5XD, #1 Administer a 30-day supply of lancets, alcohol prep pads and test strips and glucometer per insurance coverage. Prov:AKASH EVANS MD 09/25/21 Insulin Pen Needle (Bd Pen Needle/Leta 2Nd Ge 32G X 4 mm) 1 Mis Mis, MIS XX 5XD, #150 Prov:AKASH EVANS MD 09/25/21 Insulin Lispro (Humalog Kwikpen) 100 Unit/Ml Inj, 1 DOSE SC UD, #5 SYR Administer up to 40 units of insulin per provided sliding scale divided 3 times daily before meals and at bedtime. Prov:AKASH EVANS MD 09/25/21 Insulin Glargine (Basaglar Kwikpen) 100 Unit/Ml Inj, 20 UNIT SC DAILY@DINNER, #5 SYRN Prov:AKASH EVANS MD 09/25/21 Reported Medications Pregabalin (Pregabalin) 50 Mg Cap, 1 CAP PO TID 01/03/25 Fluoxetine Hcl (Fluoxetine Hcl) 40 Mg Cap, PO 01/03/25 Fluticasone Propionate (Fluticasone Propionate Hf) 110 Mcg/Act Aer, INH 01/03/25 Glipizide (Glipizide) 10 Mg Tab, 1 TAB PO DAILY 01/03/25 Apixaban Base (ELIQUIS) 2.5 Mg Tab, 1 TAB PO BID 01/03/25 Buprenorphine HCl (Buprenorphine Hydrochlori) 8 Mg Sub, 2 SL 01/03/25 Tizanidine Hydrochloride (Zanaflex) 4 Mg Tab, 2 MG PO TID, TAB 11/18/24 Meclizine Hcl (Meclizine Hcl) 12.5 Mg Tab, 25 MG PO TID, TAB 11/18/24 Diphenhydramine Hcl (Banophen) 25 Mg Cap, 25 MG PO Q6HP, CAP 11/18/24 Meloxicam (Meloxicam) 15 Mg Tab, 1 TAB PO DAILY, #30 TAB 2 Refills 11/18/24 Brexpiprazole (Rexulti) 4 Mg Tab, 4 MG PO HS, TAB 11/18/24 Pantoprazole Sodium Sesquihydr (Pantoprazole Sodium Dr) 40 Mg Tab, 20 MG PO BID, TAB 11/18/24 Deutetrabenazine (Austedo) 6 Mg Tab, 6 MG PO QPM, TAB 11/18/24 Hydroxyzine Hcl (Hydroxyzine Hcl) 50 Mg Tab, 50 MG PO HS, TAB 11/18/24 Docusate Sodium (Colace) 100 Mg Cap, 250 MG PO BID, CAP 11/18/24 Losartan Potassium (Losartan Potassium) 25 Mg Tab, 1 TAB PO DAILY, #90 TAB 1 Refill 11/18/24 Buprenorphine Hcl (Buprenorphine Hcl) 8 Mg Sub, 8 MG SL QID, INJ 11/18/24 Nitrofurantoin Monohyd Macro (Nitrofurantoin Monohydrat) 100 Mg Cap, 100 MG PO DAILY for 5 Days, CAP 11/18/24 Amitriptyline Hcl (Amitriptyline Hcl) 150 Mg Tab, 150 MG PO HS, TAB 11/18/24 Metoprolol Tartrate (Metoprolol Tartrate) 25 Mg Tab, 1 TAB PO DAILY, #180 TAB 1 Refill 11/18/24 Fenofibrate (Fenofibrate) 54 Mg Tab, 1 TAB PO DAILY, #30 TAB 5 Refills 11/18/24 Apixaban Base (ELIQUIS) 5 Mg Tab, 5 MG PO BID, TAB 11/18/24 Furosemide (Furosemide) 20 Mg Tab, 1 TAB PO DAILY, #90 TAB 1 Refill 11/18/24 Lamotrigine (Lamictal) 25 Mg Tab, 1 TAB PO DAILY, #60 TAB 1 Refill 11/18/24 Deutetrabenazine (Austedo) 12 Mg Tab, 12 MG PO DAILY, TAB 11/18/24 Fluoxetine HCl (Fluoxetine Hydrochloride) 40 Mg Cap, 80 MG PO DAILY, CAP 11/18/24 Tizanidine Hydrochloride (Zanaflex) 4 Mg Tab, 1 TAB PO TID, #90 TAB 11/17/24 Zolpidem Tartrate (Ambien) 10 Mg Tab, 1 TAB PO QPM, #30 TAB 5 Refills 06/01/18 Information Source: Patient, Emergency Med Personnel Mode of Arrival: EMS Severity: Moderate Timing: Days Duration: Since onset Prehospital treatment: None Associated signs and symptoms No associated nausea, vomiting or diarrhea. 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: No Pertinent PLUMBING CONTRACTOR History Family History Family History: Unknown, Family hx of heart candelario Social History Smoker: Cigarettes Alcohol: Denies ETOH Use Drugs: Marijuana Lives In: Home Constitutional: denies: chills, diaphoresis, fatigue, fever, malaise, sweats, weakness, others EENTM: denies: blurred vision, double vision, ear bleeding, ear discharge, ear drainage, ear pain, ear ringing, eye pain, eye redness, hearing loss, mouth pain, mouth swelling, nasal discharge, nose bleeding, nose congestion, nose pain, photophobia, tearing, throat pain, throat swelling, voice changes, others Respiratory: denies: cough, hemoptysis, orthopnea, SOB at rest, shortness of breath, SOB with excertion, stridor, wheezing, others Cardiovascular: denies: chest pain, dizzy spells, diaphoresis, Dyspnea on exertion, edema, irregular heart beat, left arm pain, lightheadedness, palpitations, PND, syncope, others Gastrointestinal: denies: abdomen distended, abdominal pain, blood streaked bowels, constipated, diarrhea, dysphagia, difficulty swallowing, hematemesis, melena, nausea, poor appetite, poor fluid intake, rectal bleeding, rectal pain, vomiting, others Genitourinary: denies: abnormal vagina bleeding, burning, dyspareunia, dysuria, flank pain, frequency, hematuria, incontinence, pain, , vagina discharge, urgency, others Neurological: denies: dizziness, fainting, headache, left sided numbness, left sided weakness, numbness, paresthesia, pre-existing deficit, right sided numbness, right sided weakness, seizure, speech problems, tingling, tremors, weakness, others Musculoskeletal: reports: others (Right shoulder pain); denies: back pain, gout, joint pain, joint swelling, muscle pain, muscle stiffness, neck pain Integumetry: denies: bruises, change in color, change in hair/nails, dryness, laceration, lesions, lumps, rash, wounds, others Allergic/Immunocompromised: denies: Difficulty Healing, Frequent Infections, Hives, Itching, others Hematologic/Lymphatic: denies: anemia, blood clots, easy bleeding, easy bruising, swollen glands, others Endocrine: denies: excessive hunger, excessive sweating, excessive thirst, excessive urination, flushing, intolerance to cold, intolerance to heat, unexplained weight gain, unexplained weight loss, others Psychiatric: denies: anxiety, bipolar disorder, depression, hopeless, panic disorder, schizophrenia, sleepless, suicidal, others Physical Exam General Appearance: Moderate Distress HEENT: Normal ENT Inspection, Pharynx Normal, TMs Normal Neck: Full Range of Motion, Non-Tender, Normal, Normal Inspection Respiratory: Chest Non-Tender, Lungs Clear, No Accessory Muscle Use, No Respiratory Distress, Normal Breath Sounds Cardiovascular: No Edema, No JVD, No Murmur, No Gallop, Normal Peripheral Pulses, Regular Rate/Rhythm Breast Exam: Deferred Gastrointestinal: No Organomegaly, Non Tender, No Pulsatile Mass, Normal Bowel Sounds, Soft Genitalia: Deferred Pelvic: Deferred Rectal: Deferred Extremities: No calf tenderness, Normal capillary refill, No pedal edema Musculoskeletal : Location: Right Extremity Location: Shoulder Apperance: Limited ROM, Tenderness: Moderate Neurologic: Alert, copy clerk II-XII nml as Tested, No Motor Deficits, Normal Affect, Normal Mood, No Sensory Deficits Cerebellar Function: Normal Reflexes: Normal Skin: Dry, Normal Color, Warm Lymphatic: No Adenopathy Was a procedure done? Was a procedure done?: No Differential Dx Considerations may include: Fracture, strain, contusion X-Ray, Labs, Meds, VS Vital Signs Date Time Temp Pulse Resp B/P (MAP) Pulse Ox O2 Delivery O2 Flow Rate FiO2 04/02/25 19:22 98.4 87 16 123/84 (97) 93 98.4 Images Reviewed?: Images reviewed and evaluated by me Time of 1ST Reevaluation: 19:34 Reevaluation 1ST: Unchanged Patient Education/Counseling: Diagnosis, Treatment, Prognosis, Need For Follow Up Family Education/Counseling: No Family Present SEPSIS Sepsis Screen Physician Orders R Shoulder 2+ View Xray (04/02/25 19:30) Vital Signs Date Time Temp Pulse Resp B/P (MAP) Pulse Ox O2 Delivery O2 Flow Rate FiO2 04/02/25 19:22 98.4 87 16 123/84 (97) 93 98.4 Departure 1 Departure Time of Disposition: 20:59 Impression: Primary Impression: Sprain of right shoulder Qualified Codes: S43.401A - Unspecified sprain of right shoulder joint, initial encounter Disposition: HOME / SELF CARE / HOMELESS Condition: Fair Discharged With: Self Critical Care Note Critical Care Time?: No Stability Stability form required: No Heart Score Heart Score: Heart Score Response (Comments) Value History N/A 0 EKG N/A 0 Age N/A 0 Risk Factors N/A 0 Troponin N/A 0 Total 0 ADRIANNE LYLES MD Apr 02, 2025 19:34
--- NOTE | 2025-04-02 20:57 | DVH ---
CLINICAL INDICATION: trauma TECHNIQUE: 3 radiographic views of the right shoulder were obtained. Comparison: None FINDINGS/IMPRESSION: Bony alignment appears normal
[2025-04-02 21:30] VITALS: BP 166/97; PULSE 72; RESP 16; TEMP 98.4; O2SAT 96
== END 2025-04-02 21:35 | disposition home or self-care (01) ==
LOC: ER 19:22 → EDBD 19:22 → EDUNIT# 19:22 → ER 21:35
DX: S43.401A Unspecified sprain of right shoulder joint, initial encounter (principal); F17.210 Nicotine dependence, cigarettes, uncomplicated; F12.90 Cannabis use, unspecified, uncomplicated; E11.9 Type 2 diabetes mellitus without complications; I11.0 Hypertensive heart disease with heart failure; I50.9 Heart failure, unspecified; J44.9 Chronic obstructive pulmonary disease, unspecified; E78.5 Hyperlipidemia, unspecified; Z90.710 Acquired absence of both cervix and uterus; Z79.899 Other long term (current) drug therapy; Z79.84 Long term (current) use of oral hypoglycemic drugs; Z79.4 Long term (current) use of insulin; Z79.1 Long term (current) use of non-steroidal anti-inflammatories (NSAID); Z79.01 Long term (current) use of anticoagulants; Z98.890 Other specified postprocedural states; Z88.5 Allergy status to narcotic agent; W19.XXXA Unspecified fall, initial encounter; Y93.89 Activity, other specified; Y92.89 Other specified places as the place of occurrence of the external cause; Y99.8 Other external cause status
CPT/HCPCS: 73030

== ENCOUNTER 2025-04-15 14:28 | Inpatient (IN) | payer MEDICAID ==
[~2025-04-15] VITALS: Ht 162.6 cm; Wt 102.0 kg
--- NOTE | 2025-04-15 14:35 | ED.PDOC ---
Back pain HPI HPI Comments HPI: 49 y F who presents to the ED via EMS for chief complaint of fall injury - pt states he has been having multiple falls over the past few months - pt states she had 3x falls this this month and states she fall earlier this AM - pt states she ambulates by herself and states her legs gave out on her and she fell to the floor - pt denies hitting her head and any associated loss of consciousness and preceded to call EMS - EMS arrived on scene and notes pt was tachycardic but otherwise stable vitals and brought to the ED - pt now in the ED, states she is having unrelated R shoulder and R wrist pain - pt states she has been taking 3x muscle relaxers daily for the past 3 days for unknown reasons - pt otherwise denies use of blood thinner at this time Past Medical history: CHF, COPD, DM, High Lipids, HTN, Thyroid Past Surgical history: , Hysterectomy, Tonsillectomy Medications: DENIES ANY Social History: Denies smoking, ETOH, and endorses drug use (marijuana) Allergies: acetaminophen, hydrocodone HPI: Poor Historian. REVIEW OF SYSTEMS: CONSTITUTIONAL: Denies acute: fever, diaphoresis, chills, HEAD: Denies acute: headache, photophobia Eyes: Denies acute: Double vision, vision loss, eye pain, eye discharge. EARS: Denies acute: tinnitus, hearing loss, ear discharge, ear pain, THROAT: Denies acute: sore throat, swelling, difficulty swallowing , pain with swallowing, change in voice. NECK: Denies acute: neck pain, neck swelling, stiff neck. HEART: Denies acute : chest pain, palpitations, LUNGS: Denies acute: SOB, wheezing, cough, hemoptysis ABDOMEN: Denies acute: abdominal pain, Nausea, Vomiting, diarrhea, melena , hematemesis, hematochezia SKIN: Denies acute: rash, redness, lesions, itchiness. EXTREMITIES: Denies acute: calf pain, numbness, tingling, weakness, Denies acute: Low back pain. Neuro: Denies acute: focal neurological deficit, motor or sensory focal neurological deficit, tremors, seizure like activity, confusion, dizziness, change in mental status, loss of bowel or bladder function, cauda equina like symptoms. : Denies acute: dysuria, hematuria, flank pain, increase in urinary frequency. PSYCH: Denies acute: hallucination, suicidal ideation, homicidal ideation. FEMALE: Denies acute: abnormal vaginal bleeding, foul odor, unusual discharge. PHYSICAL EXAM: General: -----mild---acute distress, awake and alert. Head: normocephalic, atraumatic. Neck: supple, trachea is midline, no swelling. Cervical spine: Palpation of the posterior midline of the cervical spine reveals no focal swelling, erythema, focal tenderness to palpation. Patient has normal range of motion. Palpation of the remainder of the thoracic and lumbar spine reveals no focal tenderness to palpation or swelling. Throat: Normal phonation. Eyes:, no erythema, no purulent discharge, no proptosis, no icterus. Heart: regular rate, regular rhythm, no significant murmur appreciated. Lungs: no apparent respiratory distress, Able to speak in full sentences. No wheezing, no rhonchi, no crackles. No stridors Clear to auscultation bilaterally. Abdomen: non tender to palpation, non distended, soft, no guarding, no rebound, + bowel sounds. Neuro: Awake, Alert, oriented to name, self, situation, follows commands GCS=15. Speech is normal. Skin: no petechia, no purpura, no cyanosis, non-pale, not jaundice. Lower extremities: --no - Pitting edema no deformity, no focal swelling, no calf TTP. Makes eye contact. moves all four extremities. Face: no apparent facial droop. Evaluation of the area of complaint: Right wrist is minimally swollen. Patient is neurovascularly intact in the affected extremity. Normal range of motion. Able to turkish rubber and pull her body and move normally. Patient able to flex and extend bilateral knees and hips. Evaluation of the right shoulder where she pointed she might have some pain reveals no deformity no swelling no erythema with normal range of motion. No crepitus. PERRLA, EOM-I CN 2-12 are grossly intact, No nystagmus. No nuchal rigidity, Kernig's sign, Brudzinski's sign, no meningeal signs. ED COURSE: DISCLAIMER: This medical document was created using an electronic medical record system with voice recognition software and computerized dictation system. Although this document has been carefully reviewed, there might still be some phonetic and typographical errors. Occasional wrong-word or "sound-alike" substitutions may have occurred due to the inherent limitations of voice recognition software. These areas are purely typographical due to imperfections of the software programs and do not reflect any compromise in the patient's medical care. Please read the chart carefully and recognize, using context, where these substitutions have occurred. Time Seen by MD: 14:34 Primary Care Provider: DR DAVIS Reviewed Notes: Medications, Allergies Allergies: Uncoded Allergies: adhesive tape (Allergy, Unknown, 04/15/25) Home Meds Active Scripts Levofloxacin Hemihydrate (LEVAQUIN 500 MG) 500 Mg Tab, 1 TAB PO DAILY, #20 TAB Prov:KEYON MARTINEZ MD 03/11/25 Clindamycin Hcl (Clindamycin Hcl) 300 Mg Cap, 1 CAP PO TID, #60 CAP Prov:KEYON MARTINEZ MD 03/11/25 Amlodipine Besylate (NORVASC TABLET) 5 Mg Tb, 5 MG PO DAILY for 30 Days, #30 TAB 3 Refills Prov:JAKE MARIE DO 01/05/25 Oxycodone W/ Acetaminophen (Percocet 5/325MG) 1 Tab Tb, 1 TAB PO QID PRN, #30 TAB Prov:KEYON MARTINEZ MD 11/19/24 Furosemide (Lasix) 40 Mg Tab, 40 MG PO BID, #60 TAB Prov:KEYON MARTINEZ MD 11/19/24 Blood Glucose Monitoring Suppl (Blood Glucose System Gaurav) System Kit, PKG XX 5XD, #1 Administer a 30-day supply of lancets, alcohol prep pads and test strips and glucometer per insurance coverage. Prov:AKASH EVANS MD 09/25/21 Insulin Pen Needle (Bd Pen Needle/Leta 2Nd Ge 32G X 4 mm) 1 Mis Mis, MIS XX 5XD, #150 Prov:AKASH EVANS MD 09/25/21 Insulin Lispro (Humalog Kwikpen) 100 Unit/Ml Inj, 1 DOSE SC UD, #5 SYR Administer up to 40 units of insulin per provided sliding scale divided 3 times daily before meals and at bedtime. Prov:AKASH EVANS MD 09/25/21 Insulin Glargine (Basaglar Kwikpen) 100 Unit/Ml Inj, 20 UNIT SC DAILY@DINNER, #5 SYRN Prov:AKASH EVANS MD 09/25/21 Reported Medications Pregabalin (Pregabalin) 50 Mg Cap, 1 CAP PO TID 01/03/25 Fluoxetine Hcl (Fluoxetine Hcl) 40 Mg Cap, PO 01/03/25 Fluticasone Propionate (Fluticasone Propionate Hf) 110 Mcg/Act Aer, INH 01/03/25 Glipizide (Glipizide) 10 Mg Tab, 1 TAB PO DAILY 01/03/25 Apixaban Base (ELIQUIS) 2.5 Mg Tab, 1 TAB PO BID 01/03/25 Buprenorphine HCl (Buprenorphine Hydrochlori) 8 Mg Sub, 2 SL 01/03/25 Tizanidine Hydrochloride (Zanaflex) 4 Mg Tab, 2 MG PO TID, TAB 11/18/24 Meclizine Hcl (Meclizine Hcl) 12.5 Mg Tab, 25 MG PO TID, TAB 11/18/24 Diphenhydramine Hcl (Banophen) 25 Mg Cap, 25 MG PO Q6HP, CAP 11/18/24 Meloxicam (Meloxicam) 15 Mg Tab, 1 TAB PO DAILY, #30 TAB 2 Refills 11/18/24 Brexpiprazole (Rexulti) 4 Mg Tab, 4 MG PO HS, TAB 11/18/24 Pantoprazole Sodium Sesquihydr (Pantoprazole Sodium Dr) 40 Mg Tab, 20 MG PO BID, TAB 11/18/24 Deutetrabenazine (Austedo) 6 Mg Tab, 6 MG PO QPM, TAB 11/18/24 Hydroxyzine Hcl (Hydroxyzine Hcl) 50 Mg Tab, 50 MG PO HS, TAB 11/18/24 Docusate Sodium (Colace) 100 Mg Cap, 250 MG PO BID, CAP 11/18/24 Losartan Potassium (Losartan Potassium) 25 Mg Tab, 1 TAB PO DAILY, #90 TAB 1 Refill 11/18/24 Buprenorphine Hcl (Buprenorphine Hcl) 8 Mg Sub, 8 MG SL QID, INJ 11/18/24 Nitrofurantoin Monohyd Macro (Nitrofurantoin Monohydrat) 100 Mg Cap, 100 MG PO DAILY for 5 Days, CAP 11/18/24 Amitriptyline Hcl (Amitriptyline Hcl) 150 Mg Tab, 150 MG PO HS, TAB 11/18/24 Metoprolol Tartrate (Metoprolol Tartrate) 25 Mg Tab, 1 TAB PO DAILY, #180 TAB 1 Refill 11/18/24 Fenofibrate (Fenofibrate) 54 Mg Tab, 1 TAB PO DAILY, #30 TAB 5 Refills 11/18/24 Apixaban Base (ELIQUIS) 5 Mg Tab, 5 MG PO BID, TAB 11/18/24 Furosemide (Furosemide) 20 Mg Tab, 1 TAB PO DAILY, #90 TAB 1 Refill 11/18/24 Lamotrigine (Lamictal) 25 Mg Tab, 1 TAB PO DAILY, #60 TAB 1 Refill 11/18/24 Deutetrabenazine (Austedo) 12 Mg Tab, 12 MG PO DAILY, TAB 11/18/24 Fluoxetine HCl (Fluoxetine Hydrochloride) 40 Mg Cap, 80 MG PO DAILY, CAP 11/18/24 Tizanidine Hydrochloride (Zanaflex) 4 Mg Tab, 1 TAB PO TID, #90 TAB 11/17/24 Zolpidem Tartrate (Ambien) 10 Mg Tab, 1 TAB PO QPM, #30 TAB 5 Refills 06/01/18 Information Source: Patient, Emergency Med Personnel Mode of Arrival: EMS Past Medical History PAST MEDICAL HISTORY: CHF, CKF, COPD, DM, High Lipids, HTN, Thyroid Surgical History: , Hysterectomy, Tonsillectomy AGING BOX HAND History: No Pertinent AGING BOX HAND History Family History Family History: Unknown, Family hx of heart candelario Social History Smoker: Cigarettes Alcohol: Denies ETOH Use Drugs: Marijuana Lives In: Home Was a procedure done? Was a procedure done?: No Back Pain Differential Dx Differential Diagnosis: Other (Includes but not limited to thyroid disease, encephalopathy, electrolyte abnormality, sepsis, infection, intracranial pathology, drug adverse effects, arrhythmia, kidney insufficiency, ACS, CVA, malignancy, anemia) X-Ray, Labs, Meds, VS Vital Signs Date Time Temp Pulse Resp B/P (MAP) Pulse Ox O2 Delivery O2 Flow Rate FiO2 04/15/25 17:55 97.9 99 20 158/101 (120) 94 97.9 04/15/25 14:46 98.0 107 18 119/96 (104) 98 98.0 Lab Test 04/15/25 18:56 04/15/25 16:05 04/15/25 15:40 04/15/25 15:08 Range/Units Blood Gas Specimen Type Arterial Blood Gas Sample Site Right radial Blood Gas Patient Temperature 37.0 Arterial Blood Date Drawn [id number] Arterial Blood pH 7.295 L 7.350-7.450 Arterial Blood Partial Pressure CO2 31.0 L 32.0-45.0 mmHg Arterial Blood Partial Pressure O2 71.9 L 83.0-108.0 mmHg Arterial Blood HCO3 14.7 L 21.0-28.0 mmol/L Arterial Blood Oxygen Saturation 93.3 L 94.0-98.0 % Arterial Blood Base Excess -10.3 L -2.0-3.0 mmol/L Arterial Blood Oxyhemoglobin 91.7 L 94.0-98.0 % Arterial Blood Carboxyhemoglobin 1.1 0.5-1.5 % Arterial Blood Methemoglobin 0.6 0.0-1.5 % Koko Test Yes Blood Gas Total Hemoglobin 15.60 12.0-16.0 g/dL Blood Gas Modality Room air Blood Gas Spontaneous Rate 22 FiO2 % 21.0 Troponin I High Sensitivity 6 6 </=34 ng/L Urine Color Yellow Yellow Urine Clarity Turbid H Clear Urine pH 5.5 5.0-9.0 Urine Specific [place] 1.024 1.001-1.035 Urine Protein 2+ H Negative Urine Ketones Trace Negative Urine Blood Negative Negative /uL Urine Nitrite Negative Negative Urine Bilirubin Negative Negative Urine Urobilinogen Normal Negative mg/dL Urine Leukocyte Esterase Negative Negative /uL Urine RBC 2 0 - 4 /hpf Urine Microscopic WBC 5 0-5 /HPF Urine Squamous Epithelial Cells Many <5 /hpf Urine Bacteria Few H None Seen /hpf Urine Hyaline Casts Few 0 - 2 /lpf Urine Mucus Few None Seen Urine Glucose Normal Normal mg/dL Urine Opiates Screen Neg NEGATIVE Urine Fentanyl Screen Neg NEGATIVE Urine Barbiturates Screen Neg NEGATIVE Urine Phencyclidine Screen Neg NEGATIVE Urine Amphetamines Screen Neg NEGATIVE Urine Benzodiazepines Screen Neg NEGATIVE Urine Cocaine Screen Neg NEGATIVE Urine Cannabinoids Screen Pos NEGATIVE White Blood Count 8.6 4.4-10.8 10^3/uL Red Blood Count 5.34 H 4.0-5.20 10^6/uL Hemoglobin 15.2 12.2-16.2 g/dL Hematocrit 47.9 H 36.0-46.0 % Mean Corpuscular Volume 89.7 80.0-100.0 fL Mean Corpuscular Hemoglobin 28.5 28.0-32.0 pg Mean Corpuscular Hemoglobin Concent 31.7 L 32.0-36.0 g/dL Red Cell Distribution Width 15.9 H 11.8-14.3 % Platelet Count 228 140-450 10^3/uL Mean Platelet Volume 7.7 6.9-10.8 fL Neutrophils (%) (Auto) 66.3 37.0-80.0 % Lymphocytes (%) (Auto) 25.8 10.0-50.0 % Monocytes (%) (Auto) 5.8 0.0-12.0 % Eosinophils (%) (Auto) 1.2 0.0-7.0 % Basophils (%) (Auto) 0.9 0.0-2.0 % Neutrophils # (Auto) 5.7 1.6-8.6 10 ^3/uL Lymphocytes # (Auto) 2.2 0.4-5.4 10 ^3/uL Monocytes # (Auto) 0.5 0-1.3 10 ^3/uL Eosinophils # (Auto) 0.1 0-0.8 10 ^3/uL Basophils # (Auto) 0.1 0-0.2 10 ^3/uL Nucleated Red Blood Cells 0.2 % Sodium Level 141 136-145 mmol/L Potassium Level 5.2 H 3.5-5.1 mmol/L Chloride Level 114 H 98-107 mmol/L Carbon Dioxide Level 16 L 20-31 mmol/L Anion Gap 11 5-15 Blood Urea Nitrogen 34 H 9-23 mg/dL Creatinine 1.84 H 0.550-1.02 mg/dL Glomerular Filtration Rate Calc 33 >90 mL/min BUN/Creatinine Ratio 18.5 10.0-20.0 Serum Glucose 232 H 74-106 mg/dL Lactic Acid Level 1.8 0.4-2.0 mmol/L Calcium Level 10.6 H 8.7-10.4 mg/dL Magnesium Level 1.7 1.6-2.6 mg/dL Total Bilirubin 0.3 0.2-1.0 mg/dL Aspartate Amino Transferase (AST) 23 13-40 U/L Alanine Aminotransferase (ALT) 17 7-40 U/L Alkaline Phosphatase 132 H 46-116 U/L B-Type Natriuretic Peptide 8.25 0-100 pg/mL Total Protein 7.2 5.7-8.2 g/dL Albumin 4.6 3.2-4.8 g/dL Plasma/Serum Blood Alcohol < 3.0 <10 mg/dL [place] [id number] Ph: [phone] DIAGNOSTIC IMAGING Diagnostic Imaging Report : [id number] Signed PATIENT: GREGORY LANIER ACCT: [id number] UNIT: [id number] : 1975 LOC: ER ROOM / BED: / AGE / SEX: 49 / F ADM STATUS: REG ER SERVICE 1435 ORDERING PHYSICIAN: LEONEL MCGINNIS DO PROCEDURE(s): RWRI - R WRIST 3+ VIEW XRAY REASON: pain ORDER NUMBER(s): [id number], ACCESSION NUMBER(s): [id number] X-ray right wrist Technique: AP lateral and oblique views REASON FOR EXAM: pain INDICATION: pain FINDINGS: No fractures or dislocations. No erosions or periosteal reaction. Articular surfaces are smooth. There is some chondrocalcinosis in the triangular fibrocartilage complex probably degenerative in origin. IMPRESSION: 1. No acute bony pathology. ATED BY: TAYLOR DAWKINS MD DICTATED DATE/TIME: 04/15/25 150 SIGNED BY: TAYLOR DAWKINS MD SIGNED DATE/TIME: 04/15/25 1507 CC: [address] [address] Ph: [phone] DIAGNOSTIC IMAGING Diagnostic Imaging Report : [id number] Signed PATIENT: GREGORY LANIER ACCT: [id number] UNIT: [id number] : 1975 LOC: ER ROOM / BED: / AGE / SEX: 49 / F ADM STATUS: REG ER SERVICE 1434 ORDERING PHYSICIAN: LEONEL MCGINNIS DO PROCEDURE(s): CXRP - CHEST PORTABLE REASON: weak,falls, r shoulder pain ORDER NUMBER(s): [id number], ACCESSION NUMBER(s): [id number] AP portable chest CLINICAL INDICATION: weak,falls, r shoulder pain FINDINGS: Heart size is enlarged. The main pulmonary artery is prominent. T here are no infiltrates or effusions IMPRESSION: 1. No acute cardiopulmonary pathology. Question of pulmonary hypertension versus [id number] cardiac shunt. ATED BY: TAYLOR DAWKINS MD DICTATED DATE/TIME: 04/15/251506 SIGNED BY: TAYLOR DAWKINS MD SIGNED DATE/TIME: 04/15/251506 CC: Time of 1ST Reevaluation: 21:35 Reevaluation 1ST: N/A Patient Education/Counseling: Diagnosis, Treatment Family Education/Counseling: No Family Present Comments MDM: patient presented with the above HPI.--frequent falls/unsteady gait/generalized weakness----workup was initiated. patient was found with the above mentioned diagnosis. the following medications were ordered: please refer to order lists of meds and tests obtained by myself Dr. Mcginnis. Patient ED course and VS have been stabilized. Patient has been reassessed in the ED and remained in a stable condition. Pertinent incidental findings were discussed with the patient and/or family. Patient/family voices understanding and is agreeable with plan. Patient has been observed in the ED adequate length of time to insure improvement/stability. Escalation of care considered: Consideration of escalation to observation or admission Patient was ADMITTED to the medicine team for further evaluation and treatment of their presentation. All the reports of any imaging studies that were ordered by myself were reviewed by myself. SEPSIS Sepsis Screen Physician Orders Steam [employer] (04/15/25 ) Chest Portable (04/15/25 14:34) Electrocardigram (04/15/25 14:34) R Wrist 3+ View Xray (04/15/25 14:35) Abg W/ Co-Ox (04/15/25 18:34) Sodium Chloride 0.9% (04/15/25 18:45) *[facility] (04/15/25 18:35) Complete Blood Count (04/16/25 05:00) Complete Blood Count (04/17/25 05:00) Complete Blood Count (04/18/25 05:00) Complete Blood Count (04/19/25 05:00) Complete Blood Count (04/20/25 05:00) Comprehensive Metabolic Panel (04/16/25 05:00) Comprehensive Metabolic Panel (04/17/25 05:00) Comprehensive Metabolic Panel (04/18/25 05:00) Comprehensive Metabolic Panel (04/19/25 05:00) Comprehensive Metabolic Panel (04/20/25 05:00) Kidney (04/15/25 18:35) Amlodipine Tablet (Norvasc Tablet) (04/16/25 10:00) Docusate Sodium Capsule (Colace Capsule) (04/15/25 22:00) Furosemide Tablet (Lasix Tablet) (04/15/25 22:00) Losartan Tablet (Cozaar Tablet) (04/16/25 10:00) Metoprolol Tartrate Tablet (Lopressor Ta (04/16/25 10:00) Oxycodone W/ Acet 5/325mg Tab (Percocet (04/15/25 19:15) Pantoprazole Tablet (Protonix Tablet) (04/15/25 22:00) (Nf) Buprenorphine Hcl (04/15/25 22:00) (Nf) Deutetrabenazine (Austedo) (04/16/25 10:00) (Nf) Fenofibrate (04/16/25 10:00) (Nf) Fluoxetine Hcl (Fluoxetine Hydrochl (04/16/25 10:00) (Nf) Insulin Glargine (Basaglar Kwikpen) (04/16/25 17:30) (Nf) Lamotrigine (Lamictal) (04/16/25 10:00) (Nf) Pregabalin (04/15/25 22:00) (Nf) Tizanidine Hydrochloride (Zanaflex) (04/15/25 22:00) (Nf) Zolpidem Tartrate (Ambien) (04/16/25 18:00) Glucose Blood (Accu-Chek Comfort Curve T (04/15/25 22:00) Insulin R (Human) (Insulin R) (04/15/25 22:00) Dextrose 50% Syringe (04/15/25 19:15) Trazodone Hcl (Desyrel) (04/15/25 19:15) Vital Signs Date Time Temp Pulse Resp B/P (MAP) Pulse Ox O2 Delivery O2 Flow Rate FiO2 04/15/25 17:55 97.9 99 20 158/101 (120) 94 97.9 04/15/25 14:46 98.0 107 18 119/96 (104) 98 98.0 Laboratory Tests Test 04/15/25 15:08 Lactic Acid Level 1.8 mmol/L (0.4-2.0) White Blood Count 8.6 10^3/uL (4.4-10.8) Departure 1 Departure Time of Disposition: 16:00 Impression: Primary Impression: Muscle relaxant overdose Additional Impressions: Frequent falls Unsteady gait Disposition: ADMITTED INPATIENT Admit to: [facility] Condition: Guarded Discharged With: Self Critical Care Note Critical Care Time?: Yes (35 min-critical care time only) I personally scribed for LEONEL MCGINNIS DO ([email or web address]) on 04/15/25 at 14:35. Electronically submitted by Jonathan Ross ([email or web address]). I personally scribed for LEONEL MCGINNIS DO ([email or web address]) on 04/15/25 at 15:43. Electronically submitted by Jonathan Ross ([email or web address] LEONEL MCGINNIS DO Apr 15, 2025 14:35
--- NOTE | 2025-04-15 15:09 | DVH ---
X-ray right wrist Technique: AP lateral and oblique views REASON FOR EXAM: pain INDICATION: pain FINDINGS: No fractures or dislocations. No erosions or periosteal reaction. Articular surfaces are sm ooth. There is some chondrocalcinosis in the triangular fibrocartilage complex probably degenerative in origin. IMPRESSION: 1. No acute bony pathology.
--- NOTE | 2025-04-15 15:10 | DVH ---
AP portable chest CLINICAL INDICATION: weak,falls, r shoulder pain FINDINGS: Heart size is enlarged. The main pulmonary artery is prominent. There are no infiltrates or effusions IMPRESSION: 1. No acute cardiopulmonary pathology. Question of pulmonary hypertension versus [id number] cardiac shunt.
[2025-04-15 15:24] LABS: Hematocrit 47.9 % (36.0-46.0); Hemoglobin 15.2 g/dL (12.2-16.2); Mean Corpuscular Hemoglobin 28.5 pg (28.0-32.0); Mean Corpuscular Volume 89.7 fL (80.0-100.0); Nucleated Red Blood Cells % 0.2 %
[2025-04-15 15:36] LABS: Alanine Aminotransferase 17 U/L (7-40); Albumin 4.6 g/dL (3.2-4.8); Anion Gap 11 (5-15); BUN/Creatinine Ratio 18.5 (10.0-20.0); Magnesium 1.7 mg/dL (1.6-2.6); Sodium 141 mmol/L (136-145); Total Protein 7.2 g/dL (5.7-8.2)
[2025-04-15 15:37] LABS: Bilirubin, Total 0.3 mg/dL (0.2-1.0)
[2025-04-15 15:39] LABS: Carbon Dioxide 16 mmol/L (20-31); Chloride 114 mmol/L (98-107); Potassium 5.2 mmol/L (3.5-5.1)
[2025-04-15 15:40] LABS: Alkaline Phosphatase 132 U/L (46-116); Blood Urea Nitrogen 34 mg/dL (9-23); Calcium 10.6 mg/dL (8.7-10.4); Glucose 232 mg/dL (74-106)
[2025-04-15 17:04] LABS: Urine Protein, UAD 2+ (Negative)
[2025-04-15 17:15] LABS: Amphetamine Screen, Urine Neg (NEGATIVE); Cannabinoid Screen, Urine Pos (NEGATIVE)
[2025-04-15 17:39] LABS: Barbiturate Scree,Urine Neg (NEGATIVE); Benzodiazephine Screen, Urine Neg (NEGATIVE); Cocaine Screen, Urine Neg (NEGATIVE); Opiate Scree,Urine Neg (NEGATIVE); Phencyclidine Screen, Urine Neg (NEGATIVE)
[2025-04-15] MEDS: cefTRIAXone 1GM/50ML D5W 50 ML IV ONE (18:15)
[2025-04-15] MEDS ORDERED: SODIUM CHLORIDE 0.9% 1,000 ML IV ONE (18:45)
[2025-04-15 19:06] LABS: Base Excess -10.3 mmol/L (-2.0-3.0)
[2025-04-15] MEDS ORDERED: DEXTROSE (50%) 50ML SYRG IV PRN (19:15)
[2025-04-15] MEDS ORDERED: ONDANSETRON HCL 4 MG/2 ML VIAL IV PRN (19:15)
[2025-04-15] MEDS ORDERED: OXYCODONE W/ ACETAMINOPHEN 5/325MG TABLET PO PRN (19:15)
[2025-04-15] MEDS ORDERED: ACETAMINOPHEN 325 MG TAB PO PRN (19:15)
[2025-04-15] MEDS ORDERED: DOCUSATE SOD 100 MG CAP PO PRN (19:15)
--- NOTE | 2025-04-15 19:18 | DVHHP2 ---
Admitting Diagnosis: Frequent fall History of Present Illness 49 y F who presents to the ED via EMS for chief complaint of fall injury. pt states he has been having multiple falls over the past few months pt states she had 3x falls this this month and states she fall earlier this AM pt states she ambulates by herself and states her legs gave out on her and she fell to the floor pt denies hitting her head and any associated loss of consciousness and preceded to call EMS EMS arrived on scene and notes pt was tachycardic but otherwise stable vitals and brought to the ED pt now in the ED, states she is having unrelated R shoulder and R wrist pain pt states she has been taking 3x muscle relaxers daily for the past 3 days for unknown reasons. pt otherwise denies use of blood thinner at this time. Past Medical history: CHF, COPD, DM, High Lipids, HTN, Thyroid Past Surgical history: , Hysterectomy, Tonsillectomy Medications: DENIES ANY Social History: Denies smoking, ETOH, and endorses drug use (marijuana) Allergies: acetaminophen, hydrocodone REVIEW OF SYSTEMS: CONSTITUTIONAL: Denies acute: fever, diaphoresis, chills, HEAD: Denies acute: headache, photophobia Eyes: Denies acute: Double vision, vision loss, eye pain, eye discharge. EARS: Denies acute: tinnitus, hearing loss, ear discharge, ear pain, THROAT: Denies acute: sore throat, swelling, difficulty swallowing , pain with swallowing, change in voice. NECK: Denies acute: neck pain, neck swelling, stiff neck. HEART: Denies acute : chest pain, palpitations, LUNGS: Denies acute: SOB, wheezing, cough, hemoptysis ABDOMEN: Denies acute: abdominal pain, Nausea, Vomiting, diarrhea, melena , hematemesis, hematochezia SKIN: Denies acute: rash, redness, lesions, itchiness. EXTREMITIES: Denies acute: calf pain, numbness, tingling, weakness, Denies acute: Low back pain. Neuro: Denies acute: focal neurological deficit, motor or sensory focal neurological deficit, tremors, seizure like activity, confusion, dizziness, change in mental status, loss of bowel or bladder function, cauda equina like symptoms. : Denies acute: dysuria, hematuria, flank pain, increase in urinary frequency. PSYCH: Denies acute: hallucination, suicidal ideation, homicidal ideation. FEMALE: Denies acute: abnormal vaginal bleeding, foul odor, unusual discharge. PAST MEDICAL HISTORY: CHF, CKF, COPD, DM, High Lipids, HTN, Thyroid Surgical History: , Hysterectomy, Tonsillectomy SUPPORT TE[employer] ASS[employer] History: No Pertinent SU[employer] TE[employer] History Family History Family History: Unknown, Family hx of heart candelario Social History Smoker: Cigarettes Alcohol: Denies ETOH Use Drugs: Marijuana Lives In: Home Patient Family History: Depression G8 MOTHER FH: heart attack G8 FATHER FH: lung cancer G8 MOTHER Heart cancer G8 MOTHER No Family History of: Hypercholesterolemia Allergies: Coded Allergies: Acetaminophen (Verified Adverse Reaction, Unknown, LITTLE ITCHY, DOES TAKE IT, 03/08/25) Hydrocodone (Verified Adverse Reaction, Unknown, LITTLE ITCHY, DOES TAKE IT, 03/08/25) Uncoded Allergies: ADHESIVE TAPE (Allergy, Severe, 12/19/18) Home Meds Active Scripts Levofloxacin Hemihydrate (LEVAQUIN 500 MG) 500 Mg Tab, 1 TAB PO DAILY, #20 TAB Prov:KEYON MARTINEZ MD 03/11/25 Clindamycin Hcl (Clindamycin Hcl) 300 Mg Cap, 1 CAP PO TID, #60 CAP Prov:KEYON MARTINEZ MD 03/11/25 Amlodipine Besylate (NORVASC TABLET) 5 Mg Tb, 5 MG PO DAILY for 30 Days, #30 TAB 3 Refills Prov:JAKE MARIE DO 01/05/25 Oxycodone W/ Acetaminophen (Percocet 5/325MG) 1 Tab Tb, 1 TAB PO QID PRN, #30 TAB Prov:KEYON MARTINEZ MD 11/19/24 Furosemide (Lasix) 40 Mg Tab, 40 MG PO BID, #60 TAB Prov:KEYON MARTINEZ MD 11/19/24 Blood Glucose Monitoring Suppl (Blood Glucose System Gaurav) System Kit, PKG XX 5XD, #1 Administer a 30-day supply of lancets, alcohol prep pads and test strips and glucometer per insurance coverage. Prov:AKASH EVANS MD 09/25/21 Insulin Pen Needle (Bd Pen Needle/Leta 2Nd Ge 32G X 4 mm) 1 Mis Mis, MIS XX 5XD, #150 Prov:AKASH EVANS MD 09/25/21 Insulin Lispro (Humalog Kwikpen) 100 Unit/Ml Inj, 1 DOSE SC UD, #5 SYR Administer up to 40 units of insulin per provided sliding scale divided 3 times daily before meals and at bedtime. Prov:AKASH EVANS MD 09/25/21 Insulin Glargine (Basaglar Kwikpen) 100 Unit/Ml Inj, 20 UNIT SC DAILY@DINNER, #5 SYRN Prov:AKASH EVANS MD 09/25/21 Reported Medications Pregabalin (Pregabalin) 50 Mg Cap, 1 CAP PO TID 01/03/25 Fluoxetine Hcl (Fluoxetine Hcl) 40 Mg Cap, PO 01/03/25 Fluticasone Propionate (Fluticasone Propionate Hf) 110 Mcg/Act Aer, INH 01/03/25 Glipizide (Glipizide) 10 Mg Tab, 1 TAB PO DAILY 01/03/25 Apixaban Base (ELIQUIS) 2.5 Mg Tab, 1 TAB PO BID 01/03/25 Buprenorphine HCl (Buprenorphine Hydrochlori) 8 Mg Sub, 2 SL 01/03/25 Tizanidine Hydrochloride (Zanaflex) 4 Mg Tab, 2 MG PO TID, TAB 11/18/24 Meclizine Hcl (Meclizine Hcl) 12.5 Mg Tab, 25 MG PO TID, TAB 11/18/24 Diphenhydramine Hcl (Banophen) 25 Mg Cap, 25 MG PO Q6HP, CAP 11/18/24 Meloxicam (Meloxicam) 15 Mg Tab, 1 TAB PO DAILY, #30 TAB 2 Refills 11/18/24 Brexpiprazole (Rexulti) 4 Mg Tab, 4 MG PO HS, TAB 11/18/24 Pantoprazole Sodium Sesquihydr (Pantoprazole Sodium Dr) 40 Mg Tab, 20 MG PO BID, TAB 11/18/24 Deutetrabenazine (Austedo) 6 Mg Tab, 6 MG PO QPM, TAB 11/18/24 Hydroxyzine Hcl (Hydroxyzine Hcl) 50 Mg Tab, 50 MG PO HS, TAB 11/18/24 Docusate Sodium (Colace) 100 Mg Cap, 250 MG PO BID, CAP 11/18/24 Losartan Potassium (Losartan Potassium) 25 Mg Tab, 1 TAB PO DAILY, #90 TAB 1 Refill 11/18/24 Buprenorphine Hcl (Buprenorphine Hcl) 8 Mg Sub, 8 MG SL QID, INJ 11/18/24 Nitrofurantoin Monohyd Macro (Nitrofurantoin Monohydrat) 100 Mg Cap, 100 MG PO DAILY for 5 Days, CAP 11/18/24 Amitriptyline Hcl (Amitriptyline Hcl) 150 Mg Tab, 150 MG PO HS, TAB 11/18/24 Metoprolol Tartrate (Metoprolol Tartrate) 25 Mg Tab, 1 TAB PO DAILY, #180 TAB 1 Refill 11/18/24 Fenofibrate (Fenofibrate) 54 Mg Tab, 1 TAB PO DAILY, #30 TAB 5 Refills 11/18/24 Apixaban Base (ELIQUIS) 5 Mg Tab, 5 MG PO BID, TAB 11/18/24 Furosemide (Furosemide) 20 Mg Tab, 1 TAB PO DAILY, #90 TAB 1 Refill 11/18/24 Lamotrigine (Lamictal) 25 Mg Tab, 1 TAB PO DAILY, #60 TAB 1 Refill 11/18/24 Deutetrabenazine (Austedo) 12 Mg Tab, 12 MG PO DAILY, TAB 11/18/24 Fluoxetine HCl (Fluoxetine Hydrochloride) 40 Mg Cap, 80 MG PO DAILY, CAP 11/18/24 Tizanidine Hydrochloride (Zanaflex) 4 Mg Tab, 1 TAB PO TID, #90 TAB 11/17/24 Zolpidem Tartrate (Ambien) 10 Mg Tab, 1 TAB PO QPM, #30 TAB 5 Refills 06/01/18 Vital Signs Vital Signs Date Time Temp Pulse Resp B/P (MAP) Pulse Ox O2 Delivery O2 Flow Rate FiO2 04/15/25 17:55 97.9 99 20 158/101 (120) 94 97.9 Physical Exam Generally-49 years old woman, morbidly obese, lying on wheelchair. No apparent distress HEENT-atraumatic, normocephalic Heart-regular rate and rhythm Lungs clear to auscultate Abdomen soft nontender nondistended Musculoskeletal-no edema cyanosis Neuro-AO x3, strength and sensory intact SEPSIS Sepsis Screen Date sepsis recognized/suspect: Apr 15, 2025 Time Sepsis recognized/suspect: 1440 Recent Procedure: No On Antibiotic Therapy: No Respiratory Rate >20: No Heart Rate >90: No Temp<36 C (96.8 F) or >38.3 C: No SBP <90 or MAP <65 mmHG: No New Acute Mental Status Change: No Is the patient on CPAP, BIPAP,: No Physician Orders Loan Funder (04/15/25 ) Chest Portable (04/15/25 14:34) Electrocardigram (04/15/25 14:34) R Wrist 3+ View Xray (04/15/25 14:35) Abg W/ Co-Ox (04/15/25 18:34) Sodium Chloride 0.9% (04/15/25 18:45) *Dr. Brennan [facility] (04/15/25 18:35) Complete Blood Count (04/16/25 05:00) Complete Blood Count (04/17/25 05:00) Complete Blood Count (04/18/25 05:00) Complete Blood Count (04/19/25 05:00) Complete Blood Count (04/20/25 05:00) Comprehensive Metabolic Panel (04/16/25 05:00) Comprehensive Metabolic Panel (04/17/25 05:00) Comprehensive Metabolic Panel (04/18/25 05:00) Comprehensive Metabolic Panel (04/19/25 05:00) Comprehensive Metabolic Panel (04/20/25 05:00) Kidney (04/15/25 18:35) Amlodipine Tablet (Norvasc Tablet) (04/16/25 10:00) Docusate Sodium Capsule (Colace Capsule) (04/15/25 22:00) Furosemide Tablet (Lasix Tablet) (04/15/25 22:00) Losartan Tablet (Cozaar Tablet) (04/16/25 10:00) Metoprolol Tartrate Tablet (Lopressor Ta (04/16/25 10:00) Oxycodone W/ Acet 5/325mg Tab (Percocet (04/15/25 19:15) Pantoprazole Tablet (Protonix Tablet) (04/15/25 22:00) (Nf) Buprenorphine Hcl (04/15/25 22:00) (Nf) Deutetrabenazine (Austedo) (04/16/25 10:00) (Nf) Fenofibrate (04/16/25 10:00) (Nf) Fluoxetine Hcl (Fluoxetine Hydrochl (04/16/25 10:00) (Nf) Insulin Glargine (Basaglar Kwikpen) (04/16/25 17:30) (Nf) Lamotrigine (Lamictal) (04/16/25 10:00) (Nf) Pregabalin (04/15/25 22:00) (Nf) Tizanidine Hydrochloride (Zanaflex) (04/15/25 22:00) (Nf) Zolpidem Tartrate (Ambien) (04/16/25 18:00) Glucose Blood (Accu-Chek Comfort Curve T (04/15/25 22:00) Mild Sliding Scale (04/15/25 22:00) Dextrose 50% Syringe (04/15/25 19:15) Trazodone Hcl (Desyrel) (04/15/25 19:15) Vital Signs Date Time Temp Pulse Resp B/P (MAP) Pulse Ox O2 Delivery O2 Flow Rate FiO2 04/15/25 17:55 97.9 99 20 158/101 (120) 94 97.9 04/15/25 14:46 98.0 107 18 119/96 (104) 98 98.0 Laboratory Tests Test 04/15/25 15:08 Lactic Acid Level 1.8 mmol/L (0.4-2.0) White Blood Count 8.6 10^3/uL (4.4-10.8) Results Labs Test 04/15/25 18:56 04/15/25 16:05 04/15/25 15:40 04/15/25 15:08 Range/Units Blood Gas Specimen Type Arterial Blood Gas Sample Site Right radial Blood Gas Patient Temperature 37.0 Arterial Blood Date Drawn [id number] Arterial Blood pH 7.295 L 7.350-7.450 Arterial Blood Partial Pressure CO2 31.0 L 32.0-45.0 mmHg Arterial Blood Partial Pressure O2 71.9 L 83.0-108.0 mmHg Arterial Blood HCO3 14.7 L 21.0-28.0 mmol/L Arterial Blood Oxygen Saturation 93.3 L 94.0-98.0 % Arterial Blood Base Excess -10.3 L -2.0-3.0 mmol/L Arterial Blood Oxyhemoglobin 91.7 L 94.0-98.0 % Arterial Blood Carboxyhemoglobin 1.1 0.5-1.5 % Arterial Blood Methemoglobin 0.6 0.0-1.5 % Koko Test Yes Blood Gas Total Hemoglobin 15.60 12.0-16.0 g/dL Blood Gas Modality Room air Blood Gas Spontaneous Rate 22 FiO2 % 21.0 Troponin I High Sensitivity 6 </=34 ng/L Urine Color Yellow Yellow Urine Clarity Turbid H Clear Urine pH 5.5 5.0-9.0 Urine Specific [place] 1.024 1.001-1.035 Urine Protein 2+ H Negative Urine Ketones Trace Negative Urine Blood Negative Negative /uL Urine Nitrite Negative Negative Urine Bilirubin Negative Negative Urine Urobilinogen Normal Negative mg/dL Urine Leukocyte Esterase Negative Negative /uL Urine RBC 2 0 - 4 /hpf Urine Microscopic WBC 5 0-5 /HPF Urine Squamous Epithelial Cells Many <5 /hpf Urine Bacteria Few H None Seen /hpf Urine Hyaline Casts Few 0 - 2 /lpf Urine Mucus Few None Seen Urine Glucose Normal Normal mg/dL Urine Opiates Screen Neg NEGATIVE Urine Fentanyl Screen Neg NEGATIVE Urine Barbiturates Screen Neg NEGATIVE Urine Phencyclidine Screen Neg NEGATIVE Urine Amphetamines Screen Neg NEGATIVE Urine Benzodiazepines Screen Neg NEGATIVE Urine Cocaine Screen Neg NEGATIVE Urine Cannabinoids Screen Pos NEGATIVE White Blood Count 8.6 4.4-10.8 10^3/uL Red Blood Count 5.34 H 4.0-5.20 10^6/uL Hemoglobin 15.2 12.2-16.2 g/dL Hematocrit 47.9 H 36.0-46.0 % Mean Corpuscular Volume 89.7 80.0-100.0 fL Mean Corpuscular Hemoglobin 28.5 28.0-32.0 pg Mean Corpuscular Hemoglobin Concent 31.7 L 32.0-36.0 g/dL Red Cell Distribution Width 15.9 H 11.8-14.3 % Platelet Count 228 140-450 10^3/uL Mean Platelet Volume 7.7 6.9-10.8 fL Neutrophils (%) (Auto) 66.3 37.0-80.0 % Lymphocytes (%) (Auto) 25.8 10.0-50.0 % Monocytes (%) (Auto) 5.8 0.0-12.0 % Eosinophils (%) (Auto) 1.2 0.0-7.0 % Basophils (%) (Auto) 0.9 0.0-2.0 % Neutrophils # (Auto) 5.7 1.6-8.6 10 ^3/uL Lymphocytes # (Auto) 2.2 0.4-5.4 10 ^3/uL Monocytes # (Auto) 0.5 0-1.3 10 ^3/uL Eosinophils # (Auto) 0.1 0-0.8 10 ^3/uL Basophils # (Auto) 0.1 0-0.2 10 ^3/uL Nucleated Red Blood Cells 0.2 % Sodium Level 141 136-145 mmol/L Potassium Level 5.2 H 3.5-5.1 mmol/L Chloride Level 114 H 98-107 mmol/L Carbon Dioxide Level 16 L 20-31 mmol/L Anion Gap 11 5-15 Blood Urea Nitrogen 34 H 9-23 mg/dL Creatinine 1.84 H 0.550-1.02 mg/dL Glomerular Filtration Rate Calc 33 >90 mL/min BUN/Creatinine Ratio 18.5 10.0-20.0 Serum Glucose 232 H 74-106 mg/dL Lactic Acid Level 1.8 0.4-2.0 mmol/L Calcium Level 10.6 H 8.7-10.4 mg/dL Magnesium Level 1.7 1.6-2.6 mg/dL Total Bilirubin 0.3 0.2-1.0 mg/dL Aspartate Amino Transferase (AST) 23 13-40 U/L Alanine Aminotransferase (ALT) 17 7-40 U/L Alkaline Phosphatase 132 H 46-116 U/L B-Type Natriuretic Peptide 8.25 0-100 pg/mL Total Protein 7.2 5.7-8.2 g/dL Albumin 4.6 3.2-4.8 g/dL Plasma/Serum Blood Alcohol < 3.0 <10 mg/dL Primary Diagnosis Muscle relaxer overdose DURGA on CKD Cannabinoid use Hyperkalemia Plan Patient to four tablets of tizanidine at once recently and began to have weakness on lower leg and having frequent fall. Recommended to stop taking tizanidine should be wash off in 12 hours ivf for durga check us renal resume home meds. pt does not take eliquis. pt eval monitor for weakness full code ivf regular Plan discussed with: Patient Date of Service: Apr 15, 2025 Billing Provider: JAX TRENT MD Common Visit Codes: [id number] INP/OBS CARE (MOD) JAX TRENT MD Apr 15, 2025 19:18
[2025-04-15 20:51] VITALS: BP 138/95; PULSE 93; RESP 18; TEMP 97.9; O2SAT 96
--- NOTE | 2025-04-15 20:58 | DVH ---
INDICATION: blanca on ckd TECHNIQUE: Multiple real-time sonographic images of the kidneys and bladder were obtained. COMPARISON: US KIDNEY on DOS: 03/08/25, US KIDNEY on DOS: 11/16/24, KIDNEY on DOS: 09/24/21 FINDINGS: The right kidney measures 11.1 cm in length, which is normal in size. There is increased echogenicit y of the right kidney. No hydronephrosis. 1.7 x 1.3 x 1.3 cm right renal upper pole cyst. 0.4 cm echo genic focus over the interpolar region of the right kidney which may represent vascular reflection ve rsus nonobstructing calculus. The left kidney is not visualized consistent with history of nephrectomy. Urinary bladder is unremarkable with urinary bladder volume of 540 cc. Incidental finding of cholelithiasis. IMPRESSION: The left kidney is surgically absent. Urinary bladder is unremarkable urinary bladder volume of 540 cc. Small right renal cyst. No Hydronephrosis. Increased right renal cortical echogenicity which may be seen with medical renal disease. Recommend clinical correlation.
[2025-04-15] MEDS: TIZANIDINE HYDROCHLORIDE 4 MG PO SCH (22:00)
[2025-04-15] MEDS: BUPRENORPHINE HCL 8 MG SL SCH (22:00)
[2025-04-15] MEDS: DOCUSATE SOD 100 MG CAP PO SCH (22:00)
[2025-04-15] MEDS: SODIUM CHLOR 0.9% PF (SALINE LOCK) 10ML VIAL/SYR IV SCH (22:23)
[2025-04-15] MEDS: ACCU-CHEK COMFORT CURVE STRIP VI SCH (22:23)
[2025-04-15] MEDS: InsuLIN REG 1unit/0.01ml Soln (100units/ml) SC SCH (22:25)
[2025-04-15] MEDS: PANTOPRAZOLE 40 MG TAB PO SCH (22:31)
[2025-04-15] MEDS: FUROSEMIDE 40 MG TAB PO SCH (22:31)
[2025-04-16] VITALS (11 sets, daily range): BP systolic 130–163; BP diastolic 81–125; PULSE 74–106; RESP 14–18; TEMP 97.3–98.4; O2SAT 93–97
[2025-04-16] MEDS: cefTRIAXone 1GM/50ML D5W 50 ML IV ONE (00:19)
[2025-04-16] MEDS: SODIUM CHLORIDE 0.9% 1,000 ML IV ONE (00:19)
[2025-04-16] MEDS: PREGABALIN 25 MG CAP PO SCH (05:49)
[2025-04-16 06:29] LABS: Hematocrit 42.2 % (36.0-46.0); Hemoglobin 14.1 g/dL (12.2-16.2); Mean Corpuscular Hemoglobin 28.1 pg (28.0-32.0); Mean Corpuscular Volume 84.2 fL (80.0-100.0); Nucleated Red Blood Cells % 0.1 %
[2025-04-16 06:48] LABS: Alanine Aminotransferase 12 U/L (7-40); Albumin 4.3 g/dL (3.2-4.8); Alkaline Phosphatase 115 U/L (46-116); Anion Gap 12 (5-15); BUN/Creatinine Ratio 22.8 (10.0-20.0); Calcium 10.2 mg/dL (8.7-10.4); Potassium 4.3 mmol/L (3.5-5.1); Sodium 144 mmol/L (136-145); Total Protein 6.7 g/dL (5.7-8.2)
[2025-04-16 06:49] LABS: Bilirubin, Total 0.4 mg/dL (0.2-1.0)
[2025-04-16 06:50] LABS: Blood Urea Nitrogen 39 mg/dL (9-23); Carbon Dioxide 19 mmol/L (20-31); Chloride 113 mmol/L (98-107); Glucose 171 mg/dL (74-106)
[2025-04-16] MEDS: HYDROcodone-ACET 5/325MG TAB PO PRN (09:51)
[2025-04-16] MEDS: LOSARTAN POTASSIUM 25 MG TAB PO SCH (09:51)
[2025-04-16] MEDS: METOPROLOL TARTRATE 25 MG TAB PO SCH (09:52)
[2025-04-16] MEDS: lamoTRIgine 25 MG TAB PO SCH (09:53)
[2025-04-16] MEDS: FENOFIBRATE 54 MG PO SCH (10:00)
[2025-04-16] MEDS: DEUTETRABENAZINE 12 MG PO SCH (10:00)
[2025-04-16 10:55] LABS: Potassium 4.5 mmol/L (3.5-5.1); Sodium 144 mmol/L (136-145)
[2025-04-16 10:56] LABS: Anion Gap 12 (5-15)
[2025-04-16 10:57] LABS: Calcium 10.1 mg/dL (8.7-10.4)
[2025-04-16 10:58] LABS: Carbon Dioxide 19 mmol/L (20-31); Chloride 113 mmol/L (98-107)
[2025-04-16 11:01] LABS: BUN/Creatinine Ratio 24.9 (10.0-20.0)
[2025-04-16 11:09] LABS: Blood Urea Nitrogen 43 mg/dL (9-23); Glucose 173 mg/dL (74-106)
--- NOTE | 2025-04-16 12:01 | DVHPNRES ---
Progress Note Date Seen: Apr 16, 2025 Resident Creating Document: MAXIMINO PEARSON RESIDENT Medical Necessity Reason Pt with a Central, PICC or Fol: No Subjective Review of Systems Ifeanyi Alicia Díaz is a 49-year-old female with past medical history of CHF, COPD, diabetes mellitus, hypertension, hyperlipidemia, thyroid nodule, depression, psychosis, bipolar disorder. She presented to the ER after taking 4 muscle relaxants for her right arm pain 2 days ago. She started complaining of sleepiness and fall. She reports falling twice during that day. She reports hitting her head we during her 2nd fall. She ambulates by herself and states her legs gave out on her and, and preceded to call EMS. EMS arrived on scene and notes that she was tachycardic, otherwise stable vitals . She was brought to the ER, and was started on IV fluids. Her muscle relaxant, tizanidine was stopped. An ultrasound was done, showing right kidney medical renal disease and surgically absent left kidney. Her wrist and checks x-ray were within normal limits. She was examined at bedside today. She complains of headache, lightheadedness, bumping her head from fall. No loss of consciousness, any other injury. She denies fever, shortness of breaths, chest pain. She also complains of pain in her right wrist after a fall from scooter 1 month back. After the fall she was examined by the primary care and fracture was ruled out. She has been taking [place] for pain. She also complains of vision changes. Past medical history: CHF, diabetes mellitus, hypertension, COPD, hyperlipidemia, thyroid nodules, depression, psychosis, bipolar disorder Surgical history: section, hysterectomy, thyroidectomy, left nephrectomy Personal history: Denies cigarette smoking, alcohol use. She uses marijuana every day. ROS: Constitutional: Complain of sleepiness and fall on admission. Denies weight loss, fever and chills. HEENT: Headache, lightheadedness, bump on her head from fall. Complains of vision changes over past few months. Respiratory: Denies shortness of breath and cough. Cardiovascular: Denies chest discomfort or palpitations. GI: Denies abdominal pain, nausea, vomiting and diarrhea. : Denies dysuria and urinary frequency. Musculoskeletal: Pain at rest since 1 month. Denies myalgias and joint pain Skin: Denies rash and pruritus. Neurological: Headache. Pain, associated Tingling and numbness on bilateral lower limbs. Complains of gradual reduction in vision. Objective vital signs Vital Sign Date Time Temp Pulse Resp B/P (MAP) Pulse Ox O2 Delivery O2 Flow Rate FiO2 04/16/25 09:53 163/112 04/16/25 09:52 106 04/16/25 09:14 97.8 16 93 97.8 04/16/25 08:12 Room Air* 0 21 Total Intake and Output 04/15/25 04/15/25 04/16/25 15:00 23:00 07:00 Intake Total 50 ml Output Total 0 ml Balance 50 ml medications Current Medications Medications Dose Ordered Sig/Luke Route Start Time Stop Time Status Last Admin Dose Admin Amlodipine Besylate 5 mg DAILY PO 04/16/25 10:00 04/16/25 09:53 5 MG Docusate Sodium 200 mg BID PO 04/15/25 22:00 04/16/25 11:41 200 MG Furosemide 40 mg BID PO 04/15/25 22:00 04/16/25 09:53 40 MG Losartan Potassium 25 mg DAILY PO 04/16/25 10:00 04/16/25 09:51 25 MG Metoprolol Tartrate 25 mg DAILY PO 04/16/25 10:00 04/16/25 09:52 25 MG Oxycodone/ Acetaminophen 1 tab QID PRN PO 04/15/25 19:15 Hold Pantoprazole Sodium 20 mg BID PO 04/15/25 22:00 04/16/25 09:50 20 MG Patient Own Medication 8 mg QID SL 04/15/25 22:00 UNV Patient Own Medication 12 mg DAILY PO 04/16/25 10:00 UNV Patient Own Medication 1 tab DAILY PO 04/16/25 10:00 UNV Fluoxetine HCl 80 mg DAILY PO 04/16/25 10:00 04/16/25 09:52 40 MG Patient Own Medication 20 unit [email or web address]@[email or web address] SC 04/16/25 17:30 UNV Lamotrigine 25 mg DAILY PO 04/16/25 10:00 04/16/25 09:53 25 MG Pregabalin 50 mg TID PO 04/16/25 06:00 04/16/25 05:49 50 MG Patient Own Medication 1 tab TID PO 04/15/25 22:00 UNV Zolpidem Tartrate 10 mg QPM PO 04/16/25 18:00 Diagnostic Test (Pha) 1 strip ACHS 04/15/25 22:00 04/16/25 11:42 1 STRIP Insulin Human Regular ACHS SC 04/15/25 22:00 04/16/25 11:45 3 UNITS Dextrose 50 ml UD PRN IV 04/15/25 19:15 Trazodone HCl 50 mg QPM PRN PO 04/15/25 19:15 Sodium Chloride 10 ml Q8HR IV 04/15/25 22:00 04/16/25 06:12 10 ML Docusate Sodium 100 mg BIDPRN PRN PO 04/15/25 19:15 Acetaminophen 650 mg Q6HP PRN PO 04/15/25 19:15 Acetaminophen/ Hydrocodone Bitart 1 tab Q4HP PRN PO 04/15/25 19:15 04/16/25 09:51 1 TAB Hydromorphone HCl 0.5 mg Q4HP PRN IV 04/15/25 19:15 Ondansetron HCl 4 mg Q4HP PRN IV 04/15/25 19:15 Examination General: Patient alert and oriented in person, place and time. Patient following commands. Morbidly obese. HEENT: Small swelling in the back of head. Normocephalic, atraumatic, moist mucous membranes Respiratory/pulmonary: Reduced bilateral lung sounds. No associated crackles or wheezes. Cardiovascular: Normal heart sounds S1 and S2 with no associated murmurs Abdomen: Abdomen nondistended, there is no pain to palpation in any of the abdominal quadrants, no palpable masses. Extremities: There is no peripheral edema present at the lower extremities. Bilaterally reduced power 4 on 5 in upper limbs. Skin: No rashes or pruritus, there is no sacral edema present at this time. Neurological: Intact cranial nerves with no focal neurologic deficits laboratory and microbiology Laboratory Tests 04/16/25 05:38 Test 04/16/25 05:38 Range/Units Serum Glucose 173 H 74-106 mg/dL Problem List/Assessment/Plan Problem List/Assessment/Plan #Presyncope, due to below #Iatrogenic cause likely, polypharmacy #Mechanical fall, likely due to polypharmacy #Rule out fatal arrhythmias #Rule out orthostatic hypotension -Started on tele -Stopped Tizanidine -Start baclofen 10 mg twice daily -Ordered postvoid bladder scan -Tox screen positive for benzodiazepine use #Ruled out orthostatic hypotension -Orthostatic vitals WNL #Poorly controlled hypertension -Managed with losartan, amlodipine, furosemide #Solitary kidney #Chronic kidney disease -Ultrasound kidneys shows surgically absent left kidney #Hyperkalemia, resolved -Continue monitoring and managing #Diabetes mellitus, insulin-dependent -Started on sliding scale insulin -Monitor blood glucose closely #Diabetic neuropathy -Continue pregabalin #Obesity with BMI 38.6 -Counseled for lifestyle modification #History of Bipolar disorder #History of psychosis #History of depression -No suicidal, homicidal ideation -Continue home medication Goals of care discussed at patient's bedside for more than [address] Rylie Pfeiffer Full code Plan discussed with Dr. Cooley Plan discussed with: Patient Date of Service: Apr 16, 2025 Billing Provider: ELEN LEGGETT MD Common Visit Codes: [id number] INP/OBS CARE(HIGH) MAXIMINO PEARSON RESIDENT Apr 16, 2025 12:01 ELEN LEGGETT MD Apr 19, 2025 01:48
[2025-04-16] MEDS: INSULIN LANTUS (GLARGINE) 1 /0.01ml (100units/ml) SC SCH (17:24)
[2025-04-16] MEDS: ZOLPIDEM TARTRATE 5 MG TAB PO SCH (17:44)
--- NOTE | 2025-04-16 18:46 | DVHINCON2 ---
Date of service: Apr 16, [address] Moran Reason for Consultation DURGA on CKD History of Present Illness 49 y/o female with PMH of CKD [id number], HTN, type 2 DM, CHF, COPD, hypothyroidism. Pt follows up with nephrology outpt. Pt reports she fell at home d/t use of muscle relaxants. Received consult for DURGA on CKD. Pt presented with BUN 34, creat 1.84, GFR 33, K+ 5.2, Na 141. Labs from 04/16 Na 144, K+ 4.3, BUN 39, creat 1.71, GFR 36. Pt reports she has been on fluid restriction at home. Denies NSAIDs use. Past Medical History CKD freiw4x, HTN, type 2 DM, CHF, COPD, hypothyroidism. Allergies: Uncoded Allergies: adhesive tape (Allergy, Unknown, 04/15/25) Home Meds Active Scripts Levofloxacin Hemihydrate (LEVAQUIN 500 MG) 500 Mg Tab, 1 TAB PO DAILY, #20 TAB Prov:KEYON MARTINEZ MD 03/11/25 Clindamycin Hcl (Clindamycin Hcl) 300 Mg Cap, 1 CAP PO TID, #60 CAP Prov:KEYON MARTINEZ MD 03/11/25 Amlodipine Besylate (NORVASC TABLET) 5 Mg Tb, 5 MG PO DAILY for 30 Days, #30 TAB 3 Refills Prov:JAKE MARIE DO 01/05/25 Oxycodone W/ Acetaminophen (Percocet 5/325MG) 1 Tab Tb, 1 TAB PO QID PRN, #30 TAB Prov:KEYON MARTINEZ MD 11/19/24 Furosemide (Lasix) 40 Mg Tab, 40 MG PO BID, #60 TAB Prov:KEYON MARTINEZ MD 11/19/24 Blood Glucose Monitoring Suppl (Blood Glucose System Gaurav) System Kit, PKG XX 5XD, #1 Administer a 30-day supply of lancets, alcohol prep pads and test strips and glucometer per insurance coverage. Prov:AKASH EVANS MD 09/25/21 Insulin Pen Needle (Bd Pen Needle/Leta 2Nd Ge 32G X 4 mm) 1 Mis Mis, MIS XX 5XD, #150 Prov:AKASH EVANS MD 09/25/21 Insulin Lispro (Humalog Kwikpen) 100 Unit/Ml Inj, 1 DOSE SC UD, #5 SYR Administer up to 40 units of insulin per provided sliding scale divided 3 times daily before meals and at bedtime. Prov:AKASH EVANS MD 09/25/21 Insulin Glargine (Basaglar Kwikpen) 100 Unit/Ml Inj, 20 UNIT SC DAILY@DINNER, #5 SYRN Prov:AKASH EVANS MD 09/25/21 Reported Medications Pregabalin (Pregabalin) 50 Mg Cap, 1 CAP PO TID 01/03/25 Fluoxetine Hcl (Fluoxetine Hcl) 40 Mg Cap, PO 01/03/25 Fluticasone Propionate (Fluticasone Propionate Hf) 110 Mcg/Act Aer, INH 01/03/25 Glipizide (Glipizide) 10 Mg Tab, 1 TAB PO DAILY 01/03/25 Apixaban Base (ELIQUIS) 2.5 Mg Tab, 1 TAB PO BID 01/03/25 Buprenorphine HCl (Buprenorphine Hydrochlori) 8 Mg Sub, 2 SL 01/03/25 Tizanidine Hydrochloride (Zanaflex) 4 Mg Tab, 2 MG PO TID, TAB 11/18/24 Meclizine Hcl (Meclizine Hcl) 12.5 Mg Tab, 25 MG PO TID, TAB 11/18/24 Diphenhydramine Hcl (Banophen) 25 Mg Cap, 25 MG PO Q6HP, CAP 11/18/24 Meloxicam (Meloxicam) 15 Mg Tab, 1 TAB PO DAILY, #30 TAB 2 Refills 11/18/24 Brexpiprazole (Rexulti) 4 Mg Tab, 4 MG PO HS, TAB 11/18/24 Pantoprazole Sodium Sesquihydr (Pantoprazole Sodium Dr) 40 Mg Tab, 20 MG PO BID, TAB 11/18/24 Deutetrabenazine (Austedo) 6 Mg Tab, 6 MG PO QPM, TAB 11/18/24 Hydroxyzine Hcl (Hydroxyzine Hcl) 50 Mg Tab, 50 MG PO HS, TAB 11/18/24 Docusate Sodium (Colace) 100 Mg Cap, 250 MG PO BID, CAP 11/18/24 Losartan Potassium (Losartan Potassium) 25 Mg Tab, 1 TAB PO DAILY, #90 TAB 1 Refill 11/18/24 Buprenorphine Hcl (Buprenorphine Hcl) 8 Mg Sub, 8 MG SL QID, INJ 11/18/24 Nitrofurantoin Monohyd Macro (Nitrofurantoin Monohydrat) 100 Mg Cap, 100 MG PO DAILY for 5 Days, CAP 11/18/24 Amitriptyline Hcl (Amitriptyline Hcl) 150 Mg Tab, 150 MG PO HS, TAB 11/18/24 Metoprolol Tartrate (Metoprolol Tartrate) 25 Mg Tab, 1 TAB PO DAILY, #180 TAB 1 Refill 11/18/24 Fenofibrate (Fenofibrate) 54 Mg Tab, 1 TAB PO DAILY, #30 TAB 5 Refills 11/18/24 Apixaban Base (ELIQUIS) 5 Mg Tab, 5 MG PO BID, TAB 11/18/24 Furosemide (Furosemide) 20 Mg Tab, 1 TAB PO DAILY, #90 TAB 1 Refill 11/18/24 Lamotrigine (Lamictal) 25 Mg Tab, 1 TAB PO DAILY, #60 TAB 1 Refill 11/18/24 Deutetrabenazine (Austedo) 12 Mg Tab, 12 MG PO DAILY, TAB 11/18/24 Fluoxetine HCl (Fluoxetine Hydrochloride) 40 Mg Cap, 80 MG PO DAILY, CAP 11/18/24 Tizanidine Hydrochloride (Zanaflex) 4 Mg Tab, 1 TAB PO TID, #90 TAB 11/17/24 Zolpidem Tartrate (Ambien) 10 Mg Tab, 1 TAB PO QPM, #30 TAB 5 Refills 06/01/18 Current Medications Current Medications Medications (Trade) Dose Ordered Sig/Luke Route PRN Reason Start Time Stop Time Status Last Admin Amlodipine Besylate (Norvasc Tablet) 5 mg DAILY PO 04/16/25 10:00 04/16/25 09:53 Losartan Potassium (Cozaar Tablet) 25 mg DAILY PO 04/16/25 10:00 04/16/25 09:51 Metoprolol Tartrate (Lopressor Tablet) 25 mg DAILY PO 04/16/25 10:00 04/16/25 09:52 Patient Own Medication 12 mg DAILY PO 04/16/25 10:00 Patient Own Medication 1 tab DAILY PO 04/16/25 10:00 Fluoxetine HCl (PROzac CAPSULE) 80 mg DAILY PO 04/16/25 10:00 04/16/25 09:52 Insulin Glargine (Lantus) 20 units DAILY@DINNER SC 04/16/25 17:30 04/16/25 17:24 Lamotrigine (LaMICtal TABLET) 25 mg DAILY PO 04/16/25 10:00 04/16/25 09:53 Pregabalin (Lyrica Capsule) 50 mg TID PO 04/16/25 06:00 04/16/25 21:40 Zolpidem Tartrate (Ambien) 10 mg QPM PO 04/16/25 18:00 Baclofen (Liorisal Tablet) 10 mg Q12HR PO 04/16/25 22:00 04/16/25 21:40 Family History: Depression G8 MOTHER FH: heart attack G8 FATHER FH: lung cancer G8 MOTHER Heart cancer G8 MOTHER No Family History of: Hypercholesterolemia Review of Systems 10 systems reviewed and negative except as per HPI H&P Exam Vital Signs/I&O Vital Sign Date Time Temp Pulse Resp B/P (MAP) Pulse Ox O2 Delivery O2 Flow Rate FiO2 04/16/25 21:41 131/80 04/16/25 21:02 97.7 82 17 96 97.7 04/16/25 08:12 Room Air* 0 21 Intake and Output 04/15/25 04/16/25 19:00 07:00 Intake Total 50 ml Output Total 0 ml Balance 50 ml Intake Oral 0 ml IV Total 50 ml Output Urine Total 0 ml Physical Exam Gen: NAD, appears stated age HEENT: PERRLA, mucous membranes moist Lungs: Bilateral air entry, CTA Heart: RRR, normal S1 and S2 Abd: Soft, nontender, normoactive bowel sounds Ext: no edema Neuro: Alert and oriented x 4 Labs/Diagnostic Data Labs/Diagnostic Data Laboratory Tests Test 04/16/25 20:52 04/16/25 16:53 04/16/25 11:17 04/16/25 06:11 Range/Units POC Glucose 287 H 233 H 172 H 205 H 70-106 mg/dl Test 04/16/25 05:38 04/15/25 22:01 04/15/25 18:56 04/15/25 16:05 Range/Units White Blood Count 6.5 4.4-10.8 10^3/uL Red Blood Count 5.01 4.0-5.20 10^6/uL Hemoglobin 14.1 12.2-16.2 g/dL Hematocrit 42.2 # 36.0-46.0 % Mean Corpuscular Volume 84.2 # 80.0-100.0 fL Mean Corpuscular Hemoglobin 28.1 28.0-32.0 pg Mean Corpuscular Hemoglobin Concent 33.3 32.0-36.0 g/dL Red Cell Distribution Width 15.5 H 11.8-14.3 % Platelet Count 214 140-450 10^3/uL Mean Platelet Volume 7.8 6.9-10.8 fL Neutrophils (%) (Auto) 59.5 37.0-80.0 % Lymphocytes (%) (Auto) 31.3 10.0-50.0 % Monocytes (%) (Auto) 6.6 0.0-12.0 % Eosinophils (%) (Auto) 1.8 0.0-7.0 % Basophils (%) (Auto) 0.8 0.0-2.0 % Neutrophils # (Auto) 3.9 1.6-8.6 10 ^3/uL Lymphocytes # (Auto) 2.0 0.4-5.4 10 ^3/uL Monocytes # (Auto) 0.4 0-1.3 10 ^3/uL Eosinophils # (Auto) 0.1 0-0.8 10 ^3/uL Basophils # (Auto) 0.1 0-0.2 10 ^3/uL Nucleated Red Blood Cells 0.1 % Sodium Level 144 136-145 mmol/L Potassium Level 4.5 3.5-5.1 mmol/L Chloride Level 113 H 98-107 mmol/L Carbon Dioxide Level 19 L 20-31 mmol/L Anion Gap 12 5-15 Blood Urea Nitrogen 43 H 9-23 mg/dL Creatinine 1.73 H 0.550-1.02 mg/dL Glomerular Filtration Rate Calc 35 >90 mL/min BUN/Creatinine Ratio 24.9 H 10.0-20.0 Serum Glucose 173 H 74-106 mg/dL Calcium Level 10.1 8.7-10.4 mg/dL Total Bilirubin 0.4 0.2-1.0 mg/dL Aspartate Amino Transferase (AST) 13 13-40 U/L Alanine Aminotransferase (ALT) 12 7-40 U/L Alkaline Phosphatase 115 46-116 U/L Creatine Kinase 42 34-145 U/L Total Protein 6.7 5.7-8.2 g/dL Albumin 4.3 3.2-4.8 g/dL POC Glucose 163 H 70-106 mg/dl Blood Gas Specimen Type Arterial Blood Gas Sample Site Right radial Blood Gas Patient Temperature 37.0 Arterial Blood Date Drawn [id number] Arterial Blood pH 7.295 L 7.350-7.450 Arterial Blood Partial Pressure CO2 31.0 L 32.0-45.0 mmHg Arterial Blood Partial Pressure O2 71.9 L 83.0-108.0 mmHg Arterial Blood HCO3 14.7 L 21.0-28.0 mmol/L Arterial Blood Oxygen Saturation 93.3 L 94.0-98.0 % Arterial Blood Base Excess -10.3 L -2.0-3.0 mmol/L Arterial Blood Oxyhemoglobin 91.7 L 94.0-98.0 % Arterial Blood Carboxyhemoglobin 1.1 0.5-1.5 % Arterial Blood Methemoglobin 0.6 0.0-1.5 % Koko Test Yes Blood Gas Total Hemoglobin 15.60 12.0-16.0 g/dL Blood Gas Modality Room air Blood Gas Spontaneous Rate 22 FiO2 % 21.0 Troponin I High Sensitivity 6 </=34 ng/L Test 04/15/25 15:40 04/15/25 15:08 Range/Units Urine Color Yellow Yellow Urine Clarity Turbid H Clear Urine pH 5.5 5.0-9.0 Urine Specific Cobb 1.024 1.001-1.035 Urine Protein 2+ H Negative Urine Ketones Trace Negative Urine Blood Negative Negative /uL Urine Nitrite Negative Negative Urine Bilirubin Negative Negative Urine Urobilinogen Normal Negative mg/dL Urine Leukocyte Esterase Negative Negative /uL Urine RBC 2 0 - 4 /hpf Urine Microscopic WBC 5 0-5 /HPF Urine Squamous Epithelial Cells Many <5 /hpf Urine Bacteria Few H None Seen /hpf Urine Hyaline Casts Few 0 - 2 /lpf Urine Mucus Few None Seen Urine Glucose Normal Normal mg/dL Urine Opiates Screen Neg NEGATIVE Urine Fentanyl Screen Neg NEGATIVE Urine Barbiturates Screen Neg NEGATIVE Urine Phencyclidine Screen Neg NEGATIVE Urine Amphetamines Screen Neg NEGATIVE Urine Benzodiazepines Screen Neg NEGATIVE Urine Cocaine Screen Neg NEGATIVE Urine Cannabinoids Screen Pos NEGATIVE White Blood Count 8.6 4.4-10.8 10^3/uL Red Blood Count 5.34 H 4.0-5.20 10^6/uL Hemoglobin 15.2 12.2-16.2 g/dL Hematocrit 47.9 H 36.0-46.0 % Mean Corpuscular Volume 89.7 80.0-100.0 fL Mean Corpuscular Hemoglobin 28.5 28.0-32.0 pg Mean Corpuscular Hemoglobin Concent 31.7 L 32.0-36.0 g/dL Red Cell Distribution Width 15.9 H 11.8-14.3 % Platelet Count 228 140-450 10^3/uL Mean Platelet Volume 7.7 6.9-10.8 fL Neutrophils (%) (Auto) 66.3 37.0-80.0 % Lymphocytes (%) (Auto) 25.8 10.0-50.0 % Monocytes (%) (Auto) 5.8 0.0-12.0 % Eosinophils (%) (Auto) 1.2 0.0-7.0 % Basophils (%) (Auto) 0.9 0.0-2.0 % Neutrophils # (Auto) 5.7 1.6-8.6 10 ^3/uL Lymphocytes # (Auto) 2.2 0.4-5.4 10 ^3/uL Monocytes # (Auto) 0.5 0-1.3 10 ^3/uL Eosinophils # (Auto) 0.1 0-0.8 10 ^3/uL Basophils # (Auto) 0.1 0-0.2 10 ^3/uL Nucleated Red Blood Cells 0.2 % Sodium Level 141 136-145 mmol/L Potassium Level 5.2 H 3.5-5.1 mmol/L Chloride Level 114 H 98-107 mmol/L Carbon Dioxide Level 16 L 20-31 mmol/L Anion Gap 11 5-15 Blood Urea Nitrogen 34 H 9-23 mg/dL Creatinine 1.84 H 0.550-1.02 mg/dL Glomerular Filtration Rate Calc 33 >90 mL/min BUN/Creatinine Ratio 18.5 10.0-20.0 Serum Glucose 232 H 74-106 mg/dL Lactic Acid Level 1.8 0.4-2.0 mmol/L Calcium Level 10.6 H 8.7-10.4 mg/dL Magnesium Level 1.7 1.6-2.6 mg/dL Total Bilirubin 0.3 0.2-1.0 mg/dL Aspartate Amino Transferase (AST) 23 13-40 U/L Alanine Aminotransferase (ALT) 17 7-40 U/L Alkaline Phosphatase 132 H 46-116 U/L Troponin I High Sensitivity 6 </=34 ng/L B-Type Natriuretic Peptide 8.25 0-100 pg/mL Total Protein 7.2 5.7-8.2 g/dL Albumin 4.6 3.2-4.8 g/dL Plasma/Serum Blood Alcohol < 3.0 <10 mg/dL Plan/Recommendation IMP 1. DURGA hemodynamically mediated with hx of CKD stage 3b 2. HTN 3. Hx of type 2 DM 4. History of CHF 5. Hx of COPD REC - Serial chemistry panels - Renal U/S - Avoidance of NSAIDs, ARB/ACEI, and contrast studies if able during timecourse of DURGA - Strict I&Os - Agree with use of loop diuretic to achieve ECF volume - Pt to follow up within 2 weeks once discharged - Will continue to follow inpt Thank you for the consultation Case discussed with Dr. Brennan Plan discussed with: Patient AMANDA HARVEY [facility] Apr 16, 2025 18:46
[2025-04-16] MEDS: BACLOFEN 10 MG TAB PO SCH (21:40)
[2025-04-16] MEDS: HYDROmorphone HCL 2 MG/ML VL/or syr IV PRN (22:58)
[2025-04-17] VITALS (7 sets, daily range): BP systolic 124–136; BP diastolic 91–98; PULSE 61–76; RESP 16–20; TEMP 97.6–98; O2SAT 92–95
[2025-04-17 07:00] LABS: Hematocrit 41.6 % (36.0-46.0); Hemoglobin 13.8 g/dL (12.2-16.2); Mean Corpuscular Hemoglobin 28.4 pg (28.0-32.0); Mean Corpuscular Volume 85.3 fL (80.0-100.0); Nucleated Red Blood Cells % 0.1 %
[2025-04-17 07:14] LABS: Alanine Aminotransferase 14 U/L (7-40); Albumin 4.1 g/dL (3.2-4.8); Anion Gap 8 (5-15); BUN/Creatinine Ratio 23.3 (10.0-20.0); Bilirubin, Total 0.3 mg/dL (0.2-1.0); Calcium 9.2 mg/dL (8.7-10.4); Carbon Dioxide 21 mmol/L (20-31); Potassium 4.6 mmol/L (3.5-5.1); Sodium 139 mmol/L (136-145); Total Protein 6.5 g/dL (5.7-8.2)
[2025-04-17 07:15] LABS: Alkaline Phosphatase 118 U/L (46-116); Blood Urea Nitrogen 47 mg/dL (9-23); Chloride 110 mmol/L (98-107); Glucose 165 mg/dL (74-106); Uric Acid 11.1 mg/dL (3.1-7.8)
--- NOTE | 2025-04-17 07:38 | ECG ---
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
--- NOTE | 2025-04-17 15:16 | DVHPN2 ---
Progress Note Date Seen: Apr 17, 2025 Medical Necessity Reason Pt with a Central, PICC or Fol: No Subjective Patient reports: No new complaints, Feels better Review of Systems: HEENT:Normal, CVS:Normal, RESPIRATORY:Normal, GI:Normal, :Normal, MSK:Normal, NEURO:Normal Objective vital signs Vital Sign Date Time Temp Pulse Resp B/P (MAP) Pulse Ox O2 Delivery O2 Flow Rate FiO2 04/17/25 12:40 97.6 64 20 136/91 (106) 95 97.6 04/16/25 20:00 Room Air* 0 21 Total Intake and Output 04/16/25 04/16/25 04/17/25 15:00 23:00 07:00 Intake Total 2125 ml 300 ml Balance 2125 ml 300 ml medications Current Medications Medications Dose Ordered Sig/Luke Route Start Time Stop Time Status Last Admin Dose Admin Amlodipine Besylate 5 mg DAILY PO 04/16/25 10:00 04/17/25 09:18 5 MG Docusate Sodium 200 mg BID PO 04/15/25 22:00 04/17/25 09:16 200 MG Metoprolol Tartrate 25 mg DAILY PO 04/16/25 10:00 04/17/25 09:17 25 MG Oxycodone/ Acetaminophen 1 tab QID PRN PO 04/15/25 19:15 Hold Pantoprazole Sodium 20 mg BID PO 04/15/25 22:00 04/17/25 09:17 20 MG Patient Own Medication 8 mg QID SL 04/15/25 22:00 Patient Own Medication 12 mg DAILY PO 04/16/25 10:00 Patient Own Medication 1 tab DAILY PO 04/16/25 10:00 Fluoxetine HCl 80 mg DAILY PO 04/16/25 10:00 04/17/25 09:16 80 MG Insulin Glargine 20 units DAILY@DINNER SC 04/16/25 17:30 04/16/25 17:24 20 UNITS Lamotrigine 25 mg DAILY PO 04/16/25 10:00 04/17/25 09:16 25 MG Pregabalin 50 mg TID PO 04/16/25 06:00 04/17/25 06:20 50 MG Zolpidem Tartrate 10 mg QPM PO 04/16/25 18:00 Diagnostic Test (Pha) 1 strip ACHS 04/15/25 22:00 04/17/25 12:08 1 STRIP Insulin Human Regular ACHS SC 04/15/25 22:00 04/17/25 12:25 2 UNITS Dextrose 50 ml UD PRN IV 04/15/25 19:15 Sodium Chloride 10 ml Q8HR IV 04/15/25 22:00 04/17/25 12:25 10 ML Docusate Sodium 100 mg BIDPRN PRN PO 04/15/25 19:15 Acetaminophen 650 mg Q6HP PRN PO 04/15/25 19:15 Acetaminophen/ Hydrocodone Bitart 1 tab Q4HP PRN PO 04/15/25 19:15 04/16/25 14:09 1 TAB Hydromorphone HCl 0.5 mg Q4HP PRN IV 04/15/25 19:15 04/17/25 12:24 0.5 MG Ondansetron HCl 4 mg Q4HP PRN IV 04/15/25 19:15 Baclofen 10 mg Q12HR PO 04/16/25 22:00 04/16/25 21:40 10 MG Furosemide 40 mg DAILY PO 04/18/25 10:00 Examination: GENERAL:Normal, HEENT:Normal, NECK:Normal, LUNGS:Normal, CVS:Normal, ABDOMEN:Normal, MSK:Normal, SKIN:Normal, NEURO:Normal, :Normal laboratory and microbiology Laboratory Tests 04/17/25 05:30 Test 04/17/25 05:30 Range/Units Serum Glucose 165 H 74-106 mg/dL Microbiology Date/Time Source Procedure Growth Status 04/16/25 13:39 Nose MRSA Screen - Final Complete Problem List/Assessment/Plan Problem List/Assessment/Plan 1. DURGA hemodynamically mediated with hx of CKD stage 3b 2. HTN 3. Hx of type 2 DM 4. History of CHF 5. Hx of COPD recs Renal function stable Follow-up with Dr. Brennan after discharge Plan discussed with: Patient RANDY STATON MD Apr 17, 2025 15:16
--- NOTE | 2025-04-17 16:05 | DVHDSRES ---
Discharge Summary Date of Admission Resident Creating Document: TANISHA SIMS RESIDENT Apr 15, 2025 at 19:11 Date of Discharge: Apr 17, 2025 Admitting Diagnosis #Presyncope likely due to polypharmacy Labs/Diagnostic Data: Laboratory Results Test 04/17/25 12:07 04/17/25 05:30 04/16/25 05:38 04/15/25 18:56 POC Glucose 157 mg/dl (70-106) White Blood Count 7.1 10^3/uL (4.4-10.8) Red Blood Count 4.88 10^6/uL (4.0-5.20) Hemoglobin 13.8 g/dL (12.2-16.2) Hematocrit 41.6 % (36.0-46.0) Mean Corpuscular Volume 85.3 fL (80.0-100.0) Mean Corpuscular Hemoglobin 28.4 pg (28.0-32.0) Mean Corpuscular Hemoglobin Concent 33.3 g/dL (32.0-36.0) Red Cell Distribution Width 15.5 % (11.8-14.3) Platelet Count 213 10^3/uL (140-450) Mean Platelet Volume 8.0 fL (6.9-10.8) Neutrophils (%) (Auto) 48.3 % (37.0-80.0) Lymphocytes (%) (Auto) 41.7 % (10.0-50.0) Monocytes (%) (Auto) 7.2 % (0.0-12.0) Eosinophils (%) (Auto) 1.8 % (0.0-7.0) Basophils (%) (Auto) 1.0 % (0.0-2.0) Neutrophils # (Auto) 3.4 10 ^3/uL (1.6-8.6) Lymphocytes # (Auto) 3.0 10 ^3/uL (0.4-5.4) Monocytes # (Auto) 0.5 10 ^3/uL (0-1.3) Eosinophils # (Auto) 0.1 10 ^3/uL (0-0.8) Basophils # (Auto) 0.1 10 ^3/uL (0-0.2) Nucleated Red Blood Cells 0.1 % Sodium Level 139 mmol/L (136-145) Potassium Level 4.6 mmol/L (3.5-5.1) Chloride Level 110 mmol/L (98-107) Carbon Dioxide Level 21 mmol/L (20-31) Anion Gap 8 (5-15) Blood Urea Nitrogen 47 mg/dL (9-23) Creatinine 2.02 mg/dL (0.550-1.02) Glomerular Filtration Rate Calc 29 mL/min (>90) BUN/Creatinine Ratio 23.3 (10.0-20.0) Serum Glucose 165 mg/dL (74-106) Uric Acid 11.1 mg/dL (3.1-7.8) Calcium Level 9.2 mg/dL (8.7-10.4) Phosphorus Level 5.8 mg/dL (2.4-5.1) Total Bilirubin 0.3 mg/dL (0.2-1.0) Aspartate Amino Transferase (AST) 15 U/L (13-40) Alanine Aminotransferase (ALT) 14 U/L (7-40) Alkaline Phosphatase 118 U/L (46-116) Total Protein 6.5 g/dL (5.7-8.2) Albumin 4.1 g/dL (3.2-4.8) Creatine Kinase 42 U/L (34-145) Blood Gas Specimen Type Arterial Blood Gas Sample Site Right radial Blood Gas Patient Temperature 37.0 Arterial Blood Date Drawn [id number] Arterial Blood pH 7.295 (7.350-7.450) Arterial Blood Partial Pressure CO2 31.0 mmHg (32.0-45.0) Arterial Blood Partial Pressure O2 71.9 mmHg (83.0-108.0) Arterial Blood HCO3 14.7 mmol/L (21.0-28.0) Arterial Blood Oxygen Saturation 93.3 % (94.0-98.0) Arterial Blood Base Excess -10.3 mmol/L (-2.0-3.0) Arterial Blood Oxyhemoglobin 91.7 % (94.0-98.0) Arterial Blood Carboxyhemoglobin 1.1 % (0.5-1.5) Arterial Blood Methemoglobin 0.6 % (0.0-1.5) Koko Test Yes Blood Gas Total Hemoglobin 15.60 g/dL (12.0-16.0) Blood Gas Modality Room air Blood Gas Spontaneous Rate 22 FiO2 % 21.0 Test 04/15/25 16:05 04/15/25 15:40 04/15/25 15:08 Troponin I High Sensitivity 6 ng/L (</=34) Urine Color Yellow (Yellow) Urine Clarity Turbid (Clear) Urine pH 5.5 (5.0-9.0) Urine Specific Wilson 1.024 (1.001-1.035) Urine Protein 2+ (Negative) Urine Ketones Trace (Negative) Urine Blood Negative /uL (Negative) Urine Nitrite Negative (Negative) Urine Bilirubin Negative (Negative) Urine Urobilinogen Normal mg/dL (Negative) Urine Leukocyte Esterase Negative /uL (Negative) Urine RBC 2 /hpf (0 - 4) Urine Microscopic WBC 5 /HPF (0-5) Urine Squamous Epithelial Cells Many /hpf (<5) Urine Bacteria Few /hpf (None Seen) Urine Hyaline Casts Few /lpf (0 - 2) Urine Mucus Few (None Seen) Urine Glucose Normal mg/dL (Normal) Urine Opiates Screen Neg (NEGATIVE) Urine Fentanyl Screen Neg (NEGATIVE) Urine Barbiturates Screen Neg (NEGATIVE) Urine Phencyclidine Screen Neg (NEGATIVE) Urine Amphetamines Screen Neg (NEGATIVE) Urine Benzodiazepines Screen Neg (NEGATIVE) Urine Cocaine Screen Neg (NEGATIVE) Urine Cannabinoids Screen Pos (NEGATIVE) Lactic Acid Level 1.8 mmol/L (0.4-2.0) Magnesium Level 1.7 mg/dL (1.6-2.6) B-Type Natriuretic Peptide 8.25 pg/mL (0-100) Plasma/Serum Blood Alcohol < 3.0 mg/dL (<10) Other Laboratory Tests 04/17/25 05:30 Brief Hx & Hospital Course: Alicia Suggs is a 49-year-old female with past medical history of CHF, COPD, diabetes mellitus, hypertension, hyperlipidemia, thyroid nodule, depression, psychosis, bipolar disorder. She presented to the ER after taking 4 muscle relaxants for her right arm pain 2 days ago. She started complaining of sleepiness and fall. She reports falling twice during that day. She reports hitting her head we during her 2nd fall. She ambulates by herself and states her legs gave out on her and, and preceded to call EMS. EMS arrived on scene and notes that she was tachycardic, otherwise stable vitals . She was brought to the ER, and was started on IV fluids. Her muscle relaxant, tizanidine was stopped. An ultrasound was done, showing right kidney medical renal disease and surgically absent left kidney. Her wrist and checks x-ray were within normal limits. She was examined at bedside today. She complains of headache, lightheadedness, bumping her head from fall. No loss of consciousness, any other injury. She denies fever, shortness of breaths, chest pain. She also complains of pain in her right wrist after a fall from scooter 1 month back. After the fall she was examined by the primary care and fracture was ruled out. She has been taking [place] for pain. She also complains of vision changes. Past medical history: CHF, diabetes mellitus, hypertension, COPD, hyperlipidemia, thyroid nodules, depression, psychosis, bipolar disorder Surgical history: section, hysterectomy, thyroidectomy, left nephrectomy Personal history: Denies cigarette smoking, alcohol use. She uses marijuana every day. Brief history of hospitalization: Patient came in with presyncope likely due to iatrogenic cause, polypharmacy use. She had a mechanical fall likely due to polypharmacy. We ruled out fatal arrhythmias and orthostatic hypotension as well. We started on telemetry. Tizanidine was stopped. Patient was given baclofen 10 mg twice a day. tox screen was positive for benzodiazepine use. For patient's poorly-controlled hypertension we managed her with losartan, amlodipine, furosemide. For solitary kidney, chronic kidney disease stage IIIB an ultrasound of the kidney shows surgically absent left kidney. We consulted Nephro was suggested to follow up after discharge in 2 weeks outpatient. We have sent urine analysis, urine sodium, urine creatinine phosphorus for labs. Patient has been counseled regarding the outpatient follow up. For patient's hyperkalemia we repleted her potassium levels and continue to monitor her. For patient's diabetes mellitus which is insulin-dependent we started her on sliding scale insulin. We also monitored the blood glucose closely. For diabetic neuropathy we continued her pregabalin medication. Patient is obese with BMI 38.6 and we counseled her for lifestyle modification, need of exercise. For history of bipolar disorder, history of psychosis, history of depression we monitored her and continued home medication. Patient is not suicidal does not have homicidal ideation. For patient's diastolic heart failure with preserved ejection fraction we gave patient Lasix 40 mg BD which was later turned to OD. To rule out obstruction the bladder, we did a postvoid bladder scan which showed 146 mL in bladder. Patient is now able to urinate and has no new complaints. Patient is now stable for discharge. She has been counseled regarding the need for follow up with her PCP, batt packer outpatient. We have also counseled her regarding [facility] use and the dangers, side effects it may have. Patient has communicated understanding and is being discharged. General: Patient alert and oriented in person, place and time. Patient following commands. Morbidly obese. HEENT: Small swelling in the back of head. Normocephalic, atraumatic, moist mucous membranes Respiratory/pulmonary: Reduced bilateral lung sounds. No associated crackles or wheezes. Cardiovascular: Normal heart sounds S1 and S2 with no associated murmurs Abdomen: Abdomen nondistended, there is no pain to palpation in any of the abdominal quadrants, no palpable masses. Extremities: There is no peripheral edema present at the lower extremities. Bilaterally reduced power 4 on 5 in upper limbs. Skin: No rashes or pruritus, there is no sacral edema present at this time. Neurological: Intact cranial nerves with no focal neurologic deficits Instructions : Follow up with PCP in 2 weeks Follow up with Nephrology outpatient in 2 weeks, repeat phosphorus and uric acid Follow up in discharge clinic within a week Discontinue amlodipine and start losartan 25 mg Takes sevelamer 800 mg t.i.d. with meals for 30 days Operations or Procedures AP portable chest IMPRESSION: No acute cardiopulmonary pathology. Question of pulmonary hypertension versus [id number] cardiac shunt. X-ray right wrist IMPRESSION: No acute bony pathology. PROCEDURE(s): KIDUS - KIDNEY IMPRESSION: The left kidney is surgically absent. Urinary bladder is unremarkable urinary bladder volume of 540 cc. Small right renal cyst. No Hydronephrosis. Increased right renal cortical echogenicity which may be seen with medical renal disease. Recommend clinical correlation. :0 Condition at Discharge: Stable Final Diagnosis/Problems List #Presyncope likely due to polypharmacy #S/P Mechanical fall #Ruled out fatal arrhythmias #likely orthostatic hypotension #Poorly controlled hypertension #Solitary kidney #DURGA likely VMN, superimposed on Chronic kidney disease stage 3b #Hyperkalemia, resolved #Diabetes mellitus type 2, insulin-dependent #Diabetic neuropathy #Obesity with BMI 38.6 #History of Bipolar disorder #History of psychosis #History of depression Discharge Disposition: Home Discharge Instruct/Medications Diet: Consistent carbohydrate, Cardiac 2g Na,low cholest Activity: No Restrictions, As Tolerated Follow Up/Referral: followup with pcp within 2 weeks followup with nephrology outpatient in 2 weeks follow up in discharge clinic in one week Medications: discontinue amlodipine and resume losartan 25mg continue home medications Scheduled Amitriptyline Hcl (Amitriptyline Hcl), 150 MG PO HS, (Reported) Apixaban Base (Eliquis), 5 MG PO BID, (Reported) Apixaban Base (Eliquis), 1 TAB PO BID, (Reported) Brexpiprazole (Rexulti), 4 MG PO HS, (Reported) Buprenorphine Hcl (Buprenorphine Hcl), 8 MG SL QID, (Reported) Clindamycin Hcl (Clindamycin Hcl), 1 CAP PO TID Deutetrabenazine (Austedo), 12 MG PO DAILY, (Reported) Deutetrabenazine (Austedo), 6 MG PO QPM, (Reported) Diphenhydramine Hcl (Banophen), 25 MG PO Q6HP, (Reported) Docusate Sodium (Colace), 250 MG PO BID, (Reported) Fenofibrate (Fenofibrate), 1 TAB PO DAILY, (Reported) Fluoxetine HCl (Fluoxetine Hydrochloride), 80 MG PO DAILY, (Reported) Furosemide (Furosemide), 1 TAB PO DAILY, (Reported) Furosemide (Lasix), 40 MG PO BID Glipizide (Glipizide), 1 TAB PO DAILY, (Reported) Hydroxyzine Hcl (Hydroxyzine Hcl), 50 MG PO HS, (Reported) Insulin Glargine (Basaglar Kwikpen), 20 UNIT SC DAILY@DINNER Insulin Lispro (Humalog Kwikpen), 1 DOSE SC UD Lamotrigine (Lamictal), 1 TAB PO DAILY, (Reported) Levofloxacin Hemihydrate (Levaquin 500 Mg), 1 TAB PO DAILY Losartan Potassium (Losartan Potassium), 1 TAB PO DAILY, (Reported) Meclizine Hcl (Meclizine Hcl), 25 MG PO TID, (Reported) Metoprolol Tartrate (Metoprolol Tartrate), 1 TAB PO DAILY, (Reported) Pantoprazole Sodium Sesquihydr (Pantoprazole Sodium Dr), 20 MG PO BID, (Reported) Pregabalin (Pregabalin), 1 CAP PO TID, (Reported) Sevelamer Carbonate (Renvela), 800 MG PO TIDWM Tizanidine Hydrochloride (Zanaflex), 1 TAB PO TID, (Reported) Tizanidine Hydrochloride (Zanaflex), 2 MG PO TID, (Reported) Zolpidem Tartrate (Ambien), 1 TAB PO QPM, (Reported) Scheduled PRN Oxycodone W/ Acetaminophen (Percocet 5/325MG), 1 TAB PO QID PRN Miscellaneous Medications Buprenorphine HCl (Buprenorphine Hydrochlori), 2 SL, (Reported) Fluoxetine Hcl (Fluoxetine Hcl), PO, (Reported) Fluticasone Propionate (Fluticasone Propionate Hf), INH, (Reported) Discontinued Medications Amlodipine Besylate (Norvasc Tablet), 5 MG PO DAILY Meloxicam (Meloxicam), 1 TAB PO DAILY, (Reported) Nitrofurantoin Monohyd Macro (Nitrofurantoin Monohydrat), 100 MG PO DAILY, (Reported) Durable Medical Equipment Blood Glucose Monitoring Suppl (Blood Glucose System Gaurav), PKG XX 5XD, (DME) Insulin Pen Needle (Bd Pen Needle/Leta 2Nd Ge 32G X 4 mm), MIS XX 5XD, (DME) Discharge Statement: "Patient was advised to return to the ER or call 911 if any headaches, dizziness, shortness of breath, chest pain, abdominal pain, bleeding, fevers, or worsening of medical condition. Patient was counseled about treatment plan, medications, possible side effects, patientverbalized understanding. All questions were answered to the best of my ability. This discharge took greater then 30 minutes in planning, reviewing documentation, counseling the patient, and discussing with other team members." ASSESSMENT ASSESSMENT Assessment #Presyncope, due to below #Iatrogenic cause likely, polypharmacy #Mechanical fall, likely due to polypharmacy #Rule out fatal arrhythmias #Rule out orthostatic hypotension #Ruled out orthostatic hypotension #Poorly controlled hypertension #Solitary kidney #Chronic kidney disease #Hyperkalemia, resolved #Diabetes mellitus, insulin-dependent #Diabetic neuropathy #Obesity with BMI 38.6 #History of Bipolar disorder #History of psychosis #History of depression Date of Service: Apr 17, 2025 Billing Provider: ELEN LEGGETT MD Common Visit Codes: 39901-POT/OBS DISCH DAY >30min TANISHA SIMS RESIDENT Apr 17, 2025 16:05 ELEN LEGGETT MD Apr 19, 2025 21:55
[2025-04-17] MEDS ORDERED: SEVE800T8 PO (17:36)
[2025-04-18] MEDS ORDERED: FUROSEMIDE 40 MG TAB PO SCH (10:00)
== END 2025-04-17 16:50 | disposition home or self-care (01) | DRG 204 ==
LOC: EDBD 14:28 → ER 14:32 → OVERFLOW 19:11 → CENTRAL 23:51 → TELE-CENTR 04-16 19:38
PROVIDERS: ADMIT Student in an Organized Health Care Education/Training Program; ATTEND Student in an Organized Health Care Education/Training Program
DX: R55 Syncope and collapse (principal); N17.0 Acute kidney failure with tubular necrosis; E11.22 Type 2 diabetes mellitus with diabetic chronic kidney disease; I13.0 Hypertensive heart and chronic kidney disease with heart failure and stage 1 through stage 4 chronic kidney disease, or unspecified chronic kidney disease; I50.9 Heart failure, unspecified; E11.40 Type 2 diabetes mellitus with diabetic neuropathy, unspecified; E87.5 Hyperkalemia; J44.9 Chronic obstructive pulmonary disease, unspecified; T50.995A Adverse effect of other drugs, medicaments and biological substances, initial encounter; F17.210 Nicotine dependence, cigarettes, uncomplicated; R26.81 Unsteadiness on feet; E66.01 Morbid (severe) obesity due to excess calories; N18.32 Chronic kidney disease, stage 3b; F31.9 Bipolar disorder, unspecified; E03.9 Hypothyroidism, unspecified; Z68.38 Body mass index [BMI] 38.0-38.9, adult; Z98.891 History of uterine scar from previous surgery; Z79.4 Long term (current) use of insulin; Z79.899 Other long term (current) drug therapy; Z79.01 Long term (current) use of anticoagulants; Z80.1 Family history of malignant neoplasm of trachea, bronchus and lung; Z81.8 Family history of other mental and behavioral disorders; Z82.49 Family history of ischemic heart disease and other diseases of the circulatory system; Z90.710 Acquired absence of both cervix and uterus; Z91.048 Other nonmedicinal substance allergy status; Z91.81 History of falling; Y92.89 Other specified places as the place of occurrence of the external cause
CPT/HCPCS: 36415; 36600; 71045; 73110; 76775; 80048; 80053; 80307; 80320; 81001; 82550; 82805; 82962; 83605; 83735; 83880; 84100; 84484; 84550; 85025; 87081; 93005; 96365; 99291; G0378; J1815

== ENCOUNTER 2025-06-29 19:20 | Inpatient (IN) | payer MEDICAID ==
[~2025-06-29] VITALS: Ht 175.3 cm; Wt 118.8 kg
[~2025-06-29 19:20] MED LIST changes: -AML5T PO; -MELO15TA29 PO; -NITR100C6 PO; +SEVE800T8 PO
[2025-06-29 20:08] LABS: Hematocrit 37.2 % (36.0-46.0); Hemoglobin 12.7 g/dL (12.2-16.2); Mean Corpuscular Hemoglobin 30.2 pg (28.0-32.0); Mean Corpuscular Volume 88.3 fL (80.0-100.0); Nucleated Red Blood Cells % 0.2 %
--- NOTE | 2025-06-29 20:13 | ED.PDOC ---
SOB-HPI HPI Comments HPI:49 year old female came to ER due to shortness of breath. Patient has history of CHF and COPD, on home oxygen at 1-2 lpm. Was discharged here last April 18, 2025 diagnosed with #Presyncope likely due to polypharmacy #S/P Mechanical fall #Ruled out fatal arrhythmias #likely orthostatic hypotension #Poorly controlled hypertension #Solitary kidney #DURGA likely VMN, superimposed on Chronic kidney disease stage 3b #Hyperkalemia, resolved #Diabetes mellitus type 2, insulin-dependent #Diabetic neuropathy #Obesity with BMI 38.6 #History of Bipolar disorder #History of psychosis #History of depression For the past 3 days, she has been having cough, throat pain and shortness of breath Initial Vitals BP: 176/93 HR:98 RR:18 O2:92% Temp: Past Medical History: CHF, COPD, hypertension, diabetes, bipolar Past Surgical History: CS Social History: Denies ETOH, smoking, and (+) marijuana use. YOLANDE: THREE DAY HISTORY OF SHORTNESS OF BREATH. PATIENT USES 2 L HOME O2 HPI: Poor Historian. REVIEW OF SYSTEMS: CONSTITUTIONAL: Denies acute: fever, diaphoresis, chills, HEAD: Denies acute: headache, photophobia Eyes: Denies acute: Double vision, vision loss, eye pain, eye discharge. EARS: Denies acute: tinnitus, hearing loss, ear discharge, ear pain, THROAT: Denies acute: sore throat, swelling, difficulty swallowing , pain with swallowing, change in voice. NECK: Denies acute: neck pain, neck swelling, stiff neck. HEART: Denies acute : chest pain, palpitations, LUNGS: Denies acute: , wheezing, cough, hemoptysis ABDOMEN: Denies acute: abdominal pain, Nausea, Vomiting, diarrhea, melena , hematemesis, hematochezia SKIN: Denies acute: rash, redness, lesions, itchiness. EXTREMITIES: Denies acute: calf pain, numbness, tingling, weakness, denies pain in extremity. Denies acute: Low back pain. Neuro: Denies acute: focal neurological deficit, motor or sensory focal neurological deficit, tremors, seizure like activity, confusion, dizziness, change in mental status, loss of bowel or bladder function, cauda equina like symptoms. : Denies acute: dysuria, hematuria, flank pain, increase in urinary frequency. PSYCH: Denies acute: hallucination, suicidal ideation, homicidal ideation. FEMALE: Denies acute: abnormal vaginal bleeding, foul odor, unusual discharge. PHYSICAL EXAM: General: ---mild-----acute distress, awake and alert. Head: normocephalic, atraumatic. Neck: supple, trachea is midline, no swelling. Throat: Normal phonation. Eyes:, no erythema, no purulent discharge, no proptosis, no icterus. Heart: regular rate, regular rhythm, no significant murmur appreciated. Lungs: Mild respiratory distress, Able to speak in full sentences. No wheezing, no rhonchi, no crackles. No stridors Clear to auscultation bilaterally. Abdomen: non tender to palpation, non distended, soft, no guarding, no rebound, + bowel sounds. Obese Neuro: Awake, Alert, oriented to name, self, situation, follows commands GCS=15. Speech is normal. Skin: no petechia, no purpura, no cyanosis, non-pale, not jaundice. Lower extremities: --no - Pitting edema no deformity, no focal swelling, no calf TTP. Makes eye contact. moves all four extremities. Face: no apparent facial droop. Ambulating in the ED independently. ED COURSE: DISCLAIMER: This medical document was created using an electronic medical record system with voice recognition software and computerized dictation system. Although this document has been carefully reviewed, there might still be some phonetic and typographical errors. Occasional wrong-word or "sound-alike" substitutions may have occurred due to the inherent limitations of voice recognition software. These areas are purely typographical due to imperfections of the software programs and do not reflect any compromise in the patient's medical care. Please read the chart carefully and recognize, using context, where these substitutions have occurred. Chief Complaint: Shortness of Breath Time Seen by MD: 20:12 Primary Care Provider: DR DAVIS Reviewed notes: Nurses Notes, Allergies Information Source: Patient Mode of Arrival: Ambulatory Past Medical History PAST MEDICAL HISTORY: CHF, CKF, COPD, DM, High Lipids, HTN, Thyroid Surgical History: , Hysterectomy, Tonsillectomy LABORER CHEMICAL PROCESSING History: No Pertinent LABORER CHEMICAL PROCESSING History Family History Family History: Unknown, Family hx of heart candelario Social History Smoker: Cigarettes Alcohol: Denies ETOH Use Drugs: Marijuana Lives In: Home Was a procedure done? Was a procedure done?: No Differential Dx Differential Diagnosis: CHF, COPD, Pneumonia, Respiratory Distress, Other (DDx include ACS, unstable angina, anxiety, PE, pneumothroax, neoplasm, cardiac ischemia, COPD, asthma, CHF, pleural effusion, tobacco abuse, pneumonia, hypoxia, hypercapnia, anemia., infection/sepsis., pulmonary edema. Asthma, Cardiac tamponade, infection.) X-Ray, Labs, Meds, VS Vital Signs Date Time Temp Pulse Resp B/P (MAP) Pulse Ox O2 Delivery O2 Flow Rate FiO2 06/29/25 21:51 156/102 06/29/25 20:18 20 97 Nasal Cannula* 3 32 06/29/25 19:27 98.2 98 18 176/93 92 98.2 Lab Test 06/29/25 20:58 06/29/25 19:56 Range/Units Phosphorus Level 3.3 2.4-5.1 mg/dL Magnesium Level 1.6 1.6-2.6 mg/dL Troponin I High Sensitivity < 3 L < 3 L </=34 ng/L Triglycerides Level 520 H < 150 mg/dL Cholesterol Level 238 H < 200 mg/dL LDL Cholesterol < 100 mg/dL HDL Cholesterol 49 40-59 mg/dL Lipase 90 H 12-53 U/L White Blood Count 7.1 4.4-10.8 10^3/uL Red Blood Count 4.21 4.0-5.20 10^6/uL Hemoglobin 12.7 12.2-16.2 g/dL Hematocrit 37.2 36.0-46.0 % Mean Corpuscular Volume 88.3 80.0-100.0 fL Mean Corpuscular Hemoglobin 30.2 28.0-32.0 pg Mean Corpuscular Hemoglobin Concent 34.2 32.0-36.0 g/dL Red Cell Distribution Width 16.8 H 11.8-14.3 % Platelet Count 245 140-450 10^3/uL Mean Platelet Volume 7.9 6.9-10.8 fL Neutrophils (%) (Auto) 64.8 37.0-80.0 % Lymphocytes (%) (Auto) 26.6 10.0-50.0 % Monocytes (%) (Auto) 4.6 0.0-12.0 % Eosinophils (%) (Auto) 2.3 0.0-7.0 % Basophils (%) (Auto) 1.7 0.0-2.0 % Neutrophils # (Auto) 4.6 1.6-8.6 10 ^3/uL Lymphocytes # (Auto) 1.9 0.4-5.4 10 ^3/uL Monocytes # (Auto) 0.3 0-1.3 10 ^3/uL Eosinophils # (Auto) 0.2 0-0.8 10 ^3/uL Basophils # (Auto) 0.1 0-0.2 10 ^3/uL Nucleated Red Blood Cells 0.2 % Prothrombin Time 10.3 9.3-11.8 sec Prothrombin Time INR 0.97 0.9-1.15 Activated Partial Thromboplast Time 27.8 24.5-34.5 SEC Sodium Level 140 136-145 mmol/L Potassium Level 5.6 *H 3.5-5.1 mmol/L Chloride Level 108 H 98-107 mmol/L Carbon Dioxide Level 23 20-31 mmol/L Anion Gap 9 5-15 Blood Urea Nitrogen 31 H 9-23 mg/dL Creatinine 1.45 H 0.550-1.02 mg/dL Glomerular Filtration Rate Calc 44 >90 mL/min BUN/Creatinine Ratio 21.4 H 10.0-20.0 Serum Glucose 256 H 74-106 mg/dL Hemoglobin A1c 7.7 H <5.7 % A1C Calcium Level 8.9 8.7-10.4 mg/dL Total Bilirubin 0.2 0.2-1.0 mg/dL Aspartate Amino Transferase (AST) 36 13-40 U/L Alanine Aminotransferase (ALT) 27 7-40 U/L Alkaline Phosphatase 137 H 46-116 U/L B-Type Natriuretic Peptide 25.18 0-100 pg/mL Total Protein 6.6 5.7-8.2 g/dL Albumin 4.0 3.2-4.8 g/dL Vitamin B12 Level Pending Vitamin D 25-Hydroxy 24.6 L 30.0-100 ng/mL Thyroid Stimulating Hormone (TSH) 3.25 0.55-4.78 uIU/mL Current Medications Medications (Trade) Dose Ordered Sig/Luke Route Start Time Stop Time Status Last Admin Albuterol (Ventolin Medneb) 2.5 mg ONCE ONCE NEB 06/29/25 20:15 06/29/25 20:16 DC 06/29/25 20:17 Ipratropium [place] (Atrovent Medneb) 1 mg ONCE ONCE NEB 06/29/25 20:15 06/29/25 20:16 DC 06/29/25 20:17 Methylprednisolone Sodium Succinate (Solu Medrol) 125 mg ONCE ONCE IV 06/29/25 20:15 06/29/25 20:16 DC 06/29/25 21:52 Furosemide (Lasix Injection) 40 mg ONCE ONCE IV 06/29/25 20:45 06/29/25 20:54 DC 06/29/25 21:51 Calcium Gluconate/ Sodium Chloride 50 ml @ 120 mls/hr ONCE ONCE IV 06/29/25 20:45 06/29/25 21:09 DC 06/29/25 22:32 Zirconium Oxide (Lokelma) 10 gm ONCE ONCE PO 06/29/25 20:45 06/29/25 20:54 DC 06/29/25 22:31 [place] [id number] Ph: [phone] DIAGNOSTIC IMAGING Diagnostic Imaging Report : [id number] Signed PATIENT: GREGORY LANIER ACCT: [id number] UNIT: [id number] : 1975 LOC: ER ROOM / BED: / AGE / SEX: 49 / F ADM STATUS: REG ER SERVICE 46 ORDERING PHYSICIAN: LEONEL MCGINNIS DO PROCEDURE(s): CXRP - CHEST PORTABLE REASON: cp/sob ORDER NUMBER(s): [id number], ACCESSION NUMBER(s): [id number] CHEST RADIOGRAPH Indication: cp/sob Technique: Single frontal view of the chest was obtained Comparison: XY CHEST PORTABLE on DOS: 04/15/25, XY CHEST PORTABLE on DOS: 03/08/25, XR CHEST 1 VIEW on DOS: 01/25/25 FINDINGS: Lines and Tubes: None Lungs: No focal consolidation. Linear atelectasis mid right chest. May represent fortuitous confluence pulmonary vascular in bony markings. Pleura: No effusion. No pneumothorax. Cardiomediastinal contours: Unremarkable Bones: No acute osseous abnormality. Narrowing of the right acromial humeral joint space may represent chronic rotator cuff tear. Consider MRI of the right shoulder. IMPRESSION: 1. Atelectasis mid right chest.. ATED BY: TAYLOR GUALLPA Jr., DO DICTATED DATE/TIME: 06/29/252021 SIGNED BY: TAYLOR GUALLPA Jr., SIGNED DATE/TIME: 06/29/252021 CC: Time of 1ST Reevaluation: 20:13 Reevaluation 1ST: Unchanged Patient Education/Counseling: Diagnosis, Treatment Family Education/Counseling: No Family Present Comments MDM: patient presented with the above HPI.-dyspnea----workup was initiated. patient was found with the above mentioned diagnosis. the following medications were ordered: please refer to order lists of meds and tests obtained by myself Dr. Mcginnis. Patient ED course and VS have been stabilized. Patient has been reassessed in the ED and remained in a stable condition. Pertinent incidental findings were discussed with the patient and/or family. Patient/family voices understanding and is agreeable with plan. Patient has been observed in the ED adequate length of time to insure improvement/stability. Escalation of care considered: Consideration of escalation to observation or admission Hyperkalemia protocol initiated. Patient was ADMITTED to the medicine team for further evaluation and treatment of their presentation. All the reports of any imaging studies that were ordered by myself were reviewed by myself. SEPSIS Sepsis Screen Date sepsis recognized/suspect: Jun 29, 2025 Time Sepsis recognized/suspect: 1930 Recent Procedure: No On Antibiotic Therapy: No Respiratory Rate >20: No Heart Rate >90: Yes Temp<36 C (96.8 F) or >38.3 C: No SBP <90 or MAP <65 mmHG: No New Acute Mental Status Change: No Is the patient on CPAP, BIPAP,: No Physician Orders Electrocardigram (06/29/25 18:08) Electrocardigram (06/29/25 19:08) Electrocardigram (06/29/25 21:08) Wincher (06/29/25 ) Chest Portable (06/29/25 19:47) Covid19 Antigen Debra (06/29/25 ) Rapid Influenza A&B (06/29/25 19:47) Vital Signs Date Time Temp Pulse Resp B/P (MAP) Pulse Ox O2 Delivery O2 Flow Rate FiO2 06/29/25 21:51 156/102 06/29/25 20:18 20 97 Nasal Cannula* 3 32 06/29/25 19:27 98.2 98 18 176/93 92 98.2 Laboratory Tests Test 06/29/25 19:56 White Blood Count 7.1 10^3/uL (4.4-10.8) Medications Medications Dose Ordered Sig/Luke Route Start Time Stop Time Status Last Admin Dose Admin Albuterol 2.5 mg ONCE ONCE NEB 06/29/25 20:15 06/29/25 20:16 DC 06/29/25 20:17 Calcium Gluconate/ Sodium Chloride 50 ml @ 120 mls/hr ONCE ONCE IV 06/29/25 20:45 06/29/25 21:09 DC 06/29/25 22:32 Furosemide 40 mg ONCE ONCE IV 06/29/25 20:45 06/29/25 20:54 DC 06/29/25 21:51 Ipratropium [place] 1 mg ONCE ONCE NEB 06/29/25 20:15 06/29/25 20:16 DC 06/29/25 20:17 Methylprednisolone Sodium Succinate 125 mg ONCE ONCE IV 06/29/25 20:15 06/29/25 20:16 DC 06/29/25 21:52 Zirconium Oxide 10 gm ONCE ONCE PO 06/29/25 20:45 06/29/25 20:54 DC 06/29/25 22:31 Departure 1 Departure Time of Disposition: 20:47 Impression: Primary Impression: Acute respiratory distress Additional Impression: Hyperkalemia Disposition: ADMITTED INPATIENT Admit to: Tele Condition: Guarded Discharged With: Self Critical Care Note Critical Care Time?: Yes (45 min-critical care time only) Heart Score Heart Score: Heart Score Response (Comments) Value History N/A 0 EKG N/A 0 Age N/A 0 Risk Factors N/A 0 Troponin N/A 0 Total 0 I personally scribed for LEONEL MCGINNIS DO ([email or web address]) on 06/29/25 at 20:13. Electronically submitted by Yury Coy ([email or web address]). I personally scribed for LEONEL MCGINNIS DO ([email or web address]) on 06/29/25 at 21:45. Electronically submitted by Yury Coy ([email or web address]). LEONEL MCGINNIS DO Jun 29, 2025 20:13
[2025-06-29] MEDS: IPRATROPIUM BROM 0.5 MG/2.5ML INH SOL NEB ONE (20:17)
[2025-06-29] MEDS: ALBUTEROL SULF 2.5 MG/0.5ML(0.5%) NEB SOLN NEB ONE (20:17)
[2025-06-29 20:24] LABS: Alanine Aminotransferase 27 U/L (7-40); Albumin 4.0 g/dL (3.2-4.8); Anion Gap 9 (5-15); BUN/Creatinine Ratio 21.4 (10.0-20.0); Calcium 8.9 mg/dL (8.7-10.4); Carbon Dioxide 23 mmol/L (20-31); Sodium 140 mmol/L (136-145); Total Protein 6.6 g/dL (5.7-8.2)
--- NOTE | 2025-06-29 20:24 | DVH ---
CHEST RADIOGRAPH Indication: cp/sob Technique: Single frontal view of the chest was obtained Comparison: XY CHEST PORTABLE on DOS: 04/15/25, XY CHEST PORTABLE on DOS: 03/08/25, XR CHEST 1 VIEW on DOS: 01/25/25 FINDINGS: Lines and Tubes: None Lungs: No focal consolidation. Linear atelectasis mid right chest. May represent fortuitous confluenc e pulmonary vascular in bony markings. Pleura: No effusion. No pneumothorax. Cardiomediastinal contours: Unremarkable Bones: No acute osseous abnormality. Narrowing of the right acromial humeral joint space may represen t chronic rotator cuff tear. Consider MRI of the right shoulder. IMPRESSION: 1. Atelectasis mid right chest..
[2025-06-29 20:25] LABS: Alkaline Phosphatase 137 U/L (46-116); Bilirubin, Total 0.2 mg/dL (0.2-1.0); Blood Urea Nitrogen 31 mg/dL (9-23); Chloride 108 mmol/L (98-107); Glucose 256 mg/dL (74-106)
[2025-06-29 20:26] LABS: Potassium 5.6 mmol/L (3.5-5.1)
[2025-06-29] MEDS: FUROSEMIDE 40 MG/4 ML VIAL IV ONE (21:51)
[2025-06-29] MEDS: methylPREDNISolone SOD SUCC 125 MG/2 ML VL IV ONE (21:52)
--- NOTE | 2025-06-29 22:12 | DVHHPRES ---
History of Present Illness Resident Creating Document: VERONICA KAUFMAN History of Present Illness Alicia Suggs is a 49-year-old female patient who presents to the ED with chief complaint of progressive dyspnea associated with chest tightness and left rib pain which is exacerbated by movement and deep breaths, which started one week before her admission. Patient reports that she normally uses home oxygen at 2 L/min, and had to increase it to 3 L/min without resolving her dyspnea. Patient did present and episode of black tarry diarrhea the day of her admission, prom pting her visit to the ER. Patient says she is compliant with all her medication. Patient evaluated as outpatient and was discontinued from furosemide due to her history of nephrectomy. Denies any other associated symptom including palpitation, syncope and dysuria. 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 Currently smokes marijuana. Ex tobacco abuse (approximately 60 pack-year his tory of smoking), quit 11 years ago. 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 Denies current tobacco, alcohol and other drug abuse. Allergies: Adhesive tape Home medication: Albuterol, Percocet, Brexpriprazole, buprenorphine, diphenhydramine, [place], fenofibrate, fluoxetine, fluticasone, furosemide, glipizide, hydroxyzine, insulin glargine 20 units, lamotrigine, losartan, metoprolol 25 mg p.o. daily, pantoprazole, sevelamer, pregabalin, zolpidem Patient seen and examined at bedside. Patient presents hyperkalemia. Decided admission to telemetry for further management. Past Medical History Per HPI Past Surgical History Per HPI Family History Per HPI Past Social History Per HPI Review of Systems Review of Systems Per HPI Allergies: Uncoded Allergies: adhesive tape (Allergy, Unknown, 04/15/25) Exam Vital Signs Vital Signs Date Time Temp Pulse Resp B/P (MAP) Pulse Ox O2 Delivery O2 Flow Rate FiO2 06/29/25 21:51 156/102 06/29/25 20:18 20 97 Nasal Cannula* 3 32 06/29/25 19:27 98.2 98 98.2 Exam Patient lying in bed, in no acute distress General: Lucid, afebrile, mucosae are moist Cardiovascular: Normal S1 and S2. No murmurs, gallops or rubs Respiratory: Normal ventilation mechanics. Clear lung sounds on auscultation. Currently on nasal cannula at 3 L/min Abdomen: Soft, nontender, no organomegaly, normal bowel sounds MSK/skin: Mobilizes 4 limbs. Skin is dry and warm Neurological: Oriented in 3 spheres. No motor no sensitive deficits. Pupils are isocoric and reactive Labs/Xrays Labs Test 06/29/25 20:58 06/29/25 19:56 Range/Units Troponin I High Sensitivity < 3 L </=34 ng/L White Blood Count 7.1 4.4-10.8 10^3/uL Red Blood Count 4.21 4.0-5.20 10^6/uL Hemoglobin 12.7 12.2-16.2 g/dL Hematocrit 37.2 36.0-46.0 % Mean Corpuscular Volume 88.3 80.0-100.0 fL Mean Corpuscular Hemoglobin 30.2 28.0-32.0 pg Mean Corpuscular Hemoglobin Concent 34.2 32.0-36.0 g/dL Red Cell Distribution Width 16.8 H 11.8-14.3 % Platelet Count 245 140-450 10^3/uL Mean Platelet Volume 7.9 6.9-10.8 fL Neutrophils (%) (Auto) 64.8 37.0-80.0 % Lymphocytes (%) (Auto) 26.6 10.0-50.0 % Monocytes (%) (Auto) 4.6 0.0-12.0 % Eosinophils (%) (Auto) 2.3 0.0-7.0 % Basophils (%) (Auto) 1.7 0.0-2.0 % Neutrophils # (Auto) 4.6 1.6-8.6 10 ^3/uL Lymphocytes # (Auto) 1.9 0.4-5.4 10 ^3/uL Monocytes # (Auto) 0.3 0-1.3 10 ^3/uL Eosinophils # (Auto) 0.2 0-0.8 10 ^3/uL Basophils # (Auto) 0.1 0-0.2 10 ^3/uL Nucleated Red Blood Cells 0.2 % Sodium Level 140 136-145 mmol/L Potassium Level 5.6 *H 3.5-5.1 mmol/L Chloride Level 108 H 98-107 mmol/L Carbon Dioxide Level 23 20-31 mmol/L Anion Gap 9 5-15 Blood Urea Nitrogen 31 H 9-23 mg/dL Creatinine 1.45 H 0.550-1.02 mg/dL Glomerular Filtration Rate Calc 44 >90 mL/min BUN/Creatinine Ratio 21.4 H 10.0-20.0 Serum Glucose 256 H 74-106 mg/dL Calcium Level 8.9 8.7-10.4 mg/dL Total Bilirubin 0.2 0.2-1.0 mg/dL Aspartate Amino Transferase (AST) 36 13-40 U/L Alanine Aminotransferase (ALT) 27 7-40 U/L Alkaline Phosphatase 137 H 46-116 U/L B-Type Natriuretic Peptide 25.18 0-100 pg/mL Total Protein 6.6 5.7-8.2 g/dL Albumin 4.0 3.2-4.8 g/dL SEPSIS Sepsis Screen Date sepsis recognized/suspect: Jun 29, 2025 Time Sepsis recognized/suspect: 1930 Recent Procedure: No On Antibiotic Therapy: No Respiratory Rate >20: No Heart Rate >90: Yes Temp<36 C (96.8 F) or >38.3 C: No SBP <90 or MAP <65 mmHG: No New Acute Mental Status Change: No Is the patient on CPAP, BIPAP,: No Physician Orders Electrocardigram (06/29/25 18:08) Electrocardigram (06/29/25 19:08) Electrocardigram (06/29/25 21:08) Foxing Cutting Machine Operator (06/29/25 ) Drug Screen (06/29/25 19:47) Chest Portable (06/29/25 19:47) Covid19 Antigen Debra (06/29/25 ) Rapid Influenza A&B (06/29/25 19:47) Basic Metabolic Panel (06/29/25 22:05) Admit (06/29/25 22:07) Code Status (06/29/25 22:07) Acetaminophen Tablet (Tylenol Tablet) (06/29/25 22:15) Complete Blood Count (06/30/25 04:00) Comprehensive Metabolic Panel (06/30/25 04:00) Npo (Nothing By Mouth) Diet (06/30/25 Breakfast) Morphine Sulfate Injection (06/29/25 22:15) Lovenox 40mg (06/30/25 10:00) Oxygen By Nasal Cannula (06/29/25 22:07) Stat Ekg For Chest Pain (06/29/25 22:07) Notify Of Changes From Base (06/29/25 22:) Stocking Inspector For 24 Hours (06/29/25 22:) Emergency Dysrhythmia Protocol (06/29/25:) Rhythm Strips Once Every Shift (06/29/25 22:07) Vitamin D, 25-Hydroxy (06/29/25:07) Vitamin B12 (06/29/25 22:07) Urinalysis (06/29/25 22:07) Thyroid Stimulating Hormone (06/29/25 22:07) PTPTT (06/29/25 22:07) Phosphorus (06/29/25:07) Magnesium (06/29/25:07) Lactic Acid W/ Reflex Order (06/29/25 22:07) Lipid Panel (06/29/25 22:07) Lipase (06/29/25 22:07) Hemoglobin A1c (06/29/25 22:07) Drug Screen (06/29/25 22:) Vital Signs Date Time Temp Pulse Resp B/P (MAP) Pulse Ox O2 Delivery O2 Flow Rate FiO2 06/29/25 21:51 156/102 06/29/25 20:18 20 97 Nasal Cannula* 3 32 06/29/25 19:27 98.2 98 18 176/93 92 98.2 Laboratory Tests Test 06/29/25 19:56 White Blood Count 7.1 10^3/uL (4.4-10.8) Medications Medications Dose Ordered Sig/Luke Route Start Time Stop Time Status Last Admin Dose Admin Albuterol 2.5 mg ONCE ONCE NEB 06/29/25 20:15 06/29/25 20:16 DC 06/29/25 20:17 2.5 MG Furosemide 40 mg ONCE ONCE IV 06/29/25 20:45 06/29/25 20:54 DC 06/29/25 21:51 40 MG Ipratropium [place] 1 mg ONCE ONCE NEB 06/29/25 20:15 06/29/25 20:16 DC 06/29/25 20:17 1 MG Methylprednisolone Sodium Succinate 125 mg ONCE ONCE IV 06/29/25 20:15 06/29/25 20:16 DC 06/29/25 21:52 125 MG Assessment/Plan Assessment/Plan Acute on chronic respiratory failure secondary to CHF Acute on chronic diastolic congestive heart failure (LVEF 55-60%) COPD exacerbation Ruled out viral pneumonia Patient currently on oxygen therapy with nasal cannula at 3 L/min (home flow 2 L/min) Patient improved after one dose of furosemide for hyperkalemia protocol Required methylprednisolone, IV azithromycin and bronchodilators Severe hyperkalemia DURGA hemodynamically mediated (VMN) on CKD History of left nephrectomy Ordered EKG. Monitor BNP Required hyperkalemia protocol. Avoid JOSE inhibitors/ARB/MRA and other nephrotoxic medication Nephrology consulted (Dr. Brennan) Discontinue most of home medication at psychotropic (amitriptyline, bupropion, etc.), until DURGA and hyperkalemia has resolved. Hypertension Dyslipidemia Diabetes Gave her advice on healthy lifestyle habits Discontinue losartan Continue ezetimibe Currently on moderate insulin sliding scale Schizophrenia Bipolar disorder Home medication until hyperkalemia and DURGA has resolved. Resumed once clinical status improves Questionable GI bleed (melena) Gastritis Currently on pantoprazole Ordered stool occult blood Monitor H&H Goals of care discussed with patient for over 18 minutes: Full code status Discussed plan with Dr. Galvez, patient and nurses: Patient admitted to telemetry. Patient required hyperkalemia protocol, partially responded. Consulted Nephrology. On oxygen therapy. Patient has poor prognosis. Plan discussed with: Patient, Other (Nurses) My Orders Orders - VERONICA KAUFMAN RESIDENT Procedure Category Date Status Time Basic Metabolic Panel LAB 06/29/25 Logged 22:05 Admit ADMIT 06/29/25 Transmitted 22:07 Code Status CODE 06/29/25 Transmitted 22:07 Acetaminophen Tablet PHA 06/29/25 Transmitted (Tylenol Tablet) 22:15 Complete Blood Count LAB 06/30/25 Verified 04:00 Comprehensive LAB 06/30/25 Verified Metabolic Panel 04:00 Npo (Nothing By DIET 06/30/25 Transmitted Mouth) Diet Breakfast Morphine Sulfate PHA 06/29/25 Transmitted Injection 22:15 Lovenox 40mg PHA 06/30/25 Transmitted 10:00 Oxygen By Nasal RT 06/29/25 Verified Cannula 22:07 Stat Ekg For Chest [facility] 06/29/25 Verified Pain 22:07 Notify Of Changes [facility] 06/29/25 Verified From Base 22:07 Stocking Inspector For [facility] 06/29/25 Verified 24 Hours 22:07 Emergency Dysrhythmia [facility] 06/29/25 Verified Protocol 22:07 Rhythm Strips Once [facility] 06/29/25 Verified Every Shift 22:07 Vitamin D, 25-Hydroxy LAB 06/29/25 Verified 22:07 Vitamin B12 LAB 06/29/25 Verified 22:07 Urinalysis LAB 06/29/25 Verified 22:07 Thyroid Stimulating LAB 06/29/25 Verified Hormone 22:07 PTPTT LAB 06/29/25 Verified 22:07 Phosphorus LAB 06/29/25 Verified 22:07 Magnesium LAB 06/29/25 Verified 22:07 Lactic Acid W/ Reflex LAB 06/29/25 Verified Order 22:07 Lipid Panel LAB 06/29/25 Verified 22:07 Lipase LAB 06/29/25 Verified 22:07 Hemoglobin A1c LAB 06/29/25 Verified 22:07 Drug Screen LAB 06/29/25 Verified 22:07 Date of Service: Jun 29, 2025 Billing Provider: MARTHA GALVEZ MD Common Visit Codes: [id number] INP/OBS CARE (HIGH) Secondary Visit Codes: [id number] CARE PLAN 30 MINUTES VERONICA KAUFMAN RESIDENT Jun 29, 2025 22:12
[2025-06-29] MEDS ORDERED: MORPHINE SULFATE INJ 2 MG/ml SYRG IV PRN (22:15)
[2025-06-29] MEDS: SODIUM ZIRCONIUM CYCL 10 GM PAK PO ONE (22:31)
[2025-06-29 22:32] LABS: Magnesium 1.6 mg/dL (1.6-2.6)
[2025-06-29] MEDS: CALCIUM GLUC 1,000mg/50ml-NS 50 ML IV ONE (22:32)
[2025-06-29 22:33] LABS: HDL Cholesterol 49 mg/dL (40-59)
[2025-06-29 22:39] LABS: Cholesterol 238 mg/dL (< 200); Triglycerides 520 mg/dL (< 150)
[2025-06-29 22:47] LABS: INR 0.97 (0.9-1.15); Partial Thromboplastin Time 27.8 SEC (24.5-34.5); Prothrombin Time 10.3 sec (9.3-11.8)
[2025-06-29 22:54] LABS: Lipase 90 U/L (12-53)
[2025-06-30] VITALS (8 sets, daily range): BP systolic 123–158; BP diastolic 75–92; PULSE 72–129; RESP 18–22; TEMP 97.6–97.8; O2SAT 96–98
[2025-06-30 00:09] LABS: Chloride 105 mmol/L (98-107); Sodium 136 mmol/L (136-145)
[2025-06-30 00:10] LABS: Anion Gap 9 (5-15); Carbon Dioxide 22 mmol/L (20-31)
[2025-06-30 00:11] LABS: Calcium 9.5 mg/dL (8.7-10.4)
[2025-06-30 00:14] LABS: Amphetamine Screen, Urine Neg (NEGATIVE); Barbiturate Scree,Urine Neg (NEGATIVE); Benzodiazephine Screen, Urine Neg (NEGATIVE); Cannabinoid Screen, Urine Pos (NEGATIVE); Cocaine Screen, Urine Neg (NEGATIVE); Opiate Scree,Urine Neg (NEGATIVE); Phencyclidine Screen, Urine Neg (NEGATIVE)
[2025-06-30 00:14] LABS: Potassium 5.1 mmol/L (3.5-5.1)
[2025-06-30 00:16] LABS: BUN/Creatinine Ratio 14.0 (10.0-20.0); Blood Urea Nitrogen 21 mg/dL (9-23); Glucose 325 mg/dL (74-106)
[2025-06-30 00:49] LABS: Urine Protein, UAD 1+ (Negative)
[2025-06-30] MEDS: LIDOCAINE 5% TOPICAL PATCH TOP ONE (01:00)
[2025-06-30] MEDS ORDERED: DEXTROSE (50%) 50ML SYRG IV PRN ×2 (08:45→12:30)
[2025-06-30 08:51] LABS: Hematocrit 42.3 % (36.0-46.0); Hemoglobin 13.9 g/dL (12.2-16.2); Mean Corpuscular Hemoglobin 29.9 pg (28.0-32.0); Mean Corpuscular Volume 91.1 fL (80.0-100.0); Nucleated Red Blood Cells % 0.1 %
[2025-06-30 09:02] LABS: Alanine Aminotransferase 33 U/L (7-40); Albumin 4.5 g/dL (3.2-4.8); Anion Gap 12 (5-15); BUN/Creatinine Ratio 23.0 (10.0-20.0); Calcium 9.6 mg/dL (8.7-10.4); Chloride 103 mmol/L (98-107); Total Protein 7.5 g/dL (5.7-8.2)
[2025-06-30 09:03] LABS: Bilirubin, Total 0.4 mg/dL (0.2-1.0)
[2025-06-30 09:06] LABS: Alkaline Phosphatase 140 U/L (46-116); Blood Urea Nitrogen 37 mg/dL (9-23); Carbon Dioxide 18 mmol/L (20-31); Glucose 362 mg/dL (74-106); Sodium 133 mmol/L (136-145)
[2025-06-30 09:09] LABS: Potassium 5.9 mmol/L (3.5-5.1)
[2025-06-30] MEDS: hydrALAZINE HCL 20 MG/ML VL IV SCH (09:18)
[2025-06-30] MEDS: CALCIUM GLUC 1,000mg/50ml-NS 50 ML IV ONE (09:39)
[2025-06-30] MEDS: ALBUTEROL SULF 2.5 MG/0.5ML(0.5%) NEB SOLN NEB ONE (09:42)
[2025-06-30 09:48] LABS: COVID19 ANTIGEN SOFIA FIA NEGATIVE (NEGATIVE)
[2025-06-30] MEDS: InsuLIN REG 1unit/0.01ml Soln (100units/ml) IV ONE (09:49)
[2025-06-30] MEDS: DEXTROSE (50%) 50ML SYRG IV ONE (09:52)
[2025-06-30] MEDS: FUROSEMIDE 20 MG/2 ML VIAL IV ONE (09:56)
[2025-06-30] MEDS: Fenofibrate 54 MG TABLET PO SCH (10:00)
[2025-06-30] MEDS ORDERED: LOSARTAN POTASSIUM 25 MG TAB PO SCH (10:00)
[2025-06-30] MEDS: PANTOPRAZOLE 40 MG TAB PO ONE (10:04)
[2025-06-30] MEDS: SODIUM ZIRCONIUM CYCL 10 GM PAK PO ONE (10:04)
[2025-06-30] MEDS: SODIUM BICARB 8.4% 50Meq/50ml SYR INJ IV ONE (10:04)
[2025-06-30] MEDS: INSULIN LANTUS (GLARGINE) 1 /0.01ml (100units/ml) SC ONE (10:11)
[2025-06-30] MEDS: ENOXAPARIN SOD 40 MG/0.4 ML SYRINGE SC SCH (10:26)
[2025-06-30] MEDS: methylPREDNISolone SOD SUCC 40 MG/ML VL IV SCH ×2 (10:26→21:20)
[2025-06-30] MEDS: AZITHROMYCIN 500MG/ 250ML 250 ML IV SCH (10:26)
[2025-06-30] MEDS: OXYCODONE W/ ACETAMINOPHEN 5/325MG TABLET PO PRN (10:45)
[2025-06-30] MEDS: InsuLIN REG 1unit/0.01ml Soln (100units/ml) SC SCH ×2 (11:39→13:47)
[2025-06-30] MEDS: ACCU-CHEK COMFORT CURVE STRIP VI SCH ×2 (11:39→13:39)
--- NOTE | 2025-06-30 12:11 | DVHINCON2 ---
Date of service: Jun 30, [address] 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 On admission patient found to have elevated BUN creatinine nephrology is consulted for acute kidney injury Past Medical History diabetes mellitus type 2, Hypertension, dyslipidemia, GERD, COPD she is on home oxygen at 2 L/min, parathyroid adenoma, CKD, schizophrenia/bipolar Past Surgical History Left nephrectomy Parathyroidectomy Allergies: Uncoded Allergies: adhesive tape (Allergy, Unknown, 04/15/25) Home Meds Active Scripts Oxycodone W/ Acetaminophen (Percocet 5/325MG) 1 Tab Tb, 1 TAB PO QID PRN, #30 TAB Prov:KEYON MARTINEZ MD 11/19/24 Furosemide (Lasix) 40 Mg Tab, 40 MG PO BID, #60 TAB Prov:KEYON MARTINEZ MD 11/19/24 Blood Glucose Monitoring Suppl (Blood Glucose System Gaurav) System Kit, PKG XX 5XD, #1 Administer a 30-day supply of lancets, alcohol prep pads and test strips and glucometer per insurance coverage. Prov:AKASH EVANS MD 09/25/21 Insulin Pen Needle (Bd Pen Needle/Leta 2Nd Ge 32G X 4 mm) 1 Mis Mis, MIS XX 5XD, #150 Prov:AKASH EVANS MD 09/25/21 Insulin Lispro (Humalog Kwikpen) 100 Unit/Ml Inj, 1 DOSE SC UD, #5 SYR Administer up to 40 units of insulin per provided sliding scale divided 3 times daily before meals and at bedtime. Prov:AKASH EVANS MD 09/25/21 Insulin Glargine (Basaglar Kwikpen) 100 Unit/Ml Inj, 20 UNIT SC DAILY@DINNER, #5 SYRN Prov:AKASH EVANS MD 09/25/21 Reported Medications Pregabalin (Pregabalin) 50 Mg Cap, 1 CAP PO TID 01/03/25 Fluoxetine Hcl (Fluoxetine Hcl) 40 Mg Cap, PO 01/03/25 Fluticasone Propionate (Fluticasone Propionate Hf) 110 Mcg/Act Aer, INH 01/03/25 Glipizide (Glipizide) 10 Mg Tab, 1 TAB PO DAILY 01/03/25 Brexpiprazole (Rexulti) 4 Mg Tab, 4 MG PO HS, TAB 11/18/24 Pantoprazole Sodium Sesquihydr (Pantoprazole Sodium Dr) 40 Mg Tab, 20 MG PO BID, TAB 11/18/24 Docusate Sodium (Colace) 100 Mg Cap, 250 MG PO BID, CAP 11/18/24 Losartan Potassium (Losartan Potassium) 25 Mg Tab, 1 TAB PO DAILY, #90 TAB 1 Refill 11/18/24 Amitriptyline Hcl (Amitriptyline Hcl) 150 Mg Tab, 150 MG PO HS, TAB 11/18/24 Metoprolol Tartrate (Metoprolol Tartrate) 25 Mg Tab, 1 TAB PO DAILY, #180 TAB 1 Refill 11/18/24 Fenofibrate (Fenofibrate) 54 Mg Tab, 1 TAB PO DAILY, #30 TAB 5 Refills 11/18/24 Lamotrigine (Lamictal) 25 Mg Tab, 1 TAB PO DAILY, #60 TAB 1 Refill 11/18/24 Deutetrabenazine (Austedo) 12 Mg Tab, 12 MG PO DAILY, TAB 11/18/24 Current Medications Current Medications Medications (Trade) Dose Ordered Sig/Luke Route PRN Reason Start Time Stop Time Status Last Admin Lidocaine (Lidoderm 5% Topical Patch) 1 patch DAILY TOP 07/01/25 10:00 Insulin Glargine (Lantus) 25 units HS SC 06/30/25 22:00 06/30/25 21:20 Diagnostic Test (Pha) (Accu-Chek Comfort Curve T) 1 strip ACHS 06/30/25 11:30 06/30/25 12:30 DC 06/30/25 11:39 Insulin Human Regular (InsuLIN R) AC SC 06/30/25 11:30 06/30/25 12:30 DC 06/30/25 11:39 Pantoprazole Sodium (Protonix Tablet) 40 mg DAILY@0600 PO 07/01/25 06:00 07/01/25 05:43 Hydralazine HCl (Apresoline Injection) 10 mg Q6HR IV 06/30/25 12:00 06/30/25 12:30 DC 06/30/25 09:38 Sodium Bicarbonate 50 ml/ Sodium Chloride 1,050 ml @ 100 mls/hr [id number] IV 06/30/25 12:15 07/01/25 03:15 Magnesium Sulfate/ Dextrose 100 ml @ 100 mls/hr Q1HR IV 06/30/25 13:00 06/30/25 14:59 DC 06/30/25 14:15 Ipratropium [place] (Atrovent Medneb) 0.5 mg Q4HWA NEB 06/30/25 14:00 UNV Albuterol (Ventolin Medneb) 2.5 mg Q4HWA NEB 06/30/25 14:00 UNV Methylprednisolone Sodium Succinate (Solu Medrol) 40 mg BID IV 06/30/25 22:00 06/30/25 21:20 Diagnostic Test (Pha) (Accu-Chek Comfort Curve T) 1 strip IQ4HR 06/30/25 12:30 07/01/25 08:00 Insulin Human Regular (InsuLIN R) IQ4HR SC 06/30/25 12:30 07/01/25 08:00 Dextrose 50 ml UD PRN IV Blood Sugar LESS THAN 60 06/30/25 12:30 Levalbuterol HCl (Xopenex Medneb) 0.625 mg Q6HR NEB 06/30/25 18:00 07/01/25 06:14 Ipratropium [place] (Atrovent Medneb) 0.5 mg Q6HR NEB 06/30/25 18:00 07/01/25 06:14 Oxycodone/ Acetaminophen (Percocet 5/ 325MG Tablet) 1 tab Q8HP PRN PO MODERATE PAIN (4-6 PAIN SCALE) 06/30/25 22:30 07/01/25 10:32 DC 07/01/25 09:27 Zirconium Oxide (Lokelma) 10 gm TID PO 07/01/25 08:00 07/02/25 22:01 07/01/25 09:03 Metoprolol Tartrate (Lopressor Tablet) 25 mg DAILY PO 07/02/25 10:00 UNV Patient Own Medication 150 mg HS PO 07/01/25 22:00 UNV Patient Own Medication 1 tab DAILY PO 07/02/25 10:00 UNV Patient Own Medication 1 cap TID PO 07/01/25 14:00 UNV Oxycodone/ Acetaminophen (Percocet 5/ 325MG Tablet) 2 tab Q8HP PRN PO MODERATE PAIN (4-6 PAIN SCALE) 07/01/25 10:30 UNV Labetalol HCl (Labetalol HCl) 5 mg Q6HPRN PRN IV SBP>160 07/01/25 10:30 UNV Fluticasone Propionate (Flonase [place]) 50 mcg Q12HR EACHNOSTRI 07/01/25 22:00 UNV Melatonin (Melatonin) 5 mg HS PO 07/01/25 22:00 UNV Family History: Depression G8 MOTHER FH: heart attack G8 FATHER FH: lung cancer G8 MOTHER Heart cancer G8 MOTHER No Family History of: Hypercholesterolemia Review of Systems All 12 item review of systems reviewed with the patient nonsignificant except what is mentioned in history of present illness H&P Exam Vital Signs/I&O Vital Sign Date Time Temp Pulse Resp B/P (MAP) Pulse Ox O2 Delivery O2 Flow Rate FiO2 07/01/25 08:56 98.1 98 19 160/101 (120) 91 98.1 07/01/25 06:14 Room Air* 0 21 Intake and Output 06/30/25 07/01/25 18:59 06:59 Intake Total 1750 ml 725 ml Balance 1750 ml 725 ml Intake Oral 725 ml IV Total 1750 ml # Voids 4 Physical Exam Obese female on O2 nasal cannula Lungs clear to auscultation bilaterally Cardiac exam regular rate and rhythm GI soft nontender normal Extremities no clubbing cyanosis or edema Neuro nonfocal Labs/Diagnostic Data Labs/Diagnostic Data Laboratory Tests Test 07/01/25 08:51 07/01/25 05:51 07/01/25 03:50 07/01/25 00:13 Range/Units POC Glucose 319 H 245 H 98 70-106 mg/dl White Blood Count 7.0 4.4-10.8 10^3/uL Red Blood Count 3.94 L 4.0-5.20 10^6/uL Hemoglobin 11.7 #L 12.2-16.2 g/dL Hematocrit 35.2 #L 36.0-46.0 % Mean Corpuscular Volume 89.5 80.0-100.0 fL Mean Corpuscular Hemoglobin 29.6 28.0-32.0 pg Mean Corpuscular Hemoglobin Concent 33.1 32.0-36.0 g/dL Red Cell Distribution Width 16.9 H 11.8-14.3 % Platelet Count 228 140-450 10^3/uL Mean Platelet Volume 8.2 6.9-10.8 fL Neutrophils (%) (Auto) 87.5 H 37.0-80.0 % Lymphocytes (%) (Auto) 10.2 10.0-50.0 % Monocytes (%) (Auto) 1.9 0.0-12.0 % Eosinophils (%) (Auto) 0.0 0.0-7.0 % Basophils (%) (Auto) 0.4 0.0-2.0 % Neutrophils # (Auto) 6.1 1.6-8.6 10 ^3/uL Lymphocytes # (Auto) 0.7 0.4-5.4 10 ^3/uL Monocytes # (Auto) 0.1 0-1.3 10 ^3/uL Eosinophils # (Auto) 0 0-0.8 10 ^3/uL Basophils # (Auto) 0 0-0.2 10 ^3/uL Nucleated Red Blood Cells 0.1 % Sodium Level 137 136-145 mmol/L Potassium Level 5.4 H 3.5-5.1 mmol/L Chloride Level 103 98-107 mmol/L Carbon Dioxide Level 22 20-31 mmol/L Anion Gap 12 5-15 Blood Urea Nitrogen 42 H 9-23 mg/dL Creatinine 1.59 H 0.550-1.02 mg/dL Glomerular Filtration Rate Calc 39 >90 mL/min BUN/Creatinine Ratio 26.4 H 10.0-20.0 Serum Glucose 317 H 74-106 mg/dL Calcium Level 9.0 8.7-10.4 mg/dL Test 06/30/25 20:00 06/30/25 16:31 06/30/25 13:38 06/30/25 13:28 Range/Units POC Glucose 280 H 441 *H 70-106 mg/dl Urine Color Light-yellow Yellow Urine Clarity Clear Clear Urine pH 5.5 5.0-9.0 Urine Specific Decker 1.015 1.001-1.035 Urine Protein 1+ H Negative Urine Ketones Negative Negative Urine Blood Negative Negative /uL Urine Nitrite Negative Negative Urine Bilirubin Negative Negative Urine Urobilinogen Normal Negative mg/dL Urine Leukocyte Esterase Negative Negative /uL Urine RBC 1 0 - 4 /hpf Urine Microscopic WBC < 1 0-5 /HPF Urine Squamous Epithelial Cells Few <5 /hpf Urine Bacteria None seen None Seen /hpf Urine Creatinine 48.46 30.0-125.0 mg/dL Urine Protein/Creatinine Ratio 1.67 Urine Sodium 54 40-220 mmol/L Urine Glucose 1+ H Normal mg/dL Urine Total Protein 80.9 H 1-14 mg/dL D-Dimer, Quantitative 0.80 H 0.0-0.49 mg/L FEU Potassium Level 3.8 # 3.5-5.1 mmol/L Test 06/30/25 11:34 06/30/25 09:46 06/30/25 08:25 06/29/25 23:30 Range/Units POC Glucose 459 *H 340 H 70-106 mg/dl White Blood Count 9.0 # 4.4-10.8 10^3/uL Red Blood Count 4.64 4.0-5.20 10^6/uL Hemoglobin 13.9 12.2-16.2 g/dL Hematocrit 42.3 # 36.0-46.0 % Mean Corpuscular Volume 91.1 80.0-100.0 fL Mean Corpuscular Hemoglobin 29.9 28.0-32.0 pg Mean Corpuscular Hemoglobin Concent 32.8 32.0-36.0 g/dL Red Cell Distribution Width 17.1 H 11.8-14.3 % Platelet Count 236 140-450 10^3/uL Mean Platelet Volume 7.9 6.9-10.8 fL Neutrophils (%) (Auto) 86.4 H 37.0-80.0 % Lymphocytes (%) (Auto) 12.0 10.0-50.0 % Monocytes (%) (Auto) 0.7 0.0-12.0 % Eosinophils (%) (Auto) 0.1 0.0-7.0 % Basophils (%) (Auto) 0.8 0.0-2.0 % Neutrophils # (Auto) 7.8 1.6-8.6 10 ^3/uL Lymphocytes # (Auto) 1.1 0.4-5.4 10 ^3/uL Monocytes # (Auto) 0.1 0-1.3 10 ^3/uL Eosinophils # (Auto) 0 0-0.8 10 ^3/uL Basophils # (Auto) 0.1 0-0.2 10 ^3/uL Nucleated Red Blood Cells 0.1 % Sodium Level 133 L 136 136-145 mmol/L Potassium Level 5.9 *H 5.1 3.5-5.1 mmol/L Chloride Level 103 105 98-107 mmol/L Carbon Dioxide Level 18 L 22 20-31 mmol/L Anion Gap 12 9 5-15 Blood Urea Nitrogen 37 #H 21 # 9-23 mg/dL Creatinine 1.61 H 1.50 H 0.550-1.02 mg/dL Glomerular Filtration Rate Calc 39 42 >90 mL/min BUN/Creatinine Ratio 23.0 H 14.0 10.0-20.0 Serum Glucose 362 H 325 H 74-106 mg/dL Uric Acid 11.2 H 3.1-7.8 mg/dL Calcium Level 9.6 9.5 8.7-10.4 mg/dL Total Bilirubin 0.4 0.2-1.0 mg/dL Aspartate Amino Transferase (AST) 40 13-40 U/L Alanine Aminotransferase (ALT) 33 7-40 U/L Alkaline Phosphatase 140 H 46-116 U/L Creatine Kinase 162 H 34-145 U/L Total Protein 7.5 5.7-8.2 g/dL Albumin 4.5 3.2-4.8 g/dL Parathyroid Hormone (Intact) 91.7 H 18.4-80.1 pg/mL Test 06/29/25 22:12 06/29/25 20:58 06/29/25 19:56 06/29/25 09:04 Range/Units Urine Color Light-yellow Yellow Urine Clarity Clear Clear Urine pH 5.5 5.0-9.0 Urine Specific Decker 1.011 1.001-1.035 Urine Protein 1+ H Negative Urine Ketones Negative Negative Urine Blood Negative Negative /uL Urine Nitrite Negative Negative Urine Bilirubin Negative Negative Urine Urobilinogen Normal Negative mg/dL Urine Leukocyte Esterase Negative Negative /uL Urine RBC None seen 0 - 4 /hpf Urine Microscopic WBC < 1 0-5 /HPF Urine Squamous Epithelial Cells Few <5 /hpf Urine Bacteria None seen None Seen /hpf Urine Glucose Normal Normal mg/dL Urine Opiates Screen Neg NEGATIVE Urine Fentanyl Screen Neg NEGATIVE Urine Barbiturates Screen Neg NEGATIVE Urine Phencyclidine Screen Neg NEGATIVE Urine Amphetamines Screen Neg NEGATIVE Urine Benzodiazepines Screen Neg NEGATIVE Urine Cocaine Screen Neg NEGATIVE Urine Cannabinoids Screen Pos NEGATIVE Phosphorus Level 3.3 2.4-5.1 mg/dL Magnesium Level 1.6 1.6-2.6 mg/dL Troponin I High Sensitivity < 3 L < 3 L </=34 ng/L Triglycerides Level 520 H < 150 mg/dL Cholesterol Level 238 H < 200 mg/dL LDL Cholesterol < 100 mg/dL HDL Cholesterol 49 40-59 mg/dL Lipase 90 H 12-53 U/L White Blood Count 7.1 4.4-10.8 10^3/uL Red Blood Count 4.21 4.0-5.20 10^6/uL Hemoglobin 12.7 12.2-16.2 g/dL Hematocrit 37.2 36.0-46.0 % Mean Corpuscular Volume 88.3 80.0-100.0 fL Mean Corpuscular Hemoglobin 30.2 28.0-32.0 pg Mean Corpuscular Hemoglobin Concent 34.2 32.0-36.0 g/dL Red Cell Distribution Width 16.8 H 11.8-14.3 % Platelet Count 245 140-450 10^3/uL Mean Platelet Volume 7.9 6.9-10.8 fL Neutrophils (%) (Auto) 64.8 37.0-80.0 % Lymphocytes (%) (Auto) 26.6 10.0-50.0 % Monocytes (%) (Auto) 4.6 0.0-12.0 % Eosinophils (%) (Auto) 2.3 0.0-7.0 % Basophils (%) (Auto) 1.7 0.0-2.0 % Neutrophils # (Auto) 4.6 1.6-8.6 10 ^3/uL Lymphocytes # (Auto) 1.9 0.4-5.4 10 ^3/uL Monocytes # (Auto) 0.3 0-1.3 10 ^3/uL Eosinophils # (Auto) 0.2 0-0.8 10 ^3/uL Basophils # (Auto) 0.1 0-0.2 10 ^3/uL Nucleated Red Blood Cells 0.2 % Prothrombin Time 10.3 9.3-11.8 sec Prothrombin Time INR 0.97 0.9-1.15 Activated Partial Thromboplast Time 27.8 24.5-34.5 SEC Sodium Level 140 136-145 mmol/L Potassium Level 5.6 *H 3.5-5.1 mmol/L Chloride Level 108 H 98-107 mmol/L Carbon Dioxide Level 23 20-31 mmol/L Anion Gap 9 5-15 Blood Urea Nitrogen 31 H 9-23 mg/dL Creatinine 1.45 H 0.550-1.02 mg/dL Glomerular Filtration Rate Calc 44 >90 mL/min BUN/Creatinine Ratio 21.4 H 10.0-20.0 Serum Glucose 256 H 74-106 mg/dL Hemoglobin A1c 7.7 H <5.7 % A1C Calcium Level 8.9 8.7-10.4 mg/dL Total Bilirubin 0.2 0.2-1.0 mg/dL Aspartate Amino Transferase (AST) 36 13-40 U/L Alanine Aminotransferase (ALT) 27 7-40 U/L Alkaline Phosphatase 137 H 46-116 U/L B-Type Natriuretic Peptide 25.18 0-100 pg/mL Total Protein 6.6 5.7-8.2 g/dL Albumin 4.0 3.2-4.8 g/dL Vitamin B12 Level 293 211-911 pg/mL Vitamin D 25-Hydroxy 24.6 L 30.0-100 ng/mL Thyroid Stimulating Hormone (TSH) 3.25 0.55-4.78 uIU/mL Influenza Type A Antigen Negative Negative Influenza Type B Antigen Negative Negative SARS-CoV-2 Antigen (Rapid) Negative NEGATIVE Assessment Acute kidney injury superimposed Chronic Kidney Disease secondary hemodynamic mediated Acute on chronic respiratory failure COPD exacerbation History of left nephrectomy Metabolic acidosis Hyperkalemia due to dietary indiscretion Uncontrolled diabetes mellitus type 2 Hyperglycemia Hypertriglyceridemia Hypomagnesemia Recommendations Closely monitor fluid and electrolytes Avoid nephrotoxic medications Funes catheter Strict I&Os IVF half NS with 50 mEq sodium bicarb at 100 cc/hour Emergent medical treatment for hyperkalemia Renal diet Blood pressure control Insulin sliding scale Magnesium sulfate 2 g IV piggyback IV steroids IV antibiotics Nebulized treatment Check urine electrolytes and protein excretion Check kidney ultrasound We will continue to follow Patient seen and examined by myself in the ER. I discussed my plan of care with the patient and primary nurse at the bedside I would like to thank Dr. Rosado the consult, will follow Total care time 35 minutes Plan discussed with: Patient DOC ROYAL MD Jun 30, 2025 12:11
[2025-06-30] MEDS: IPRATROPIUM BROM 0.5 MG/2.5ML INH SOL ONE (12:43)
[2025-06-30] MEDS: LEVALBUTEROL HCL 1.25 MG/3 ML NEB ONE (12:43)
--- NOTE | 2025-06-30 13:22 | DVH ---
INDICATION: blanca TECHNIQUE: Multiple real-time sonographic images of the kidneys and bladder were obtained. (34 images received) COMPARISON: US KIDNEY on DOS: 04/15/25, US KIDNEY on DOS: 03/08/25, US KIDNEY on DOS: 11/16/24 FINDINGS: RIGHT kidney measures 10.05 cm in length. No hydronephrosis. Small anechoic lesion in the cortex right kidney measuring 1.6 x 1.5 x 1.3 cm 8 mm echogenic focus lower pole right kidney no hydronephrosis LEFT kidney been surgically removed No large intraluminal masses are seen in the bladder. Prevoid bladder volume 293.1. Bladder wall measures 2 mm Post void not indicated IMPRESSION: 1. Kidney measures 10.1 cm; left kidney surgically removed. 2. 1.6 x 1.5 x 1.3 cm cortical cyst right kidney 3. 293.1 ML of urine in the bladder. No postvoid film received 4. Incidentally noted gallstones in the gallbladder.
[2025-06-30] MEDS: MAGNESIUM SULFATE 1GM/100ML 100 ML IV SCH (13:42)
[2025-06-30] MEDS: SODIUM CHLORIDE 0.9% 1,000 ML IV ONE (13:49)
[2025-06-30] MEDS ORDERED: IPRATROPIUM BROM 0.5 MG/2.5ML INH SOL NEB SCH (14:00)
[2025-06-30] MEDS ORDERED: ALBUTEROL SULF 2.5 MG/0.5ML(0.5%) NEB SOLN NEB SCH (14:00)
[2025-06-30] MEDS: SODIUM BICARB 50mEq/50ml Vial 50 ML in SOD CHL 0.45% 1,000 ML IV SCH (15:15)
[2025-06-30] MEDS: IOHEXOL 350 MG/ML 100ML IJ ONE (15:39)
--- NOTE | 2025-06-30 15:44 | DVH ---
Bilateral lower extremity venous duplex Clinical History: elevated ddimer Comparison: US BILAT LOWER DVT on DOS: 03/08/25 Technique: Duplex Doppler evaluation of the deep venous systems of both lower extremities from the common femora l veins to the popliteal veins including color Doppler and spectral/pulsed waveform analysis was perf ormed. 42 images were received. Findings: RIGHT SIDE: The common femoral vein demonstrates appropriate compressibility and waveform variability. There is compressibility/patency of the great saphenous vein at the proximal thigh. The femoral vein demonstrates appropriate compressibility and waveform variability. The deep femoral vein demonstrates appropriate compressibility and waveform variability. The popliteal vein demonstrates appropriate compressibility and waveform variability. There is normal compressibility at the tibioperoneal trunk. LEFT SIDE: The common femoral vein demonstrates appropriate compressibility and waveform variability. There is compressibility/patency of the great saphenous vein at the proximal thigh. The femoral vein demonstrates appropriate compressibility and waveform variability. The deep femoral vein demonstrates appropriate compressibility and waveform variability. The popliteal vein demonstrates appropriate compressibility and waveform variability. There is normal compressibility at the tibioperoneal trunk. Impression: 1. No right or left femoropopliteal venous thrombosis.
--- NOTE | 2025-06-30 16:29 | DVH ---
EXAM: CT CT ANGIO CHEST CONTRAST HISTORY: wells score 4, tachycardia, suspected PE TECHNIQUE: CT angiogram was performed. CT scans at this facility use dose modulation, iterative recon struction, and/or weight based dosing when appropriate to reduce radiation dose to as low as reasonab ly achievable. Coronal and sagittal reformations and maximum intensity projection images were created from the transaxial source data by the medical technologist microbiology and workstation, as well as 3-D volume render ed images with MIPs. COMPARISON: XY CHEST TWO VIEWS ROUTINE on DOS: 02/19/25 FINDINGS: [LOWER NECK]: Unremarkable [LYMPH NODES/MEDIASTINUM]: No abnormal lymph nodes by CT size criteria [CARDIOVASCULAR]: Normal cardiac size. No pericardial effusion. No aneurysmal dilatation of the great vessels. Coronary artery calcifications. [PULMONARY ARTERIES]: No pulmonary arterial filling defect. Prominence of the main pulmonary artery s uggestive of pulmonary hypertension. No evidence of elevated right heart pressures. [UPPER ABDOMEN]: Incompletely characterized possible splenorenal varices. [MUSCULOSKELETAL]: No acute fracture or aggressive focal osseous lesion. Prior healed left anterolate ral rib fractures with callus formation no significant displacement. Additional right anterior heale d rib fractures. [CHEST WALL]: Unremarkable. [LUNG PARENCHYMA/PLEURAL SPACE]: No consolidation, suspicious focal airspace opacity, or suspicious n odules. No pleural effusion or pneumothorax.Atelectasis in the left lung base. Atelectasis/partial co llapse located within the medial aspect of the right middle lobe. Expiratory phase of imaging. IMPRESSION: 1. No pulmonary embolism. 2. Atelectasis/partial collapse located within the medial aspect of the right middle lobe. 3. Prominence of the main pulmonary artery, which may indicate pulmonary hypertension. 4. Elevation of the right hemidiaphragm.
[2025-06-30] MEDS: LEVALBUTEROL HCL 1.25 MG/3 ML NEB NEB SCH (17:31)
[2025-06-30] MEDS: IPRATROPIUM BROM 0.5 MG/2.5ML INH SOL NEB SCH (17:31)
[2025-06-30 17:39] LABS: Urine Protein, UAD 1+ (Negative)
[2025-06-30 17:40] LABS: Protein, Urine 80.9 mg/dL (1-14)
--- NOTE | 2025-06-30 19:35 | DVHPNRES ---
Progress Note Date Seen: Jun 30, 2025 Resident Creating Document: ELSIE CASTILLO RESIDENT Medical Necessity Reason Pt with a Central, PICC or Fol: No Subjective Review of Systems Alicia Suggs is a 49-year-old female patient who presents to the ED with chief complaint of progressive dyspnea associated with chest tightness and left rib pain which is exacerbated by movement and deep breaths, which started one week before her admission. Patient reports that she normally uses home oxygen at 2 L/min, and had to increase it to 3 L/min without resolving her dyspnea. Patient did present and episode of black tarry diarrhea the day of her admission, prompting her visit to the ER. Patient says she is compliant with all her medication. Patient evaluated as outpatient and was discontinued from furosemide due to her history of nephrectomy. Denies any other associated symptom including palpitation, syncope and dysuria. 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 Currently smokes marijuana. Ex tobacco abuse (approximately 60 pack-year history of smoking), quit 11 years ago. 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 Denies current tobacco, alcohol and other drug abuse. Allergies: Adhesive tape Home medication: Albuterol, Percocet, Brexpriprazole, buprenorphine, diphenhydramine, [place], fenofibrate, fluoxetine, fluticasone, furosemide, glipizide, hydroxyzine, insulin glargine 20 units, lamotrigine, losartan, metoprolol 25 mg p.o. daily, pantoprazole, sevelamer, pregabalin, zolpidem The patient takes Eliquis for previous history of left popliteal vein DVT Patient was seen and examined at bedside. She reports having shortness of breaths, hoarseness of voice, no other new complaints reported. Objective vital signs Vital Sign Date Time Temp Pulse Resp B/P (MAP) Pulse Ox O2 Delivery O2 Flow Rate FiO2 06/30/25 19:28 72 20 97 Room Air* 0 21 06/30/25 19:28 98.1 136/83 (100) 98.1 medications Current Medications Medications Dose Ordered Sig/Luke Route Start Time Stop Time Status Last Admin Dose Admin Acetaminophen 325 mg Q4HP PRN PO 06/29/25 22:15 Morphine Sulfate 2 mg Q4HPRN PRN IV 06/29/25 22:15 Enoxaparin Sodium 40 mg DAILY SC 06/30/25 10:00 06/30/25 10:26 40 MG Lidocaine 1 patch DAILY TOP 07/01/25 10:00 Oxycodone/ Acetaminophen 2 tab Q8HP PRN PO 06/30/25 01:00 06/30/25 10:45 2 TAB Insulin Glargine 25 units HS SC 06/30/25 22:00 Pantoprazole Sodium 40 mg DAILY@0600 PO 07/01/25 06:00 Patient Own Medication 1 tab DAILY PO 06/30/25 10:00 Azithromycin 250 ml @ 125 mls/hr DAILY IV 06/30/25 10:00 06/30/25 10:26 125 MLS/HR Sodium Bicarbonate 50 ml/ Sodium Chloride 1,050 ml @ 100 mls/hr [id number] IV 06/30/25 12:15 06/30/25 15:15 100 MLS/HR Ipratropium [place] 0.5 mg Q4HWA NEB 06/30/25 14:00 UNV Albuterol 2.5 mg Q4HWA NEB 06/30/25 14:00 UNV Methylprednisolone Sodium Succinate 40 mg BID IV 06/30/25 22:00 Diagnostic Test (Pha) 1 strip IQ4HR 06/30/25 12:30 06/30/25 16:15 1 STRIP Insulin Human Regular IQ4HR SC 06/30/25 12:30 06/30/25 16:14 20 UNITS Dextrose 50 ml UD PRN IV 06/30/25 12:30 Levalbuterol HCl 0.625 mg Q6HR NEB 06/30/25 18:00 06/30/25 17:31 0.625 MG Ipratropium [place] 0.5 mg Q6HR NEB 06/30/25 18:00 06/30/25 17:31 0.5 MG Examination Pt is lying on bed General Appearance: Morbid obesity, Alert, Oriented X3, Cooperative, Mild distress HEENT: Atraumatic, Mucous membranes moist/pink Respiratory: Clear to auscultation, Normal air movement, No added sounds Cardiovascular: Regular rate, Normal S1, Normal S2, No murmurs Abdominal/ : Active bowel sounds, Soft, no distention, no tenderness Extremities: No edema, Normal pulses, No tenderness/swelling Skin: No Significant rash, except past surgical scars Neuro: Normal speech, sensorimotor deficits none Psych/Mental Status: Mental status NL, Mood NL Nurse was there as automation technician during examination laboratory and microbiology Laboratory Tests 06/30/25 13:28 06/30/25 08:25 Test 06/30/25 08:25 Range/Units Serum Glucose 362 H 74-106 mg/dL Labs and/or images reviewed: Labs reviewed by me, Image(s) reviewed by me Problem List/Assessment/Plan Problem List/Assessment/Plan Acute on chronic respiratory failure secondary to CHF Acute on chronic diastolic congestive heart failure (LVEF 55-60%) COPD exacerbation Ruled out viral pneumonia Ruled out DVT Ruled out PE Atelactasis Patient currently on oxygen therapy with nasal cannula at 3 L/min (home flow 2 L/min) Patient improved after one dose of furosemide for hyperkalemia protocol Required methylprednisolone, IV azithromycin and breathing treatments BL lower extremity us: No DVT, CT angiogram; No pulmonary embolism Renal ultrasound: Kidney measures 10.1 cm; left kidney surgically removed.1.6 x 1.5 x 1.3 cm cortical cyst right kidney.293.1 ML of urine in the bladder. No postvoid film received.Incidentally noted gallstones in the gallbladder incentive spirometry. Asymptomatic cholelithiasis monitor sign symptoms of cholecystistis. Severe hyperkalemia DURGA hemodynamically mediated (VMN) on CKD History of left nephrectomy EKG: sinus rhythm, mild prolong QT, RBB?. Monitor BNP Required hyperkalemia protocol. Avoid JOSE inhibitors/ARB/MRA and other nephrotoxic medication Nephrology consulted (Dr. Brennan) Discontinue most of home medication at psychotropic (amitriptyline, bupropion, etc.), until DURGA and hyperkalemia has resolved. Hypertension Dyslipidemia Diabetes Gave her advice on healthy lifestyle habits Discontinue losartan Continue ezetimibe Currently on moderate insulin sliding scale Schizophrenia Bipolar disorder Home medication until hyperkalemia and DURGA has resolved. Resumed once clinical status improves Questionable GI bleed (melena) Gastritis Currently on pantoprazole Ordered stool occult blood Monitor H&H Goals of care discussed with patient for over 18 minutes: Full code status DVT prophylaxis: Lovenox GI prophylaxis: Pantoprazole Plan discussed with: Patient, Other (RN) My Orders My Orders Orders - ELSIE CASTILLO Procedure Category Date Status Time Basic Metabolic Panel LAB 07/01/25 Verified 04:00 Complete Blood Count LAB 07/01/25 Verified 04:00 Date of Service: Jun 30, 2025 Billing Provider: DANIELLE MORRELL MD Common Visit Codes: [id number] INP/OBS CARE(HIGH) ELSIE CASTILLO Jun 30, 2025 19:35 DANIELLE MORRELL MD Jul 01, 2025 08:12
[2025-06-30] MEDS: ACETAMINOPHEN 325 MG TAB PO PRN (20:10)
[2025-06-30] MEDS: INSULIN LANTUS (GLARGINE) 1 /0.01ml (100units/ml) SC SCH (21:20)
[2025-07-01] VITALS (16 sets, daily range): BP systolic 154–164; BP diastolic 91–117; PULSE 63–98; RESP 14–24; TEMP 97.6–98.3; O2SAT 91–99
[2025-07-01] MEDS: PANTOPRAZOLE 40 MG TAB PO SCH (05:43)
[2025-07-01 07:00] LABS: Anion Gap 12 (5-15); Carbon Dioxide 22 mmol/L (20-31); Chloride 103 mmol/L (98-107); Sodium 137 mmol/L (136-145)
[2025-07-01 07:01] LABS: Calcium 9.0 mg/dL (8.7-10.4)
[2025-07-01 07:06] LABS: BUN/Creatinine Ratio 26.4 (10.0-20.0); Blood Urea Nitrogen 42 mg/dL (9-23); Glucose 317 mg/dL (74-106); Potassium 5.4 mmol/L (3.5-5.1)
[2025-07-01 07:23] LABS: Hematocrit 35.2 % (36.0-46.0); Hemoglobin 11.7 g/dL (12.2-16.2); Mean Corpuscular Hemoglobin 29.6 pg (28.0-32.0); Mean Corpuscular Volume 89.5 fL (80.0-100.0); Nucleated Red Blood Cells % 0.1 %
[2025-07-01] MEDS: InsuLIN REG 1unit/0.01ml Soln (100units/ml) IV ONE (08:00)
[2025-07-01] MEDS: SODIUM ZIRCONIUM CYCL 10 GM PAK PO SCH (09:03)
[2025-07-01] MEDS: DEXTROSE (50%) 50ML SYRG IV ONE (09:05)
[2025-07-01] MEDS: OXYCODONE W/ ACETAMINOPHEN 5/325MG TABLET PO PRN ×2 (09:27→17:47)
[2025-07-01] MEDS: FLUTICASONE PROP NASAL SPR 0.05 % (50MCG) 16GM EACHNOSTRI SCH (10:00)
[2025-07-01] MEDS ORDERED: FLUTICASONE PROP NASAL SPR 0.05 % (50MCG) 16GM EACHNOSTRI ONE (10:30)
--- NOTE | 2025-07-01 10:51 | DVHPN2 ---
Progress Note Date Seen: Jul 01, 2025 Medical Necessity Reason Pt with a Central, PICC or Fol: No Subjective Patient reports: No new complaints Other Systems: Patient seen and examined by myself today in follow-up Objective vital signs Vital Sign Date Time Temp Pulse Resp B/P (MAP) Pulse Ox O2 Delivery O2 Flow Rate FiO2 07/01/25 08:56 98.1 98 19 160/101 (120) 91 98.1 07/01/25 06:14 Room Air* 0 21 Total Intake and Output 06/30/25 06/30/25 07/01/25 14:59 22:59 06:59 Intake Total 600 ml 1150 ml 725 ml Balance 600 ml 1150 ml 725 ml medications Current Medications Medications Dose Ordered Sig/Luke Route Start Time Stop Time Status Last Admin Dose Admin Acetaminophen 325 mg Q4HP PRN PO 06/29/25 22:15 07/01/25 01:11 325 MG Morphine Sulfate 2 mg Q4HPRN PRN IV 06/29/25 22:15 Enoxaparin Sodium 40 mg DAILY SC 06/30/25 10:00 06/30/25 10:26 40 MG Lidocaine 1 patch DAILY TOP 07/01/25 10:00 Insulin Glargine 25 units HS SC 06/30/25 22:00 06/30/25 21:20 25 UNITS Pantoprazole Sodium 40 mg DAILY@0600 PO 07/01/25 06:00 07/01/25 05:43 40 MG Patient Own Medication 1 tab DAILY PO 06/30/25 10:00 Azithromycin 250 ml @ 125 mls/hr DAILY IV 06/30/25 10:00 06/30/25 10:26 125 MLS/HR Sodium Bicarbonate 50 ml/ Sodium Chloride 1,050 ml @ 100 mls/hr [id number] IV 06/30/25 12:15 07/01/25 03:15 100 MLS/HR Ipratropium [place] 0.5 mg Q4HWA NEB 06/30/25 14:00 UNV Albuterol 2.5 mg Q4HWA NEB 06/30/25 14:00 UNV Methylprednisolone Sodium Succinate 40 mg BID IV 06/30/25 22:00 06/30/25 21:20 40 MG Diagnostic Test (Pha) 1 strip IQ4HR 06/30/25 12:30 07/01/25 08:00 1 STRIP Insulin Human Regular IQ4HR SC 06/30/25 12:30 07/01/25 08:00 16 UNITS Dextrose 50 ml UD PRN IV 06/30/25 12:30 Levalbuterol HCl 0.625 mg Q6HR NEB 06/30/25 18:00 07/01/25 06:14 0.625 MG Ipratropium [place] 0.5 mg Q6HR NEB 06/30/25 18:00 07/01/25 06:14 0.5 MG Zirconium Oxide 10 gm TID PO 07/01/25 08:00 07/02/25 22:01 07/01/25 09:03 10 GM Metoprolol Tartrate 25 mg DAILY PO 07/02/25 10:00 UNV Patient Own Medication 150 mg HS PO 07/01/25 22:00 UNV Patient Own Medication 1 tab DAILY PO 07/02/25 10:00 UNV Patient Own Medication 1 cap TID PO 07/01/25 14:00 UNV Oxycodone/ Acetaminophen 2 tab Q8HP PRN PO 07/01/25 10:30 UNV Labetalol HCl 5 mg Q6HPRN PRN IV 07/01/25 10:30 UNV Fluticasone Propionate 50 mcg Q12HR EACHNOSTRI 07/01/25 22:00 UNV Melatonin 5 mg HS PO 07/01/25 22:00 UNV Examination: LUNGS:Normal, CVS:Normal, MSK:Normal laboratory and microbiology Laboratory Tests 07/01/25 05:51 Test 07/01/25 05:51 Range/Units Serum Glucose 317 H 74-106 mg/dL Problem List/Assessment/Plan Problem List/Assessment/Plan Acute kidney injury superimposed Chronic Kidney Disease secondary hemodynamic mediated, FeNa > 2% Acute on chronic respiratory failure COPD exacerbation History of left nephrectomy Metabolic acidosis Hyperkalemia due to dietary indiscretion Uncontrolled diabetes mellitus type 2 Hyperglycemia Hypertriglyceridemia Hypomagnesemia Secondary hyperparathyroidism Recommendations Kidney function stable Chronic Kidney Disease stage IIIB No urine output charted Funes catheter Strict I&Os IVF half NS with 50 mEq sodium bicarb at 100 cc/hour Lokelma 10 g p.o. q.8 hours x3 doses Renal diet Blood pressure control Insulin sliding scale Magnesium sulfate 2 g IV piggyback IV steroids IV antibiotics Calcitriol 0.25 mcg p.o. q.day Nebulized treatment kidney ultrasound reported normal right kidney with simple cyst We will continue to follow Plan discussed with: Patient My Orders My Orders Orders - DOC ROYAL MD Procedure Category Date Status Time Kidney US 06/30/25 Resulted 12:02 Sod Chl 0.45% PHA 06/30/25 In Process (Sodi... W/Sodium 12:15 DOC ROYAL MD Jul 01, 2025 10:51
[2025-07-01] MEDS: LIDOCAINE 5% TOPICAL PATCH TOP SCH (12:18)
[2025-07-01] MEDS: METOPROLOL TARTRATE 25 MG TAB PO ONE (12:19)
--- NOTE | 2025-07-01 13:14 | DVHPNRES ---
Progress Note Date Seen: Jul 01, 2025 Resident Creating Document: JUSTYNA PYLE RESIDENT Medical Necessity Reason Pt with a Central, PICC or Fol: No Subjective Review of Systems Patient was seen and examined at bedside. She stated feeling much better than on admission, she only complain of mild shortness of breath, no chest pain, no abdominal pain, nausea, vomiting. She is currently tolerating diet. She is currently on room air. Objective vital signs Vital Sign Date Time Temp Pulse Resp B/P (MAP) Pulse Ox O2 Delivery O2 Flow Rate FiO2 07/01/25 12:19 98 159/99 07/01/25 08:56 98.1 19 91 98.1 07/01/25 06:14 Room Air* 0 21 Total Intake and Output 06/30/25 06/30/25 07/01/25 15:00 23:00 07:00 Intake Total 600 ml 1150 ml 725 ml Balance 600 ml 1150 ml 725 ml medications Current Medications Medications Dose Ordered Sig/Luke Route Start Time Stop Time Status Last Admin Dose Admin Acetaminophen 325 mg Q4HP PRN PO 06/29/25 22:15 07/01/25 01:11 325 MG Morphine Sulfate 2 mg Q4HPRN PRN IV 06/29/25 22:15 Enoxaparin Sodium 40 mg DAILY SC 06/30/25 10:00 07/01/25 12:17 40 MG Lidocaine 1 patch DAILY TOP 07/01/25 10:07/01/25 12:18 1 PATCH Insulin Glargine 25 units HS SC 06/30/25 22:00 06/30/25 21:20 25 UNITS Pantoprazole Sodium 40 mg DAILY@0600 PO 07/01/25 06:00 07/01/25 05:43 40 MG Patient Own Medication 1 tab DAILY PO 06/30/25 10:00 Azithromycin 250 ml @ 125 mls/hr DAILY IV 06/30/25 10:00 07/01/25 12:16 125 MLS/HR Sodium Bicarbonate 50 ml/ Sodium Chloride 1,050 ml @ 100 mls/hr [id number] IV 06/30/25 12:15 07/01/25 03:15 100 MLS/HR Ipratropium [place] 0.5 mg Q4HWA NEB 06/30/25 14:00 UNV Albuterol 2.5 mg Q4HWA NEB 06/30/25 14:00 UNV Methylprednisolone Sodium Succinate 40 mg BID IV 06/30/25 22:00 07/01/25 12:16 40 MG Diagnostic Test (Pha) 1 strip IQ4HR 06/30/25 12:30 07/01/25 08:00 1 STRIP Insulin Human Regular IQ4HR SC 06/30/25 12:30 07/01/25 08:00 16 UNITS Dextrose 50 ml UD PRN IV 06/30/25 12:30 Levalbuterol HCl 0.625 mg Q6HR NEB 06/30/25 18:00 07/01/25 11:48 0.625 MG Ipratropium [place] 0.5 mg Q6HR NEB 06/30/25 18:00 07/01/25 11:48 0.5 MG Zirconium Oxide 10 gm TID PO 07/01/25 08:00 07/02/25 22:01 07/01/25 09:03 10 GM Metoprolol Tartrate 25 mg DAILY PO 07/02/25 10:00 Amitriptyline HCl 150 mg HS PO 07/01/25 22:00 Lamotrigine 25 mg DAILY PO 07/02/25 10:00 Pregabalin 50 mg TID PO 07/01/25 14:00 Oxycodone/ Acetaminophen 2 tab Q8HP PRN PO 07/01/25 10:30 Labetalol HCl 5 mg Q6HPRN PRN IV 07/01/25 10:30 Fluticasone Propionate 50 mcg Q12HR EACHNOSTRI 07/01/25 10:00 Melatonin 5 mg HS PO 07/01/25 22:00 Calcitriol 0.25 mcg DAILY PO 07/02/25 10:00 Examination Pt is lying on bed General Appearance: Morbid obesity, Alert, Oriented X3, Cooperative, Mild distress HEENT: Atraumatic, Mucous membranes moist/pink Respiratory: scattered wheezing and crackles Cardiovascular: Regular rate, Normal S1, Normal S2, No murmurs Abdominal/ : Active bowel sounds, Soft, no distention, no tenderness Extremities: No edema, Normal pulses, No tenderness/swelling Skin: No Significant rash, except past surgical scars Neuro: Normal speech, sensorimotor deficits none Psych/Mental Status: Mental status NL, Mood NL laboratory and microbiology Laboratory Tests 07/01/25 05:51 Test 07/01/25 05:51 Range/Units Serum Glucose 317 H 74-106 mg/dL Labs and/or images reviewed: Labs reviewed by me, Image(s) reviewed by me Problem List/Assessment/Plan Problem List/Assessment/Plan Acute on chronic respiratory failure secondary to COPD and CHF Acute on chronic diastolic congestive heart failure (LVEF 55-60%) COPD exacerbation Ruled out viral pneumonia vs bacterial Ruled out DVT Ruled out PE Atelactasis Now on room air Continue methylprednisolone, IV azithromycin and breathing treatments BL lower extremity us: No DVT, CT angiogram; No pulmonary embolism Renal ultrasound: Kidney measures 10.1 cm; left kidney surgically removed.1.6 x 1.5 x 1.3 cm cortical cyst right kidney.293.1 ML of urine in the bladder. No postvoid film received.Incidentally noted gallstones in the gallbladder incentive spirometry. Asymptomatic cholelithiasis monitor sign symptoms of cholecystistis. Severe hyperkalemia DURGA hemodynamically mediated (VMN) on CKD History of left nephrectomy EKG: sinus rhythm, mild prolong QT, RBB?. Monitor BNP Required hyperkalemia protocol. Avoid JOSE inhibitors/ARB/MRA and other nephrotoxic medication Nephrology consulted (Dr. Brennan) Continue monitoring Hypertension Dyslipidemia Type 2 Diabetes Gave her advice on healthy lifestyle habits Continue metoprolol Currently on moderate insulin sliding scale Schizophrenia Bipolar disorder Home medication until hyperkalemia and DURGA has resolved. Resumed lamotrigine, amytriptiline and pregabalin Questionable GI bleed (melena) Gastritis Currently on pantoprazole Ordered stool occult blood Monitor H&H Cannabis use Counseled on cessation Acute sinusitis Flonase nasal spray Goals of care discussed with patient for over 18 minutes: Full code status DVT prophylaxis: Lovenox GI prophylaxis: Pantoprazole Case was discussed with Dr. Munroe Plan discussed with: Patient, Other (RN) My Orders My Orders Orders - JUSTYNA PYLE RESIDENT Procedure Category Date Status Time Renal DIET 06/30/25 Transmitted Standard(2gna,3gk,Lopho) Dinner Incentive Spirometry ORDERS 06/30/25 Transmitted Q 1hr 14:35 Bilat Lower Dvt US 06/30/25 Resulted 15:09 Incentive Spirometry ORDERS 06/30/25 Transmitted Q 1hr 16:48 Sodium Zirconium PHA 07/01/25 In Process Cyclosilicate 08:00 Potassium LAB 07/01/25 Logged 14:00 Metoprolol Tartrate PHA 07/02/25 In Process Tablet (Lopressor Ta 10:00 Amitriptyline Hcl PHA 07/01/25 In Process Tablet (Elavil Tablet) 22:00 Lamotrigine Tablet PHA 07/02/25 In Process (Lamictal Tablet) 10:00 Pregabalin Capsule PHA 07/01/25 In Process (Lyrica Capsule) 14:00 Oxycodone W/ Acet PHA 07/01/25 In Process 5/325mg Tab (Percocet 10:30 Labetalol Hcl PHA 07/01/25 In Process (Labetalol Hcl) 10:30 Fluticasone Nasal PHA 07/01/25 In Process [place] (Flonase [place]) 10:00 Melatonin (Melatonin) PHA 07/01/25 In Process 22:00 Date of Service: Jul 01, 2025 Billing Provider: DANIELLE MUNROE MD Common Visit Codes: [id number] INP/OBS CARE(HIGH) JUSTYNA PYLE RESIDENT Jul 01, 2025 13:14 DANIELLE MUNROE MD Jul 01, 2025 23:47
[2025-07-01] MEDS: PREGABALIN 25 MG CAP PO SCH (13:17)
[2025-07-01] MEDS: LABETALOL HCL 20 MG/4 ML VL IV PRN (18:28)
[2025-07-01] MEDS: MELATONIN 5 MG TAB PO SCH (21:16)
[2025-07-01] MEDS: AMITRIPTYLINE HCL 25 MG TAB PO SCH (21:16)
[2025-07-02] VITALS (11 sets, daily range): BP systolic 129–158; BP diastolic 58–98; PULSE 63–90; RESP 16–18; TEMP 97.6–98.4; O2SAT 90–99
[2025-07-02] MEDS: CALCITRIOL 0.25 MCG CAP PO SCH (08:02)
[2025-07-02] MEDS: METOPROLOL TARTRATE 25 MG TAB PO SCH (08:03)
[2025-07-02] MEDS: lamoTRIgine 25 MG TAB PO SCH (08:03)
[2025-07-02 08:05] LABS: Alanine Aminotransferase 33 U/L (7-40); Albumin 3.9 g/dL (3.2-4.8); Alkaline Phosphatase 100 U/L (46-116); Anion Gap 11 (5-15); BUN/Creatinine Ratio 31.3 (10.0-20.0); Bilirubin, Total 0.3 mg/dL (0.2-1.0); Calcium 9.0 mg/dL (8.7-10.4); Carbon Dioxide 24 mmol/L (20-31); Chloride 106 mmol/L (98-107); Magnesium 2.2 mg/dL (1.6-2.6); Potassium 4.9 mmol/L (3.5-5.1); Sodium 141 mmol/L (136-145); Total Protein 6.4 g/dL (5.7-8.2)
[2025-07-02 08:07] LABS: Blood Urea Nitrogen 42 mg/dL (9-23); Glucose 184 mg/dL (74-106)
--- NOTE | 2025-07-02 09:47 | DVHPN2 ---
Progress Note Date Seen: Jul 02, 2025 Medical Necessity Reason Pt with a Central, PICC or Fol: No Subjective Patient reports: No new complaints Other Systems: Patient seen and examined by myself today in follow-up Objective vital signs Vital Sign Date Time Temp Pulse Resp B/P (MAP) Pulse Ox O2 Delivery O2 Flow Rate FiO2 07/02/25 08:03 75 149/79 07/02/25 08:00 97.6 18 99 97.6 07/02/25 06:09 Room Air 07/02/25 06:09 0 21 Total Intake and Output 07/01/25 07/01/25 07/02/25 15:00 23:00 07:00 Intake Total 1050 ml 1300 ml 350 ml Balance 1050 ml 1300 ml 350 ml medications Current Medications Medications Dose Ordered Sig/Luke Route Start Time Stop Time Status Last Admin Dose Admin Acetaminophen 325 mg Q4HP PRN PO 06/29/25 22:15 07/01/25 01:11 325 MG Morphine Sulfate 2 mg Q4HPRN PRN IV 06/29/25 22:15 Enoxaparin Sodium 40 mg DAILY SC 06/30/25 10:00 07/02/25 08:01 40 MG Lidocaine 1 patch DAILY TOP 07/01/25 10:00 07/02/25 07:57 1 PATCH Insulin Glargine 25 units HS SC 06/30/25 22:00 07/01/25 21:18 25 UNITS Pantoprazole Sodium 40 mg DAILY@0600 PO 07/01/25 06:00 07/02/25 05:03 40 MG Patient Own Medication 1 tab DAILY PO 06/30/25 10:00 Azithromycin 250 ml @ 125 mls/hr DAILY IV 06/30/25 10:00 07/02/25 08:08 125 MLS/HR Sodium Bicarbonate 50 ml/ Sodium Chloride 1,050 ml @ 100 mls/hr [id number] IV 06/30/25 12:15 07/02/25 04:56 100 MLS/HR Ipratropium [place] 0.5 mg Q4HWA NEB 06/30/25 14:00 UNV Albuterol 2.5 mg Q4HWA NEB 06/30/25 14:00 UNV Methylprednisolone Sodium Succinate 40 mg BID IV 06/30/25 22:00 07/02/25 08:04 40 MG Diagnostic Test (Pha) 1 strip IQ4HR 06/30/25 12:30 07/02/25 07:49 1 STRIP Insulin Human Regular IQ4HR SC 06/30/25 12:30 07/02/25 07:50 8 UNITS Dextrose 50 ml UD PRN IV 06/30/25 12:30 Levalbuterol HCl 0.625 mg Q6HR NEB 06/30/25 18:00 07/02/25 06:09 0.625 MG Ipratropium [place] 0.5 mg Q6HR NEB 06/30/25 18:00 07/02/25 06:09 0.5 MG Zirconium Oxide 10 gm TID PO 07/01/25 08:00 07/02/25 22:01 07/02/25 05:02 10 GM Metoprolol Tartrate 25 mg DAILY PO 07/02/25 10:00 07/02/25 08:03 25 MG Amitriptyline HCl 150 mg HS PO 07/01/25 22:00 07/01/25 21:16 150 MG Lamotrigine 25 mg DAILY PO 07/02/25 10:00 07/02/25 08:03 25 MG Pregabalin 50 mg TID PO 07/01/25 14:00 07/02/25 05:03 50 MG Oxycodone/ Acetaminophen 2 tab Q8HP PRN PO 07/01/25 10:30 07/02/25 03:54 2 TAB Labetalol HCl 5 mg Q6HPRN PRN IV 07/01/25 10:30 07/01/25 18:28 5 MG Fluticasone Propionate 50 mcg Q12HR EACHNOSTRI 07/01/25 10:00 Melatonin 5 mg HS PO 07/01/25 22:00 07/01/25 21:16 5 MG Calcitriol 0.25 mcg DAILY PO 07/02/25 10:00 07/02/25 08:02 0.25 MCG Examination: LUNGS:Normal, CVS:Normal, MSK:Normal laboratory and microbiology Laboratory Tests 07/02/25 05:20 07/01/25 05:51 Test 07/02/25 05:20 Range/Units Serum Glucose 184 H 74-106 mg/dL Problem List/Assessment/Plan Problem List/Assessment/Plan Acute kidney injury superimposed Chronic Kidney Disease stage IIIA secondary hemodynamic mediated, FeNa > 2% Acute on chronic respiratory failure COPD exacerbation History of left nephrectomy Metabolic acidosis Hyperkalemia due to dietary indiscretion Uncontrolled diabetes mellitus type 2 Hyperglycemia Hypertriglyceridemia Hypomagnesemia Secondary hyperparathyroidism 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 q.8 hours x3 doses Renal diet Blood pressure control Insulin sliding scale Magnesium sulfate 2 g IV piggyback IV steroids IV antibiotics Calcitriol 0.25 mcg p.o. q.day Nebulized treatment kidney ultrasound reported normal right kidney with simple cyst Patient is a sweet for discharge from Nephrology. Follow-up in my clinic two weeks after discharge for Chronic Kidney Disease follow-up I will sign off this case. Thank you for the consult Plan discussed with: Patient My Orders My Orders Orders - DOC ROYAL MD Procedure Category Date Status Time Calcitriol Capsule PHA 07/02/25 In Process (Rocaltrol Capsule) 10:00 Dietary Evaluation Review Recommendations by RD: Dietary education by RD Comments: 1) Add cardiac restriction to 45g CCHO renal diet 2) Refer to outpatient RD/CD[facility] for diabetes education and weight management 3) Follow-up with and cardiology, pulmonology, gastroenterology, and nephrology 4) Continue to monitor I&O, labs, and skin integrity Expected Outcomes/Goals: 1) appetite and labs to improve 2) gradual wt loss 3) f/u in 3-5 days DOC ROYAL MD Jul 02, 2025 09:47
[2025-07-02 09:52] LABS: Hematocrit 38.9 % (36.0-46.0); Hemoglobin 13.1 g/dL (12.2-16.2)
[2025-07-02] MEDS ORDERED: INSU100I4 SC (12:41)
[2025-07-02] MEDS ORDERED: AZIT-43 PO (12:41)
[2025-07-02] MEDS ORDERED: FLUT1AER3 IN (12:41)
[2025-07-02] MEDS ORDERED: AMLO1TAB22 PO (12:41)
[2025-07-02] MEDS ORDERED: PRED20TA2 PO (12:41)
[2025-07-02] MEDS ORDERED: LEVA3NEB IN (12:41)
[2025-07-02] MEDS ORDERED: DOCU-94 PO (12:41)
[2025-07-02] MEDS ORDERED: INSU1INJ19 SC (12:41)
[2025-07-02] MEDS ORDERED: INSU-1224 XX (12:41)
[2025-07-02] MEDS ORDERED: SODI5PAK PO (12:41)
[2025-07-02] MEDS ORDERED: FURO1TAB31 PO (12:41)
--- NOTE | 2025-07-02 15:41 | DVHDSRES ---
Discharge Summary Date of Admission Resident Creating Document: ELSIE CASTILLO Jun 29, 2025 at 22:07 Date of Discharge: Jul 02, 2025 Labs/Diagnostic Data: Laboratory Results Test 07/02/25 12:53 07/02/25 09:07 07/02/25 05:20 07/01/25 05:51 POC Glucose 279 mg/dl (70-106) Hemoglobin 13.1 g/dL (12.2-16.2) Hematocrit 38.9 % (36.0-46.0) Sodium Level 141 mmol/L (136-145) Potassium Level 4.9 mmol/L (3.5-5.1) Chloride Level 106 mmol/L (98-107) Carbon Dioxide Level 24 mmol/L (20-31) Anion Gap 11 (5-15) Blood Urea Nitrogen 42 mg/dL (9-23) Creatinine 1.34 mg/dL (0.550-1.02) Glomerular Filtration Rate Calc 48 mL/min (>90) BUN/Creatinine Ratio 31.3 (10.0-20.0) Serum Glucose 184 mg/dL (74-106) Calcium Level 9.0 mg/dL (8.7-10.4) Magnesium Level 2.2 mg/dL (1.6-2.6) Total Bilirubin 0.3 mg/dL (0.2-1.0) Aspartate Amino Transferase (AST) 39 U/L (13-40) Alanine Aminotransferase (ALT) 33 U/L (7-40) Alkaline Phosphatase 100 U/L (46-116) Total Protein 6.4 g/dL (5.7-8.2) Albumin 3.9 g/dL (3.2-4.8) White Blood Count 7.0 10^3/uL (4.4-10.8) Red Blood Count 3.94 10^6/uL (4.0-5.20) Mean Corpuscular Volume 89.5 fL (80.0-100.0) Mean Corpuscular Hemoglobin 29.6 pg (28.0-32.0) Mean Corpuscular Hemoglobin Concent 33.1 g/dL (32.0-36.0) Red Cell Distribution Width 16.9 % (11.8-14.3) Platelet Count 228 10^3/uL (140-450) Mean Platelet Volume 8.2 fL (6.9-10.8) Neutrophils (%) (Auto) 87.5 % (37.0-80.0) Lymphocytes (%) (Auto) 10.2 % (10.0-50.0) Monocytes (%) (Auto) 1.9 % (0.0-12.0) Eosinophils (%) (Auto) 0.0 % (0.0-7.0) Basophils (%) (Auto) 0.4 % (0.0-2.0) Neutrophils # (Auto) 6.1 10 ^3/uL (1.6-8.6) Lymphocytes # (Auto) 0.7 10 ^3/uL (0.4-5.4) Monocytes # (Auto) 0.1 10 ^3/uL (0-1.3) Eosinophils # (Auto) 0 10 ^3/uL (0-0.8) Basophils # (Auto) 0 10 ^3/uL (0-0.2) Nucleated Red Blood Cells 0.1 % Test 06/30/25 16:31 06/30/25 13:28 06/30/25 08:25 06/29/25 22:12 Urine Color Light-yellow (Yellow) Urine Clarity Clear (Clear) Urine pH 5.5 (5.0-9.0) Urine Specific Elizabeth 1.015 (1.001-1.035) Urine Protein 1+ (Negative) Urine Ketones Negative (Negative) Urine Blood Negative /uL (Negative) Urine Nitrite Negative (Negative) Urine Bilirubin Negative (Negative) Urine Urobilinogen Normal mg/dL (Negative) Urine Leukocyte Esterase Negative /uL (Negative) Urine RBC 1 /hpf (0 - 4) Urine Microscopic WBC < 1 /HPF (0-5) Urine Squamous Epithelial Cells Few /hpf (<5) Urine Bacteria None seen /hpf (None Seen) Urine Creatinine 48.46 mg/dL (30.0-125.0) Urine Protein/Creatinine Ratio 1.67 Urine Sodium 54 mmol/L (40-220) Urine Glucose 1+ mg/dL (Normal) Urine Total Protein 80.9 mg/dL (1-14) D-Dimer, Quantitative 0.80 mg/L FEU (0.0-0.49) Uric Acid 11.2 mg/dL (3.1-7.8) Creatine Kinase 162 U/L (34-145) Parathyroid Hormone (Intact) 91.7 pg/mL (18.4-80.1) Urine Opiates Screen Neg (NEGATIVE) Urine Fentanyl Screen Neg (NEGATIVE) Urine Barbiturates Screen Neg (NEGATIVE) Urine Phencyclidine Screen Neg (NEGATIVE) Urine Amphetamines Screen Neg (NEGATIVE) Urine Benzodiazepines Screen Neg (NEGATIVE) Urine Cocaine Screen Neg (NEGATIVE) Urine Cannabinoids Screen Pos (NEGATIVE) Test 06/29/25 20:58 06/29/25 19:56 06/29/25 09:04 Phosphorus Level 3.3 mg/dL (2.4-5.1) Troponin I High Sensitivity < 3 ng/L (</=34) Triglycerides Level 520 mg/dL (< 150) Cholesterol Level 238 mg/dL (< 200) LDL Cholesterol mg/dL (< 100) HDL Cholesterol 49 mg/dL (40-59) Lipase 90 U/L (12-53) Prothrombin Time 10.3 sec (9.3-11.8) Prothrombin Time INR 0.97 (0.9-1.15) Activated Partial Thromboplast Time 27.8 SEC (24.5-34.5) Hemoglobin A1c 7.7 % A1C (<5.7) B-Type Natriuretic Peptide 25.18 pg/mL (0-100) Vitamin B12 Level 293 pg/mL (211-911) Vitamin D 25-Hydroxy 24.6 ng/mL (30.0-100) Thyroid Stimulating Hormone (TSH) 3.25 uIU/mL (0.55-4.78) Influenza Type A Antigen Negative (Negative) Influenza Type B Antigen Negative (Negative) SARS-CoV-2 Antigen (Rapid) Negative (NEGATIVE) Other Laboratory Tests 07/02/25 09:07 07/02/25 05:20 07/01/25 05:51 Brief Hx & Hospital Course: Alicia Lanier is a 49-year-old female patient who presents to the ED with chief complaint of progressive dyspnea associated with chest tightness and left rib pain which is exacerbated by movement and deep breaths, which started one week before her admission. Patient reports that she normally uses home oxygen at 2 L/min, and had to increase it to 3 L/min without resolving her dyspnea. Patient did present and episode of black tarry diarrhea the day of her admission, prompting her visit to the ER. Patient says she is compliant with all her medication. Patient evaluated as outpatient and was discontinued from furosemide due to her history of nephrectomy. Denies any other associated symptom including palpitation, syncope and dysuria. 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 Currently smokes marijuana. Ex tobacco abuse (approximately 60 pack-year history of smoking), quit 11 years ago. 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 Denies current tobacco, alcohol and other drug abuse. Allergies: Adhesive tape Home medication: Albuterol, Percocet, Brexpriprazole, buprenorphine, diphenhydramine, [place], fenofibrate, fluoxetine, fluticasone, furosemide, glipizide, hydroxyzine, insulin glargine 20 units, lamotrigine, losartan, metoprolol 25 mg p.o. daily, pantoprazole, sevelamer, pregabalin, zolpidem The patient takes Eliquis for previous history of left popliteal vein DVT Brief hospital course: Her symptoms of shortness of breaths was attributed to acute on chronic respiratory failure secondary to COPD and CHF, ACS was ruled out by EKG and troponin x3 negative. Viral pneumonia, DVT and PE was ruled out. She was managed with methylprednisolone, IV azithromycin, incentive spirometry and breathing treatments. Chest x-ray revealed atelectasis. Renal ultrasound revealed left kidney removed, right renal cyst, no significant postvoid urine. Incidental gallbladder stone noted. Nephrology was consulted due to CKD stage 3 a, FeNA more than 2%, with signs of volume overload, nephrology consultation was appreciated. Metabolic acidosis was managed with bicarbonate. 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 Which was managed appropriately with breathing treatments and Lokelma. Hypertension, dyslipidemia, type 2 diabetes was managed with metoprolol, moderate insulin sliding scale and advice on healthy lifestyle habits. Patient was advised to avoid foods high in potassium. Hypomagnesemia was repleted with magnesium. On the day of discharge, patient was hemodynamically stable, verbalized understanding of the discharge plan the patient was advised to follow up with PCP, 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 Operations or Procedures PATIENT: ALICIA LANIER ACCT: [id number] UNIT: [id number] : 1975 LOC: ER ROOM / BED: / AGE / SEX: 49 / F ADM STATUS: REG ER SERVICE 194 ORDERING PHYSICIAN: LEONEL MCGINNIS DO PROCEDURE(s): CXRP - CHEST PORTABLE REASON: cp/sob ORDER NUMBER(s): [id number], ACCESSION NUMBER(s): [id number] CHEST RADIOGRAPH Indication: cp/sob Technique: Single frontal view of the chest was obtained Comparison: XY CHEST PORTABLE on DOS: 04/15/25, XY CHEST PORTABLE on DOS: 03/08/25, XR CHEST 1 VIEW on DOS: 01/25/25 FINDINGS: Lines and Tubes: None Lungs: No focal consolidation. Linear atelectasis mid right chest. May represent fortuitous confluence pulmonary vascular in bony markings. Pleura: No effusion. No pneumothorax. Cardiomediastinal contours: Unremarkable Bones: No acute osseous abnormality. Narrowing of the right acromial humeral joint space may represent chronic rotator cuff tear. Consider MRI of the right shoulder. IMPRESSION: 1. Atelectasis mid right chest PATIENT: ALICIA LANIER ACCT: [id number] UNIT: [id number] : 1975 LOC: OVERFLOW ROOM / BED: 1009-ERT / A AGE / SEX: 49 / F ADM STATUS: ADM IN SERVICE 1202 ORDERING PHYSICIAN: DOC ROYAL MD PROCEDURE(s): KIDUS - KIDNEY REASON: blanca ORDER NUMBER(s): [id number], ACCESSION NUMBER(s): [id number] INDICATION: blanca TECHNIQUE: Multiple real-time sonographic images of the kidneys and bladder were obtained. (34 images received) COMPARISON: US KIDNEY on DOS: 04/15/25, US KIDNEY on DOS: 03/08/25, US KIDNEY on DOS: 11/16/24 FINDINGS: RIGHT kidney measures 10.05 cm in length. No hydronephrosis. Small anechoic lesion in the cortex right kidney measuring 1.6 x 1.5 x 1.3 cm 8 mm echogenic focus lower pole right kidney no hydronephrosis LEFT kidney been surgically removed No large intraluminal masses are seen in the bladder. Prevoid bladder volume 293.1. Bladder wall measures 2 mm Post void not indicated IMPRESSION: 1. Kidney measures 10.1 cm; left kidney surgically removed. 2. 1.6 x 1.5 x 1.3 cm cortical cyst right kidney 3. 293.1 ML of urine in the bladder. No postvoid film received 4. Incidentally noted gallstones in the gallbladder. PATIENT: ALICIA LANIER ACCT: [id number] UNIT: [id number] : 1975 LOC: OVERFLOW ROOM / BED: [address] [place] [address] AGE / SEX: 49 / F ADM STATUS: ADM IN SERVICE 1434 ORDERING PHYSICIAN: JESSIE SORIANO RESIDENT PROCEDURE(s): CTACH - CT ANGIO CHEST CONTRAST REASON: wells score 4, tachycardia, suspected PE ORDER NUMBER(s): [id number], ACCESSION NUMBER(s): [id number] EXAM: CT CT ANGIO CHEST CONTRAST HISTORY: wells score 4, tachycardia, suspected PE TECHNIQUE: CT angiogram was performed. CT scans at this facility use dose modulation, iterative reconstruction, and/or weight based dosing when appropriate to reduce radiation dose to as low as reasonably achievable. Coronal and sagittal reformations and maximum intensity projection images were created from the transaxial source data by the applied technologist and workstation, as well as 3-D volume rendered images with MIPs. COMPARISON: XY CHEST TWO VIEWS ROUTINE on DOS: 02/19/25 FINDINGS: [LOWER NECK]: Unremarkable [LYMPH NODES/MEDIASTINUM]: No abnormal lymph nodes by CT size criteria [CARDIOVASCULAR]: Normal cardiac size. No pericardial effusion. No aneurysmal dilatation of the great vessels. Coronary artery calcifications. [PULMONARY ARTERIES]: No pulmonary arterial filling defect. Prominence of the main pulmonary artery suggestive of pulmonary hypertension. No evidence of elevated right heart pressures. [UPPER ABDOMEN]: Incompletely characterized possible splenorenal varices. [MUSCULOSKELETAL]: No acute fracture or aggressive focal osseous lesion. Prior healed left anterolateral rib fractures with callus formation no significant displacement. Additional right anterior healed rib fractures. [CHEST WALL]: Unremarkable. [LUNG PARENCHYMA/PLEURAL SPACE]: No consolidation, suspicious focal airspace opacity, or suspicious nodules. No pleural effusion or pneumothorax.Atelectasis in the left lung base. Atelectasis/partial collapse located within the medial aspect of the right middle lobe. Expiratory phase of imaging. IMPRESSION: 1. No pulmonary embolism. 2. Atelectasis/partial collapse located within the medial aspect of the right middle lobe. 3. Prominence of the main pulmonary artery, which may indicate pulmonary hypertension. 4. Elevation of the right hemidiaphragm. PATIENT: ALICIA LANIER ACCT: [id number] UNIT: [id number] : 1975 LOC: OVERFLOW ROOM / BED: 1009-[facility] / A AGE / SEX: 49 / F ADM STATUS: ADM IN SERVICE 1509 ORDERING PHYSICIAN: JUSTYNA PYLE RESIDENT PROCEDURE(s): BLDVT - BiLat Lower DVT REASON: elevated ddimer ORDER NUMBER(s): [id number], ACCESSION NUMBER(s): [id number] Bilateral lower extremity venous duplex Clinical History: elevated ddimer Comparison: US BILAT LOWER DVT on DOS: 03/08/25 Technique: Duplex Doppler evaluation of the deep venous systems of both lower extremities from the common femoral veins to the popliteal veins including color Doppler and spectral/pulsed waveform analysis was performed. 42 images were received. Findings: RIGHT SIDE: The common femoral vein demonstrates appropriate compressibility and waveform variability. There is compressibility/patency of the great saphenous vein at the proximal thigh. The femoral vein demonstrates appropriate compressibility and waveform variability. The deep femoral vein demonstrates appropriate compressibility and waveform variability. The popliteal vein demonstrates appropriate compressibility and waveform variability. There is normal compressibility at the tibioperoneal trunk. LEFT SIDE: The common femoral vein demonstrates appropriate compressibility and waveform variability. There is compressibility/patency of the great saphenous vein at the proximal thigh. The femoral vein demonstrates appropriate compressibility and waveform variability. The deep femoral vein demonstrates appropriate compressibility and waveform variability. The popliteal vein demonstrates appropriate compressibility and waveform variability. There is normal compressibility at the tibioperoneal trunk. Impression: 1. No right or left femoropopliteal venous thrombosis. Condition at Discharge: Stable Final Diagnosis/Problems List Severe hyperkalemia BLANCA hemodynamically mediated (VMN) on CKD History of left nephrectomy Hypertension Dyslipidemia Type 2 Diabetes Schizophrenia Bipolar disorder Questionable GI bleed (melena) Gastritis Cannabis use Acute sinusitis Asymptomatic cholelithiasis Discharge Disposition: Home Discharge Instruct/Medications Diet: Consistent carbohydrate, Cardiac 2g Na,low cholest Diet comment: CONSISITENT CARB AND CARDIAC DIET (LESS THAN 2000MG/A DAY) Activity: No Restrictions, As Tolerated Follow Up/Referral: Follow up with PCP, neprology and Cardiology Scheduled Amitriptyline Hcl (Amitriptyline Hcl), 150 MG PO HS, (Reported) Amlodipine Besylate (Amlodipine Besylate), 5 MG PO DAILY Azithromycin (Azithromycin), 250 MG PO DAILY Brexpiprazole (Rexulti), 4 MG PO HS, (Reported) Deutetrabenazine (Austedo), 12 MG PO DAILY, (Reported) Docusate Sodium (Colace), 100 MG PO BID Fenofibrate (Fenofibrate), 1 TAB PO DAILY, (Reported) Dpzwkbmdxrb-Bgdvmrodtuep-Ndprf (Trelegy Ellipta 100-62.5-25 Mcg/INH), 1 PUFF IN DAILY Furosemide (Lasix), 40 MG PO UD Insulin Glargine (Basaglar Kwikpen), 25 UNIT SC HS Insulin Lispro (Humalog Kwikpen), 5 UNITS SC AC Lamotrigine (Lamictal), 1 TAB PO DAILY, (Reported) Levalbuterol HCl (Levalbuterol), 1.25 MG IN BID Metoprolol Tartrate (Metoprolol Tartrate), 1 TAB PO DAILY, (Reported) Prednisone (Prednisone), 40 MG PO DAILY Pregabalin (Pregabalin), 1 CAP PO TID, (Reported) Sodium Zirconium Cyclosilicate (Lokelma), 10 GM PO DAILY@BREAKFAST Scheduled PRN Oxycodone W/ Acetaminophen (Percocet 5/325MG), 1 TAB PO QID PRN Miscellaneous Medications Fluoxetine Hcl (Fluoxetine Hcl), PO, (Reported) Discontinued Medications Fluticasone Propionate (Fluticasone Propionate Hf), INH, (Reported) Glipizide (Glipizide), 1 TAB PO DAILY, (Reported) Losartan Potassium (Losartan Potassium), 1 TAB PO DAILY, (Reported) Pantoprazole Sodium Sesquihydr (Pantoprazole Sodium Dr), 20 MG PO BID, (Reported) Durable Medical Equipment Blood Glucose Monitoring Suppl (Blood Glucose System Gaurav), PKG XX 5XD, (DME) Insulin Pen Needle (Bd Pen Needle/Leta 2Nd Ge 32G X 4 mm), MIS XX 5XD, (DME) Discharge Statement: "Patient was advised to return to the ER or call 911 if any headaches, dizziness, shortness of breath, chest pain, abdominal pain, bleeding, fevers, or worsening of medical condition. Patient was counseled about treatment plan, medications, possible side effects, patientverbalized understanding. All questions were answered to the best of my ability. This discharge took greater then 30 minutes in planning, reviewing documentation, counseling the patient, and discussing with other team members." ASSESSMENT ASSESSMENT Assessment CKD COPD exacerbation HFpEF Date of Service: Jul 02, 2025 Billing Provider: DANIELLE MORRELL MD Common Visit Codes: 28009-LWW/OBS DISCH DAY >30min ELSIE CASTILLO RESIDENT Jul 02, 2025 15:41 DANIELLE MORRELL MD Jul 03, 2025 10:53
--- NOTE | 2025-07-05 09:11 | ECG ---
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
== END 2025-07-02 14:00 | disposition home or self-care (01) | DRG 133 ==
LOC: ER 19:20 → OVERFLOW 22:07 → TELE-EAST 06-30 23:52
PROVIDERS: ADMIT Internal Medicine; ATTEND Internal Medicine
DX: J96.01 Acute respiratory failure with hypoxia (principal); N17.0 Acute kidney failure with tubular necrosis; I50.33 Acute on chronic diastolic (congestive) heart failure; E87.20 Acidosis, unspecified; J44.1 Chronic obstructive pulmonary disease with (acute) exacerbation; E11.22 Type 2 diabetes mellitus with diabetic chronic kidney disease; J01.90 Acute sinusitis, unspecified; N25.81 Secondary hyperparathyroidism of renal origin; E11.65 Type 2 diabetes mellitus with hyperglycemia; I13.0 Hypertensive heart and chronic kidney disease with heart failure and stage 1 through stage 4 chronic kidney disease, or unspecified chronic kidney disease; Z20.822 Contact with and (suspected) exposure to COVID-19; E78.1 Pure hyperglyceridemia; E83.42 Hypomagnesemia; E87.5 Hyperkalemia; K80.20 Calculus of gallbladder without cholecystitis without obstruction; K29.70 Gastritis, unspecified, without bleeding; F31.9 Bipolar disorder, unspecified; F20.9 Schizophrenia, unspecified; F17.210 Nicotine dependence, cigarettes, uncomplicated; E66.9 Obesity, unspecified; K21.9 Gastro-esophageal reflux disease without esophagitis; Z88.8 Allergy status to other drugs, medicaments and biological substances; N28.1 Cyst of kidney, acquired; F12.90 Cannabis use, unspecified, uncomplicated; N18.31 Chronic kidney disease, stage 3a; E11.40 Type 2 diabetes mellitus with diabetic neuropathy, unspecified; N25.89 Other disorders resulting from impaired renal tubular function; J98.11 Atelectasis; Z80.1 Family history of malignant neoplasm of trachea, bronchus and lung; Z81.8 Family history of other mental and behavioral disorders; Z82.49 Family history of ischemic heart disease and other diseases of the circulatory system; Z98.891 History of uterine scar from previous surgery; Z90.710 Acquired absence of both cervix and uterus; Z90.5 Acquired absence of kidney; Z79.899 Other long term (current) drug therapy; Z68.38 Body mass index [BMI] 38.0-38.9, adult
CPT/HCPCS: 36415; 71045; 71275; 76775; 80048; 80053; 80061; 80307; 81001; 82306; 82550; 82570; 82607; 82962; 83036; 83690; 83735; 83880; 83970; 84100; 84132; 84156; 84300; 84443; 84484; 84550; 85014; 85018; 85025; 85379; 85610; 85730; 87426; 87804; 93005; 93970; 94640; 96374; 96375; 99291; G0378; J1815

== ENCOUNTER 2025-09-15 16:17 | Inpatient (IN) | payer MEDICAID ==
[~2025-09-15] VITALS: Ht 144.8 cm; Wt 115.8 kg
[~2025-09-15 16:17] MED LIST changes: +AMLO1TAB22 PO; -APIX2.5T PO; -APIX5TAB PO; +AZIT-43 PO; -BUPR8SUB SL; -BUPR8SUB18 SL; -CLIN1CAP70 PO; -DEUT6TAB PO; -DIPH-751 PO; -FLUO40CA2 PO; -FLUT110A8 INH; +FLUT1AER3 IN; -FURO20TA3 PO; -GLIP10TA9 PO; -HYDR50TA69 PO; +LEVA3NEB IN; -LEVO500T91 PO; -LOSA-533 PO; -MECL12.586 PO; -PANT40TA57 PO; +PRED20TA2 PO; -SEVE800T8 PO; +SODI5PAK PO; -TIZA4TAB9 PO; -ZOLP10TA PO
--- NOTE | 2025-09-15 16:46 | ED.PDOC ---
History of Present Illness HPI Comments HPI: 50 year old female presents to the emergency department with a chief complaint of generalized body pain onset 1 day. She has been experiencing generalized body pain as well as sweats, weakness, dizziness, diarrhea for the past day. Has not taken any medication for symptoms. Denies nausea, vomiting, abdominal pain, chest pain, shortness of breath, cough, cold, congestion, headache, numbness/tingling, dysuria, hematuria. No other symptoms or modifying factors present at this time. Initial Vitals BP: 187/118 HR: 102 RR: 18 O2 Sat: 97% Temp: 98.4 F Past Medical history: CHF, CKF, COPD, DM, HTN, HLD, Thyroid disease Past Surgical history: Hysterectomy, , LT kidney removal, RT foot surgery Medications: Amlodipine, Lasix, Insulin Social History: Denies ETOH. Smokes cigarettes, smokes marijuana. Allergies: NKDA emerita: Dizzy/weak/bodyaches 50F HPI: Poor Historian. REVIEW OF SYSTEMS: CONSTITUTIONAL: Denies acute: fever, diaphoresis, chills, HEAD: Denies acute: headache, photophobia Eyes: Denies acute: Double vision, vision loss, eye pain, eye discharge. EARS: Denies acute: tinnitus, hearing loss, ear discharge, ear pain, THROAT: Denies acute: sore throat, swelling, difficulty swallowing , pain with swallowing, change in voice. NECK: Denies acute: neck pain, neck swelling, stiff neck. HEART: Denies acute : chest pain, palpitations, LUNGS: Denies acute: SOB, wheezing, cough, hemoptysis ABDOMEN: Denies acute: abdominal pain, Nausea, Vomiting, diarrhea, melena , hematemesis, hematochezia SKIN: Denies acute: rash, redness, lesions, itchiness. EXTREMITIES: Denies acute: calf pain, numbness, tingling, weakness, denies pain in extremity. Denies acute: Low back pain. Neuro: Denies acute: focal neurological deficit, motor or sensory focal neurological deficit, tremors, seizure like activity, confusion, , change in mental status, loss of bowel or bladder function, cauda equina like symptoms. : Denies acute: dysuria, hematuria, flank pain, increase in urinary frequency. PSYCH: Denies acute: hallucination, suicidal ideation, homicidal ideation. FEMALE: Denies acute: abnormal vaginal bleeding, foul odor, unusual discharge. PHYSICAL EXAM: General: -----mild---acute distress, awake and alert. Head: normocephalic, atraumatic. No raccoon's eyes, no reaves sign. Neck: supple, trachea is midline, no swelling. Throat: Normal phonation. Eyes:, no erythema, no purulent discharge, no proptosis, no icterus. Heart: regular rate, regular rhythm, no significant murmur appreciated. Lungs: no apparent respiratory distress, Able to speak in full sentences. No wheezing, no rhonchi, no crackles. No stridors Clear to auscultation bilaterally. Abdomen: non tender to palpation, non distended, soft, no guarding, no rebound, + bowel sounds. Obese Neuro: Awake, Alert, oriented to name, self, situation, follows commands GCS=15. Speech is normal. Skin: no petechia, no purpura, no cyanosis, non-pale, not jaundice. Lower extremities: --no - Pitting edema no deformity, no focal swelling, no calf TTP. Makes eye contact. moves all four extremities. Face: no apparent facial droop. Ambulating in the ED independently. ED COURSE: DISCLAIMER: This medical document was created using an electronic medical record system with voice recognition software and computerized dictation system. Although this document has been carefully reviewed, there might still be some phonetic and typographical errors. Occasional wrong-word or "sound-alike" substitutions may have occurred due to the inherent limitations of voice recognition software. These areas are purely typographical due to imperfections of the software progr ams and do not reflect any compromise in the patient's medical care. Please read the chart carefully and recognize, using context, where these substitutions have occurred. Chief Complaint: Body Pain Time Seen by MD: 16:25 Primary Care Provider: DR DAVIS Reviewed Notes: Medications, Allergies Allergies: Uncoded Allergies: adhesive tape (Allergy, Unknown, 04/15/25) Home Meds Active Scripts Amlodipine Besylate (Amlodipine Besylate) 5 Mg Tab, 5 MG PO DAILY for 30 Days, #30 TAB 0 Refills Prov:[facility] 07/02/25 Sodium Zirconium Cyclosilicate (Lokelma) 5 Gm Gaurav, 10 GM PO DAILY@BREAKFAST for 30 Days, #60 PACK 0 Refills Prov:RAMYA [facility] 07/02/25 Levalbuterol HCl (Levalbuterol) 1.25 Mg/0.5 Ml Neb, 1.25 MG IN BID for 30 Days, #30 ML [facility]25 Zjjfvnwjheb-Krxffntcxwok-Oxrsw (Trelegy Ellipta 100-62.5-25 Mcg/INH) 1 Aer Aer, 1 PUFF IN DAILY for 30 Days, #1 AER Prov:RAM[facility] 07/02/25 Azithromycin (Azithromycin) 250 Mg Tab, 250 MG PO DAILY MDD 500 for 5 Days, #6 TAB 0 Refills 2 TABLETS ORALLY ON DAY ONE, THEN 1 TABLET ORALLY DAILY FOR 4 DAYS Prov:RAM[facility] 07/02/25 Prednisone (Prednisone) 20 Mg Tab, 40 MG PO DAILY for 5 Days, #10 MG 0 Refills [facility] 07/02/25 Furosemide (Lasix) 40 Mg Tab, 40 MG PO UD for 30 Days, #30 TAB if swelling in feet Prov:RAMYA [facility] 07/02/25 Docusate Sodium (Colace) 100 Mg Cap, 100 MG PO BID for 30 Days, #60 CAP Prov:RAMYA [facility] 07/02/25 Insulin Pen Needle (Bd Pen Needle/Leta 2Nd Ge 32G X 4 mm) 1 Mis Mis, MIS XX 5XD, #150 as directed Prov:RAMYA [facility] 07/02/25 Insulin Lispro (Humalog Kwikpen) 100 Unit/Ml Inj, 5 UNITS SC AC for 30 Days, #5 INJ Check blood sugars 20 minutes before each meal If the blood sugar is less than 70 do not take any insulin and have an orange juice 70- 150 take the 5 units 151-200 add 1 unit 201-250 add 2 units 251-300 add 3 units 301-350 add 4 units Greater than 351 add 5 units. Prov:JESSIE CARDOZA 07/02/25 Insulin Glargine (Basaglar Kwikpen) 100 Unit/Ml Inj, 25 UNIT SC HS for 30 Days, #5 INJ Prov:JESSIE SORIANO 07/02/25 Oxycodone W/ Acetaminophen (Percocet 5/325MG) 1 Tab Tb, 1 TAB PO QID PRN, #30 TAB Prov:KEYON MARTINEZ MD 11/19/24 Blood Glucose Monitoring Suppl (Blood Glucose System Gaurav) System Kit, PKG XX 5XD, #1 Administer a 30-day supply of lancets, alcohol prep pads and test strips and glucometer per insurance coverage. Prov:AKASH EVANS MD 09/25/21 Reported Medications Pregabalin (Pregabalin) 50 Mg Cap, 1 CAP PO TID 01/03/25 Fluoxetine Hcl (Fluoxetine Hcl) 40 Mg Cap, PO 01/03/25 Brexpiprazole (Rexulti) 4 Mg Tab, 4 MG PO HS, TAB 11/18/24 Amitriptyline Hcl (Amitriptyline Hcl) 150 Mg Tab, 150 MG PO HS, TAB 11/18/24 Metoprolol Tartrate (Metoprolol Tartrate) 25 Mg Tab, 1 TAB PO DAILY, #180 TAB 1 Refill 11/18/24 Fenofibrate (Fenofibrate) 54 Mg Tab, 1 TAB PO DAILY, #30 TAB 5 Refills 11/18/24 Lamotrigine (Lamictal) 25 Mg Tab, 1 TAB PO DAILY, #60 TAB 1 Refill 11/18/24 Deutetrabenazine (Austedo) 12 Mg Tab, 12 MG PO DAILY, TAB 11/18/24 Information Source: Patient Mode of Arrival: Ambulatory Timing: Hours Duration: Since onset Prehospital treatment: None Past Medical History PAST MEDICAL HISTORY: CHF, CKF, COPD, DM, High Lipids, HTN, Thyroid Surgical History: , Hysterectomy, Tonsillectomy BEND UP History: No Pertinent BEND UP History Family History Family History: Unknown, Family hx of heart candelario Social History Smoker: Cigarettes Alcohol: Denies ETOH Use Drugs: Marijuana Lives In: Home Was a procedure done? Was a procedure done?: No X-Ray, Labs, Meds, VS Vital Signs Date Time Temp Pulse Resp B/P (MAP) Pulse Ox O2 Delivery O2 Flow Rate FiO2 09/15/25 16:45 20 96 Room Air* 0 21 09/15/25 16:19 98.4 102 18 187/118 97 98.4 Lab Test 09/15/25 16:45 Range/Units Influenza Type A Antigen Pending Influenza Type B Antigen Pending SARS-CoV-2 Antigen (Rapid) Pending Current Medications Medications (Trade) Dose Ordered Sig/Luke Route Start Time Stop Time Status Last Admin Albuterol (Ventolin Medneb) 2.5 mg ONCE ONCE NEB 09/15/25 16:45 09/15/25 16:46 DC 09/15/25 16:51 Ipratropium [place] (Atrovent Medneb) 1 mg ONCE ONCE NEB 09/15/25 16:45 09/15/25 16:46 DC 09/15/25 16:51 [place] [address] Ph: [phone] DIAGNOSTIC IMAGING Diagnostic Imaging Report : [id number] Signed PATIENT: GREGORY LANIER ACCT: [id number] UNIT: [id number] : 1975 LOC: ER ROOM / BED: / AGE / SEX: 50 / F ADM STATUS: REG ER SERVICE 1633 ORDERING PHYSICIAN: LEONEL MCGINNIS DO PROCEDURE(s): CXRP - CHEST PORTABLE REASON: weak/bodyaches ORDER NUMBER(s): [id number], ACCESSION NUMBER(s): [id number] CHEST RADIOGRAPH INDICATION: weak/bodyaches TECHNIQUE: Single frontal view of the chest was obtained COMPARISON: XY CHEST PORTABLE on DOS: 06/29/25, XY CHEST PORTABLE on DOS: 04/15/25, XY CHEST PORTABLE on DOS: 03/08/25 FINDINGS: Lines and Tubes: None Lungs: No focal consolidation. Right Mid and lower lung zone linear densities. Pleura: No effusion. No pneumothorax. Cardiomediastinal contours: Unremarkable Bones: No acute osseous abnormality. IMPRESSION: Right mid and lower lung zone linear atelectasis /scarring. Otherwise, No acute cardiopulmonary disease. ATED BY: MERLINE ZHOU DO DICTATED DATE/TIME: 09/15/25 1702 SIGNED BY: MERLINE ZHOU DO SIGNED DATE/TIME: 09/15/251701 CC: Time of 1ST Reevaluation: 16:55 Reevaluation 1ST: Unchanged Patient Education/Counseling: Diagnosis, Treatment Family Education/Counseling: No Family Present Departure 1 Departure Additional Instructions: [facility] [address] [facility] [address] Ph: [phone] DIAGNOSTIC IMAGING Diagnostic Imaging Report : [id number] Signed PATIENT: GREGORY LANIER ACCT: [id number] UNIT: [id number] : 1975 LOC: ER ROOM / BED: / AGE / SEX: 50 / F ADM STATUS: REG ER SERVICE 32 ORDERING PHYSICIAN: LEONEL MCGINNIS DO PROCEDURE(s): CXRP - CHEST PORTABLE REASON: weak/bodyaches ORDER NUMBER(s): [id number], ACCESSION NUMBER(s): [id number] CHEST RADIOGRAPH INDICATION: weak/bodyaches TECHNIQUE: Single frontal view of the chest was obtained COMPARISON: XY CHEST PORTABLE on DOS: 06/29/25, XY CHEST PORTABLE on DOS: 04/15/25, XY CHEST PORTABLE on DOS: 03/08/25 FINDINGS: Lines and Tubes: None Lungs: No focal consolidation. Right Mid and lower lung zone linear densities. Pleura: No effusion. No pneumothorax. Cardiomediastinal contours: Unremarkable Bones: No acute osseous abnormality. IMPRESSION: Right mid and lower lung zone linear atelectasis /scarring. Otherwise, No acute cardiopulmonary disease. ATED BY: MERLINE ZHOU DO DICTATED DATE/TIME: 09/15/251701 SIGNED BY: MERLINE ZHOU DO SIGNED DATE/TIME: 09/15/251701 CC: Critical Care Note Critical Care Time?: No I personally scribed for LEONEL MCGINNIS DO ([email or web address]) on 09/15/25 at 16:46. Electronically submitted by Rand Thomas ([email or web address]). I personally scribed for LEONEL MCGINNIS DO ([email or web address]) on 09/15/25 at 16:58. Electronically submitted by Rand Tohmas ([email or web address]). I personally scribed for LEONEL MCGINNIS DO ([email or web address]) on 09/15/25 at 17:08. Electronically submitted by Rand Thomas ([email or web address]). LEONEL MCGINNIS DO Sep 15, 2025 16:46
[2025-09-15] MEDS: ALBUTEROL SULF 2.5 MG/0.5ML(0.5%) NEB SOLN NEB ONE (16:51)
[2025-09-15] MEDS: IPRATROPIUM BROM 0.5 MG/2.5ML INH SOL NEB ONE (16:51)
--- NOTE | 2025-09-15 17:05 | DVH ---
CHEST RADIOGRAPH INDICATION: weak/bodyaches TECHNIQUE: Single frontal view of the chest was obtained COMPARISON: XY CHEST PORTABLE on DOS: 06/29/25, XY CHEST PORTABLE on DOS: 04/15/25, XY CHEST PORTABLE on DOS: 03/08/25 FINDINGS: Lines and Tubes: None Lungs: No focal consolidation. Right Mid and lower lung zone linear densities. Pleura: No effusion. No pneumothorax. Cardiomediastinal contours: Unremarkable Bones: No acute osseous abnormality. IMPRESSION: Right mid and lower lung zone linear atelectasis /scarring. Otherwise, No acute cardiopulmonary disease.
[2025-09-15 17:32] LABS: Urine Protein, UAD 3+ (Negative)
[2025-09-15 17:35] LABS: COVID19 ANTIGEN SOFIA FIA NEGATIVE (NEGATIVE)
[2025-09-15] MEDS: SODIUM CHLORIDE 0.9% 1,000 ML IV ONE ×2 (18:00→18:39)
[2025-09-15 18:01] LABS: Hematocrit 41.2 % (36.0-46.0); Hemoglobin 13.9 g/dL (12.2-16.2); Mean Corpuscular Hemoglobin 29.3 pg (28.0-32.0); Mean Corpuscular Volume 87.2 fL (80.0-100.0); Nucleated Red Blood Cells % 0.1 %
[2025-09-15 18:16] LABS: Alanine Aminotransferase 23 U/L (7-40); Albumin 3.9 g/dL (3.2-4.8); Anion Gap 11 (5-15); BUN/Creatinine Ratio 12.3 (10.0-20.0); Bilirubin, Total 0.7 mg/dL (0.2-1.0); Blood Urea Nitrogen 17 mg/dL (9-23); Calcium 9.1 mg/dL (8.7-10.4); Carbon Dioxide 22 mmol/L (20-31); Chloride 100 mmol/L (98-107); Potassium 3.9 mmol/L (3.5-5.1); Total Protein 6.4 g/dL (5.7-8.2)
[2025-09-15 18:17] LABS: Alkaline Phosphatase 133 U/L (46-116); Sodium 133 mmol/L (136-145)
[2025-09-15 18:20] LABS: Glucose 521 mg/dL (74-106); Lactic Acid w/Reflex 5.0 mmol/L (0.4-2.0)
[2025-09-15] MEDS: methylPREDNISolone SOD SUCC 125 MG/2 ML VL IV ONE (18:47)
[2025-09-15] MEDS: InsuLIN REG 1unit/0.01ml Soln (100units/ml) IV ONE (18:55)
[2025-09-15 19:27] LABS: Base Excess -1.5 mmol/L (-2.0-3.0)
[2025-09-15] MEDS: OXYCODONE W/ ACETAMINOPHEN 5/325MG TABLET PO ONE (21:38)
[2025-09-16] MEDS ORDERED: FUROSEMIDE 40 MG TAB PO SCH (01:30)
[2025-09-16] MEDS ORDERED: ONDANSETRON HCL 4 MG/2 ML VIAL IV PRN (01:30)
--- NOTE | 2025-09-16 01:47 | DVHHPRES ---
History of Present Illness Resident Creating Document: MÓNICA HARRISON RESIDENT History of Present Illness Patient is a 50-year-old female with a past medical history of CHF, CKD, COPD,, diabetes mellitus, hypertension, hyperlipidemia who presented to the ED with chief complaints of right flank pain which is 8/10 intensity, nonradiating since 2 days, associated with dizziness and chills. Patient denies any shortness of breath, cough, cold, chest pain, nausea, vomiting, dysuria, hematuria. PMHx: CHF, CKD, COPD,, diabetes mellitus, hypertension, hyperlipidemia PSHx: Left nephrectomy, , right foot surgery Family history: reviewed, noncontributory Social history: smokes cigarettes, denies alcohol use, smokes marijuana Home medication: amitriptyline, amlodipine, furosemide, insulin, metoprolol tolerated, pregabalin Patient Seen at bedside. patient has 5/10 right flank pain which is nonradiating. Patient denies any nausea, vomiting, dysuria, hematuria, burning sensation, cold, cough, shortness of breath. Review of Systems Constitutional: Yes: Chills; No: Fever, Sweats, Weakness, Malaise, Other Eyes: No: Pain, Vision change, Conjunctivae inflammation, Eyelid inflammation, Other, Redness ENT: No: Ear pain, Ear discharge, Nose pain, Nose discharge, Nose congestion, Mouth pain, Mouth swelling, Throat pain, Throat swelling, Other Respiratory: No: Cough, Dry, Shortness of breath, SOB with excertion, Wheezing, Hemoptysis, Pleuritic Pain, Sputum, Wheezing, Other Cardiovascular: No: Chest Pain, Palpitations, Orthopnea, Paroxysmal Noc. Dyspnea, Edema, Lt Headedness, Other Gastrointestinal: Abdominal Pain, Other (right flank pain); No: Nausea, Vomiting, Diarrhea, Constipation, Melena, Hematochezia Genitourinary: No Dysuria, No Frequency, No Incontinence, No Hematuria, No Retention, No Other Musculoskeletal: No: other, neck pain, shoulder pain, arm pain, back pain, hand pain, leg pain, foot pain Skin: No: Rash, Lesions, Jaundice, Bruising, Other Neurological: No: Weakness, Numbness, Incoordination, Change in speech, Confusion, Seizures, Other Allergies: Uncoded Allergies: adhesive tape (Allergy, Unknown, 04/15/25) Medications Current Medications Medications Dose Ordered Sig/Luke Route Start Time Stop Time Status Last Admin Dose Admin Ceftriaxone Sodium/Dextrose 50 ml @ 50 mls/hr DAILY IV 09/16/25 10:00 UNV Enoxaparin Sodium 40 mg DAILY SC 09/16/25 10:00 UNV Amlodipine Besylate 5 mg DAILY PO 09/16/25 10:00 UNV Furosemide 40 mg UD PO 09/16/25 01:30 UNV Metoprolol Tartrate 25 mg DAILY PO 09/16/25 10:00 UNV Ondansetron HCl 4 mg Q4HP PRN IV 09/16/25 01:30 UNV Acetaminophen 650 mg Q6HR PO 09/16/25 06:00 UNV Exam Vital Signs Vital Signs Date Time Temp Pulse Resp B/P (MAP) Pulse Ox O2 Delivery O2 Flow Rate FiO2 09/16/25 00:00 98.4 72 16 161/94 (116) 94 98.4 09/15/25 18:40 Room Air 09/15/25 16:45 0 21 Exam General: Patient alert and oriented in person, place and time. Patient following commands. HEENT: Normocephalic, atraumatic, moist mucous membranes Respiratory/pulmonary: Clear lungs bilaterally, vesicular murmurs present in almost all lung babin, no associated crackles or wheezes. Cardiovascular: Normal heart sounds S1 and S2 with no associated murmurs Abdomen: Right CVA tenderness present on palpation, obese abdomen Extremities: There is no peripheral edema present at the lower extremities. Peripheral Pulses: 3+ Radial (R). 3+ Radial (L). 3+ Dorsalis pedis (R). 3+ Dorsalis pedis(L) Skin: No rashes or pruritus, there is no sacral edema present at this time. Neurological: Intact cranial nerves with no focal neurologic deficits Labs/Xrays Labs Test 09/15/25 22:19 09/15/25 19:20 09/15/25 19:12 09/15/25 17:46 Range/Units Lactic Acid Level 1.4 0.4-2.0 mmol/L Blood Gas Specimen Type Arterial Blood Gas Sample Site Right radial Blood Gas Patient Temperature 37.0 Arterial Blood Date Drawn [id number] Arterial Blood pH 7.574 *H 7.350-7.450 Arterial Blood Partial Pressure CO2 20.0 L 32.0-45.0 mmHg Arterial Blood Partial Pressure O2 83.7 83.0-108.0 mmHg Arterial Blood HCO3 18.1 L 21.0-28.0 mmol/L Arterial Blood Oxygen Saturation 97.5 94.0-98.0 % Arterial Blood Base Excess -1.5 -2.0-3.0 mmol/L Arterial Blood Oxyhemoglobin 95.4 94.0-98.0 % Arterial Blood Carboxyhemoglobin 1.6 H 0.5-1.5 % Arterial Blood Methemoglobin 0.6 0.0-1.5 % Arterial Blood Deoxyhemoglobin 2.4 0.0-5.0 % Koko Test Yes Blood Gas Total Hemoglobin 14.30 12.0-16.0 g/dL Blood Gas Modality Room air FiO2 % 21.0 Blood Gas Critical Value Read Back Yes Blood Gas Notified Whom Dawna barrios do Blood Gas Notified Time [id number] Blood Gas Notified By Berkley graham rrt Troponin I High Sensitivity 4 </=34 ng/L White Blood Count 5.0 4.4-10.8 10^3/uL Red Blood Count 4.72 4.0-5.20 10^6/uL Hemoglobin 13.9 12.2-16.2 g/dL Hematocrit 41.2 36.0-46.0 % Mean Corpuscular Volume 87.2 80.0-100.0 fL Mean Corpuscular Hemoglobin 29.3 28.0-32.0 pg Mean Corpuscular Hemoglobin Concent 33.6 32.0-36.0 g/dL Red Cell Distribution Width 14.6 H 11.8-14.3 % Platelet Count 166 140-450 10^3/uL Mean Platelet Volume 8.3 6.9-10.8 fL Neutrophils (%) (Auto) 63.8 37.0-80.0 % Lymphocytes (%) (Auto) 30.4 10.0-50.0 % Monocytes (%) (Auto) 4.6 0.0-12.0 % Eosinophils (%) (Auto) 0.8 0.0-7.0 % Basophils (%) (Auto) 0.4 0.0-2.0 % Neutrophils # (Auto) 3.2 1.6-8.6 10 ^3/uL Lymphocytes # (Auto) 1.5 0.4-5.4 10 ^3/uL Monocytes # (Auto) 0.2 0-1.3 10 ^3/uL Eosinophils # (Auto) 0 0-0.8 10 ^3/uL Basophils # (Auto) 0 0-0.2 10 ^3/uL Nucleated Red Blood Cells 0.1 % Sodium Level 133 L 136-145 mmol/L Potassium Level 3.9 3.5-5.1 mmol/L Chloride Level 100 98-107 mmol/L Carbon Dioxide Level 22 20-31 mmol/L Anion Gap 11 5-15 Blood Urea Nitrogen 17 9-23 mg/dL Creatinine 1.38 H 0.550-1.02 mg/dL Glomerular Filtration Rate Calc 46 >90 mL/min BUN/Creatinine Ratio 12.3 10.0-20.0 Serum Glucose 521 *H 74-106 mg/dL Calcium Level 9.1 8.7-10.4 mg/dL Total Bilirubin 0.7 0.2-1.0 mg/dL Aspartate Amino Transferase (AST) 30 13-40 U/L Alanine Aminotransferase (ALT) 23 7-40 U/L Alkaline Phosphatase 133 H 46-116 U/L Total Protein 6.4 5.7-8.2 g/dL Albumin 3.9 3.2-4.8 g/dL Test 09/15/25 17:18 09/15/25 16:45 Range/Units Urine Color Yellow Yellow Urine Clarity Turbid H Clear Urine pH 6.5 5.0-9.0 Urine Specific [place] 1.043 H 1.001-1.035 Urine Protein 3+ H Negative Urine Ketones Trace Negative Urine Blood 1+ H Negative /uL Urine Nitrite Negative Negative Urine Bilirubin 1+ H Negative Urine Urobilinogen 2 H Negative mg/dL Urine Leukocyte Esterase Negative Negative /uL Urine RBC 7 0 - 4 /hpf Urine Microscopic WBC 4 0-5 /HPF Urine Squamous Epithelial Cells Mod <5 /hpf Urine Bacteria None seen None Seen /hpf Urine Mucus Few None Seen Urine Glucose 4+ H Normal mg/dL Influenza Type A Antigen Negative Negative Influenza Type B Antigen Negative Negative SARS-CoV-2 Antigen (Rapid) Negative NEGATIVE SEPSIS Sepsis Screen Date sepsis recognized/suspect: Sep 15, 2025 Time Sepsis recognized/suspect: 1841 Recent Procedure: No On Antibiotic Therapy: No Respiratory Rate >20: No Heart Rate >90: No Temp<36 C (96.8 F) or >38.3 C: No SBP <90 or MAP <65 mmHG: No New Acute Mental Status Change: No Is the patient on CPAP, BIPAP,: No Physician Orders Abg W/ Co-Ox (09/15/25 19:06) Ceftriaxone 2gm/50ml (Rocephin 2gm/50ml) (09/16/25 01:30) Ceftriaxone 2gm/50ml (Rocephin 2gm/50ml) (09/16/25 10:00) Abdomen Without Contrast (09/16/25 01:20) Cardiac Diet-2gna,Lofat,Lochol (09/16/25 Breakfast) Enoxaparin Sodium (Lovenox) (09/16/25 10:00) Amlodipine Tablet (Norvasc Tablet) (09/16/25 10:00) Furosemide Tablet (Lasix Tablet) (09/16/25 01:30) Metoprolol Tartrate Tablet (Lopressor Ta (09/16/25 10:00) Admit (09/16/25:28) Ondansetron Hcl (Zofran) (09/16/25 01:30) Complete Blood Count (09/16/25 04:00) Comprehensive Metabolic Panel (09/16/25 04:00) Condition: Serious (09/16/25:28) Acetaminophen Tablet (Tylenol Tablet) (09/16/25 06:00) Oxygen By Nasal Cannula (09/16/25:) Stat Ekg For Chest Pain (09/16/25:) Notify Md Of Changes From Base (09/16/25:) Director Airport For 24 Hours (09/16/25:) Emergency Dysrhythmia Protocol (09/16/25:) Rhythm Strips Once Every Shift (09/16/25:) Vital Signs Date Time Temp Pulse Resp B/P (MAP) Pulse Ox O2 Delivery O2 Flow Rate FiO2 09/16/25 00:00 98.4 72 16 161/94 (116) 94 98.4 09/15/25 21:42 98.2 81 20 154/104 (121) 98 98.2 09/15/25 18:40 98.2 65 16 127/76 (93) 95 98.2 09/15/25 18:40 65 16 95 Room Air Laboratory Tests Test 09/15/25 17:46 09/15/25 19:52 09/15/25 22:19 Lactic Acid Level 5.0 mmol/L (0.4-2.0) *H 4.1 mmol/L (0.4-2.0) *H 1.4 mmol/L (0.4-2.0) White Blood Count 5.0 10^3/uL (4.4-10.8) Medications Medications Dose Ordered Sig/Luke Route Start Time Stop Time Status Last Admin Dose Admin Albuterol 2.5 mg ONCE ONCE NEB 09/15/25 16:45 09/15/25 16:46 DC 09/15/25 16:51 2.5 MG Insulin Human Regular 5 units ONCE ONCE IV 09/15/25 18:30 09/15/25 18:31 DC 09/15/25 18:55 5 UNITS Ipratropium [place] 1 mg ONCE ONCE NEB 09/15/25 16:45 09/15/25 16:46 DC 09/15/25 16:51 1 MG Methylprednisolone Sodium Succinate 125 mg ONCE ONCE IV 09/15/25 16:45 09/15/25 16:46 DC 09/15/25 18:47 125 MG Oxycodone/ Acetaminophen 1 tab ONCE ONCE PO 09/15/25 21:30 09/15/25 21:31 DC 09/15/25 21:38 1 TAB Sodium Chloride 1,000 ml @ 1,000 mls/hr Q1H ONCE IV 09/15/25 16:45 09/15/25 17:44 DC 09/15/25 18:00 1,000 MLS/HR Sodium Chloride 1,000 ml @ 1,000 mls/hr Q1H ONCE IV 09/15/25 18:30 09/15/25 19:29 DC 09/15/25 18:39 1,000 MLS/HR Assessment/Plan Assessment/Plan Acute complicated UTI Splenomegaly -CT abdomen showed Prior left nephrectomy. Trace nonspecific right perinephric fluid. No hydronephrosis of the right kidney. Mild splenomegaly at 14.0 cm in length. Fat containing low ventral abdominal wall hernia. 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 Galvez, patient and nurse Plan discussed with: Patient My Orders Orders - MÓNICA HARRISON RESIDENT Procedure Category Date Status Time Ceftriaxone 2gm/50ml PHA 09/16/25 In Process (Rocephin 2gm/50ml) 01:30 Ceftriaxone 2gm/50ml PHA 09/16/25 In Process (Rocephin 2gm/50ml) 10:[address] 09/16/25 Logged Contrast 01:20 Cardiac DIET 09/16/25 Transmitted Diet-2gna,Lofat,Lochol Breakfast Enoxaparin Sodium PHA 09/16/25 Logged (Lovenox) 10:00 Amlodipine Tablet PHA 09/16/25 In Process (Norvasc Tablet) 10:00 Furosemide Tablet PHA 09/16/25 In Process (Lasix Tablet) 01:30 Metoprolol Tartrate PHA 09/16/25 In Process Tablet (Lopressor Ta 10:00 Admit ADMIT 09/16/25 Transmitted 01:28 Ondansetron Hcl PHA 09/16/25 In Process (Zofran) 01:30 Complete Blood Count LAB 09/16/25 Logged 04:00 Comprehensive LAB 09/16/25 Logged Metabolic Panel 04:00 Condition: Serious [facility] 09/16/25 In Process 01:28 Acetaminophen Tablet PHA 09/16/25 In Process (Tylenol Tablet) 06:00 Oxygen By Nasal RT 09/16/25 Transmitted Cannula 01:28 Stat Ekg For Chest [facility] 09/16/25 In Process Pain 01:28 Notify Md Of Changes [facility] 09/16/25 In Process From Base 01:28 Director Airport For [facility] 09/16/25 In Process 24 Hours 01:28 Emergency Dysrhythmia [facility] 09/16/25 In Process Protocol 01:28 Rhythm Strips Once [facility] 09/16/25 In Process Every Shift 01:28 Visit Coding STANDARD RES Billing Provider: MARTHA GALVEZ MD Date of Service if different f: Sep 16, 2025 Common Visit Codes: [id number] INP/OBS CARE (HIGH) Secondary Visit Codes: [id number] CARE PLAN 30 MINUTES MÓNICA HARRISON RESIDENT Sep 16, 2025 01:47
--- NOTE | 2025-09-16 02:38 | DVH ---
COMPUTERIZED TOMOGRAPHY ABDOMEN AND PELVIS WITHOUT CONTRAST REASON FOR EXAM: Rule out pyelonephritis COMPARISON: US ABDOMEN LIMITED on DOS: 06/28/21 TECHNIQUE: Spiral scans were acquired from the diaphragm to the symphysis pubis without intravenous contrast administration. 2-D coronal and sagittal reformatted images were provided. Radiation optimization: All CT scans at this facility use at least one of these dose optimization techniques: Automated exposure control mA and/or kV adjustment per patient size (includes targeted exams where dose is matched to clinical indication) or iterative reconstruction. RADIATION DOSE: CTDI: 27.02 mGy DLP: 1647.76 mGy-cm FINDINGS: There is scattered platelike atelectasis at the lung bases. There is no pleural effusion. There is no pericardial effusion. The spleen is mildly enlarged at 14.0 cm in length. The liver is within normal limits for size and contour. Evaluation of the abdominal organs is suboptimal in the absence of intravenous contrast. No calcified gallstone is identified. Unenhanced appearance of the pancreas is grossly unremarkable. The adrenal glands appear grossly normal. The left kidney is surgically absent. There is a 1.3 cm simple appearing cyst at the superior pole of the right kidney that requires no dedicated follow-up. There is no hydronephrosis. There is trace nonspecific right perinephric fluid. The urinary bladder is decompressed but appears otherwise unremarkable. The uterus is absent. The ovaries are within normal limits. No free fluid is identified in the abdomen or pelvis. There is no pathologic lymphadenopathy by size criteria. The colonic stool burden is small. The appendix is normal. There is no distention of the small bowel. There is no abdominal aortic aneurysm. There is a fat containing low ventral abdominal wall hernia with a 2.5 x 3.5 cm fascial defect. There is a left upper quadrant fat containing spigelian hernia. No acute osseous abnormality is identified. IMPRESSION: Prior left nephrectomy. Trace nonspecific right perinephric fluid. No hydronephrosis of the right kidney. Mild splenomegaly at 14.0 cm in length. Fat containing low ventral abdominal wall hernia. Fat containing left upper quadrant spigelian hernia.
[2025-09-16 03:06] VITALS: BP 160/81; PULSE 55; RESP 20; TEMP 98.2; O2SAT 97
[2025-09-16 03:21] LABS: Hematocrit 41.7 % (36.0-46.0); Hemoglobin 13.8 g/dL (12.2-16.2); Mean Corpuscular Hemoglobin 29.2 pg (28.0-32.0); Mean Corpuscular Volume 88.0 fL (80.0-100.0); Nucleated Red Blood Cells % 0.1 %
[2025-09-16 03:58] LABS: Alanine Aminotransferase 19 U/L (7-40); Anion Gap 14 (5-15); BUN/Creatinine Ratio 9.1 (10.0-20.0); Blood Urea Nitrogen 12 mg/dL (9-23); Calcium 9.1 mg/dL (8.7-10.4); Chloride 102 mmol/L (98-107); Potassium 4.4 mmol/L (3.5-5.1); Total Protein 7.1 g/dL (5.7-8.2)
[2025-09-16 03:59] LABS: Bilirubin, Total 0.8 mg/dL (0.2-1.0)
[2025-09-16 04:14] LABS: Alkaline Phosphatase 134 U/L (46-116); Carbon Dioxide 17 mmol/L (20-31); Sodium 133 mmol/L (136-145)
[2025-09-16 04:16] LABS: Glucose 556 mg/dL (74-106)
[2025-09-16 04:21] LABS: Albumin 4.3 g/dL (3.2-4.8)
[2025-09-16 04:22] LABS: Cholesterol 288 mg/dL (< 200); HDL Cholesterol 58 mg/dL (40-59); Triglycerides 178 mg/dL (< 150)
[2025-09-16] MEDS ORDERED: DEXTROSE (50%) 50ML SYRG IV PRN ×2 (05:30→05:45)
[2025-09-16] MEDS: SODIUM CHLORIDE 0.9% 1,000 ML IV ONE (06:20)
[2025-09-16] MEDS: ACETAMINOPHEN 325 MG TAB PO SCH (06:20)
[2025-09-16] MEDS: LISINOPRIL 5 MG TAB PO SCH (06:39)
[2025-09-16] MEDS: PANTOPRAZOLE 40 MG TAB PO SCH (06:39)
[2025-09-16] MEDS: METOPROLOL SUCCINATE XL 50 MG TAB PO SCH (06:39)
[2025-09-16] MEDS: INSULIN LANTUS (GLARGINE) 1 /0.01ml (100units/ml) SC SCH (06:42)
[2025-09-16] MEDS: ACCU-CHEK COMFORT CURVE STRIP VI SCH (06:43)
[2025-09-16] MEDS: InsuLIN REG 1unit/0.01ml Soln (100units/ml) SC SCH ×2 (06:51→22:30)
[2025-09-16] MEDS ORDERED: ACCU-CHEK COMFORT CURVE STRIP VI SCH (07:00)
[2025-09-16] MEDS ORDERED: InsuLIN REG 1unit/0.01ml Soln (100units/ml) SC SCH ×2 (07:00→22:00)
[2025-09-16 09:00] VITALS: BP 149/96; PULSE 81; RESP 17; TEMP 98.2; O2SAT 93
[2025-09-16] MEDS: ENOXAPARIN SOD 40 MG/0.4 ML SYRINGE SC SCH (09:28)
[2025-09-16] MEDS ORDERED: METOPROLOL TARTRATE 25 MG TAB PO SCH (10:00)
[2025-09-16] MEDS: InsuLIN REG 1unit/0.01ml Soln (100units/ml) IV ONE (11:17)
[2025-09-16 12:50] VITALS: BP 157/106; PULSE 79; RESP 16; TEMP 98.5; O2SAT 93
--- NOTE | 2025-09-16 14:03 | DVHPN2 ---
Subjective Patient continues to report having generalized body aches. Reviewed: Care Plan, H&P, Labs, Medications Changes from previous H/P or p: No Changes General: Per HPI Eyes: No Pain, No Vision change, No Conjunctivae inflammation, No Eyelid inflammation, No Other, No Redness ENT: No Ear pain, No Ear discharge, No Nose pain, No Nose discharge, No Nose congestion, No Mouth pain, No Mouth swelling, No Throat pain, No Throat swelling, No Other Cardiovascular: No Chest Pain, No Palpitations, No Orthopnea, No Paroxysmal Noc. Dyspnea, No Edema, No Lt Headedness, No Other Respiratory: No Cough, No Dry, No Shortness of breath, No SOB with excertion, No Wheezing, No Hemoptysis, No Pleuritic Pain, No Sputum, No Other Gastrointestinal: No Nausea, No Vomiting; Abdominal Pain; No Diarrhea, No Constipation, No Melena, No Hematochezia; Other (right flank pain) Genitourinary: No Dysuria, No Frequency, No Incontinence, No Hematuria, No Retention, No Other Musculoskeletal: No other, No neck pain, No shoulder pain, No arm pain, No back pain, No hand pain, No leg pain, No foot pain Skin: No Rash, No Lesions, No Jaundice, No Bruising, No Other Objective Vitals Vital Signs Date Time Temp Pulse Resp B/P (MAP) Pulse Ox O2 Delivery O2 Flow Rate FiO2 09/16/25 12:50 98.5 79 16 157/106 (123) 93 98.5 09/16/25 08:00 Room Air* 0 21 General Appearance: Alert, Oriented X3, Cooperative, mild distress HEENT: Atraumatic, PERRLA Lungs: Clear to auscultation, Normal air movement Cardiovascular: Normal S1, Normal S2 Abdomen: Normal bowel sounds, Soft, No tenderness, No hepatospenomegaly, No masses Genitourinary: No Apparent Abnormalities Back: Flank Tenderness, Midline Tenderness Musculoskeletal: Normal sensory function, Normal motor function Extremities: No clubbing, No cyanosis, No edema, Normal pulses, No tenderness/swelling Neuro: Normal gait, Normal speech Skin: Dry, Intact Psych/Mental Status: Mental status NL, Mood NL Medications Current Medications Medications Dose Ordered Sig/Luke Route Start Time Stop Time Status Last Admin Dose Admin Ceftriaxone Sodium/Dextrose 50 ml @ 50 mls/hr DAILY IV 09/16/25 10:00 09/16/25 09:27 50 MLS/HR Enoxaparin Sodium 40 mg DAILY SC 09/16/25 10:00 09/16/25 09:28 40 MG Furosemide 40 mg UD PO 09/16/25 01:30 Ondansetron HCl 4 mg Q4HP PRN IV 09/16/25 01:30 Acetaminophen 650 mg Q6HR PO 09/16/25 06:00 09/16/25 13:08 650 MG Atorvastatin Calcium 40 mg HS PO 09/16/25 22:00 Pantoprazole Sodium 40 mg DAILY@0600 PO 09/16/25 06:00 09/16/25 06:39 40 MG Amlodipine Besylate 10 mg DAILY PO 09/16/25 10:00 09/16/25 09:29 10 MG Insulin Glargine 30 units HS SC 09/16/25 05:45 09/16/25 06:42 30 UNITS Diagnostic Test (Pha) 1 strip ACHS 09/16/25 07:00 09/16/25 10:24 1 STRIP Insulin Human Regular AC SC 09/16/25 07:00 09/16/25 10:17 20 UNITS Insulin Human Regular HS SC 09/16/25 22:00 Dextrose 50 ml UD PRN IV 09/16/25 05:45 Metoprolol Succinate 50 mg DAILY PO 09/16/25 05:45 09/16/25 09:30 50 MG Lisinopril 10 mg DAILY PO 09/16/25 05:45 09/16/25 09:30 10 MG Laboratory Results Laboratory Tests 09/16/25 02:44 Chemistry Test 09/15/25 17:46 09/16/25 02:44 Albumin 3.9 g/dL (3.2-4.8) 4.3 g/dL (3.2-4.8) Calcium Level 9.1 mg/dL (8.7-10.4) 9.1 mg/dL (8.7-10.4) Total Protein 6.4 g/dL (5.7-8.2) 7.1 g/dL (5.7-8.2) Lipid panel Test 09/16/25 02:44 Cholesterol Level 288 mg/dL (< 200) H HDL Cholesterol 58 mg/dL (40-59) Triglycerides Level 178 mg/dL (< 150) H Cardiac Markers Test 09/16/25 02:44 B-Type Natriuretic Peptide 60.96 pg/mL (0-100) LFT Test 09/15/25 17:46 09/16/25 02:44 Alanine Aminotransferase (ALT) 23 U/L (7-40) 19 U/L (7-40) Alkaline Phosphatase 133 U/L (46-116) H 134 U/L (46-116) H Aspartate Amino Transferase (AST) 30 U/L (13-40) 22 U/L (13-40) Total Bilirubin 0.7 mg/dL (0.2-1.0) 0.8 mg/dL (0.2-1.0) HgA1c, TSH Test 09/16/25 02:44 Hemoglobin A1c 12.0 % A1C (<5.7) H Urinalysis Test 09/15/25 17:18 Urine Color Yellow (Yellow) Urine Clarity Turbid (Clear) H Urine pH 6.5 (5.0-9.0) Urine Specific [place] 1.043 (1.001-1.035) Urine Protein 3+ (Negative) H Urine Ketones Trace (Negative) Urine Blood 1+ /uL (Negative) H Urine Nitrite Negative (Negative) Urine Bilirubin 1+ (Negative) H Urine Urobilinogen 2 mg/dL (Negative) H Urine Leukocyte Esterase Negative /uL (Negative) Urine RBC 7 /hpf (0 - 4) Urine Microscopic WBC 4 /HPF (0-5) Urine Squamous Epithelial Cells Mod /hpf (<5) Urine Bacteria None seen /hpf (None Seen) Urine Mucus Few (None Seen) Urine Glucose 4+ mg/dL (Normal) H Blood Gas Results Test 09/15/25 19:20 Arterial Blood pH 7.574 (7.350-7.450) FiO2 % 21.0 Labs and/or images reviewed: Labs reviewed by me, Image(s) reviewed by me Assessment/Plan Assessment/Plan Impression: -metabolic acidosis -diabetes mellitus, uncontrolled -morbid obesity -primary hypertension -dyslipidemia -chronic pain syndrome Plan: -CT scan abdomen and pelvis reviewed. Patient reports that hernias are chronic. She denies having any constipation or abdominal pain at this time -blood sugars uncontrolled. Patient given regular insulin 5 units IV x1. Continue with high-dose a.c./HS scale -start pain management with Percocet 01/3252 tablets q.6 hours -continue IV diuresis -check ESR, CRP -IV Rocephin Total time spent with patient discussing and formulating plan of care: 35 minutes. This medical document was created using an electronic medical record system with [employer] dictation system. Although this document has been carefully reviewed, there may still be some phonetic and typographical errors. These areas are purely typographical due to imperfections of the software programs, and do not reflect any compromise in the patient's medical care. Plan discussed with: Patient, Other (RN) My Orders Orders - SWAPNA RAMIREZ NP Procedure Category Date Status Time Consistent DIET 09/16/25 Transmitted Carb(Ccho)Diabetes Lunch Oxycodone W/ Acet PHA 09/16/25 Transmitted 5/325mg Tab (Percocet 14:00 Erythrocyte LAB 09/16/25 Transmitted Sedimentation Rate 13:57 C-Reactive Protein LAB 09/16/25 Transmitted 13:57 Date of Service: Sep 16, 2025 Billing Provider: SWAPNA RAMIREZ NP Common Visit Codes: [id number] INP/OBS CARE(HIGH) SWAPNA RAMIREZ NP Sep 16, 2025 14:03
[2025-09-16 16:54] VITALS: BP 126/90; PULSE 73; RESP 17; TEMP 98.4; O2SAT 93
[2025-09-16] MEDS: OXYCODONE W/ ACETAMINOPHEN 5/325MG TABLET PO PRN (17:20)
[2025-09-16 20:00] VITALS: PULSE 71; RESP 18
[2025-09-16 21:00] VITALS: BP 147/68; PULSE 75; RESP 14; TEMP 97; O2SAT 98
[2025-09-16] MEDS ORDERED: INSULIN LANTUS (GLARGINE) 1 /0.01ml (100units/ml) SC SCH (22:00)
[2025-09-16] MEDS: ATORVASTATIN 20 MG TAB PO SCH (22:28)
[2025-09-17 01:00] VITALS: BP 138/86; PULSE 75; RESP 12; TEMP 97; O2SAT 97
[2025-09-17 05:00] VITALS: BP 139/76; PULSE 64; RESP 18; TEMP 97.2; O2SAT 91
[2025-09-17 08:00] VITALS: RESP 18
[2025-09-17 09:00] VITALS: BP 143/81; PULSE 54; RESP 19; TEMP 97.5; O2SAT 96
[2025-09-17 13:00] VITALS: BP 144/98; PULSE 50; RESP 17; TEMP 97.5; O2SAT 94
--- NOTE | 2025-09-17 14:58 | DVHDS2 ---
Discharge Summary Date of Admission Sep 16, 2025 at 01:28 Date of Discharge: Sep 17, 2025 Admitting Diagnosis Complicated UTI Labs/Diagnostic Data: Laboratory Results Test 09/17/25 12:08 09/16/25 15:40 09/16/25 02:44 09/15/25 22:19 POC Glucose 306 mg/dl (70-106) Erythrocyte Sedimentation Rate 39 mm/hr (0-20) C-Reactive Protein High Sensitivity 1.76 mg/dL (<1.0) White Blood Count 4.9 10^3/uL (4.4-10.8) Red Blood Count 4.74 10^6/uL (4.0-5.20) Hemoglobin 13.8 g/dL (12.2-16.2) Hematocrit 41.7 % (36.0-46.0) Mean Corpuscular Volume 88.0 fL (80.0-100.0) Mean Corpuscular Hemoglobin 29.2 pg (28.0-32.0) Mean Corpuscular Hemoglobin Concent 33.2 g/dL (32.0-36.0) Red Cell Distribution Width 14.9 % (11.8-14.3) Platelet Count 185 10^3/uL (140-450) Mean Platelet Volume 8.3 fL (6.9-10.8) Neutrophils (%) (Auto) 84.9 % (37.0-80.0) Lymphocytes (%) (Auto) 13.1 % (10.0-50.0) Monocytes (%) (Auto) 1.6 % (0.0-12.0) Eosinophils (%) (Auto) 0.1 % (0.0-7.0) Basophils (%) (Auto) 0.3 % (0.0-2.0) Neutrophils # (Auto) 4.1 10 ^3/uL (1.6-8.6) Lymphocytes # (Auto) 0.6 10 ^3/uL (0.4-5.4) Monocytes # (Auto) 0.1 10 ^3/uL (0-1.3) Eosinophils # (Auto) 0 10 ^3/uL (0-0.8) Basophils # (Auto) 0 10 ^3/uL (0-0.2) Nucleated Red Blood Cells 0.1 % Sodium Level 133 mmol/L (136-145) Potassium Level 4.4 mmol/L (3.5-5.1) Chloride Level 102 mmol/L (98-107) Carbon Dioxide Level 17 mmol/L (20-31) Anion Gap 14 (5-15) Blood Urea Nitrogen 12 mg/dL (9-23) Creatinine 1.32 mg/dL (0.550-1.02) Glomerular Filtration Rate Calc 49 mL/min (>90) BUN/Creatinine Ratio 9.1 (10.0-20.0) Serum Glucose 556 mg/dL (74-106) Hemoglobin A1c 12.0 % A1C (<5.7) Calcium Level 9.1 mg/dL (8.7-10.4) Total Bilirubin 0.8 mg/dL (0.2-1.0) Aspartate Amino Transferase (AST) 22 U/L (13-40) Alanine Aminotransferase (ALT) 19 U/L (7-40) Alkaline Phosphatase 134 U/L (46-116) B-Type Natriuretic Peptide 60.96 pg/mL (0-100) Total Protein 7.1 g/dL (5.7-8.2) Albumin 4.3 g/dL (3.2-4.8) Triglycerides Level 178 mg/dL (< 150) Cholesterol Level 288 mg/dL (< 200) LDL Cholesterol 218 mg/dL (< 100) HDL Cholesterol 58 mg/dL (40-59) Lactic Acid Level 1.4 mmol/L (0.4-2.0) Test 09/15/25 19:20 09/15/25 19:12 09/15/25 17:18 09/15/25 16:45 Blood Gas Specimen Type Arterial Blood Gas Sample Site Right radial Blood Gas Patient Temperature 37.0 Arterial Blood Date Drawn [id number] Arterial Blood pH 7.574 (7.350-7.450) Arterial Blood Partial Pressure CO2 20.0 mmHg (32.0-45.0) Arterial Blood Partial Pressure O2 83.7 mmHg (83.0-108.0) Arterial Blood HCO3 18.1 mmol/L (21.0-28.0) Arterial Blood Oxygen Saturation 97.5 % (94.0-98.0) Arterial Blood Base Excess -1.5 mmol/L (-2.0-3.0) Arterial Blood Oxyhemoglobin 95.4 % (94.0-98.0) Arterial Blood Carboxyhemoglobin 1.6 % (0.5-1.5) Arterial Blood Methemoglobin 0.6 % (0.0-1.5) Arterial Blood Deoxyhemoglobin 2.4 % (0.0-5.0) Koko Test Yes Blood Gas Total Hemoglobin 14.30 g/dL (12.0-16.0) Blood Gas Modality Room air FiO2 % 21.0 Blood Gas Critical Value Read Back Yes Blood Gas Notified Whom Dawna barrios do Blood Gas Notified Time [id number] Blood Gas Notified By Berkley graham rrt Troponin I High Sensitivity 4 ng/L (</=34) Urine Color Yellow (Yellow) Urine Clarity Turbid (Clear) Urine pH 6.5 (5.0-9.0) Urine Specific [place] 1.043 (1.001-1.035) Urine Protein 3+ (Negative) Urine Ketones Trace (Negative) Urine Blood 1+ /uL (Negative) Urine Nitrite Negative (Negative) Urine Bilirubin 1+ (Negative) Urine Urobilinogen 2 mg/dL (Negative) Urine Leukocyte Esterase Negative /uL (Negative) Urine RBC 7 /hpf (0 - 4) Urine Microscopic WBC 4 /HPF (0-5) Urine Squamous Epithelial Cells Mod /hpf (<5) Urine Bacteria None seen /hpf (None Seen) Urine Mucus Few (None Seen) Urine Glucose 4+ mg/dL (Normal) Influenza Type A Antigen Negative (Negative) Influenza Type B Antigen Negative (Negative) SARS-CoV-2 Antigen (Rapid) Negative (NEGATIVE) Other Laboratory Tests 09/16/25 02:44 Brief Hx & Hospital Course: History of Present Illness Patient is a 50-year-old female with a past medical history of CHF, CKD, COPD,, diabetes mellitus, hypertension, hyperlipidemia who presented to the ED with chief complaints of right flank pain which is 8/10 intensity, nonradiating since 2 days, associated with dizziness and chills. Patient denies any shortness of breath, cough, cold, chest pain, nausea, vomiting, dysuria, hematuria. Course of hospitalization: Re-examination of the patient reveals that her pain is generalized. Patient also reports that she has not been checking her blood sugars because her Dexcom device is not working. Blood sugars were controlled with regular insulin sliding scale and Lantus. Pain management was reinstituted. CT scan of the abdomen and pelvis was reviewed with the patient, with noted chronic findings. Today, patient states that her overall symptoms have improved. She has been requesting to be discharged home. She is instructed to follow up with her PCP in the discharge Clinic within one week. Physical examination General: Alert and Oriented x3. No acute distress. Well-nourished. Obese Eyes: EOMI. Anicteric. HENT: Moist mucous membranes. Lungs: Clear to auscultation bilaterally. No accessory muscle use. Cardiovascular: Regular rate and rhythm. No murmur. No JVD. Abdomen: Soft, non-tender and non-distended. No palpable masses. Extremities: No edema. Non-tender. Skin: No rashes or lesions. Warm. Neurologic: No focal neurological deficits. CN II-XII grossly intact, but not individually tested. Psychiatric: Cooperative. Appropriate mood and affect. Total time spent with patient discussing and formulating plan of care: 35 minutes. This medical document was created using an electronic medical record system with [employer] dictation system. Although this document has been carefully reviewed, there may still be some phonetic and typographical errors. These areas are purely typographical due to imperfections of the software programs, and do not reflect any compromise in the patient's medical care. Condition at Discharge: Guarded Final Diagnosis/Problems List Hyperglycemia -metabolic acidosis -diabetes mellitus, uncontrolled -morbid obesity -primary hypertension -dyslipidemia -chronic pain syndrome Discharge Disposition: Home Discharge Instruct/Medications Diet: Consistent carbohydrate Activity: No Restrictions, As Tolerated Follow Up/Referral: Follow up with the PCP in 1-2 weeks Discharge Clinic within one week Medications: Continue all home medications Scheduled Amitriptyline Hcl (Amitriptyline Hcl), 150 MG PO HS, (Reported) Amlodipine Besylate (Amlodipine Besylate), 5 MG PO DAILY Azithromycin (Azithromycin), 250 MG PO DAILY Brexpiprazole (Rexulti), 4 MG PO HS, (Reported) Deutetrabenazine (Austedo), 12 MG PO DAILY, (Reported) Docusate Sodium (Colace), 100 MG PO BID Fenofibrate (Fenofibrate), 1 TAB PO DAILY, (Reported) Luqqtksrany-Ueimgnuhibbn-Hjegn (Trelegy Ellipta 100-62.5-25 Mcg/INH), 1 PUFF IN DAILY Furosemide (Lasix), 40 MG PO UD Insulin Glargine (Basaglar Kwikpen), 25 UNIT SC HS Insulin Lispro (Humalog Kwikpen), 5 UNITS SC AC Lamotrigine (Lamictal), 1 TAB PO DAILY, (Reported) Levalbuterol HCl (Levalbuterol), 1.25 MG IN BID Metoprolol Tartrate (Metoprolol Tartrate), 1 TAB PO DAILY, (Reported) Prednisone (Prednisone), 40 MG PO DAILY Pregabalin (Pregabalin), 1 CAP PO TID, (Reported) Sodium Zirconium Cyclosilicate (Lokelma), 10 GM PO DAILY@BREAKFAST Scheduled PRN Oxycodone W/ Acetaminophen (Percocet 5/325MG), 1 TAB PO QID PRN Miscellaneous Medications Fluoxetine Hcl (Fluoxetine Hcl), PO, (Reported) Durable Medical Equipment Blood Glucose Monitoring Suppl (Blood Glucose System Gaurav), PKG XX 5XD, (DME) Insulin Pen Needle (Bd Pen Needle/Leta 2Nd Ge 32G X 4 mm), MIS XX 5XD, (DME) 36 Discharge Statement: "Patient was advised to return to the ER or call 911 if any headaches, dizziness, shortness of breath, chest pain, abdominal pain, bleeding, fevers, or worsening of medical condition. Patient was counseled about treatment plan, medications, possible side effects, patientverbalized understanding. All questions were answered to the best of my ability. This discharge took greater then 30 minutes in planning, reviewing documentation, counseling the patient, and discussing with other team members." ASSESSMENT ASSESSMENT Assessment Hyperglycemia Date of Service: Sep 17, 2025 Billing Provider: SWAPNA RAMIREZ NP Common Visit Codes: 86373-BXB/OBS DISCH DAY >30min SWAPNA RAMIREZ NP Sep 17, 2025 14:58
[2025-09-17 16:47] VITALS: BP 140/86; PULSE 75; RESP 17; TEMP 97.7; O2SAT 98
== END 2025-09-17 17:00 | disposition home or self-care (01) | DRG 420 ==
LOC: ER 16:17 → OVERFLOW 09-16 01:28 → TELE-WESTW 09-16 05:34
PROVIDERS: ATTEND Emergency Medicine
DX: E11.65 Type 2 diabetes mellitus with hyperglycemia (principal); E87.20 Acidosis, unspecified; I13.0 Hypertensive heart and chronic kidney disease with heart failure and stage 1 through stage 4 chronic kidney disease, or unspecified chronic kidney disease; N30.00 Acute cystitis without hematuria; E66.01 Morbid (severe) obesity due to excess calories; J44.9 Chronic obstructive pulmonary disease, unspecified; E11.22 Type 2 diabetes mellitus with diabetic chronic kidney disease; N18.30 Chronic kidney disease, stage 3 unspecified; Z20.822 Contact with and (suspected) exposure to COVID-19; E78.5 Hyperlipidemia, unspecified; G89.4 Chronic pain syndrome; E87.1 Hypo-osmolality and hyponatremia; F17.210 Nicotine dependence, cigarettes, uncomplicated; Z98.891 History of uterine scar from previous surgery; Z90.710 Acquired absence of both cervix and uterus; Z68.43 Body mass index [BMI] 50.0-59.9, adult
CPT/HCPCS: 36415; 36600; 71045; 74150; 80053; 80061; 81001; 82805; 82962; 83036; 83605; 83880; 84484; 85025; 85652; 86141; 87426; 87804; 94640; 96365; 96375; G0378; J1815